=== PATIENT | male | born 1970 | race Caucasian/White ===

== ENCOUNTER 2019-04-03 21:39 | Inpatient (IN) | payer BC, SELFPAY ==
[2019-04-03] VITALS (12 sets, daily range): BP systolic 176–270; BP diastolic 102–163; PULSE 113–127; RESP 14–20; TEMP 36.7–36.8; O2SAT 93–98; BMI 39.4
--- NOTE | 2019-04-03 21:57 | CT_ITS ---
STUDY: CT BRAIN WITHOUT CONTRAST REASON FOR EXAM: Male, 48 years old. Visual changes. RADIATION DOSAGE (If Supplied By Facility): CTDIvol = ( 44.99 ) mGy, DLP = ( 796.11 ) mGycm TECHNIQUE: Transaxial CT imaging of the brain was performed without administration of intravenous contrast material. Individualized dose optimization techniques were used for this CT. COMPARISON: No relevant priors. FINDINGS: Normal soft tissue structures. Normal calvarium. Normal size ventricles and extra-axial spaces for the patient's age. Normal white matter tracts of the cerebral hemispheres. There is a small to moderate size lacunar infarct of the left caudate nucleus. Normal brainstem. Normal cerebellum. There is no intracranial hemorrhage. There are no findings of an acute ischemic infarction. Normal visualized paranasal sinuses. CT/Brain/Head without Contrast IMPRESSION: No acute abnormality, but there is lacunar infarct of the left caudate nucleus. Electronically Signed: Andrae Ambrocio MD at 22:47 EDT , Service support ,
--- NOTE | 2019-04-03 21:57 | EKG12_ITS ---
Test Reason : CP Blood Pressure : / mmHG Vent. Rate : 124 BPM Atrial Rate : 124 BPM P-R Int : 140 ms QRS Dur : 100 ms QT Int : 322 ms P-R-T Axes : 058 -46 137 degrees QTc Int : 462 ms Sinus tachycardia Left axis deviation Left ventricular hypertrophy ST/T Wave Abnormality: Consider: Medication Effect, Metabolic Effect, Myocardial Ischemia Abnormal ECG No previous ECGs available Confirmed by TARIQ CHAVEZ, PRESTON ([id number]), online content editor DENA DURÁN ([id number]) on 04/16/2019 1:07:19 PM Referred By: Delmy Molina Confirmed By:PRESTON POTTER MD
--- NOTE | 2019-04-03 21:58 | RAD_ITS ---
STUDY: X-RAY CHEST REASON FOR EXAM: Male, 48 years old. Vision problems. TECHNIQUE: Single AP portable view of the chest. COMPARISON: None. FINDINGS: The lungs are clear and expanded. There is no demonstrated pleural abnormality. Normal size heart. Normal mediastinum and ratna. Normal visualized pulmonary arteries. Normal visualized aortic arch and descending thoracic aorta. Normal visualized thoracic spine. Normal visualized ribs, clavicles, and shoulders. There is no demonstrated abnormality of the visualized soft tissue structures of the upper abdomen. RAD/Chest 1 View IMPRESSION: Normal x-ray examination of the chest. Electronically Signed: Andrae Ambrocio MD at 22:18 EDT , Service support ,
--- NOTE | 2019-04-03 22:01 | ED.RN ---
NO OLD EKGS IN MUSE
--- NOTE | 2019-04-03 22:11 | ED.RN ---
PER DR. FERREIRA VERBAL ORDER PT IS NOT A STROKE TEAM. PT WITH HTN. WILL CONTINUE TO MONITOR.
[2019-04-03 22:15] LABS: Absolute Lymphocyte Count 2.91 X10^3/uL (0.83-4.51); Absolute Neutrophil Count 5.2 X10^3/uL (2.0-7.7); Basophil# 0.05 X10^3/uL; Basophil% 0.5 % (0-1); Eosinophil# 0.25 X10^3/uL; Eosinophils% 2.6 % (0-5); Hematocrit 44.2 % (40-54); Hemoglobin 15.2 g/dL (13.0-16.5); Lymphocyte # 2.91 X10^3/ul (4.0); Lymphocyte % 30.8 % (19-41); Mean Corp Hgb Conc 34.4 g/dL (32-36); Mean Corpuscular Hgb 30.1 pg (27.0-32.0); Mean Corpuscular Volume 87.5 fL (80-94); Mean Platelet Vol. 10.8 fl (6.2-12.0); Monocyte# 0.96 X10^3/uL; Monocyte% 10.2 % (0-10); NRBC Flagged by Analyzer 0 % (0-5); Neutrophil # 5.24 X10^3/uL (2.7-7.7); Neutrophil % 55.6 % (47-70); Platelet Count 285 K/mm3 (150-450); RBC Distribution Width CV 12.9 % (11.6-14.6); RBC Distribution Width SD 41.1 fl (35.1-43.9); Red Blood Count 5.05 M/mm3 (4.6-6.2); White Blood Count 9.4 K/mm3 (4.4-11.0)
[2019-04-03 22:26] LABS: Bedside Glucose 143 mg/dL (70-110)
[2019-04-03 22:28] LABS: International Normalized Ratio 0.9; Prothrombin Time (Protime)PT. 12.3 SECONDS (11.7-14.9)
[2019-04-03 22:29] LABS: Partial Thromboplast Time 28.2 Seconds (24.1-36.2)
[2019-04-03 22:37] LABS: Anion Gap 7 (5-15); BUN 16 mg/dL (7-18); BUN/Creat Ratio 14.3 RATIO (10-20); Calcium,Total 9.8 mg/dL (8.5-10.1); Chloride 103 mmol/L (98-107); Creatinine, Serum 1.12 mg/dL (0.70-1.30); EST Glomerular Filtration Rate 75 mL/min (>60); Est Glom Filt Rate - Afr Amer 90 mL/min (>60); Estimated Creatinine Clearance 74.37 ml/min; Glucose 168 mg/dL (74-106); Potassium 3.2 mmol/L (3.5-5.1); Sodium Level 138 mmol/L (136-145)
--- NOTE | 2019-04-03 22:47 | ED.RN ---
PT BP IMPROVING 210/119. DR. FERREIRA AWARE. WILL CONTINUE TO MONITOR. PT RESTING COMFORTABLE. RESPIRES EVEN AND UNLABORED. WILL CONTINUE TO MONITOR.
--- NOTE | 2019-04-03 22:55 | ED.VIS.EYE ---
History of Present Illness Chief Complaint: Neuro S/Sx Narrative: Patient presenting for evaluation secondary to a visual loss. Patient was at a concert, and he stated that he had significant flashing type vision from his right eye only. This was spontaneous and then spontaneously resolved. Patient states that following that he had a loss of vision in his right eye, and then it came back but it is basically fuzzy throughout all of the visual rasmussen. He denies that there is any sort of visual field cuts.No association with the left eye. No speech changes numbness or weakness. Past Medical History - Allergies and Home Meds Allergies/Adverse Reactions: Allergies Penicillins Allergy (Verified 04/03/19 21:42) Unknown Primary Care Physician: Blake Calixto DO [Primary Care Provider] - Past Medical History: - - Patient denies medical history Smoking Status: Current every day smoker Review of Systems Eyes: Reports: Blurred vision - right Physical Exam Eyelid: Normal inspection Right Conjunctiva/Sclera: Normal inspection Right Cornea: Normal inspection Extraocular Motion: Normal exam Pupils: PERRL Posterior Segment: Normal fundoscopic exam Vital Signs/Narrative: Vital Signs Temp Pulse Resp BP BP Pulse Ox 04/03/19 22:44 113 H 18 210/119 H 93 04/03/19 22:40 125 H 20 H 242/134 H 94 04/03/19 22:35 125 H 20 H 242/134 H 94 04/03/19 22:16 113 H 18 234/140 H 97 04/03/19 22:10 113 H 18 243/140 H 97 04/03/19 21:48 125 H 14 253/161 H 98 04/03/19 21:39 98.0 F 124 H 16 270/163 H 96 Inital Vital Signs reviewed: Yes General: Well nourished, Well developed Head: Normocephalic, Atraumatic. Negative for: Tenderness ENT: Moist mucous membranes, No rhinorrhea Neck: Supple, Nontender Cardiovascular: Regular rate, Regular rhythm, No murmurs Respiratory: No distress, CTA bilaterally, Chest nontender Abdomen: Soft, Nontender, Nondistended, Normal bowel sounds Back: Nontender, Normal Inspection Extremities: Nontender, No edema Skin: Normal color, No rash Neurological: Alert, Oriented x3, Cranial nerves II-XII grossly intact, Normal Strength, Normal Sensation, - - NIH stroke scale is 1 secondary to right-sided visual changes Psychological: Normal affect Diagnostic/Tx/Re-eval - Medical Decision Making Patient presented secondary to visual changes. Patient's vision changes are not really a hemianopsia, or quadrantanopia, and his NIH stroke scale is 1 so stroke team was not activated. EKG demonstrates a sinus tachycardia with left axis deviation rate of 109 LVH and some nonspecific ST changes no evidence of acute ischemia or arrhythmia. CBC chemistry and troponin were unremarkable. Chest x-ray unremarkable. CT brain shows no evidence of bleeding and shows a distant caudate nucleus stroke. This would not correlate with the patient's current symptoms. Patient was immediately placed on a Cardene drip due to his profound hypertension and his blood pressure was titrated to within 15% reduction of his presenting blood pressure. Repeat blood pressure upon initiation of the patient's drip was found to be 210 systolic and he did continue to have some improvement of his visual symptoms. Patient's for endoscopy does not seem consistent with a retinal vein occlusion or retinal artery occlusion. I performed a bedside ultrasound which shows no evidence of retinal detachment. Patient likely has an element of hypertensive emergency at this point. Patient will be admitted to intensive care for further work-up and treatment. I discussed this with the hospitalist. Disposition: Admit to ICU Critical care time (excluding procedures): 30-74 minutes ED Disposition - Plan for ED Patient: Disposition: Acute Care Hospital [facility] Diagnosis: Hypertensive emergency, Blurred vision, right eye
--- NOTE | 2019-04-03 22:59 | HP.PCM_ITS ---
History of Present Illness Date of Admission: 04/03/19 Chief Complaint: blurred vision in right eye The patient is a 48 year old M with no significant past medical history. He was admitted through the ED on 04/03/2019 with a complaint of blurred vision in his right eye. Patient states she was at a concert and suddenly had blurring of the vision in his right eye. Lasted for few minutes and got better. However about an hour later the blurring of the vision recurred and so he decided to come into the ED. He had never had symptoms like these before and denied having any floaters or feeling like a curtain was coming down front of his eyes. He denied any headache, shortness of breath, palpitations, chest pain, diarrhea or vomiting. Patient states he was on antihypertensive medication but was taken off of them about a year ago by his primary care doctor as his blood pressure normalized. He last checked his blood pressure about a month ago and states was elevated but he does not remember how high it was. On reviewing the ED, blood pressure was 210/126 and his heart rate was 127. Respiratory rate was 15. Chemistry was significant for potassium of 3.2 and CBC was unremarkable. Initial troponin was negative. Brain CT showed no acute intracranial pathology and showed an old lacunar infarct. Chest x-ray showed no acute cardia pulmonary process. He was started on nicardipine drip in the ED and has been admitted to the ICU to be managed for hypertensive emergency. [] Past Medical History Allergies Penicillins Allergy (Verified 04/03/19 21:42) Unknown Surgical History: no surgical history Psychiatric History: No pertinent psych hx Lives: With Family Smoking Status: Current every day smoker Tobacco Use: Pipe Alcohol: Occasional Drugs: None - *Family History Maternal History Items: Heart Disease, Hypertension Review of Systems Constitutional: Denies: Chills, Fever, Malaise, Weight Change, Fatigue Eyes: Reports: Blurred vision, Vision Change. Denies: Double vision, Pain, Redness HEENT: Denies: Head Aches, Sinus Congestion, Sinus Drainage Cardiovascular: Denies: Chest Pain, Palpitations Respiratory: Denies: Cough, Shortness of Breath, Shortness of breath at rest, Sputum production Gastrointestinal: Denies: Abdominal Pain, Nausea, Vomiting Genitourinary: Denies: Dysuria Musculoskeletal: Denies: Joint Pain, Joint Tenderness Skin: Denies: Rash, Wounds Neurological: Reports: Blurred vision. Denies: Double vision, Change in Speech, Slurred speech, Confusion, Focal weakness, Headaches, Incoordination, Numbness, Tingling, Tremor Psychiatric: Denies: Anxiety, Depression, Homicidal Ideations, Suicidal Ideations Hematologic/ Lymphatic: Denies: Easy Bruising, Easy Bleeding VTE Information - Inpt Only VTE Present on Admission: No VTE Pharm Prophylaxis ordered?: Yes Patient Problems: Active and Suspected Problems Hypertensive emergency (Acute) Blurred vision, right eye (Acute) - Physical Exam General: Alert, Oriented x3, Cooperative, No apparent distress HEENT: Atraumatic, PERRLA, EOMI, Normocephalic Oral: Dry Mucosa Neck: Supple, No JVD, Negative Carotid Bruits Lungs: Clear to auscultation, Normal air movement, No rhonchi, No wheeze, No rales Cardiovascular: Normal S1, Normal S2, No murmurs, Tachycardic Abdomen: Bowel Sounds Present, Soft, Non Tender, Non-Distended, No Hepato- splenomegaly Extremities: No clubbing, No cyanosis, No edema, Capillary Refill Less than 3 Seconds Skin: No rashes, No breakdown Musculoskeletal: No Tenderness to Palpation of Joints or Extremities Lymphatic: No Cervical, Supraclavicular, or Inguinal Adenopathy Neurological: Cranial nerves II-XII grossly intact, Neuro grossly intact, Motor Exam 5/5 strength throughout Psych/Mental Status: Normal Affect, Appropriate, Alert and oriented to time, place, person, mood and affect Vital Signs Temp Pulse Resp BP Pulse Ox 98.0 F 127 H 15 210/126 H 96 04/03/19 21:39 04/03/19 22:58 04/03/19 22:58 04/03/19 22:58 04/03/19 22:58 Oxygen Delivery Method Room Air Weight: 244 lb 4.355 oz Body Mass Index (BMI) 39.4 Finger Stick Blood Glucose 143 Laboratory Tests Past 24 Hrs 04/03/19 04/03/19 04/03/19 22:05 22:05 22:05 WBC 9.4 RBC 5.05 Hgb 15.2 Hct 44.2 MCV 87.5 MCH 30.1 MCHC 34.4 RDW Std Deviation 41.1 RDW Coeff of Tony 12.9 Plt Count 285 MPV 10.8 Immature Gran % (Auto) 0.300 Neut % (Auto) 55.6 Lymph % (Auto) 30.8 [place] % (Auto) 10.2 H Eos % (Auto) 2.6 Baso % (Auto) 0.5 Absolute Neuts (auto) 5.2 Absolute Lymphs (auto) 2.91 Nucleated RBC % 0 PT 12.3 INR 0.9 APTT 28.2 Sodium 138 Potassium 3.2 L Chloride 103 Carbon Dioxide 28.0 Anion Gap 7 BUN 16 Creatinine 1.12 Estim Creat Clear Calc 74.37 Est GFR (MDRD) Af Amer 90 Est GFR (MDRD) Non-Af 75 BUN/Creatinine Ratio 14.3 Glucose 168 H Calcium 9.8 Troponin I < 0.015 POC Glucose 04/03/19 22:18 POC Glucose 143 H Diagnostic Data Brain CT 04/03/19 21:57 IMPRESSION: No acute abnormality, but there is lacunar infarct of the left caudate nucleus. Electronically Signed: Andrae Ambrocio MD at 22:47 EDT , Service support , Chest X-Ray 04/03/19 21:58 IMPRESSION: Normal x-ray examination of the chest. Electronically Signed: Andrae Ambrocio MD at 22:18 EDT , Service support , Assessment/Plan All Active Problems Hypertensive emergency (Acute) Blurred vision, right eye (Acute) 48 y/o male admitted with a complaint of blurred vision of his right eye 1. Hypertensive emergency * admit to ICU * BP on admission was 270/163 in ED, and had come down to 210/126 at time of review * used to be on BP meds ~ 1 year ago, but was taken off the meds by his PCP, according to patient * blurred vision had improved by time of review in ED * on nicardipine drip; titrate to reduce BP slowly; target is to reduce by ~ 25% of systolic BP in first hour, and to continue dropping BP slowly * in light of patient's persistent tachycardia, which nicardipine can worsen, will switch to labetalol drip for goal BP of >/=160/100mmHg * get 2D echo * BP in right arm is 194/113 and in left arm is 176/102; however, he has no chest pain whatsoever, leading to aortic dissection being very low on list of differentials * once BP stabilises, will transition to oral meds. * check Urine tox; patient is adamant he has never taken cocaine or any other recreational drug * consult corduroy cutter operator * 2. Hypokalemia: K is 3.2. will replace and monitor DVT prophylaxis: lovenox Code Visit Inpatient E&M: 88398 Init Hosp L3
--- NOTE | 2019-04-03 23:39 | ED.RN ---
PER DR VALENTIN RN TO CHECK BP ON BILATERAL ARMS. RT ARM WAS 194/113 LEFT ARM 176/102. DR VALENTIN INFORMED. RM TO MONITOR PT.
[2019-04-04] VITALS (35 sets, daily range): BP systolic 132–188; BP diastolic 81–112; PULSE 71–132; RESP 13–92; TEMP 36.4–36.8; O2SAT 18–98; BMI 39.0
[2019-04-04 00:35] LABS: Cholesterol 273 mg/dL (200); High Density Lipoprotein 40 mg/dL; Triglycerides 231 mg/dL; Very Low Density Lipoprotein 46 mg/dL (5-40)
--- NOTE | 2019-04-04 01:18 | EKG12_ITS ---
Test Reason : Blood Pressure : / mmHG Vent. Rate : 109 BPM Atrial Rate : 109 BPM P-R Int : 146 ms QRS Dur : 100 ms QT Int : 362 ms P-R-T Axes : 049 -36 079 degrees QTc Int : 487 ms Sinus tachycardia Left axis deviation Voltage criteria for left ventricular hypertrophy Nonspecific ST and T wave abnormality Abnormal ECG Confirmed by ALONZO CHAVEZ, JEAN ([id number]), managing editor SYLVIA KRAMER ([id number]) on 04/07/2019 1:18:32 PM Referred By: Delmy Molina Confirmed By:CHRISTOPH ROSADO MD
[2019-04-04] MEDS: 0.9% NaCl Peripheral Flush Adult/Peds IV ×3 (01:29→08:00)
[2019-04-04 02:04] LABS: Mucous, Urine 0 SEEN /hpf (<or=2+); Red Blood Cells-Urine 0 SEEN /hpf (0-5)
[2019-04-04 02:07] LABS: Color, Urine Yellow (Yellow); Glucose, Dipstick 100 mg/dl (Normal); Ketone-Dipstick 5 mg/dl (Negative); Leukocyte Esterase-Dipstick Negative /ul (Negative); Nitrite-Dipstick Negative (Negative); Occult Blood-Urine Negative /ul (Negative); Protein-Dipstick 15 mg/dl (Negative); Urine Bilirubin Dipstick Negative (Negative); Urine Clarity Clear (Clear); Urine Urobilinogen Normal (Normal)
[2019-04-04 02:14] LABS: Bacteria RARE /hpf (None Seen); Squamous Epithelial Cells - UA 0-5 SEEN /hpf (0-5); White Blood Cells 0-5 SEEN /hpf (0-5)
[2019-04-04 02:19] LABS: Amphetamine Urine VISTA NEGATIVE (<1000 ng/mL); Barbiturate Urine VISTA NEGATIVE (< 200 ng/mL); Benzodiazepine Urine VISTA NEGATIVE (< 200 ng/mL); Cocaine Urine VISTA NEGATIVE (< 300 ng/mL); Ecstacy Urine VISTA NEGATIVE (< 500 ng/mL); Methadone Urine VISTA NEGATIVE (< 300 ng/mL); PCP Urine VISTA NEGATIVE (< 25 ng/mL); THC Urine VISTA NEGATIVE (< 50 ng/mL); Vista UDS pH Range 6
[2019-04-04 04:41] LABS: Anion Gap 8 (5-15); BUN 13 mg/dL (7-18); BUN/Creat Ratio 10.6 RATIO (10-20); Calcium,Total 8.5 mg/dL (8.5-10.1); Chloride 105 mmol/L (98-107); Creatinine, Serum 1.23 mg/dL (0.70-1.30); EST Glomerular Filtration Rate 67 mL/min (>60); Est Glom Filt Rate - Afr Amer 81 mL/min (>60); Estimated Creatinine Clearance 67.72 ml/min; Glucose 193 mg/dL (74-106); Potassium 3.6 mmol/L (3.5-5.1); Sodium Level 141 mmol/L (136-145)
[2019-04-04 04:50] LABS: Absolute Lymphocyte Count 1.34 X10^3/uL (0.83-4.51); Absolute Neutrophil Count 7.1 X10^3/uL (2.0-7.7); Basophil# 0.03 X10^3/uL; Basophil% 0.3 % (0-1); Eosinophil# 0.07 X10^3/uL; Eosinophils% 0.8 % (0-5); Hematocrit 40.6 % (40-54); Hemoglobin 13.7 g/dL (13.0-16.5); Lymphocyte # 1.34 X10^3/ul (4.0); Lymphocyte % 14.4 % (19-41); Mean Corp Hgb Conc 33.7 g/dL (32-36); Mean Corpuscular Hgb 29.7 pg (27.0-32.0); Mean Corpuscular Volume 88.1 fL (80-94); Monocyte% 8.6 % (0-10); NRBC Flagged by Analyzer 0 % (0-5); Neutrophil # 7.05 X10^3/uL (2.7-7.7); Neutrophil % 75.5 % (47-70); Platelet Count 251 K/mm3 (150-450); RBC Distribution Width CV 12.8 % (11.6-14.6); RBC Distribution Width SD 41.1 fl (35.1-43.9); Red Blood Count 4.61 M/mm3 (4.6-6.2); White Blood Count 9.3 K/mm3 (4.4-11.0)
[2019-04-04] MEDS: Metoprolol Tartrate 25 MG Tablet PO ×3 (05:53→21:37)
--- NOTE | 2019-04-04 05:55 | ECHOD_ITS ---
Reason For Study: HTN Procedure This was a 2D Doppler, Color Flow transthoracic echocardiogram. Exam performed portable in ICU/CCU. Left Ventricle Normal LV size. Concentric left ventricular hypertrophy. The estimated ejection fraction is 55 %. No evidence for diastolic dysfunction. No regional wall motion abnormalities noted. Right Ventricle Normal RV size. Normal systolic function. Atria Normal left atrium. Normal right atrium. No doppler evidence for ASD. Mitral Valve There is no mitral valve stenosis. Trivial mitral valve insufficiency. Tricuspid Valve There is no tricuspid stenosis. Unable to estimate RV systolic pressure due to inadequate jet, pulmonary artery pressure probably normal. Aortic Valve Trisinus/trileaflet aortic valve. There is no aortic stenosis. No aortic valve insufficiency. Pulmonic Valve There is no pulmonic valvular stenosis. No pulmonic valve insufficiency. Great Vessels Normal aortic root. Pericardium/Pleural No pericardial effusion. MMode/2D Measurements & Calculations LVIDd: 4.7 cm IVSd: 1.6 cm LA dimension: 3.9 cm LVIDs: 3.7 cm LVPWd: 1.7 cm FS: 22.7 % LAV(MOD-bp): 54.5 ml LA A4 area: 17.9 cm2 RA A4 area: 12.1 cm2 LAV(MOD-bp) Indexed: 25.0 ml/m2 LAV(MOD-sp2): 61.0 ml LAV(MOD-sp4): 50.3 ml Time Measurements MV dec time: 0.19 sec Doppler Measurements & Calculations MV E max keyshawn: 87.7 cm/sec Lat Peak E' Keyshawn: 6.8 cm/sec Med Peak E' Keyshawn: 6.7 cm/sec MV A max keyshawn: 98.2 cm/sec E/E' lat: 12.8 E/E' med: 13.1 MV E/A: 0.89 MV V2 max: 89.3 cm/sec MV P1/2t max keyshawn: 67.3 cm/sec Ao V2 max: 141.2 cm/sec MV max P.2 mmHg MV P1/2t: 73.2 msec Ao max P.0 mmHg MV V2 mean: 50.0 cm/sec MV dec slope: 269.2 cm/sec2 Ao V2 mean: 97.0 cm/sec MV mean P.2 mmHg MVA(P1/2t): 3.0 cm2 Ao mean P.3 mmHg MV V2 VTI: 21.0 cm Ao V2 VTI: 25.2 cm LV V1 max: 98.2 cm/sec PA V2 max: 95.3 cm/sec LV V1 max P.9 mmHg LV V1 mean P.9 mmHg LV V1 mean: 62.9 cm/sec LV V1 VTI: 19.7 cm Interpretation Summary The estimated ejection fraction is 55 %. No evidence for diastolic dysfunction. Ordering Physician: Delmy Molina Referring Physician: Blake Gilbert Performed By: Jadiel Aguirre RCS
--- NOTE | 2019-04-04 06:30 | CON.PCM_ITS ---
Capacity - Capacity Assessment Tool Can the patient make a choice & communicate that choice?: Yes Can the patient understand benefits, risks and alternatives?: Yes Can the patient make a logical, rational choice?: Yes Reason for Consult Date of Consultation: 04/04/19 Reason for Consultation: Hypertensive emergency History of Present Illness: The patient is a 48-year-old male, with a history as outlined below, who presented to the emergency department on April 03 with acute onset visual disturbances in his right eye. The patient was a attending a concert when the symptoms initially began. Initially, the blurriness in the patient's right eye was transient and resolved on its own. However, it later recurred and this prompted the patient to seek medical care. The patient is currently followed by a primary care provider, Dr. Calixto, in [place]. The patient states that he was last seen by his primary care provider approximately 1 year ago. He does report that he was previously on treatment for hypertension, but that he discontinued the medications quite some time ago on his own. At his follow-up office visit 1 year ago with his primary care provider, in the setting of weight loss, he was apparently told by that provider that he did not need to be on antihypertensives at that time. The patient denies a history of any vision or eye related issues. He does currently utilize tobacco products in the form of a pipe, typically 1 time per day. He denies any illicit drug use. He consumes alcohol on a social basis. While he does report interval improvement in his right-sided vision, he does report some residual blurriness. On presentation to the emergency department, the patient was noted to be afebrile, tachycardic with heart rates in the 120s and profoundly hypertensive with a presenting documented blood pressure of 270/163 mmHg. He was, nevertheless, maintaining appropriate oxygen saturations on room air. Laboratory evaluation revealed no evidence of a leukocytosis. Coagulation profile was within normal limits. Chemistry profile was notable only for a potassium of 3.2. Initial troponin was negative. Toxicology screen was negative. Head CT was obtained and revealed a small to moderate sized lacunar infarct of the left caudate nucleus. Plain film chest x-ray revealed no acute cardiopulmonary process. The patient was subsequently placed on a continuous Cardene infusion and admitted to the medical intensive care unit for management of hypertensive emergency. Overnight, the patient was eventually transition from a Cardene infusion to a labetalol infusion due to persistently elevated heart rates. The patient's blood pressure control has improved as has his tachycardia. The patient was also started on p.o. metoprolol 25 mg, for which he received his first dose this morning at 0600 hrs. Past Medical History Allergies Penicillins Allergy (Verified 04/03/19 21:42) Unknown Surgical History: no surgical history Psychiatric History: No pertinent psych hx Lives: With Family Smoking Status: Current every day smoker Tobacco Use: Pipe Alcohol: Occasional Drugs: None - *Family History Maternal History Items: Heart Disease, Hypertension Review of Systems Constitutional: Denies: Chills, Fever Eyes: Reports: Blurred vision, Vision Change HEENT: Denies: Head Aches, Sinus Congestion, Sinus Drainage Cardiovascular: Denies: Chest Pain, Palpitations Respiratory: Denies: Cough, Shortness of breath at rest, Sputum production Gastrointestinal: Denies: Abdominal Pain, Nausea, Vomiting Genitourinary: Denies: Dysuria Musculoskeletal: Denies: Joint Pain, Joint Tenderness Skin: Denies: Rash, Wounds Neurological: Reports: Blurred vision Psychiatric: Denies: Anxiety, Depression, Homicidal Ideations, Suicidal Ideations Hematologic/ Lymphatic: Denies: Easy Bruising, Easy Bleeding Patient Problems: Active and Suspected Problems Hypertensive emergency (Acute) Blurred vision, right eye (Acute) Objective: The patient's most recent lab work, culture data and imaging studies have all been personally reviewed. - Physical Exam General: Alert, Oriented x3, Cooperative, No apparent distress HEENT: Atraumatic, PERRLA, Normocephalic Oral: No Gingival or Mucosal Lesions/ Ulcerations Neck: Supple, No Nodes, Trachea Midline Lungs: Normal air movement, No rhonchi, No wheeze, No rales Cardiovascular: Regular rate, Regular Rhythm, Normal S1, Normal S2, No murmurs Abdomen: Bowel Sounds Present, Soft, Non Tender, Obese Extremities: No clubbing, No cyanosis, No edema Skin: No breakdown Musculoskeletal: No Tenderness to Palpation of Joints or Extremities, No Muscle Wasting Lymphatic: No Cervical, Supraclavicular, or Inguinal Adenopathy Neurological: Cranial nerves II-XII grossly intact, Neuro grossly intact Psych/Mental Status: Alert and oriented to time, place, person, mood and affect Vital Signs Temp Pulse Resp BP Pulse Ox 97.6 F L 82 15 144/82 H 98 08/16/19 04:00 04/04/19 06:00 04/04/19 06:00 04/04/19 06:00 04/04/19 06:00 Oxygen Delivery Method Room Air Weight: 242 lb 11.663 oz Body Mass Index (BMI) 39.0 Finger Stick Blood Glucose 143 Intake and Output for Last 24 Hours 04/02/19 04/03/19 04/04/19 23:59 23:59 23:59 Intake Total 1141 / 1141 Output Total 550 / 550 Balance 591 / 591 Laboratory Tests Past 24 Hrs 04/03/19 04/03/19 04/03/19 22:05 22:05 22:05 WBC 9.4 RBC 5.05 Hgb 15.2 Hct 44.2 MCV 87.5 MCH 30.1 MCHC 34.4 RDW Std Deviation 41.1 RDW Coeff of Tony 12.9 Plt Count 285 MPV 10.8 Immature Gran % (Auto) 0.300 Neut % (Auto) 55.6 Lymph % (Auto) 30.8 [place] % (Auto) 10.2 H Eos % (Auto) 2.6 Baso % (Auto) 0.5 Absolute Neuts (auto) 5.2 Absolute Lymphs (auto) 2.91 Nucleated RBC % 0 PT 12.3 INR 0.9 APTT 28.2 Sodium 138 Potassium 3.2 L Chloride 103 Carbon Dioxide 28.0 Anion Gap 7 BUN 16 Creatinine 1.12 Estim Creat Clear Calc 74.37 Est GFR (MDRD) Af Amer 90 Est GFR (MDRD) Non-Af 75 BUN/Creatinine Ratio 14.3 Glucose 168 H Calcium 9.8 Troponin I < 0.015 Triglycerides Cholesterol LDL Cholesterol VLDL Cholesterol HDL Cholesterol Urine Color Urine Clarity Urine pH Ur Specific [place] Urine Protein Urine Glucose (UA) Urine Ketones Urine Occult Blood Urine Nitrite Urine Bilirubin Urine Urobilinogen Ur Leukocyte Esterase Urine RBC Urine WBC Ur Squamous Epith Cells Urine Bacteria Urine Mucus Urine Opiates Screen Urine Methadone Screen Ur Barbiturates Screen Ur Phencyclidine Scrn Ur Amphetamines Screen U Methamphetamin-MDMA U Benzodiazepines Scrn Urine Cocaine Screen U Cannabinoids Screen Ur Drug Screen Comment 04/03/19 04/04/19 04/04/19 22:05 01:25 01:55 WBC RBC Hgb Hct MCV MCH MCHC RDW Std Deviation RDW Coeff of Tony Plt Count MPV Immature Gran % (Auto) Neut % (Auto) Lymph % (Auto) [place] % (Auto) Eos % (Auto) Baso % (Auto) Absolute Neuts (auto) Absolute Lymphs (auto) Nucleated RBC % PT INR APTT Sodium Potassium Chloride Carbon Dioxide Anion Gap BUN Creatinine Estim Creat Clear Calc Est GFR (MDRD) Af Amer Est GFR (MDRD) Non-Af BUN/Creatinine Ratio Glucose Calcium Troponin I 0.030 Triglycerides 231 H Cholesterol 273 H LDL Cholesterol 187 H VLDL Cholesterol 46 H HDL Cholesterol 40 Urine Color Urine Clarity Urine pH Ur Specific [place] Urine Protein Urine Glucose (UA) Urine Ketones Urine Occult Blood Urine Nitrite Urine Bilirubin Urine Urobilinogen Ur Leukocyte Esterase Urine RBC Urine WBC Ur Squamous Epith Cells Urine Bacteria Urine Mucus Urine Opiates Screen NEGATIVE Urine Methadone Screen NEGATIVE Ur Barbiturates Screen NEGATIVE Ur Phencyclidine Scrn NEGATIVE Ur Amphetamines Screen NEGATIVE U Methamphetamin-MDMA NEGATIVE U Benzodiazepines Scrn NEGATIVE Urine Cocaine Screen NEGATIVE U Cannabinoids Screen NEGATIVE Ur Drug Screen Comment 04/04/19 04/04/19 04/04/19 01:55 04:10 04:10 WBC 9.3 RBC 4.61 Hgb 13.7 Hct 40.6 MCV 88.1 MCH 29.7 MCHC 33.7 RDW Std Deviation 41.1 RDW Coeff of Tony 12.8 Plt Count 251 MPV 11.0 Immature Gran % (Auto) 0.400 Neut % (Auto) 75.5 H Lymph % (Auto) 14.4 L [place] % (Auto) 8.6 Eos % (Auto) 0.8 Baso % (Auto) 0.3 Absolute Neuts (auto) 7.1 Absolute Lymphs (auto) 1.34 Nucleated RBC % 0 PT INR APTT Sodium 141 Potassium 3.6 Chloride 105 Carbon Dioxide 28.0 Anion Gap 8 BUN 13 Creatinine 1.23 Estim Creat Clear Calc 67.72 Est GFR (MDRD) Af Amer 81 Est GFR (MDRD) Non-Af 67 BUN/Creatinine Ratio 10.6 Glucose 193 H Calcium 8.5 Troponin I Triglycerides Cholesterol LDL Cholesterol VLDL Cholesterol HDL Cholesterol Urine Color Yellow Urine Clarity Clear Urine pH 6.0 Ur Specific [place] 1.020 Urine Protein 15 H Urine Glucose (UA) 100 H Urine Ketones 5 H Urine Occult Blood Negative Urine Nitrite Negative Urine Bilirubin Negative Urine Urobilinogen Normal Ur Leukocyte Esterase Negative Urine RBC 0 SEEN Urine WBC 0-5 SEEN Ur Squamous Epith Cells 0-5 SEEN Urine Bacteria RARE Urine Mucus 0 SEEN Urine Opiates Screen Urine Methadone Screen Ur Barbiturates Screen Ur Phencyclidine Scrn Ur Amphetamines Screen U Methamphetamin-MDMA U Benzodiazepines Scrn Urine Cocaine Screen U Cannabinoids Screen Ur Drug Screen Comment 04/04/19 04:10 WBC RBC Hgb Hct MCV MCH MCHC RDW Std Deviation RDW Coeff of Tony Plt Count MPV Immature Gran % (Auto) Neut % (Auto) Lymph % (Auto) [place] % (Auto) Eos % (Auto) Baso % (Auto) Absolute Neuts (auto) Absolute Lymphs (auto) Nucleated RBC % PT INR APTT Sodium Potassium Chloride Carbon Dioxide Anion Gap BUN Creatinine Estim Creat Clear Calc Est GFR (MDRD) Af Amer Est GFR (MDRD) Non-Af BUN/Creatinine Ratio Glucose Calcium Troponin I 0.120 H Triglycerides Cholesterol LDL Cholesterol VLDL Cholesterol HDL Cholesterol Urine Color Urine Clarity Urine pH Ur Specific [place] Urine Protein Urine Glucose (UA) Urine Ketones Urine Occult Blood Urine Nitrite Urine Bilirubin Urine Urobilinogen Ur Leukocyte Esterase Urine RBC Urine WBC Ur Squamous Epith Cells Urine Bacteria Urine Mucus Urine Opiates Screen Urine Methadone Screen Ur Barbiturates Screen Ur Phencyclidine Scrn Ur Amphetamines Screen U Methamphetamin-MDMA U Benzodiazepines Scrn Urine Cocaine Screen U Cannabinoids Screen Ur Drug Screen Comment POC Glucose 04/03/19 22:18 POC Glucose 143 H Clinical Impression(s) from Imaging Studies Brain CT 04/03/19 21:57 IMPRESSION: No acute abnormality, but there is lacunar infarct of the left caudate nucleus. Electronically Signed: Andrae Abmrocio MD at 22:47 EDT , Service support , Chest X-Ray 04/03/19 21:58 IMPRESSION: Normal x-ray examination of the chest. Electronically Signed: Andrae Ambrocio MD at 22:18 EDT , Service support , Assessment/Plan Active and Suspected Problems Hypertensive emergency (Acute) Blurred vision, right eye (Acute) RECOMMENDATIONS: 1. Continue labetalol drip and wean as tolerated. 2. The patient artery received p.o. metoprolol. Recommend starting lisinopril as well. 3. Complete tobacco cessation is advisable. 4. Continue appropriate DVT prophylaxis. IMPRESSIONS: 1. Hypertensive emergency Blood pressures have improved this morning on a continuous labetalol infusion. Given the significantly elevated pressures noted on presentation, it is highly likely that the patient will require a multidrug p.o. combination to control his hypertension. He has already been started on metoprolol this morning. Would recommend considering the initiation of an EDUARD inhibitor at this time. 2. Hypokalemia Electrolyte repletion as ordered. Recheck levels in the morning. 3. Obesity/tobacco dependency Complicates care, management, recovery and prognosis. Continued attempts at weight loss along with tobacco cessation is strongly recommended. This note was generated with [employer] software. It may contain incorrect words, spelling, and punctuation that were not noted in checking the note before signing.
[2019-04-04] MEDS: Lisinopril 10 MG Tablet PO (08:00)
--- NOTE | 2019-04-04 09:36 | PCM.PN.HOSP ---
Patient Problems: Active and Suspected Problems Hypertensive emergency (Acute) Blurred vision, right eye (Acute) Subjective: Feels much better than he did when he came in, still has a little blurry vision though this is improving as well. Vitals/I&O's: Vital Signs Temp Pulse Resp BP Pulse Ox 98.3 F 86 15 132/87 H 97 04/04/19 08:00 04/04/19 08:00 04/04/19 08:00 04/04/19 08:00 04/04/19 08:00 Oxygen Delivery Method Room Air Weight: 242 lb 11.663 oz Body Mass Index (BMI) 39.0 Finger Stick Blood Glucose 143 Intake and Output for Last 24 Hours 04/02/19 04/03/19 04/04/19 23:59 23:59 23:59 Intake Total 1141 / 1141 Output Total 550 / 550 Balance 591 / 591 General: Alert, Oriented x3, Cooperative, No apparent distress HEENT: Atraumatic, PERRLA, EOMI, Normocephalic Oral: Moist Mucosa Neck: Supple, No JVD Lungs: Clear to auscultation, Normal air movement, No rhonchi, No wheeze, No rales Cardiovascular: Regular rate, Regular Rhythm, Normal S1, Normal S2, No murmurs Abdomen: Soft, Non Tender, Non-Distended, No Hepato-splenomegaly Extremities: No edema, Capillary Refill Less than 3 Seconds Skin: No rashes, No breakdown Neurological: Neuro grossly intact, Sensory exam intact to light touch and pain Psych/Mental Status: Normal Affect, Appropriate Laboratory Results 04/03/19 22:05: WBC 9.4, RBC 5.05, Hgb 15.2, Hct 44.2, MCV 87.5, MCH 30.1, MCHC 34.4, RDW Std Deviation 41.1, RDW Coeff of Tony 12.9, Plt Count 285, MPV 10.8, Immature Gran % (Auto) 0.300, Neut % (Auto) 55.6, Lymph % (Auto) 30.8, [place] % (Auto) 10.2 H, Eos % (Auto) 2.6, Baso % (Auto) 0.5, Absolute Neuts (auto) 5.2, Absolute Lymphs (auto) 2.91, Nucleated RBC % 0 04/03/19 22:05: PT 12.3, INR 0.9, APTT 28.2 04/03/19 22:05: Sodium 138, Potassium 3.2 L, Chloride 103, Carbon Dioxide 28.0, Anion Gap 7, BUN 16, Creatinine 1.12, Estim Creat Clear Calc 74.37, Est GFR (MDRD) Af Amer 90, Est GFR (MDRD) Non-Af 75, BUN/Creatinine Ratio 14.3, Glucose 168 H, Calcium 9.8, Troponin I < 0.015 04/03/19 22:05: Triglycerides 231 H, Cholesterol 273 H, LDL Cholesterol 187 H, VLDL Cholesterol 46 H, HDL Cholesterol 40 04/03/19 22:18: POC Glucose 143 H 04/04/19 01:25: Troponin I 0.030 04/04/19 01:55: Urine Opiates Screen NEGATIVE, Urine Methadone Screen NEGATIVE, Ur Barbiturates Screen NEGATIVE, Ur Phencyclidine Scrn NEGATIVE, Ur Amphetamines Screen NEGATIVE, U Methamphetamin-MDMA NEGATIVE, U Benzodiazepines Scrn NEGATIVE, Urine Cocaine Screen NEGATIVE, U Cannabinoids Screen NEGATIVE, Ur Drug Screen Comment 04/04/19 01:55: Urine Color Yellow, Urine Clarity Clear, Urine pH 6.0, Ur Specific [place] 1.020, Urine Protein 15 H, Urine Glucose (UA) 100 H, Urine Ketones 5 H, Urine Occult Blood Negative, Urine Nitrite Negative, Urine Bilirubin Negative, Urine Urobilinogen Normal, Ur Leukocyte Esterase Negative, Urine RBC 0 SEEN, Urine WBC 0-5 SEEN, Ur Squamous Epith Cells 0-5 SEEN, Urine Bacteria RARE, Urine Mucus 0 SEEN 04/04/19 04:10: WBC 9.3, RBC 4.61, Hgb 13.7, Hct 40.6, MCV 88.1, MCH 29.7, MCHC 33.7, RDW Std Deviation 41.1, RDW Coeff of Tony 12.8, Plt Count 251, MPV 11.0, Immature Gran % (Auto) 0.400, Neut % (Auto) 75.5 H, Lymph % (Auto) 14.4 L, [place] % (Auto) 8.6, Eos % (Auto) 0.8, Baso % (Auto) 0.3, Absolute Neuts (auto) 7.1, Absolute Lymphs (auto) 1.34, Nucleated RBC % 0 04/04/19 04:10: Sodium 141, Potassium 3.6, Chloride 105, Carbon Dioxide 28.0, Anion Gap 8, BUN 13, Creatinine 1.23, Estim Creat Clear Calc 67.72, Est GFR (MDRD) Af Amer 81, Est GFR (MDRD) Non-Af 67, BUN/Creatinine Ratio 10.6, Glucose 193 H, Calcium 8.5 04/04/19 04:10: Troponin I 0.120 H Current Medications Dextrose (D50w Syringe) 0 gm IV X1 PRN; Protocol PRN Reason: Hypoglycemia Enoxaparin Sodium (Lovenox) 40 mg SC DAILY@1000 ZOLTAN Glucagon () 1 mg IM .X1 PRN PRN Reason: Hypoglycemia Labetalol HCl 200 mg/ Sodium (Chloride) 250 mls @ 37.5 mls/hr CONT INF .[id number] [facility] Last Admin: 04/04/19 07:43 Dose: 37.5 mls/hr Documented by: Lisinopril (Zestril) 10 mg PO DAILY [facility] Last Admin: 04/04/19 08:00 Dose: 10 mg Documented by: Metoprolol Tartrate (Lopressor (Beta Charmaine)) 25 mg PO BID [facility] Last Admin: 04/04/19 05:53 Dose: 25 mg Documented by: Sodium Chloride () 10 - 40 ml IV UD PRN PRN Reason: SALINE FLUSH Last Admin: 04/04/19 08:00 Dose: 10 ml Documented by: Medical Necessity - Tobacco Use Smoking Status: Current every day smoker Tobacco Use: Pipe Assessment/Plan All Active Problems Hypertensive emergency (Acute) Blurred vision, right eye (Acute) 1. Hypertensive emergency -On admission his blood pressure was 270/163 in the ER -He is now sitting in the 130s systolic after being started on labetalol drip as well as given lisinopril -He said he used to be on lisinopril however made him feel cold, I discussed this with him but he is okay with proceeding with the lisinopril if it is necessary. -Echo is pending -He does have hyperglycemia likely consistent with diabetes though no formal diagnosis -Troponin did increase to 0.120, and this was likely secondary to demand ischemia secondary to hypertension, consult to cardiology DVT: Lovenox Code Visit Inpatient E&M: 18800 Subs Hosp L2
--- NOTE | 2019-04-04 09:45 | CASEMGMT ---
RN CM Assessment Presentation: HTN crisis. Blurred vision. Intro role of CM and purpose of RN CM assessment. Demographics, PCP and Pharmacy verified. PCP: Dr. Enmanuel Lozano Specialists: none [facility]erred [facility] Insurance: Ceci Prescription Benefit: yes LNOK: [place], son Living Arrangements: Pt lives independently. No care needs identified. Transportation: drives DME: none HHC: none Patient DC goals: Home DC PLAN: Home
--- NOTE | 2019-04-04 11:50 | CON.PCM_ITS ---
<Ramesh Blair - Last Filed: 04/04/19 11:50> Problem List (1) Hypertensive emergency Status: Acute Reason for Consult Date of Consultation: 04/04/19 Reason for Consultation: Hypertension History of Present Illness: The patient is a 48 year old M with no significant past medical history. He has been treated for hypertension previously, but due to significant weight loss his medication was discontinued and followed by primary care physician. Patient noted yesterday vision change. He presented to the Emergency Department for further evaluation. His blood pressure was noted to be 270/163 mmHg. He underwent a head CT scan that showed no acute abnormality, but a small to moderate sized lacunar infarct of the left caudate nucleus. No intracranial hemorrhage or acute ischemic infarction was noted. His initial troponin was negative. His toxicology screen was negative. His chest x-ray was negative for acute cardiopulmonary process. He was placed on a Cardene/Nicardipine infusion and admitted for blood pressure control. He was later noted to be tachycardic and transition to labetalol infusion. Cardiology was consulted for further recommendation. Past Medical History Allergies/Adverse Reactions: Allergies Penicillins Allergy (Verified 04/03/19 21:42) Unknown Surgical History: no surgical history Psychiatric History: No pertinent psych hx - *Family History Maternal History Items: Heart Disease, Hypertension Lives: With Family Smoking Status: Current every day smoker Tobacco Use: Pipe Alcohol: Occasional Drugs: None Review of Systems - Review of Systems General: Denies: Fever, Fatigue, Malaise, Chills, Weakness HEENT: Reports: Vision Change - Improving Cardiovascular: Reports: Chest Discomfort with Exertion - 2 weeks ago. Denies: Chest Discomfort, Chest Discomfort at Rest, Chest Pressure, Chest Tightness, Chest Heaviness, Shortness of Breath, Shortness of Breath at Rest, Shortness of Breath with Exertion, Orthopnea, PND, Peripheral Edema, Palpitations, Lightheadedness, Dizziness, Near Syncope, Syncope Respiratory: Denies: Cough Neurological: Denies: Dizziness Subjectve: Patient was seen and evaluated. He states that his vision is improving. He denies any current episodes of chest pain or shortness of breath. Overall, he states feeling much improved since admission. Objective: Vital Signs Temp Pulse Resp BP Pulse Ox 98.3 F 84 18 161/94 H 96 04/04/19 08:00 04/04/19 10:18 04/04/19 10:00 04/04/19 10:18 04/04/19 10:00 Oxygen Delivery Method Room Air Weight: 242 lb 11.663 oz Body Mass Index (BMI) 39.0 Finger Stick Blood Glucose 143 Intake and Output for Last 24 Hours 04/02/19 04/03/19 04/04/19 23:59 23:59 23:59 Intake Total 1141 / 1141 Output Total 550 / 550 Balance 591 / 591 General: Healthy Appearing, Awake, Alert, Oriented x 3, Cooperative HEENT: Atraumatic Oral: Moist Mucosa Neck: No JVD Lungs: Clear to auscultation Cardiovascular: Regular Rhythm, Normal S1, Normal S2, No Murmurs, No Rubs, No Gallops Vascular: No Carotid Bruits Abdomen: Bowel Sounds Present, Soft Extremities: No Cyanosis, No Clubbing, No edema, Normal Capillary Refill Musculoskeletal: No Erythema Neurological: No Focal Motor or Sensory Deficit Psych/Mental Status: Appropriate 04/03/19 22:05: WBC 9.4, RBC 5.05, Hgb 15.2, Hct 44.2, MCV 87.5, MCH 30.1, MCHC 34.4, Plt Count 285, MPV 10.8, Immature Gran % (Auto) 0.300, Neut % (Auto) 55.6, Lymph % (Auto) 30.8, [place] % (Auto) 10.2 H, Eos % (Auto) 2.6, Baso % (Auto) 0.5, Absolute Neuts (auto) 5.2, Nucleated RBC % 0 04/03/19 22:05: PT 12.3, INR 0.9, APTT 28.2 04/03/19 22:05: Sodium 138, Potassium 3.2 L, Chloride 103, Carbon Dioxide 28.0, Anion Gap 7, BUN 16, Creatinine 1.12, Est GFR (MDRD) Af Amer 90, Est GFR (MDRD) Non-Af 75, BUN/Creatinine Ratio 14.3, Glucose 168 H, Calcium 9.8, Troponin I < 0.015 04/03/19 22:05: Triglycerides 231 H, Cholesterol 273 H, LDL Cholesterol 187 H, VLDL Cholesterol 46 H, HDL Cholesterol 40 04/04/19 01:25: Troponin I 0.030 04/04/19 01:55: Urine Color Yellow, Urine Clarity Clear, Urine pH 6.0, Ur Specific [place] 1.020, Urine Protein 15 H, Urine Glucose (UA) 100 H, Urine Ketones 5 H, Urine Occult Blood Negative, Urine Nitrite Negative, Urine Biliru bin Negative, Urine Urobilinogen Normal, Ur Leukocyte Esterase Negative, Urine RBC 0 SEEN, Urine WBC 0-5 SEEN 04/04/19 04:10: WBC 9.3, RBC 4.61, Hgb 13.7, Hct 40.6, MCV 88.1, MCH 29.7, MCHC 33.7, Plt Count 251, MPV 11.0, Immature Gran % (Auto) 0.400, Neut % (Auto) 75.5 H, Lymph % (Auto) 14.4 L, [place] % (Auto) 8.6, Eos % (Auto) 0.8, Baso % (Auto) 0.3, Absolute Neuts (auto) 7.1, Nucleated RBC % 0 04/04/19 04:10: Sodium 141, Potassium 3.6, Chloride 105, Carbon Dioxide 28.0, Anion Gap 8, BUN 13, Creatinine 1.23, Est GFR (MDRD) Af Amer 81, Est GFR (MDRD) Non-Af 67, BUN/Creatinine Ratio 10.6, Glucose 193 H, Calcium 8.5 04/04/19 04:10: Troponin I 0.120 H Rhythm: EKG: ECHO: Stress Test: Cardiac Cath: PCI: CT Surgery: Holter monitor: EPS: PPM: CXR: Chest CT Scan: Assessment/Plan 1. Hypertensive emergency Patient's blood pressure is much improved. His continuous infusion medications have been discontinued and he has been started on metoprolol tartrate 25 mg p.o. twice daily and lisinopril 10 mg p.o. daily. His blood pressure is improved, though still slightly elevated. Given his extreme elevation, it is recommended to not lower blood pressure too quickly. He may require continual medication titration over time. This may be most appropriate on an outpatient basis. He will proceed with echocardiogram to evaluate LV function and size. Based on such results further recommendation will be made. 2. Chest pain Patient does acknowledge episode of chest pain approximately 2 weeks during exertion. This resolved with rest and has not reoccurred. His cardiac enzyme trend has been <0.015, 0.030, and 0.120. His EKG has been negative for acute ST and T wave changes. His nonspecific ST changes are most likely due to LVH, which will be assessed during echocardiogram. His slightly increased cardiac enzymes is most likely due to elevated blood pressure. He was asked to consider outpatient stress test with either cardiology office or primary care physician to ensure no coronary artery disease etiology. He does have risk factors which include family history of hypertension, smoking history, and obesity. His case was discussed further with Dr. Hobbs. Thank you for allowing us to participate in the patients plan of care, if you have any questions please do not hesitate to call. This note was generated using a voice recognition system and there may be i ncorrect words, spelling or punctuation that were not noted when reviewing the office note prior to saving. <Momo Hobbs - Last Filed: 04/04/19 15:16> Reason for Consult History of Present Illness: The patient is a 48 year old M [] Objective: Vital Signs Temp Pulse Resp BP Pulse Ox 98.0 F 71 18 138/85 H 98 04/04/19 14:00 04/04/19 14:00 04/04/19 14:00 04/04/19 14:00 04/04/19 14:00 Oxygen Delivery Method Room Air Weight: 242 lb 11.663 oz Body Mass Index (BMI) 39.0 Finger Stick Blood Glucose 143 Intake and Output for Last 24 Hours 04/02/19 04/03/19 04/04/19 23:59 23:59 23:59 Intake Total 1671 / 1671 Output Total 550 / 550 Balance 1121 / 1121 04/03/19 22:05: WBC 9.4, RBC 5.05, Hgb 15.2, Hct 44.2, MCV 87.5, MCH 30.1, MCHC 34.4, Plt Count 285, MPV 10.8, Immature Gran % (Auto) 0.300, Neut % (Auto) 55.6, Lymph % (Auto) 30.8, [place] % (Auto) 10.2 H, Eos % (Auto) 2.6, Baso % (Auto) 0.5, Absolute Neuts (auto) 5.2, Nucleated RBC % 0 04/03/19 22:05: PT 12.3, INR 0.9, APTT 28.2 04/03/19 22:05: Sodium 138, Potassium 3.2 L, Chloride 103, Carbon Dioxide 28.0, Anion Gap 7, BUN 16, Creatinine 1.12, Est GFR (MDRD) Af Amer 90, Est GFR (MDRD) Non-Af 75, BUN/Creatinine Ratio 14.3, Glucose 168 H, Calcium 9.8, Troponin I < 0.015 04/03/19 22:05: Triglycerides 231 H, Cholesterol 273 H, LDL Cholesterol 187 H, VLDL Cholesterol 46 H, HDL Cholesterol 40 04/04/19 01:25: Troponin I 0.030 04/04/19 01:55: Urine Color Yellow, Urine Clarity Clear, Urine pH 6.0, Ur Specific [place] 1.020, Urine Protein 15 H, Urine Glucose (UA) 100 H, Urine Ketones 5 H, Urine Occult Blood Negative, Urine Nitrite Negative, Urine Bilirubin Negative, Urine Urobilinogen Normal, Ur Leukocyte Esterase Negative, Urine RBC 0 SEEN, Urine WBC 0-5 SEEN 04/04/19 04:10: WBC 9.3, RBC 4.61, Hgb 13.7, Hct 40.6, MCV 88.1, MCH 29.7, MCHC 33.7, Plt Count 251, MPV 11.0, Immature Gran % (Auto) 0.400, Neut % (Auto) 75.5 H, Lymph % (Auto) 14.4 L, [place] % (Auto) 8.6, Eos % (Auto) 0.8, Baso % (Auto) 0.3, Absolute Neuts (auto) 7.1, Nucleated RBC % 0 04/04/19 04:10: Sodium 141, Potassium 3.6, Chloride 105, Carbon Dioxide 28.0, Anion Gap 8, BUN 13, Creatinine 1.23, Est GFR (MDRD) Af Amer 81, Est GFR (MDRD) Non-Af 67, BUN/Creatinine Ratio 10.6, Glucose 193 H, Calcium 8.5 04/04/19 04:10: Troponin I 0.120 H Rhythm: EKG: ECHO: Stress Test: Cardiac Cath: PCI: CT Surgery: Holter monitor: EPS: PPM: CXR: Chest CT Scan: Assessment/Plan Patient seen, evaluated and discussed with Ramesh Blair APN. I agree with Ramesh Blair's note. Please see that note for full details. If his blood pressure is still elevated tomorrow we can increase the lisinopril to 20 mg daily starting from tomorrow. She could potentially be discharged home tomorrow and can follow-up with us as an outpatient. His chest pain has not recurred. If he has chest pain as an outpatient then he will need further testing in the form of either a stress test or coronary angiogram. His troponin leak is probably related to his hypertensive urgency.
--- NOTE | 2019-04-04 17:15 | NURSING ---
report called to LD TEACHERKALI Puente
--- NOTE | 2019-04-04 18:15 | NURSING ---
to PCU 120 per WC, HIMS MANAGER in attendance
[2019-04-05] VITALS (14 sets, daily range): BP systolic 178–211; BP diastolic 104–130; PULSE 55–89; RESP 16; TEMP 36.6–36.7; O2SAT 97–98
[2019-04-05 06:48] LABS: Anion Gap 6 (5-15); BUN 19 mg/dL (7-18); BUN/Creat Ratio 15.4 RATIO (10-20); Calcium,Total 8.6 mg/dL (8.5-10.1); Chloride 106 mmol/L (98-107); Creatinine, Serum 1.23 mg/dL (0.70-1.30); EST Glomerular Filtration Rate 67 mL/min (>60); Est Glom Filt Rate - Afr Amer 81 mL/min (>60); Estimated Creatinine Clearance 67.72 ml/min; Glucose 145 mg/dL (74-106); Potassium 3.6 mmol/L (3.5-5.1); Sodium Level 142 mmol/L (136-145)
--- NOTE | 2019-04-05 07:39 | PN_ITS ---
Patient Problems: Active and Suspected Problems Hypertensive emergency (Acute) Blurred vision, right eye (Acute) Subjective: The patient was seen and examined at the bedside this morning. Events from the last 24 hours have been reviewed. The patient is currently afebrile, hemodynamically stable and maintaining appropriate oxygen saturations on room air. The patient has done well clinically following transfer out of the medical intensive care unit yesterday. Blood pressures are still not adequately controlled. Objective: The patient's most recent lab work, culture data and imaging studies have all been personally reviewed. - Physical Exam General: Alert, Oriented x3, Cooperative, No apparent distress HEENT: Atraumatic, PERRLA, Normocephalic Oral: Moist Mucosa, No Gingival or Mucosal Lesions/ Ulcerations Neck: Supple, No Nodes, Trachea Midline Lungs: Normal air movement, No rhonchi, No wheeze, No rales Cardiovascular: Regular rate, Regular Rhythm, Normal S1, Normal S2 Abdomen: Bowel Sounds Present, Soft, Non Tender, Obese Extremities: No clubbing, No cyanosis, No edema Skin: No breakdown Musculoskeletal: No Tenderness to Palpation of Joints or Extremities, No Muscle Wasting Lymphatic: No Cervical, Supraclavicular, or Inguinal Adenopathy Neurological: Cranial nerves II-XII grossly intact, Neuro grossly intact Psych/Mental Status: Alert and oriented to time, place, person, mood and affect Vital Signs Temp Pulse Resp BP Pulse Ox 97.8 F 66 16 178/104 H 98 04/05/19 03:35 04/05/19 03:35 04/05/19 03:35 04/05/19 03:35 04/05/19 03:35 Oxygen Delivery Method Room Air Weight: 242 lb 15.19 oz Body Mass Index (BMI) 39.0 Finger Stick Blood Glucose 143 Intake and Output for Last 24 Hours 04/03/19 04/04/19 04/05/19 23:59 23:59 23:59 Intake Total 2511 / 2511 240 / 240 Output Total 650 / 650 Balance 1861 / 1861 240 / 240 Laboratory Tests Past 24 Hrs 04/05/19 05:23 Sodium 142 Potassium 3.6 Chloride 106 Carbon Dioxide 30.0 Anion Gap 6 BUN 19 H Creatinine 1.23 Estim Creat Clear Calc 67.72 Est GFR (MDRD) Af Amer 81 Est GFR (MDRD) Non-Af 67 BUN/Creatinine Ratio 15.4 Glucose 145 H Calcium 8.6 Labs (Last 48 Hours) 04/03/19 04/03/19 04/03/19 22:05 22:05 22:05 WBC 9.4 RBC 5.05 Hgb 15.2 Hct 44.2 MCV 87.5 MCH 30.1 MCHC 34.4 RDW Std Deviation 41.1 RDW Coeff of Tony 12.9 Plt Count 285 MPV 10.8 Immature Gran % (Auto) 0.300 Neut % (Auto) 55.6 Lymph % (Auto) 30.8 [place] % (Auto) 10.2 H Eos % (Auto) 2.6 Baso % (Auto) 0.5 Absolute Neuts (auto) 5.2 Absolute Lymphs (auto) 2.91 Nucleated RBC % 0 PT 12.3 INR 0.9 APTT 28.2 Sodium 138 Potassium 3.2 L Chloride 103 Carbon Dioxide 28.0 Anion Gap 7 BUN 16 Creatinine 1.12 Estim Creat Clear Calc 74.37 Est GFR (MDRD) Af Amer 90 Est GFR (MDRD) Non-Af 75 BUN/Creatinine Ratio 14.3 Glucose 168 H Calcium 9.8 Troponin I < 0.015 Triglycerides Cholesterol LDL Cholesterol VLDL Cholesterol HDL Cholesterol Urine Color Urine Clarity Urine pH Ur Specific [place] Urine Protein Urine Glucose (UA) Urine Ketones Urine Occult Blood Urine Nitrite Urine Bilirubin Urine Urobilinogen Ur Leukocyte Esterase Urine RBC Urine WBC Ur Squamous Epith Cells Urine Bacteria Urine Mucus Urine Opiates Screen Urine Methadone Screen Ur Barbiturates Screen Ur Phencyclidine Scrn Ur Amphetamines Screen U Methamphetamin-MDMA U Benzodiazepines Scrn Urine Cocaine Screen U Cannabinoids Screen Ur Drug Screen Comment POC Glucose 04/03/19 04/03/19 04/04/19 22:05 22:18 01:25 WBC RBC Hgb Hct MCV MCH MCHC RDW Std Deviation RDW Coeff of Tony Plt Count MPV Immature Gran % (Auto) Neut % (Auto) Lymph % (Auto) [place] % (Auto) Eos % (Auto) Baso % (Auto) Absolute Neuts (auto) Absolute Lymphs (auto) Nucleated RBC % PT INR APTT Sodium Potassium Chloride Carbon Dioxide Anion Gap BUN Creatinine Estim Creat Clear Calc Est GFR (MDRD) Af Amer Est GFR (MDRD) Non-Af BUN/Creatinine Ratio Glucose Calcium Troponin I 0.030 Triglycerides 231 H Cholesterol 273 H LDL Cholesterol 187 H VLDL Cholesterol 46 H HDL Cholesterol 40 Urine Color Urine Clarity Urine pH Ur Specific [place] Urine Protein Urine Glucose (UA) Urine Ketones Urine Occult Blood Urine Nitrite Urine Bilirubin Urine Urobilinogen Ur Leukocyte Esterase Urine RBC Urine WBC Ur Squamous Epith Cells Urine Bacteria Urine Mucus Urine Opiates Screen Urine Methadone Screen Ur Barbiturates Screen Ur Phencyclidine Scrn Ur Amphetamines Screen U Methamphetamin-MDMA U Benzodiazepines Scrn Urine Cocaine Screen U Cannabinoids Screen Ur Drug Screen Comment POC Glucose 143 H 04/04/19 04/04/19 04/04/19 01:55 01:55 04:10 WBC 9.3 RBC 4.61 Hgb 13.7 Hct 40.6 MCV 88.1 MCH 29.7 MCHC 33.7 RDW Std Deviation 41.1 RDW Coeff of Tony 12.8 Plt Count 251 MPV 11.0 Immature Gran % (Auto) 0.400 Neut % (Auto) 75.5 H Lymph % (Auto) 14.4 L [place] % (Auto) 8.6 Eos % (Auto) 0.8 Baso % (Auto) 0.3 Absolute Neuts (auto) 7.1 Absolute Lymphs (auto) 1.34 Nucleated RBC % 0 PT INR APTT Sodium Potassium Chloride Carbon Dioxide Anion Gap BUN Creatinine Estim Creat Clear Calc Est GFR (MDRD) Af Amer Est GFR (MDRD) Non-Af BUN/Creatinine Ratio Glucose Calcium Troponin I Triglycerides Cholesterol LDL Cholesterol VLDL Cholesterol HDL Cholesterol Urine Color Yellow Urine Clarity Clear Urine pH 6.0 Ur Specific [place] 1.020 Urine Protein 15 H Urine Glucose (UA) 100 H Urine Ketones 5 H Urine Occult Blood Negative Urine Nitrite Negative Urine Bilirubin Negative Urine Urobilinogen Normal Ur Leukocyte Esterase Negative Urine RBC 0 SEEN Urine WBC 0-5 SEEN Ur Squamous Epith Cells 0-5 SEEN Urine Bacteria RARE Urine Mucus 0 SEEN Urine Opiates Screen NEGATIVE Urine Methadone Screen NEGATIVE Ur Barbiturates Screen NEGATIVE Ur Phencyclidine Scrn NEGATIVE Ur Amphetamines Screen NEGATIVE U Methamphetamin-MDMA NEGATIVE U Benzodiazepines Scrn NEGATIVE Urine Cocaine Screen NEGATIVE U Cannabinoids Screen NEGATIVE Ur Drug Screen Comment POC Glucose 04/04/19 04/04/19 04/05/19 04:10 04:10 05:23 WBC RBC Hgb Hct MCV MCH MCHC RDW Std Deviation RDW Coeff of Tony Plt Count MPV Immature Gran % (Auto) Neut % (Auto) Lymph % (Auto) [place] % (Auto) Eos % (Auto) Baso % (Auto) Absolute Neuts (auto) Absolute Lymphs (auto) Nucleated RBC % PT INR APTT Sodium 141 142 Potassium 3.6 3.6 Chloride 105 106 Carbon Dioxide 28.0 30.0 Anion Gap 8 6 BUN 13 19 H Creatinine 1.23 1.23 Estim Creat Clear Calc 67.72 67.72 Est GFR (MDRD) Af Amer 81 81 Est GFR (MDRD) Non-Af 67 67 BUN/Creatinine Ratio 10.6 15.4 Glucose 193 H 145 H Calcium 8.5 8.6 Troponin I 0.120 H Triglycerides Cholesterol LDL Cholesterol VLDL Cholesterol HDL Cholesterol Urine Color Urine Clarity Urine pH Ur Specific [place] Urine Protein Urine Glucose (UA) Urine Ketones Urine Occult Blood Urine Nitrite Urine Bilirubin Urine Urobilinogen Ur Leukocyte Esterase Urine RBC Urine WBC Ur Squamous Epith Cells Urine Bacteria Urine Mucus Urine Opiates Screen Urine Methadone Screen Ur Barbiturates Screen Ur Phencyclidine Scrn Ur Amphetamines Screen U Methamphetamin-MDMA U Benzodiazepines Scrn Urine Cocaine Screen U Cannabinoids Screen Ur Drug Screen Comment POC Glucose Clinical Impression(s) from Imaging Studies Brain CT 04/03/19 21:57 IMPRESSION: No acute abnormality, but there is lacunar infarct of the left caudate nucleus. Electronically Signed: Andrae Ambrocio MD at 22:47 EDT , Service support , Chest X-Ray 04/03/19 21:58 IMPRESSION: Normal x-ray examination of the chest. Electronically Signed: Andrae Ambrocio MD at 22:18 EDT , Service support , Medical Necessity - Tobacco Use Smoking Status: Current every day smoker Tobacco Use: Pipe Assessment/Plan All Active Problems Hypertensive emergency (Acute) Blurred vision, right eye (Acute) RECOMMENDATIONS: 1. Continue multidrug antihypertensive regimen per cardiology recommendations. 2. Complete tobacco cessation is advisable. 3. Continue appropriate DVT prophylaxis. IMPRESSIONS: 1. Hypertensive emergency Resolved. The patient did initially require continuous infusion of antihypertensive medication to control his drastically elevated blood pressures. He is currently on a multidrug p.o. antihypertensive regimen, being managed by cardiology. 2. Obesity/tobacco dependency Complicates care, management, recovery and prognosis. Continued attempts at weight loss along with tobacco cessation is strongly recommended. This note was generated with [employer] dictation software. It may contain incorrect words, spelling, and punctuation that were not noted in checking the note before signing. DISPOSITION: Given the patient's lack of further ICU/pulmonary needs, will sign off. Please call with any additional questions. Code Visit Inpatient E&M: 45314 Subs Hosp L2
[2019-04-05] MEDS: Lisinopril 20 MG Tablet PO (08:20)
[2019-04-05] MEDS: amLODIPine 10 MG Tablet PO (08:20)
--- NOTE | 2019-04-05 09:43 | PN_ITS ---
Patient Problems: Active and Suspected Problems Hypertensive emergency (Acute) Blurred vision, right eye (Acute) Subjective: Feels great, no headaches or blurry vision. Vitals/I&O's: Vital Signs Temp Pulse Resp BP Pulse Ox 97.8 F 80 16 206/129 H 97 04/05/19 08:22 04/05/19 08:22 04/05/19 08:22 04/05/19 08:22 04/05/19 08:22 Oxygen Delivery Method Room Air Weight: 242 lb 15.19 oz Body Mass Index (BMI) 39.0 Finger Stick Blood Glucose 143 Intake and Output for Last 24 Hours 04/03/19 04/04/19 04/05/19 23:59 23:59 23:59 Intake Total 2511 / 2511 240 / 240 Output Total 650 / 650 Balance 1861 / 1861 240 / 240 General: Alert, Oriented x3, Cooperative, No apparent distress HEENT: Atraumatic, PERRLA, EOMI, Normocephalic Oral: Moist Mucosa Neck: Supple, No JVD Lungs: Clear to auscultation, Normal air movement, No rhonchi, No wheeze, No rales Cardiovascular: Regular rate, Regular Rhythm, Normal S1, Normal S2, No murmurs Abdomen: Soft, Non Tender, Non-Distended, No Hepato-splenomegaly Extremities: No edema, Capillary Refill Less than 3 Seconds Skin: No rashes, No breakdown Neurological: Neuro grossly intact, Sensory exam intact to light touch and pain Psych/Mental Status: Normal Affect, Appropriate Laboratory Results 04/05/19 05:23: Sodium 142, Potassium 3.6, Chloride 106, Carbon Dioxide 30.0, Anion Gap 6, BUN 19 H, Creatinine 1.23, Estim Creat Clear Calc 67.72, Est GFR (MDRD) Af Amer 81, Est GFR (MDRD) Non-Af 67, BUN/Creatinine Ratio 15.4, Glucose 145 H, Calcium 8.6 Current Medications Amlodipine Besylate (Norvasc) 10 mg PO DAILY [facility] Last Admin: 04/05/19 08:20 Dose: 10 mg Documented by: Dextrose (D50w Syringe) 0 gm IV X1 PRN; Protocol PRN Reason: Hypoglycemia Enoxaparin Sodium (Lovenox) 40 mg SC DAILY@1000 [facility] Last Admin: 04/05/19 08:22 Dose: Not Given Documented by: Glucagon () 1 mg IM .X1 PRN PRN Reason: Hypoglycemia Lisinopril (Zestril) 20 mg PO DAILY [facility] Last Admin: 04/05/19 08:20 Dose: 20 mg Documented by: Sodium Chloride () 10 - 40 ml IV UD PRN PRN Reason: SALINE FLUSH Last Admin: 04/04/19 08:00 Dose: 10 ml Documented by: Medical Necessity - Tobacco Use Smoking Status: Current every day smoker Tobacco Use: Pipe Assessment/Plan All Active Problems Hypertensive emergency (Acute) Blurred vision, right eye (Acute) 1. Hypertensive emergency -On admission his blood pressure was 270/163 in the ER -He was started on labetalol drip because initially he was on a nifedipine drip however was tachycardic and there is concerned that that could worsen his tachycardia, and he is now off all drips and his heart rate is normal. His blood pressure has been in the 130s to 170s however this morning he was 206 systolic. His lisinopril was increased from 10 mg daily to 20 mg daily and his metoprolol was discontinued and he was started on Norvasc 10 daily -He said he used to be on lisinopril however made him feel cold, I discussed this with him but he is okay with proceeding with the lisinopril if it is necessary. -Echo EF of 55% with no evidence of diastolic dysfunction -He does have hyperglycemia likely consistent with diabetes though no formal diagnosis -Troponin did increase to 0.120, and this was likely secondary to demand ischemia secondary to hypertension, consult to cardiology, who did not feel that this warranted any further testing at this time unless he has further chest pain or other symptoms to indicate ACS DVT: Lovenox Code Visit Inpatient E&M: 69925 Subs Hosp L2
--- NOTE | 2019-04-05 09:55 | PCM.PN.CARD ---
Subjectve: Events noted. Patient was seen and examined. Ongoing issues with elevated blood pressure, medical therapy has been adjusted by the hospitalist team. Lisinopril dose was escalated this morning. At the moment of my exam, the patient is asymptomatic. Blood pressure is still substantially elevated. Objective: Vital Signs Temp Pulse Resp BP Pulse Ox 97.8 F 80 16 206/129 H 97 04/05/19 08:22 04/05/19 08:22 04/05/19 08:22 04/05/19 08:22 04/05/19 08:22 Oxygen Delivery Method Room Air Weight: 110.2 kg Body Mass Index (BMI) 39.0 Finger Stick Blood Glucose 143 Intake and Output for Last 24 Hours 04/03/19 04/04/19 04/05/19 23:59 23:59 23:59 Intake Total 2511 / 2511 240 / 240 Output Total 650 / 650 Balance 1861 / 1861 240 / 240 04/05/19 05:23: Sodium 142, Potassium 3.6, Chloride 106, Carbon Dioxide 30.0, Anion Gap 6, BUN 19 H, Creatinine 1.23, Est GFR (MDRD) Af Amer 81, Est GFR (MDRD) Non-Af 67, BUN/Creatinine Ratio 15.4, Glucose 145 H, Calcium 8.6 Rhythm: EKG: ECHO: Stress Test: Cardiac Cath: PCI: CT Surgery: Holter monitor: EPS: PPM: CXR: Chest CT Scan: Medical Necessity - Tobacco Use Smoking Status: Current every day smoker Tobacco Use: Pipe Assessment/Plan Hypertension. The blood pressure still suboptimally controlled. The dose of EDUARD inhibitors was escalated this morning. I feel that the patient may stay on 3 antihypertensive agent, including a diuretic therefore we will start chlorthalidone 25 mg once a day first dose now. If the blood pressure is better controlled later, he may be discharged home with outpatient follow-up. Code Visit Inpatient E&M: 97353 Subs Hosp L2
[2019-04-05] MEDS: Chlorthalidone 50 MG Tablet 25 MG PO (11:06)
--- NOTE | 2019-04-05 13:14 | PCM.DC ---
- Discharge Diagnoses Current Active Problems: Current Active and Chronic Problems Hypertensive emergency (Acute) Blurred vision, right eye (Acute) You will use the following diet at home:: Calorie/Carbohydrate Controlled (specify 1200, 1400, etc) - 1800 Your food should be the consistency of: Regular Your liquids should be the consistency of: Regular/Thin Discharge Activity: Return to Normal Activity, No Restrictions Call your doctor if you observe: Fever of 101 or Higher, Shortness of breath, Dizziness, Fainting spells, Swelling in the ankles, Chest pain, Increased palpitations (irregular heartbeat) Allergies/Adverse Reactions: Allergies Penicillins Allergy (Verified 04/03/19 21:42) Unknown Medications to take at Discharge Amlodipine [Norvasc] 10 mg PO DAILY #30 tab 04/05/19 Chlorthalidone [Hygroton] 25 mg PO DAILY #30 tab 04/05/19 Lisinopril [Zestril] 20 mg PO DAILY #30 tab 04/05/19 The following prescriptions were given: Chlorthalidone [Hygroton] 25 mg PO DAILY #30 tab Transmission Status: Pending to [facility] #40 Amlodipine [Norvasc] 10 mg PO DAILY #30 tab Transmission Status: Pending to [facility] #40 Lisinopril [Zestril] 20 mg PO DAILY #30 tab Transmission Status: Pending to [facility] #40 Primary Care Physician: Blake Calixto DO [Primary Care Provider] - Please follow up with your Primary Care Physician in: 3-5 days Test Results: Test results from this visit will be discussed in further detail at your follow-up appointment, if applicable.
[2019-04-05] MEDS: Carvedilol 6.25 MG Tablet PO (22:33)
[2019-04-05] MEDS: 0.9% NaCl Peripheral Flush Adult/Peds IV (23:05)
[2019-04-05] MEDS: hydrALAZINE 20 MG/ML Vial 10 MG IV (23:05)
[2019-04-06] VITALS (10 sets, daily range): BP systolic 134–185; BP diastolic 91–114; PULSE 79–98; RESP 16; TEMP 36.6; O2SAT 94–98
[2019-04-06] MEDS: 0.9% NaCl Peripheral Flush Adult/Peds IV ×2 (05:22→06:48)
[2019-04-06] MEDS: hydrALAZINE 20 MG/ML Vial 10 MG IV (05:22)
[2019-04-06] MEDS: Ondansetron 4 MG/2 ML Vial IV (06:48)
[2019-04-06] MEDS: Carvedilol 6.25 MG Tablet PO (09:55)
[2019-04-06] MEDS: Chlorthalidone 50 MG Tablet 25 MG PO (09:55)
[2019-04-06] MEDS: Lisinopril 20 MG Tablet PO (09:56)
[2019-04-06] MEDS: amLODIPine 10 MG Tablet PO (09:56)
--- NOTE | 2019-04-06 12:28 | DS.PCM_ITS ---
Discharge Date and Diagnosis - Problem List Patient Problems: Active and Suspected Problems Hypertensive emergency (Acute) Blurred vision, right eye (Acute) Date of Admission: 04/03/19 Date of Discharge: 04/06/19 - Primary Discharge Diagnosis Active and Suspected Problems Hypertensive emergency (Acute) Blurred vision, right eye (Acute) Hospital Course and Treatment Imaging Results: CT Brain: IMPRESSION: No acute abnormality, but there is lacunar infarct of the left caudate nucleus. CXR: IMPRESSION: Normal x-ray examination of the chest. Echo: Interpretation Summary The estimated ejection fraction is 55 %. No evidence for diastolic dysfunction. Consults: Cardiology Operations: None Procedures: 2-D Echocardiogram Summary of Care Provided: Per HPI: The patient is a 48 year old M with no significant past medical history. He was admitted through the ED on 04/03/2019 with a complaint of blurred vision in his right eye. Patient states she was at a concert and suddenly had blurring of the vision in his right eye. Lasted for few minutes and got better. However about an hour later the blurring of the vision recurred and so he decided to come into the ED. He had never had symptoms like these before and denied having any floaters or feeling like a curtain was coming down front of his eyes. He denied any headache, shortness of breath, palpitations, chest pain, diarrhea or vomiting. Patient states he was on antihypertensive medication but was taken off of them about a year ago by his primary care doctor as his blood pressure normalized. He last checked his blood pressure about a month ago and states was elevated but he does not remember how high it was. On reviewing the ED, blood pressure was 210/126 and his heart rate was 127. Respiratory rate was 15. Chemistry was significant for potassium of 3.2 and CBC was unremarkable. Initial troponin was negative. Brain CT showed no acute intracranial pathology and showed an old lacunar infarct. Chest x-ray showed no acute cardia pulmonary process. He was started on nicardipine drip in the ED and has been admitted to the ICU to be managed for hypertensive emergency. Hospital Course: 1. Hypertensive emergency -On admission his blood pressure was 270/163 in the ER -He was started on labetalol drip because initially he was on a nifedipine drip however was tachycardic and there is concerned that that could worsen his tachycardia, and he is now off all drips and his heart rate is normal. His blood pressure has been in the 130s to 170s however yesterday morning he was 206 systolic. His lisinopril was increased from 10 mg daily to 20 mg daily and his metoprolol was discontinued and he was started on Norvasc 10 daily. Cardiology added chlorthalidone as well -His BP at 2 pm remained elevated close to 200 systolic so we also started him on Coreg 6.25 mg PO BID -On the day of discharge his BP was between 134 and 157, he felt ok, though a little nauseated from the hydralazine. He would prefer to go home. The risks of going home were discussed but he felt ready to go and he would f/u with his PCP this week -He said he used to be on lisinopril however made him feel cold, I discussed this with him but he is okay with proceeding with the lisinopril if it is necessary. -Echo EF of 55% with no evidence of diastolic dysfunction -He does have hyperglycemia likely consistent with diabetes though no formal diagnosis, this will need to be evaluated as an outpatient -Troponin did increase to 0.120, and this was likely secondary to demand ischemia secondary to hypertension, consult to cardiology, who did not feel that this warranted any further testing at this time unless he has further chest pain or other symptoms to indicate ACS Patient Problems: Active and Suspected Problems Hypertensive emergency (Acute) Blurred vision, right eye (Acute) Objective: General: Alert, Oriented x3, Cooperative, No apparent distress HEENT: Atraumatic, PERRLA, EOMI, Normocephalic Oral: Moist Mucosa Neck: Supple, No JVD Lungs: Clear to auscultation, Normal air movement, No rhonchi, No wheeze, No rales Cardiovascular: Regular rate, Regular Rhythm, Normal S1, Normal S2, No murmurs Abdomen: Soft, Non Tender, Non-Distended, No Hepato-splenomegaly Extremities: No edema, Capillary Refill Less than 3 Seconds Skin: No rashes, No breakdown Neurological: Neuro grossly intact, Sensory exam intact to light touch and pain Psych/Mental Status: Normal Affect, Appropriate - Physical Exam Vital Signs Temp Pulse Resp BP Pulse Ox 97.9 F 98 16 157/98 H 94 04/06/19 08:37 04/06/19 08:37 04/06/19 08:37 08/18/19 08:37 04/06/19 08:37 Oxygen Delivery Method Room Air Weight: 242 lb 15.19 oz Body Mass Index (BMI) 39.0 Finger Stick Blood Glucose 143 Intake and Output for Last 24 Hours 04/04/19 04/05/19 04/06/19 23:59 23:59 23:59 Intake Total 2511 / 2511 2560 / 2560 120 / 120 Output Total 650 / 650 Balance 1861 / 1861 2560 / 2560 120 / 120 Discharge Activity: Return to Normal Activity, No Restrictions Call your doctor if you observe: Fever of 101 or Higher, Shortness of breath, Dizziness, Fainting spells, Swelling in the ankles, Chest pain, Increased palpitations (irregular heartbeat) Home Medications: Medications to take at Discharge Amlodipine [Norvasc] 10 mg PO DAILY #30 tab 04/05/19 Chlorthalidone [Hygroton] 25 mg PO DAILY #30 tab 04/05/19 Lisinopril [Zestril] 20 mg PO DAILY #30 tab 04/05/19 Carvedilol [Coreg (Beta Charmaine)] 6.25 mg PO BID #60 tab 04/06/19 Following Prescrptions Were Given to Patient: Carvedilol [Coreg (Beta Charmaine)] 6.25 mg PO BID #60 tab Transmission Status: Pending to [facility] #40 Chlorthalidone [Hygroton] 25 mg PO DAILY #30 tab Transmission Status: Received by [facility] #40 Amlodipine [Norvasc] 10 mg PO DAILY #30 tab Transmission Status: Received by [facility] #40 Lisinopril [Zestril] 20 mg PO DAILY #30 tab Transmission Status: Received by [facility] #40 Primary Care Physician: Blake Calixto DO [Primary Care Provider] - Please follow up with your Primary Care Physician in: 3-5 days Disposition: Home Minutes spent on discharge:: 35 Patient Condition:: Stable Medical Necessity - Tobacco Use Smoking Status: Current every day smoker Tobacco Use: Pipe Meaningful Use Info Meaningful Use Diagnoses (Choose all that apply): None applicable Code Visit Inpatient E&M: 47243 Disch Hosp
== END 2019-04-06 14:07 | disposition home or self-care (01) | DRG 305 ==
LOC: ED 23:04 → ICU 23:21 → PCU 04-04 18:24
PROVIDERS: Admitting Provider Student in an Organized Health Care Education/Training Program; Emergency Provider Emergency Medicine; Family Provider Family Medicine; PCP Family Medicine; Referring Provider Student in an Organized Health Care Education/Training Program; Visit Provider Family Medicine
DX: I16.1 Hypertensive emergency (principal); H53.8 Other visual disturbances; E87.6 Hypokalemia; F17.290 Nicotine dependence, other tobacco product, uncomplicated; E66.9 Obesity, unspecified; Z68.39 Body mass index [BMI] 39.0-39.9, adult; R73.9 Hyperglycemia, unspecified; R79.9 Abnormal finding of blood chemistry, unspecified
CPT/HCPCS: 36415; 70450; 71045; 80048; 80061; 80307; 81001; 82962; 84484; 85025; 85610; 85730; 93005; 93306; 97802; 99284; 99406; J7050; Q9957; A4216; J2405

== ENCOUNTER 2019-04-26 19:00 | Inpatient (IN) | payer BC, SELFPAY ==
[2019-04-04 00:01] VITALS: BMI 39.0
[2019-04-26 18:43] VITALS: BMI 38.0
[2019-04-26 18:45] VITALS: BP 162/69; PULSE 80; RESP 16; TEMP 37.1; O2SAT 97
[2019-04-26 18:50] VITALS: BMI 38.0
[2019-04-26 19:02] VITALS: PULSE 94
--- NOTE | 2019-04-26 19:06 | PCM.HP.STD ---
Problem List (1) Syncope Status: Acute Qualifiers: Syncope type: vasovagal syncope Qualified Code(s): R55 - Syncope and collapse (2) Ventricular trigeminy Status: Acute History of Present Illness Date of Admission: 04/26/19 Chief Complaint: syncope The patient is a 49 year old M who was in his normal state of health but sustained a syncopal episode this evening. Patient was looking at some shelves at a store and then felt flushed and then passed out. Patient thinks that he try to grab onto something because his hands hurt and thinks he may have landed on his knee because his left knee hurts. EMS picked patient up on the scene and checked his blood sugar and seemed unconcerned according to the patient. I does not know what his blood sugar was. Sent to [facility] emergency room and had a work-up that was unremarkable but was noted to be in ventricular bigeminy and trigeminy. He persisted beyond that and patient requested transfer to [facility] for further evaluation. Patient denies any chest pain, no palpitations. Patient was recently admitted for blurred vision in his eye here and underwent a work-up that was unremarkable. Patient was noted to be profoundly hypertensive though. Patient also was admitted to [facility] where he went underwent additional work-up that was unremarkable and patient just recently underwent a right temporal artery biopsy to rule out giant cell arteritis and he has been initiated on prednisone empirically. [] Past Medical History Medical History: Medical History (Last Updated 04/26/19 @ 19:09 by Paddy Cotton DO) HTN (hypertension) I10 Allergies Penicillins Allergy (Verified 04/03/19 21:42) Unknown Home Medications: Ambulatory Orders Medication Instructions Recorded Amlodipine [Norvasc] 10 mg PO DAILY 04/26/19 Carvedilol [Coreg (Beta Charmaine)] 6.25 mg PO BID 04/26/19 Chlorthalidone [Hygroton] 25 mg PO DAILY 04/26/19 Lisinopril [Zestril] 20 mg PO DAILY 04/26/19 Prednisone 20 mg PO BID 04/26/19 Surgical History: Surgical History (Last Updated 04/26/19 @ 19:09 by Paddy Cotton DO) History of temporal artery biopsy Z98.890 Surgical History: no surgical history Psychiatric History: No pertinent psych hx Lives: Spouse/ Significant Other Smoking Status: Current every day smoker Tobacco Use: Pipe Alcohol: Rare Drugs: None - *Family History Maternal History Items: Heart Disease, Hypertension Review of Systems Constitutional: Denies: Anorexia, Chills, Fever, Night Sweats Eyes: Denies: Blurred vision, Double vision HEENT: Denies: Head Aches, Sinus Congestion, Sinus Drainage Cardiovascular: Denies: Chest Pain, Palpitations Respiratory: Denies: Cough, Shortness of breath at rest, Sputum production Gastrointestinal: Denies: Abdominal Pain, Nausea, Vomiting Genitourinary: Denies: Dysuria Musculoskeletal: Reports: - - left knee pain s/p syncopal episode. Denies: Joint Pain, Joint Tenderness Neurological: Denies: Focal weakness, Incoordination, Numbness, Tingling Psychiatric: Denies: Anxiety Endocrine: Denies: Change in Body Habitus, Heat/ Cold Intolerance Hematologic/ Lymphatic: Denies: Easy Bruising, Easy Bleeding, Hx of blood clot Comment: A 10 point review of systems were negative except as mentioned in the history of present illness and the other review of systems. VTE Information - Inpt Only VTE Present on Admission: No VTE Mechan Device Prophylaxis: None VTE Pharm Prophylaxis ordered?: No Reason prophylaxis not ordered:: Procedure Not Indicated Patient Problems: Active and Suspected Problems (Last Updated 04/26/19 @ 19:09 by Paddy Cotton DO) Syncope (Acute) Ventricular trigeminy (Acute) - Physical Exam General: Alert, Cooperative, No apparent distress, Well developed, Well nourished HEENT: Atraumatic, PERRLA, EOMI, Normocephalic Oral: Moist Mucosa, No Gingival or Mucosal Lesions/ Ulcerations Neck: Negative Carotid Bruits, No Nodes, Thyroid Normal Size and Texture Lungs: Clear to auscultation, Normal air movement, No rhonchi, No wheeze Cardiovascular: Regular rate, No murmurs Abdomen: Bowel Sounds Present, Soft, Non Tender, Non-Distended, No Hepato-splenomegaly Extremities: No edema, Capillary Refill Less than 3 Seconds, No Calf Tenderness Skin: No rashes, No breakdown Musculoskeletal: No Tenderness to Palpation of Joints or Extremities, No Muscle Wasting Neurological: Cranial nerves II-XII grossly intact, Neuro grossly intact, Motor Exam 5/5 strength throughout Psych/Mental Status: Normal Affect, Appropriate Vital Signs Temp Pulse Resp BP Pulse Ox 37.1 C 80 16 162/69 H 97 04/26/19 18:45 04/26/19 18:45 04/26/19 18:45 04/26/19 18:45 04/26/19 18:45 Oxygen Delivery Method Room Air Weight: 106.9 kg Body Mass Index (BMI) 38.0 Finger Stick Blood Glucose 143 Lab work at outside hospital: CBC: White count 9.5, hemoglobin 14, platelets 441. BMP: Sodium 142, creatinine 1.55, potassium 4.7. Troponin negative x1. EKG reviewed and showed normal sinus rhythm with ventricular trigeminy. Assessment/Plan All Active Problems (Last Updated 04/26/19 @ 19:09 by Paddy Cotton DO) Syncope (Acute) Ventricular trigeminy (Acute) 1. Syncope Unclear etiology could be vasovagal versus an arrhythmia Patient be monitored on telemetry for now as he is having ventricular trigeminy but he appears to be asymptomatic from it at this time Check orthostatic vital signs Will review records from [facility] journal where patient underwent additional work-up for the blurred vision that he had. Patient is not having any blurred vision at this time. Echocardiogram from April 04 of this year showed ejection fraction of 55% 2. Ventricular trigeminy Asymptomatic at this time Check magnesium level and replace if low 3. Chronic kidney disease stage III Creatinine up slightly from when he was here last time 1.55 where is 1.2 previously IV fluids and reevaluate in the morning 4. Hypertension Continue with nadolol, chlorthalidone, amlodipine and lisinopril Slightly elevated at this time but will monitor 5. Blurred vision Has undergone a work-up for this and recently undergone went to a temporal artery biopsy, results of which are pending at this time Continue with prednisone until giant cell arteritis can be ruled out definitively with the temporal artery biopsy 6. VTE prophylaxis: Not indicated as patient is low risk given that this is an observation status. If hospitalization needs to go on longer than would consider chemical prophylaxis. Code Visit OBSV E&M: 53236 Initial observation care L3
[2019-04-26 20:31] LABS: Anion Gap 7 (5-15); BUN 34 mg/dL (7-18); BUN/Creat Ratio 24.1 RATIO (10-20); Calcium,Total 9.3 mg/dL (8.5-10.1); Chloride 106 mmol/L (98-107); Creatinine, Serum 1.41 mg/dL (0.70-1.30); EST Glomerular Filtration Rate 57 mL/min (>60); Est Glom Filt Rate - Afr Amer 69 mL/min (>60); Estimated Creatinine Clearance 58.45 ml/min; Glucose 148 mg/dL (74-106); Sodium Level 139 mmol/L (136-145)
[2019-04-26 20:33] LABS: Magnesium 1.6 mg/dL (1.6-2.6)
[2019-04-26 20:46] LABS: Hemoglobin A1c 7.2 % (4.2-6.3)
[2019-04-26] MEDS: 0.9% Normal Saline 1,000 ML 150 ML IV (21:11)
[2019-04-26] MEDS: 0.9% NaCl Peripheral Flush Adult/Peds IV (21:12)
[2019-04-26] MEDS: Carvedilol 6.25 MG Tablet PO (21:12)
[2019-04-26 21:22] VITALS: BP 162/96; PULSE 85; RESP 16; TEMP 36.9; O2SAT 96
[2019-04-26 22:34] VITALS: BP 163/86; PULSE 89; O2SAT 98
[2019-04-26] MEDS: Lisinopril 20 MG Tablet PO (22:44)
[2019-04-26] MEDS: amLODIPine 10 MG Tablet PO (22:45)
[2019-04-26 23:02] VITALS: PULSE 85
[2019-04-26 23:10] LABS: Bedside Glucose 151 mg/dL (70-110)
[2019-04-27] VITALS (10 sets, daily range): BP systolic 142–184; BP diastolic 67–95; PULSE 68–106; RESP 16; TEMP 36.8; O2SAT 96–97
[2019-04-27 06:19] LABS: Thyroid Stim Hormone (TSH) 1.53 uIU/mL (0.358-3.74)
[2019-04-27 07:05] LABS: Bedside Glucose 111 mg/dL (70-110)
--- NOTE | 2019-04-27 10:30 | ECHOCS_ITS ---
Reason For Study: Arrhythmia Procedure This was a 2D Doppler, Color Flow transthoracic echocardiogram. Contrast injection was performed. Exam performed in department. Left Ventricle Mildly dilated left ventricle. Mild concentric left ventricular hypertrophy. The estimated ejection fraction is 40 %. Stage 1 diastolic dysfunction. There is moderate global hypokinesis of the left ventricle. Right Ventricle Normal size and thickness. Normal systolic function. Atria Normal left atrium. Normal right atrium. Normal atrial septum. Bubble contrast study negative for right to left interatrial shunt. Mitral Valve The mitral valve is structurally normal. No prolapse or stenosis seen. Trivial mitral valve insufficiency. Tricuspid Valve Normal tricuspid valve. Trivial tricuspid valve insufficiency. Right ventricular systolic pressure estimated to be 27 mmHg. Aortic Valve Normal aortic valve. Trisinus/trileaflet aortic valve. Pulmonic Valve Normal pulmonic valve. Great Vessels Normal aortic root. Normal arch. Normal inferior vena cava. Inferior vena cava collapse with sniff. Pericardium/Pleural No pericardial effusion. Medication Performed a rapid injection of agitated mix of 9 cc saline and 1cc air to assess for atrial septal defect. Diluted definity 2ml given slow IV push to enhance endocardial definition. MMode/2D Measurements & Calculations LVIDd: 5.2 cm IVSd: 1.3 cm Ao root diam: 3.0 cm LVIDs: 3.8 cm LVPWd: 1.4 cm RVDd: 3.2 cm FS: 26.7 % LAV(MOD-bp): 42.8 ml LVAd ap4: 44.4 cm2 SV(MOD-sp4): 88.6 ml LAV(MOD-bp) Indexed: 20.1 ml/m2 EDV(MOD-sp4): 177.3 ml LAV(MOD-sp2): 46.6 ml EDV(sp4-el): 177.7 ml LAV(MOD-sp4): 35.6 ml LVAs ap4: 28.9 cm2 ESV(MOD-sp4): 88.7 ml ESV(sp4-el): 87.6 ml EF(MOD-sp4): 50.0 % EF(sp4-el): 50.7 % SV(sp4-el): 90.1 ml LA A4 area: 13.8 cm2 LA dimension(2D): 3.8 cm RA A4 area: 7.9 cm2 Doppler Measurements & Calculations MV E max keyshawn: 54.4 cm/sec Lat Peak E' Keyshawn: 8.8 cm/sec Med Peak E' Keyshawn: 5.0 cm/sec MV A max keyshawn: 77.8 cm/sec E/E' lat: 6.2 E/E' med: 10.8 MV E/A: 0.70 Ao V2 max: 129.4 cm/sec LV V1 max: 94.7 cm/sec PA V2 max: 118.4 cm/sec Ao max P.7 mmHg LV V1 max P.6 mmHg Ao V2 mean: 89.0 cm/sec Ao mean P.5 mmHg Ao V2 VTI: 22.3 cm TR max keyshawn: 233.4 cm/sec TR max P.8 mmHg Interpretation Summary Mildly dilated left ventricle. The estimated ejection fraction is 40 %. Stage 1 diastolic dysfunction. There is moderate global hypokinesis of the left ventricle. Trivial mitral valve insufficiency. Trivial tricuspid valve insufficiency. Mild concentric left ventricular hypertrophy. Bubble contrast study negative for right to left interatrial shunt. Right ventricular systolic pressure estimated to be 27 mmHg. Compared to echo report dated 04/04/2019, LV function appears to have decreased from 55% to 40%. The study was technically difficult. Contrast injection was performed. Ordering Physician: Antonio Bruce Referring Physician: Enmanuel Lozano Performed By: Kendra Blair RDCS, RVT
--- NOTE | 2019-04-27 10:31 | STEWCON_ITS ---
Reason For Study: ARRHYTHMIA Stress Results Protocol: Stress Echocardiogram Maximum Predicted HR: 173 bpm Target HR: 147 bpm % Maximum Predicted HR: 87 % DurationHeart Rate Stage (mm:ss) (bpm) BP Comment BASELINE 75 148/88VENTRICULAR TRIGEMINY, 2 CC DEFINITY USED ADONIS PROTOCOL- STAGE 1 3:00 110 142/90NO SX ADONIS PROTOCOL- STAGE 2 3:00 118 150/92LESS VENTRICULAR ECTOPY NOTED, NO SX ADONIS PROTOCOL- STAGE 3 3:00 133 154/84NO SX ADONIS PROTOCOL- STAGE 4 1:35 150 / LEG FATIGUE, NO CP RECOVERY 107 134/80VENTRICULAR TRIGEMINY Stress Duration: 10:35 mm:ss Maximum Stress HR: 150 bpm Baseline Echocardiogram Findings The estimated ejection fraction is 45 %. Stress Echo Wall motion Data Resting WM Intermediate WM Stress WM Resting Wall Motion Wall Motion Stress Moderate global LV dysfunction at All segments Normal. baseline. EKG Data The baseline ECG displays normal sinus rhythm. The patient exercised according to the regular Adonis protocol for a total duration of 10:35. The maximum heart rate attained was 150 beats per minute. This was 86% of maximum predicted heart rate. The patient exercised into stage 4 of the Adonis protocol. During stress, there were no ST or T wave changes noted to suggest ischemia. No clinical angina was noted. Interpretation Summary The estimated ejection fraction is 45 %. Normal, adequate, treadmill echocardiogram. Negative for ischemia by EKG and echocardiographic criteria. No anginal symptoms noted. Rare PVCs and ventricular trigeminy during exercise and into recovery. Final LVEF of 65%. Patient did however have baseline moderate global LV dysfunction with an EF around 45% which improved to 65% at peak exercise. Appropriate blood pressure response to exercise. Average exercise capacity for age. Decreased sensitivity due to poor echo windows requiring Definity agent. Test terminated due to attainment target heart rate and leg discomfort. No complications. The study was technically difficult. Contrast injection was performed. Ordering Physician: Antonio Bruce MD Referring Physician: Antonio Bruce MD Performed By: Kendra Blair, JOSE RAUL, RVT
--- NOTE | 2019-04-27 10:32 | PCM.CONS.C ---
Problem List (1) Syncope Status: Acute Qualifiers: Syncope type: vasovagal syncope Qualified Code(s): R55 - Syncope and collapse (2) Ventricular trigeminy Status: Acute Reason for Consult Date of Consultation: 04/27/19 Reason for Consultation: Syncope, ventricular trigeminy. History of Present Illness: The patient is a 49 year old M, nondiabetic, occasional pipe smoker, occasional alcohol use, no illicit substances, recently thought to have temporal arteritis on the right side due to lacking out of his right eye only occurring about 2 weeks ago and started on prednisone therapy. Patient recently underwent a temporal artery biopsy at the [facility], and is recovering from that. In addition on 04/10/2019 the patient underwent a 2D echo with Doppler at the [facility], which showed essentially intact LV function. The old records are in the front of his chart. Patient was recently placed on Coreg, amlodipine, chlorthalidone and lisinopril for hypertension and he has been tolerating these medicines well. Patient has no known history of coronary artery disease, previous syncope, sudden cardiac in his immediate family, although his grandfather of a myocardial infarction acutely at age 51. Patient is never had a stress test, catheterization, or tilt table test. Patient exercises regularly [place] and had no difficulty carrying around a 40 pound pack. While the patient was standing looking at a display in the hardware store he suddenly developed dizziness, then quickly deteriorated to a syncopal episode falling to the ground, and then waking up several minutes later. He denied any loss of bowel or bladder function, and apparently was moving his extremities immediately prior to regaining consciousness. He denied any prodromal effects and denied any head injury. Squad was called, the patient was evaluated at the scene with a blood sugar with unknown results. The patient was initially brought to [facility] emergency room but then transferred to [facility] ER after was noted the patient had normal sinus rhythm with ventricular bigeminy and trigeminy. Patient was found to be hypomagnesemic, and his magnesium was replaced. His EKG showed normal sinus rhythm with ventricular trigeminy, no acute changes, normal intervals, no previous myocardial infarction. Currently the patient is resting comfortably no acute distress. He cannot detect his trigeminal symptoms. [] Past Medical History Allergies/Adverse Reactions: Allergies Penicillins Allergy (Verified 04/03/19 21:42) Unknown Home Medications: Ambulatory Orders Medication Instructions Recorded Amlodipine [Norvasc] 10 mg PO DAILY 04/26/19 Carvedilol [Coreg (Beta Charmaine)] 6.25 mg PO BID 04/26/19 Chlorthalidone [Hygroton] 25 mg PO DAILY 04/26/19 Lisinopril [Zestril] 20 mg PO DAILY 04/26/19 Prednisone 20 mg PO BID 04/26/19 Erythromycin Base/Ethanol 30 gm TP 4X/DAY 04/27/19 [Erythromycin 2% Gel] Surgical History: no surgical history Psychiatric History: No pertinent psych hx - *Family History Maternal History Items: Heart Disease, Hypertension Lives: Spouse/ Significant Other Smoking Status: Current every day smoker Tobacco Use: Pipe Alcohol: Rare Drugs: None Review of Systems - Review of Systems General: Denies: Fever, Night Sweats, Fatigue Cardiovascular: Reports: Syncope, Orthostatic Symptoms. Denies: Chest Discomfort, Shortness of Breath, Orthopnea, PND, Peripheral Edema, Palpitations, Lightheadedness, Dizziness, Near Syncope Respiratory: Denies: Cough, Sputum Production, Hemoptysis Gastrointestinal: Denies: Hematemesis, Hematochezia, Melena Genitourinary: Denies: Dysuria, Hematuria Skin: Denies: Rash Subjectve: Patient resting comfortably in bed, no acute distress. Objective: Vital Signs Temp Pulse Resp BP Pulse Ox 98.2 F 87 16 148/86 H 96 04/27/19 09:00 04/27/19 09:00 04/27/19 09:00 04/27/19 09:00 04/27/19 09:00 Oxygen Delivery Method Room Air Weight: 235 lb 10.786 oz Body Mass Index (BMI) 38.0 Finger Stick Blood Glucose 143 Orthostatic Vital Signs Start: 04/27/19 06:00 Freq: q24h Status: Active Protocol: Activity Type Activity Date Activity User E-Sign Co-Sign Detail Recorded Client Recorded Date Recorded By Document 04/27/19 07:02 WILLIAN [id number] 04/27/19 07:03 WILLIAN 04/27/19 07:02 Orthostatic Vitals Standing -Blood Pressure (90/60-120/80) 159/95 H -Extremity Use Left Arm -Pulse Rate (60-100) 93 Sitting -Blood Pressure (90/60-120/80) 184/93 H -Extremity Use Left Arm -Pulse Rate (60-100) 90 Lying -Blood Pressure (90/60-120/80) 160/87 H -Extremity Use Left Arm -Pulse Rate (60-100) 75 Intake and Output for Last 24 Hours 04/25/19 04/26/19 04/27/19 23:59 23:59 23:59 Intake Total 1217.5 / 1217.5 Balance 1217.5 / 1217.5 General: Awake, Alert, Oriented x 3 HEENT: PERRL, EOMI, Sclera Non Icteric Neck: Supple, Good ROM, No Lymph Node Enlargement Lungs: Clear to auscultation Cardiovascular: Regular Rhythm, Normal S1, Normal S2, No Murmurs, No Rubs, No Gallops Vascular: No Carotid Bruits, Normal Femoral Pulses, Normal Radial Pulses, Normal Dorsalis Pedal Pulse, Normal Posterior Tibial Pulses Abdomen: Bowel Sounds Present, Soft, Non Tender, No HSM, No Organomegaly Extremities: No Cyanosis, No Clubbing, No edema Neurological: No Focal Motor or Sensory Deficit 04/26/19 19:30: Magnesium 1.6 04/26/19 19:30: Sodium 139, Potassium 4.0, Chloride 106, Carbon Dioxide 26.0, Anion Gap 7, BUN 34 H, Creatinine 1.41 H, Est GFR (MDRD) Af Amer 69, Est GFR (MDRD) Non-Af 57 L, BUN/Creatinine Ratio 24.1 H, Glucose 148 H, Calcium 9.3, Troponin I < 0.015 04/26/19 19:30: Hemoglobin A1c 7.2 H 04/26/19 22:04: Troponin I < 0.015 04/27/19 00:59: Troponin I < 0.015 Rhythm: Telemetry showed normal sinus rhythm with ventricular trigeminy EKG: As above ECHO: Pending Stress Test: Pending Cardiac Cath: PCI: CT Surgery: Holter monitor: EPS: PPM: CXR: Chest CT Scan: Assessment/Plan 1. Syncope: Patient had a new onset syncopal episode while standing in the hardware store looking at some shelves, with a prodrome of dizziness, flushing feeling, followed by hitting the floor injuring his knee and his hand. Subsequent to this the patient was found to be in normal sinus rhythm with asymptomatic ventricular bigeminy and trigeminy and was transferred to [facility]. His rhythm has remained sinus rhythm with ventricular trigeminy which is detectable by physical exam. Patient has been recently given the diagnosis of temporal arteritis and was started on prednisone therapy about 2 weeks ago. Apparently he was also found to have significant hypertension and is currently on polypharmacy including amlodipine, chlorthalidone, lisinopril, and Coreg. Despite this, the patient's blood pressure is not well controlled. In addition he was found to be hypomagnesemic and his magnesium was replaced. Patient had an echocardiogram done recently on 04/10/2019 at an outside hospital which reportedly showed normal LV function. I recommend the patient repeat his echocardiogram on this admission to determine if he has had any deterioration of his LV function, more importantly to assess his pulmonary pressures. Of also recommend the patient undergo a treadmill echocardiogram to determine if he has any chronotropic incompetence, ventricular arrhythmias, hypertensive blood pressure response to exercise, and obviously ischemia. Patient has had no chest pain symptoms prior to her subsequent to these events, and has had no change in his exercise capacity. 2. Hypertension: Would recommend discontinuation of the patient's chlorthalidone as this may be contributing to hypomagnesemia and/or hypokalemia which may have precipitated the patient's syncope and ventricular arrhythmias. Would recommend increasing his lisinopril to 20 mg p.o. twice daily, and continuing Coreg, amlodipine. Would also recommend continuing orthostatic blood pressures to determine if he needs additional antihypertensive therapy. His blood pressure may be augmented by the use of prednisone and the limited salt retaining properties of prednisone. 3. Patient may require a 30-day event monitor if his initial cardiac work-up is negative. 4. Temporal arteritis: Patient recently underwent a right temporal artery biopsy, and was started on prednisone previous to this. It is uncertain whether the patient has true temporal arteritis although the biopsy results are pending. 5. Patient may require neurological evaluation for the EEG to determine if he has any seizure-like activities which may be contributing to his syncopal events. 6. Thank you very much for the opportunity to participate in the cardiac care of your patient. Consultation time took place between 945 and 10:15 AM. Code Visit Inpatient E&M: 22737 Init Hosp L2
--- NOTE | 2019-04-27 11:00 | PN_ITS ---
<Edison Gibbs - Last Filed: 04/27/19 11:00> Patient Problems: Active and Suspected Problems (Last Updated 04/26/19 @ 19:09 by Paddy Cotton DO) Syncope (Acute) Ventricular trigeminy (Acute) Subjective: Pt resting comfortably in bed. Currently denies any symptoms and feels he is back to his normal self. He denies headache, dizziness, LH, palp, chest pain, or SOB. At the time of his syncope yesterday he was standing looking at an item on a shelf at a store, suddenly became dizzy, and collapsed completely losing con sciousness. He recovered several minutes later. He was recently here with severe hypertension and visual disturbances including color vision changes and sudden loss of vision in the right eye. This went away with treatment of his blood pressure, however after discharge it came back spontaneously. He went to [facility] and was subsequently transferred to [facility] to see an eye doctor. He was placed on prednisone for suspected temporal arteritis and a biopsy was done (results pending). No visual changes at this time. - Physical Exam General: Alert, Oriented x3, Cooperative HEENT: Atraumatic, PERRLA, EOMI, Normocephalic Neck: Supple, No JVD, Negative Carotid Bruits Lungs: Clear to auscultation, Normal air movement Cardiovascular: Regular rate, No murmurs Abdomen: Bowel Sounds Present, Soft, Non Tender Extremities: No edema, Capillary Refill Less than 3 Seconds Skin: No rashes, No breakdown Musculoskeletal: No Tenderness to Palpation of Joints or Extremities Neurological: Cranial nerves II-XII grossly intact Psych/Mental Status: Normal Affect, Appropriate, Alert and oriented to time, place, person, mood and affect Vital Signs Temp Pulse Resp BP Pulse Ox 98.2 F 87 16 148/86 H 96 04/27/19 09:00 04/27/19 09:00 04/27/19 09:00 04/27/19 09:00 04/27/19 09:00 Oxygen Delivery Method Room Air Weight: 235 lb 10.786 oz Body Mass Index (BMI) 38.0 Finger Stick Blood Glucose 143 Orthostatic Vital Signs Start: 04/27/19 06:00 Freq: q24h Status: Active Protocol: Activity Type Activity Date Activity User E-Sign Co-Sign Detail Recorded Client Recorded Date Recorded By Document 04/27/19 07:02 WILLIAN [id number] 04/27/19 07:03 WILLIAN 04/27/19 07:02 Orthostatic Vitals Standing -Blood Pressure (90/60-120/80) 159/95 H -Extremity Use Left Arm -Pulse Rate (60-100) 93 Sitting -Blood Pressure (90/60-120/80) 184/93 H -Extremity Use Left Arm -Pulse Rate (60-100) 90 Lying -Blood Pressure (90/60-120/80) 160/87 H -Extremity Use Left Arm -Pulse Rate (60-100) 75 Intake and Output for Last 24 Hours 04/25/19 04/26/19 04/27/19 23:59 23:59 23:59 Intake Total 1217.5 / 1217.5 Balance 1217.5 / 1217.5 Laboratory Tests Past 24 Hrs 04/26/19 04/26/19 04/26/19 19:30 19:30 19:30 Sodium 139 Potassium 4.0 Chloride 106 Carbon Dioxide 26.0 Anion Gap 7 BUN 34 H Creatinine 1.41 H Estim Creat Clear Calc 58.45 Est GFR (MDRD) Af Amer 69 Est GFR (MDRD) Non-Af 57 L BUN/Creatinine Ratio 24.1 H Glucose 148 H Hemoglobin A1c 7.2 H Calcium 9.3 Magnesium 1.6 Troponin I < 0.015 TSH 04/26/19 04/27/19 04/27/19 22:04 00:59 05:15 Sodium Potassium Chloride Carbon Dioxide Anion Gap BUN Creatinine Estim Creat Clear Calc Est GFR (MDRD) Af Amer Est GFR (MDRD) Non-Af BUN/Creatinine Ratio Glucose Hemoglobin A1c Calcium Magnesium Troponin I < 0.015 < 0.015 TSH 1.53 POC Glucose 04/27/19 04/26/19 06:46 21:28 POC Glucose 111 H 151 H Medical Necessity - Tobacco Use Smoking Status: Current every day smoker Tobacco Use: Pipe Assessment/Plan All Active Problems (Last Updated 04/26/19 @ 19:09 by Paddy Cotton DO) Syncope (Acute) Ventricular trigeminy (Acute) 1. Syncope - denies prior hx of syncope. He was lightheaded without palpitations prior to passing out. Occurred while standing in a store and looking at an item on a shelf. Total LOC. Denies head strike. No further symptoms since it happened. -trigemini noted. -cardiology consulted: rec echo and stress test in AM. -mag low, replaced with 2g IV. Recheck in AM -no post ictal phase, no shaking noted, no loss of bowel/bladder control, no hx seizure -Troponin negative x3. Denies prior coronary dz or arrhythmias. -TSH normal. 2. HTN - on multiple medications, not well controlled since admission. Recheck orthos as they were initially done with the wrong size cuff (too small). This also may have given us falsely elevated BP readings since admission. 3. New diagnosis of T2 DM, with morbid obesity - nutrition consulted. I also advised him on exercise, diet, and weight loss, as well as carb and calorie control. He states he has put on weight and been careless with his diet since he has been going through a divorce. Continue sliding scale insulin. Will need started on oral agent at ri, however this will depend on his renal function and what other tests he will go through this admission. Ideally he should start on metformin. 4. CKDIII - possibly somewhat elevated Cr. Received IV fluids initially. Will recheck renal function in AM. 5. ? Temporal arteritis - f.u with [facility]. Continue prednisone. Obtain biopsy results. No visual changes at this point. Denies any arthritic issues or proximal muscle pains that would suggest underlying PMR. DVT ppx: early ambulation DC planning: stress test in AM This patient was seen by Edison Gibbs PA-C under the supervision of Dr. Romero. <Herman Romero - Last Filed: 04/27/19 11:37> - Physical Exam Vital Signs Temp Pulse Resp BP Pulse Ox 98.2 F 87 16 148/86 H 96 04/27/19 09:00 04/27/19 09:00 04/27/19 09:00 04/27/19 09:00 04/27/19 09:00 Oxygen Delivery Method Room Air Weight: 235 lb 10.786 oz Body Mass Index (BMI) 38.0 Finger Stick Blood Glucose 143 Orthostatic Vital Signs Start: 04/27/19 06:00 Freq: q24h Status: Active Protocol: Activity Type Activity Date Activity User E-Sign Co-Sign Detail Recorded Client Recorded Date Recorded By Document 04/27/19 07:02 WILLIAN [id number] 04/27/19 07:03 WILLIAN 04/27/19 07:02 Orthostatic Vitals Standing -Blood Pressure (90/60-120/80) 159/95 H -Extremity Use Left Arm -Pulse Rate (60-100) 93 Sitting -Blood Pressure (90/60-120/80) 184/93 H -Extremity Use Left Arm -Pulse Rate (60-100) 90 Lying -Blood Pressure (90/60-120/80) 160/87 H -Extremity Use Left Arm -Pulse Rate (60-100) 75 Intake and Output for Last 24 Hours 04/25/19 04/26/19 04/27/19 23:59 23:59 23:59 Intake Total 1217.5 / 1217.5 Balance 1217.5 / 1217.5 Laboratory Tests Past 24 Hrs 04/26/19 04/26/19 04/26/19 19:30 19:30 19:30 Sodium 139 Potassium 4.0 Chloride 106 Carbon Dioxide 26.0 Anion Gap 7 BUN 34 H Creatinine 1.41 H Estim Creat Clear Calc 58.45 Est GFR (MDRD) Af Amer 69 Est GFR (MDRD) Non-Af 57 L BUN/Creatinine Ratio 24.1 H Glucose 148 H Hemoglobin A1c 7.2 H Calcium 9.3 Magnesium 1.6 Troponin I < 0.015 TSH 04/26/19 04/27/19 04/27/19 22:04 00:59 05:15 Sodium Potassium Chloride Carbon Dioxide Anion Gap BUN Creatinine Estim Creat Clear Calc Est GFR (MDRD) Af Amer Est GFR (MDRD) Non-Af BUN/Creatinine Ratio Glucose Hemoglobin A1c Calcium Magnesium Troponin I < 0.015 < 0.015 TSH 1.53 POC Glucose 04/27/19 04/26/19 06:46 21:28 POC Glucose 111 H 151 H Assessment/Plan Hospitalist note: I am seeing this patient in conjunction with Edison Gibbs. I independently seen and examined the patient. Progress note above, laboratory data and imaging studies from the outside facility reviewed and I concur with the above work-up plan. Patient was directly admitted from [facility] for syncopal episode. He was found to have ventricular trigeminy on EKG. Today, he denies any complaints. He did mention that he was dizzy and lightheaded before passed out, does not know how long he was out but he recovered quickly. No reported seizure history. He has no cardiac history. He has been afebrile, heart rate stable, blood pressure has been on the higher side, pulse ox was maintained room air. He remained in sinus rhythm with ventricular trigeminy on telemetry. - Physical Exam General: Alert, Oriented x3, Cooperative, No apparent distress. HEENT: Atraumatic, PERRLA, EOMI. Neck: Supple, No JVD, Negative Carotid Bruits, Trachea Midline, Thyroid Normal. Lungs: Clear to auscultation, Normal air movement, No rhonchi, No wheeze, No rales. Cardiovascular: Regular rate, Regular Rhythm, Normal S1, Normal S2, PMI Normal, ectopics. Abdomen: Bowel Sounds Present, Soft, Non Tender, Non-Distended, No Hepato- splenomegaly. Extremities: No clubbing, No cyanosis, No edema Skin: No rashes, No breakdown Neurological: Cranial nerves are intact, neuro grossly intact. Assessment and plan: #1 syncopal episode: With ventricular trigeminy on EKG, concern for underlying cardiac arrhythmias. Vital signs are stable. EKG revealed no acute ischemic change. Troponin is negative x3. Patient had CT scan and MRI brain in March, which was done for transient visual disturbances and showed no evidence of acute stroke. Cardiology consulted, recommended 2D echocardiogram and stress echocardiogram which will be done tomorrow morning. #2 uncontrolled hypertension: Patient has been on 4 different antihypertensive medications, blood pressure still uncontrolled. Lisinopril increased to 29 p.o. daily, continue Norvasc, Coreg and chlorthalidone. #3 suspected temporal arthritis: Status post temporal artery biopsy that was done at outside facility, results are pending. Patient is on prednisone which was continued. #4 other chronic medical problems: Stable, continue current medication as above. This note was generated with [employer] software. It may contain incorrect words, spelling, and punctuation that were not noted in checking the note before signing. Code Visit OBSV E&M: 15774 Subsequent observation care L2
[2019-04-27] MEDS: amLODIPine 10 MG Tablet PO (11:20)
[2019-04-27] MEDS: predniSONE 20 MG Tablet PO ×2 (11:20→16:45)
[2019-04-27] MEDS: Lisinopril 20 MG Tablet PO ×2 (11:20→22:01)
[2019-04-27] MEDS: Carvedilol 6.25 MG Tablet PO ×2 (11:21→22:01)
[2019-04-27 12:16] LABS: Bedside Glucose 147 mg/dL (70-110)
[2019-04-27 16:45] LABS: Bedside Glucose 182 mg/dL (70-110)
[2019-04-27] MEDS: Insulin Lispro 100 UNIT/ML INSULN.PEN SC (16:45)
[2019-04-27 22:21] LABS: Bedside Glucose 168 mg/dL (70-110)
[2019-04-28] VITALS (10 sets, daily range): BP systolic 130–156; BP diastolic 85–103; PULSE 69–101; RESP 14–18; TEMP 36.6–37.2; O2SAT 92–98
[2019-04-28 05:35] LABS: Anion Gap 11 (5-15); BUN 34 mg/dL (7-18); BUN/Creat Ratio 25.4 RATIO (10-20); Calcium,Total 9.3 mg/dL (8.5-10.1); Chloride 102 mmol/L (98-107); Creatinine, Serum 1.34 mg/dL (0.70-1.30); EST Glomerular Filtration Rate 61 mL/min (>60); Est Glom Filt Rate - Afr Amer 74 mL/min (>60); Glucose 138 mg/dL (74-106); Potassium 4.3 mmol/L (3.5-5.1); Sodium Level 138 mmol/L (136-145)
--- NOTE | 2019-04-28 05:55 | EKG12_ITS ---
Test Reason : AM EKG Blood Pressure : / mmHG Vent. Rate : 074 BPM Atrial Rate : 074 BPM P-R Int : 148 ms QRS Dur : 116 ms QT Int : 424 ms P-R-T Axes : 049 -30 022 degrees QTc Int : 470 ms Normal sinus rhythm with sinus arrhythmia Left axis deviation Left ventricular hypertrophy with QRS widening Abnormal ECG When compared with ECG of 04-APR-2019 01:11, Vent. rate has decreased BY [address] no longer depressed in Anterolateral leads T wave inversion no longer evident in Anterolateral leads Confirmed by TREASURE SHEETS ([id number]), make up editor NORMA ELLISON ([id number] on 05/06/2019 1:10:27 PM Referred By: Paddy Cotton Confirmed By:TREASURE SHEETS
[2019-04-28] MEDS: Lisinopril 20 MG Tablet PO ×2 (06:22→21:10)
[2019-04-28 07:10] LABS: Bedside Glucose 130 mg/dL (70-110)
[2019-04-28] MEDS: predniSONE 20 MG Tablet PO ×2 (09:54→16:51)
[2019-04-28] MEDS: amLODIPine 10 MG Tablet PO (09:54)
[2019-04-28] MEDS: Carvedilol 6.25 MG Tablet PO ×2 (09:54→21:10)
[2019-04-28 11:55] LABS: Bedside Glucose 135 mg/dL (70-110)
--- NOTE | 2019-04-28 12:08 | CASEMGMT ---
According to the [facility] website, the following are in-network tertiary facilities: [facility], [facility], [facility], [facility], [facility], [facility], [facility], [place], [facility], and . Beto BASS CM
--- NOTE | 2019-04-28 12:13 | PN.CARD_ITS ---
Subjectve: Patient seen and examined this morning. No 24-hour events. Telemetry shows normal sinus rhythm with rare PVCs. Ventricular trigeminy markedly improved. Chest pain. Objective: Vital Signs Temp Pulse Resp BP Pulse Ox 98.7 F 88 14 130/85 H 92 04/28/19 09:35 04/28/19 09:35 04/28/19 09:35 04/28/19 09:35 04/28/19 09:00 Oxygen Delivery Method Room Air Weight: 235 lb 10.786 oz Body Mass Index (BMI) 38.0 Finger Stick Blood Glucose 143 Orthostatic Vital Signs Start: 04/27/19 06:00 Freq: q24h Status: Active Protocol: Activity Type Activity Date Activity User E-Sign Co-Sign Detail Recorded Client Recorded Date Recorded By Document 04/27/19 13:52 EEB [id number] 04/27/19 13:53 EEB 04/27/19 13:52 Orthostatic Vitals Standing -Blood Pressure (90/60-120/80 mm Hg) 149/71 H -Extremity Use Left Arm -Pulse Rate (60-100 beats/min) 92 Sitting -Blood Pressure (90/60-120/80 mm Hg) 144/75 H -Extremity Use Left Arm -Pulse Rate (60-100 beats/min) 87 Lying -Blood Pressure (90/60-120/80 mm Hg) 143/68 H -Extremity Use Left Arm -Pulse Rate (60-100 beats/min) 80 Intake and Output for Last 24 Hours 04/26/19 04/27/19 04/28/19 23:59 23:59 23:59 Intake Total 2281.5 / 2281.5 540 / 540 Balance 2281.5 / 2281.5 540 / 540 General: Awake, Alert, Oriented x 3 HEENT: PERRL, EOMI, Sclera Non Icteric Neck: Supple, Good ROM, No Lymph Node Enlargement Lungs: Clear to auscultation Cardiovascular: Regular Rhythm, Normal S1, Normal S2, No Murmurs, No Rubs, No Gallops Vascular: No Carotid Bruits, Normal Femoral Pulses, Normal Radial Pulses, Normal Dorsalis Pedal Pulse, Normal Posterior Tibial Pulses Abdomen: Bowel Sounds Present, Soft, Non Tender, No HSM, No Organomegaly Extremities: No Cyanosis, No Clubbing, No edema Neurological: No Focal Motor or Sensory Deficit 04/28/19 05:00: Sodium 138, Potassium 4.3, Chloride 102, Carbon Dioxide 25.0, Anion Gap 11, BUN 34 H, Creatinine 1.34 H, Est GFR (MDRD) Af Amer 74, Est GFR (MDRD) Non-Af 61, BUN/Creatinine Ratio 25.4 H, Glucose 138 H, Calcium 9.3, Magnesium 2.0 Rhythm: EKG: ECHO: Stress Test: Cardiac Cath: PCI: CT Surgery: Holter monitor: EPS: PPM: CXR: Chest CT Scan: Medical Necessity - Tobacco Use Smoking Status: Current every day smoker Tobacco Use: Pipe Assessment/Plan 1. Syncope: Patient had a new onset syncopal episode while standing in the hardware store looking at some shelves, with a prodrome of dizziness, flushing feeling, followed by hitting the floor injuring his knee and his hand. Subsequent to this the patient was found to be in normal sinus rhythm with asymptomatic ventricular bigeminy and trigeminy and was transferred to [facility]. His rhythm has remained sinus rhythm with ventricular trigeminy which is detectable by physical exam. Patient has been recently given the diagnosis of temporal arteritis and was started on prednisone therapy about 2 weeks ago. Apparently he was also found to have significant hypertension and is currently on polypharmacy including amlodipine, chlorthalidone, lisinopril, and Coreg. Despite this, the patient's blood pressure is not well controlled. In addition he was found to be hypomagnesemic and his magnesium was replaced. Patient had an echocardiogram done recently on 04/10/2019 at an outside hospital which reportedly showed normal LV function. Upon further review the patient actually underwent a 2D echo with Doppler on 04/04/2019 at [facility] which I reviewed. That showed that his EF was not normal, with an overall ejection fraction around 45 to 50%. Repeat echocardiogram done today showed his overall ejection fraction to be around 40 to 45% with moderate global LV dysfunction. Patient in addition underwent a treadmill echocardiogram at a very good workload, and show contractility of all major regions. He did however have ventricular trigeminy during exercise and into recovery. Interestingly, he did not have a hypertensive blood pressure response to exercise. Given the patient's moderate LV dysfunction, ventricular trigeminy, true syncope, and hypertension, I recommended he undergo a left heart catheterization to determine whether he has any concomitant coronary disease that may be affecting his overall LV function. If he has no significant coronary disease, I would recommend a 30-day event monitor and attempt to try and capture any possible arrhythmias. I have adjusted his blood pressure medicines, and his blood pressure has improved in the short-term. Would recommend only baby aspirin given the patient's recent surgical procedure of his left temporal artery. If it is found he requires intervention, we will pause, load him with Plavix, and then return to the [facility] for corrective measures. 2. Hypertension: Would recommend discontinuation of the patient's chlorthalidone as this may be contributing to hypomagnesemia and/or hypokalemia which may have precipitated the patient's syncope and ventricular arrhythmias. Would recommend increasing his lisinopril to 20 mg p.o. twice daily, and continuing Coreg, amlodipine. Would also recommend continuing orthostatic blood pressures to determine if he needs additional antihypertensive therapy. His blood pressure may be augmented by the use of prednisone and the limited salt retaining properties of prednisone. Patient does not appear to be orthostatic as of today's readings. 3. Patient will require a 30-day event monitor if his initial cardiac work-up is negative. 4. Temporal arteritis: Patient recently underwent a right temporal artery biopsy, and was started on prednisone previous to this. It is uncertain whether the patient has true temporal arteritis although the biopsy results are pending. 5. Patient may require neurological evaluation for the EEG to determine if he has any seizure-like activities which may be contributing to his syncopal events. Old records from previous MRI demonstrates he had a previous CVA. 6. Thank you very much for the opportunity to participate in the cardiac care of your patient. Cussed with Edison Gibbs. Code Visit Inpatient E&M: [id number] Subs Hosp L2
--- NOTE | 2019-04-28 13:09 | PCM.PROGNOTE ---
<Edison Gibbs - Last Filed: 04/28/19 13:09> Patient Problems: Active and Suspected Problems (Last Updated 04/26/19 @ 19:09 by Paddy Cotton DO) Syncope (Acute) Ventricular trigeminy (Acute) Subjective: Did well with stress test today, no CP or SOB. No dizzines/palp/LH. No LE edema. - Physical Exam General: Alert, Oriented x3, Cooperative HEENT: Atraumatic, PERRLA, EOMI, Normocephalic Neck: Supple, No JVD, Negative Carotid Bruits Lungs: Clear to auscultation, Normal air movement Cardiovascular: Regular rate, No murmurs Abdomen: Bowel Sounds Present, Soft, Non Tender Extremities: No edema, Capillary Refill Less than 3 Seconds Skin: No rashes, No breakdown Musculoskeletal: No Tenderness to Palpation of Joints or Extremities Neurological: Cranial nerves II-XII grossly intact Psych/Mental Status: Depressed, Alert and oriented to time, place, person, mood and affect Vital Signs Temp Pulse Resp BP Pulse Ox 98.7 F 88 14 130/85 H 92 04/28/19 09:35 04/28/19 09:35 04/28/19 09:35 04/28/19 09:35 04/28/19 09:00 Oxygen Delivery Method Room Air Weight: 235 lb 10.786 oz Body Mass Index (BMI) 38.0 Finger Stick Blood Glucose 143 Orthostatic Vital Signs Start: 04/27/19 06:00 Freq: q24h Status: Active Protocol: Activity Type Activity Date Activity User E-Sign Co-Sign Detail Recorded Client Recorded Date Recorded By Document 04/27/19 13:52 EEB [id number] 04/27/19 13:53 EEB 04/27/19 13:52 Orthostatic Vitals Standing -Blood Pressure (90/60-120/80) 149/71 H -Extremity Use Left Arm -Pulse Rate (60-100) 92 Sitting -Blood Pressure (90/60-120/80) 144/75 H -Extremity Use Left Arm -Pulse Rate (60-100) 87 Lying -Blood Pressure (90/60-120/80) 143/68 H -Extremity Use Left Arm -Pulse Rate (60-100) 80 Intake and Output for Last 24 Hours 09/07/19 09/08/19 09/09/19 23:59 23:59 23:59 Intake Total 2281.5 / 2281.5 540 / 540 Balance 2281.5 / 2281.5 540 / 540 Laboratory Tests Past 24 Hrs 04/28/19 05:00 Sodium 138 Potassium 4.3 Chloride 102 Carbon Dioxide 25.0 Anion Gap 11 BUN 34 H Creatinine 1.34 H Estim Creat Clear Calc 61.50 Est GFR (MDRD) Af Amer 74 Est GFR (MDRD) Non-Af 61 BUN/Creatinine Ratio 25.4 H Glucose 138 H Calcium 9.3 Magnesium 2.0 POC Glucose 04/28/19 04/28/19 04/27/19 11:47 06:20 22:04 POC Glucose 135 H 130 H 168 H 04/27/19 16:41 POC Glucose 182 H Medical Necessity - Tobacco Use Smoking Status: Current every day smoker Tobacco Use: Pipe Assessment/Plan All Active Problems (Last Updated 04/26/19 @ 19:09 by Paddy Cotton DO) Syncope (Acute) Ventricular trigeminy (Acute) 1. Syncope - denies prior hx of syncope. He was lightheaded without palpitations prior to passing out. Occurred while standing in a store and looking at an item on a shelf. Total LOC. Denies head strike. No further symptoms since it happened. -trigemini resolved. -cardiology consulted -Troponin negative x3. -TSH normal. -Stress test and echo showing decreased EF, Left vent hypokinesis and St1 diastolic Dysfunction -No ischemia on stress test. -Heart Cath in AM. -with recent temporal arteritis no plavix per cards. 2. HTN - improved, still trending high. Orthos negative. 3. New diagnosis of T2 DM, with morbid obesity - nutrition consulted. SSI. Plan for metformin after discharge (hold for 3 days after cath). F/u PCP and get repeat A1C in 3-4 months. A1C 7.2. 4. CKDIII - improved. 5. ? Temporal arteritis - f.u with [facility]. Continue prednisone. Biopsy results are not resolved yet. 6. Old CVA - MRI report obtained and did show an old stroke. He has not been taking a statin or aspirin at home. Start lipitor. DVT ppx: early ambulation DC planning: stress test in AM This patient was seen by Edison Gibbs PA-C under the supervision of Dr. Molina. <Delmy Molina - Last Filed: 04/28/19 13:56> - Physical Exam Vital Signs Temp Pulse Resp BP Pulse Ox 98.7 F 88 14 130/85 H 92 04/28/19 09:35 04/28/19 09:35 04/28/19 09:35 04/28/19 09:35 04/28/19 09:00 Oxygen Delivery Method Room Air Weight: 235 lb 10.786 oz Body Mass Index (BMI) 38.0 Finger Stick Blood Glucose 143 Orthostatic Vital Signs Start: 04/27/19 06:00 Freq: q24h Status: Active Protocol: Activity Type Activity Date Activity User E-Sign Co-Sign Detail Recorded Client Recorded Date Recorded By Document 04/27/19 13:52 EEB [id number] 04/27/19 13:53 EEB 04/27/19 13:52 Orthostatic Vitals Standing -Blood Pressure (90/60-120/80) 149/71 H -Extremity Use Left Arm -Pulse Rate (60-100) 92 Sitting -Blood Pressure (90/60-120/80) 144/75 H -Extremity Use Left Arm -Pulse Rate (60-100) 87 Lying -Blood Pressure (90/60-120/80) 143/68 H -Extremity Use Left Arm -Pulse Rate (60-100) 80 Intake and Output for Last 24 Hours 04/26/19 04/27/19 04/28/19 23:59 23:59 23:59 Intake Total 2281.5 / 2281.5 540 / 540 Balance 2281.5 / 2281.5 540 / 540 Laboratory Tests Past 24 Hrs 04/28/19 05:00 Sodium 138 Potassium 4.3 Chloride 102 Carbon Dioxide 25.0 Anion Gap 11 BUN 34 H Creatinine 1.34 H Estim Creat Clear Calc 61.50 Est GFR (MDRD) Af Amer 74 Est GFR (MDRD) Non-Af 61 BUN/Creatinine Ratio 25.4 H Glucose 138 H Calcium 9.3 Magnesium 2.0 POC Glucose 04/28/19 04/28/19 04/27/19 11:47 06:20 22:04 POC Glucose 135 H 130 H 168 H 04/27/19 16:41 POC Glucose 182 H Assessment/Plan Patient seen by Edison Gibbs PA-C under my supervision Patient was admitted with complaint of syncope and found to have ventricular trigeminy on telemetry. Cardiology is on board. Troponins x3 were negative. Patient seen and examined today. He had no complaints and felt well. Review of systems otherwise negative. He had stressed test this morning which showed decreased EF of 45% with left ventricular hypokinesis and stage I diastolic dysfunction. He had a 2D echo which showed mildly dilated left ventricle with mild concentric left ventricular hypertrophy with estimated EF of 40% and moderate global hypokinesis of the left ventricle. RVSP is 27 mmHg. o/e: Vital Signs Height 5 ft 6 in Weight: 235 lb 10.786 oz Weight in Pounds 235.7 lbs Pulse Ox 92 Temperature 98.7 F Pulse Rate [Standing] 92 Pulse Rate [Sitting] 87 Pulse Rate [Lying] 80 Pulse Rate 88 Respiratory Rate 14 Blood Pressure [Standing] 149/71 Blood Pressure [Sitting] 144/75 Blood Pressure [Lying] 143/68 Blood Pressure [BP] 130/85 Blood Pressure 130/85 Blood Pressure Position [BP] Semi-Fowlers Blood Pressure Position Sitting General: Alert, Oriented x3, Cooperative HEENT: Atraumatic, PERRLA, EOMI, Normocephalic Neck: Supple, No JVD, Negative Carotid Bruits Lungs: Clear to auscultation, Normal air movement Cardiovascular: Regular rate, No murmurs Abdomen: Bowel Sounds Present, Soft, Non Tender Extremities: No edema, Capillary Refill Less than 3 Seconds Skin: No rashes, No breakdown, healing surgical scar over right tempral area (site of temporal artery biopsy) Musculoskeletal: No Tenderness to Palpation of Joints or Extremities Neurological: Cranial nerves II-XII grossly intact Psych/Mental Status: Depressed, Alert and oriented to time, place, person, mood and affect Plan is for patient to have heart cath tomorrow. To hold Plavix now on account of patient having recently had a temporal artery biopsy as part of work-up for temporal arteritis. For precautions. Start on p.o. aspirin 81 mg daily as per cardiology. Of note, chlorthalidone has also been discontinued and lisinopril increased to 20 mg twice daily. He is to continue his Coreg and amlodipine. If cardiac cath is negative, he will benefit from a 30-day event monitor at time of discharge. Rest of management as per Edison Gibbs PA-C's notes which I reviewed and endorsed. Code Visit OBSV E&M: 16341 Subsequent observation care L2
[2019-04-28 16:56] LABS: Bedside Glucose 161 mg/dL (70-110)
[2019-04-28] MEDS: Atorvastatin Calcium 80 MG Tablet PO (21:10)
[2019-04-28 21:35] LABS: Bedside Glucose 172 mg/dL (70-110)
[2019-04-29] VITALS (16 sets, daily range): BP systolic 132–157; BP diastolic 67–101; PULSE 60–95; RESP 14–18; TEMP 36.6–37; O2SAT 95–986
[2019-04-29 05:36] LABS: Prothrombin Time (Protime)PT. 13.3 SECONDS (11.7-14.9)
[2019-04-29 05:37] LABS: Partial Thromboplast Time 28.5 Seconds (24.1-36.2)
[2019-04-29 05:44] LABS: Anion Gap 10 (5-15); BUN 44 mg/dL (7-18); BUN/Creat Ratio 30.3 RATIO (10-20); Calcium,Total 9.1 mg/dL (8.5-10.1); Chloride 102 mmol/L (98-107); Creatinine, Serum 1.45 mg/dL (0.70-1.30); EST Glomerular Filtration Rate 55 mL/min (>60); Est Glom Filt Rate - Afr Amer 67 mL/min (>60); Estimated Creatinine Clearance 56.83 ml/min; Glucose 127 mg/dL (74-106); Potassium 4.1 mmol/L (3.5-5.1); Sodium Level 137 mmol/L (136-145)
--- NOTE | 2019-04-29 05:55 | EKG12_ITS ---
Test Reason : AM EKG Blood Pressure : / mmHG Vent. Rate : 059 BPM Atrial Rate : 059 BPM P-R Int : 132 ms QRS Dur : 114 ms QT Int : 450 ms P-R-T Axes : 022 -28 006 degrees QTc Int : 445 ms Sinus bradycardia Minimal voltage criteria for LVH, may be normal variant Nonspecific T wave abnormality Abnormal ECG When compared with ECG of 28-APR-2019 05:54, MANUAL COMPARISON REQUIRED, DATA IS UNCONFIRMED Confirmed by TREASURE SHEETS ([id number]), features editor NORMA ELLISON ([id number]) on 05/06/2019 1:10:40 PM Referred By: Paddy Cotton Confirmed By:TREASURE SHEETS
[2019-04-29] MEDS: 0.9% NaCl Peripheral Flush Adult/Peds IV (05:59)
[2019-04-29] MEDS: Lisinopril 20 MG Tablet PO ×2 (05:59→21:53)
[2019-04-29] MEDS: Aspirin 81 MG TAB.CHEW PO (05:59)
[2019-04-29] MEDS: amLODIPine 10 MG Tablet PO (05:59)
[2019-04-29] MEDS: Carvedilol 6.25 MG Tablet PO ×2 (05:59→21:53)
[2019-04-29 06:45] LABS: Bedside Glucose 123 mg/dL (70-110)
[2019-04-29] MEDS: 0.9% Normal Saline 1,000 ML 100 ML IV (08:04)
[2019-04-29] MEDS: DiphenhydrAMINE 25 MG Capsule 50 MG PO (08:46)
--- NOTE | 2019-04-29 09:49 | CL.D_ITS ---
Patient Name: MEL MARSH Study Date: 04/29/2019 Performing: Antonio Bruce MD Ht: 66.14 inches 168 cm : 1970 Wt: 235.89 lbs 107 kg Age: 49 Gender: male BSA: 2.15 PROCEDURE(S) PERFORMED HD17-QNC/COR/LV CLINICAL PROFILE AND INDICATIONS Indications: Other, Other, New Onset Angina <= 2 months, Suspected CAD, Cardiac Arrythmia, LV Dys function Heart Failure: NYHA Class: 1, Newly Diagnosed: Yes, Heart Failure Type: Systolic Stress/Imaging Stress/Image Study Performed: No Angina Classification Anginal Classification w/in 2 Weeks: CCS II CAD Presentations: Unstable angina. 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 Pt may have had aborted ischemia induced arryhythmia as a cause of his syncope. Manual sheath removal. DESCRIPTION OF PROCEDURE The patient arrived to the procedure lab. The risks and benefits of the procedure as well as a full d escription of our services here and current unavailability of surgical backup were fully explained to the patient and/or their significant other prior to the catheterization. The Timeout was completed, verifying the correct patient and procedure. The patient's procedural site was prepped and draped in the usual fashion. Local anesthetic was given subcutaneously to right groin region with Lidocaine 2%. Using a modified Seldinger technique, arterial access was obtained via the right femoral artery, a 4 Fr sheath was inserted Left Coronary Artery selective angiography was performed in multiple views us ing a 4 Fr. JL5 catheter. Right Coronary Artery selective angiography was then performed in multiple views using a 4 Fr. 3DRC catheter. Left Ventriculography was performed in EDGAR projection using a 4 Fr . Pigtail catheter. LV to AO pullback pressures were then recorded.The arterial sheath was pulled and manual compression applied until hemostasis is achieved. CORONARY ANGIOGRAPHY DOMINANCE: Right Dominant LEFT HEART ASSESSMENT Left Ventricular Ejection Fraction: by LV Gram 45 % Global Hypokinesis - Mild to moderate Depressed Left Ventricular systolic function LVEDP: 9 mmHg Normal Left Ventricular End Diastolic Pressure LEFT MAIN: 20 distal % Stenosis LEFT ANTERIOR DESCENDING ARTERY: MID LAD: 75 diffuse % Stenosis CIRCUMFLEX ARTERY: Mild luminal irregularities less than 30% OM 1: Proximal - Mild luminal irregularities less than 30% RIGHT CORONARY ARTERY: MID RCA: 85 x 3 lesions % Stenosis DISTAL RCA: 85 % Stenosis COMPLICATIONS PROCEDURE MEDICATIONS Versed 1 mg IV Oxygen: 2 L/min via nasal cannula Nitro 200 mcg IC 04/29/2019 09:25:05 IV Bolus: .9 NaCl 200 ml total 04/29/2019 09:36:44 SUMMARY OF HEMODYNAMIC DATA Time AIR REST ECG 09:07:13 AO 100/75 (85) SA 09:23:39 LV 124/-17, 8 09:31:29 LV 128/-17, 9 09:31:37 LVp 134/-15, 4 09:31:54 AOp 141/72 (97) 09:31:59 Signed By Antonio Bruce MD On 04/29/2019 09:48:38 Antonio Bruce MD
[2019-04-29 11:41] LABS: Bedside Glucose 97 mg/dL (70-110)
[2019-04-29] MEDS: predniSONE 20 MG Tablet PO ×2 (13:09→18:13)
--- NOTE | 2019-04-29 13:10 | PN_ITS ---
<Edison Gibbs - Last Filed: 04/29/19 13:10> Patient Problems: Active and Suspected Problems (Last Updated 04/26/19 @ 19:09 by Paddy Cotton DO) Syncope (Acute) Ventricular trigeminy (Acute) Subjective: No complaints. No CP/pressure/tightness/SOB/palp/LH. Underwent heart cath today. Plan is for repeat cath with stent placement. - Physical Exam General: Alert, Oriented x3, Cooperative HEENT: Atraumatic, PERRLA, EOMI, Normocephalic Neck: Supple, No JVD, Negative Carotid Bruits Lungs: Clear to auscultation, Normal air movement Cardiovascular: Regular rate, No murmurs Abdomen: Bowel Sounds Present, Soft, Non Tender Extremities: No edema, Capillary Refill Less than 3 Seconds Skin: No rashes, No breakdown Musculoskeletal: No Tenderness to Palpation of Joints or Extremities Neurological: Cranial nerves II-XII grossly intact Psych/Mental Status: Normal Affect, Appropriate, Alert and oriented to time, place, person, mood and affect Vital Signs Temp Pulse Resp BP Pulse Ox 98 F 88 18 134/67 H 97 04/29/19 13:05 04/29/19 13:05 04/29/19 13:05 04/29/19 13:05 04/29/19 13:05 Oxygen Delivery Method Room Air Weight: 235 lb 10.786 oz Body Mass Index (BMI) 38.0 Finger Stick Blood Glucose 143 Orthostatic Vital Signs Start: 04/27/19 06:00 Freq: q24h Status: Active Protocol: Activity Type Activity Date Activity User E-Sign Co-Sign Detail Recorded Client Recorded Date Recorded By Document 04/27/19 13:52 EEB [id number] 04/27/19 13:53 EEB 04/27/19 13:52 Orthostatic Vitals Standing -Blood Pressure (90/60-120/80) 149/71 H -Extremity Use Left Arm -Pulse Rate (60-100) 92 Sitting -Blood Pressure (90/60-120/80) 144/75 H -Extremity Use Left Arm -Pulse Rate (60-100) 87 Lying -Blood Pressure (90/60-120/80) 143/68 H -Extremity Use Left Arm -Pulse Rate (60-100) 80 Intake and Output for Last 24 Hours 04/27/19 04/28/19 04/29/19 23:59 23:59 23:59 Intake Total 2281.5 / 2281.5 1020 / 1020 Balance 2281.5 / 2281.5 1020 / 1020 Laboratory Tests Past 24 Hrs 04/29/19 04/29/19 05:10 05:10 PT 13.3 INR 1.0 APTT 28.5 Sodium 137 Potassium 4.1 Chloride 102 Carbon Dioxide 25.0 Anion Gap 10 BUN 44 H Creatinine 1.45 H Estim Creat Clear Calc 56.83 Est GFR (MDRD) Af Amer 67 Est GFR (MDRD) Non-Af 55 L BUN/Creatinine Ratio 30.3 H Glucose 127 H Calcium 9.1 POC Glucose 04/29/19 04/29/19 04/28/19 11:32 06:40 21:12 POC Glucose 97 123 H 172 H 04/28/19 16:34 POC Glucose 161 H Medical Necessity - Tobacco Use Smoking Status: Current every day smoker Tobacco Use: Pipe Assessment/Plan All Active Problems (Last Updated 04/26/19 @ 19:09 by Paddy Cotton DO) Syncope (Acute) Ventricular trigeminy (Acute) 1. Syncope - CAD - per cath today, see report, 2 vessel that will later require stenting. Neuro consulted. MRI recommended. Continue to monitor for arrhythmias. -called [facility] - they have no contact number for the surgeon that did his biopsy: Dr. Pickett. 2. HTN - still somewhat elevated. 3. New diagnosis of T2 DM, with morbid obesity - nutrition consulted. SSI. Initially should start metformin, will need to hold after receiving contrast. F /u PCP and get repeat A1C in 3-4 months. A1C 7.2. 4. CKDIII - trend 5. Temporal arteritis ruled out - f.u with [facility]. stop prednisone. Pt states he was told his bx results are negative. We have put in a request for the official report. 6. Prior CVA - MRI report obtained and did show an old stroke. He has not been taking a statin or aspirin at home. started lipitor here. DVT ppx: early ambulation DC planning: needs stents. This patient was seen by Edison Gibbs PA-C under the supervision of Dr. Molina. <Delmy Molina - Last Filed: 04/29/19 15:03> - Physical Exam Vital Signs Temp Pulse Resp BP Pulse Ox 98.5 F 63 16 143/69 H 95 04/29/19 14:00 04/29/19 14:00 04/29/19 14:00 04/29/19 14:00 04/29/19 14:00 Oxygen Delivery Method Room Air Weight: 235 lb 10.786 oz Body Mass Index (BMI) 38.0 Finger Stick Blood Glucose 143 Orthostatic Vital Signs Start: 04/27/19 06:00 Freq: q24h Status: Active Protocol: Activity Type Activity Date Activity User E-Sign Co-Sign Detail Recorded Client Recorded Date Recorded By Document 04/27/19 13:52 EEB [id number] 04/27/19 13:53 EEB 04/27/19 13:52 Orthostatic Vitals Standing -Blood Pressure (90/60-120/80) 149/71 H -Extremity Use Left Arm -Pulse Rate (60-100) 92 Sitting -Blood Pressure (90/60-120/80) 144/75 H -Extremity Use Left Arm -Pulse Rate (60-100) 87 Lying -Blood Pressure (90/60-120/80) 143/68 H -Extremity Use Left Arm -Pulse Rate (60-100) 80 Intake and Output for Last 24 Hours 04/27/19 04/28/19 04/29/19 23:59 23:59 23:59 Intake Total 2281.5 / 2281.5 1020 / 1020 605 / 605 Balance 2281.5 / 2281.5 1020 / 1020 605 / 605 Laboratory Tests Past 24 Hrs 04/29/19 04/29/19 05:10 05:10 PT 13.3 INR 1.0 APTT 28.5 Sodium 137 Potassium 4.1 Chloride 102 Carbon Dioxide 25.0 Anion Gap 10 BUN 44 H Creatinine 1.45 H Estim Creat Clear Calc 56.83 Est GFR (MDRD) Af Amer 67 Est GFR (MDRD) Non-Af 55 L BUN/Creatinine Ratio 30.3 H Glucose 127 H Calcium 9.1 POC Glucose 04/29/19 04/29/19 04/28/19 11:32 06:40 21:12 POC Glucose 97 123 H 172 H 04/28/19 16:34 POC Glucose 161 H Assessment/Plan Patient seen and examined. He has no complaints this morning. Review of systems is otherwise negative. He had cardiac cath this morning which showed double vessel CAD of the LAD and RCA with nonobstructive coronary arteries and global left ventricular systolic dysfunction was mild to moderate as well as preserved left ventricular systolic function with normal end-diastolic pressure. o/e: Vital Signs Height 5 ft 6 in Weight: 235 lb 10.786 oz Weight in Pounds 235.7 lbs Pulse Ox 95 Temperature 98.5 F Pulse Rate [Standing] 92 Pulse Rate [Sitting] 87 Pulse Rate [Lying] 80 Pulse Rate 63 Respiratory Rate 16 Blood Pressure [Standing] 149/71 Blood Pressure [Sitting] 144/75 Blood Pressure [Lying] 143/68 Blood Pressure [BP] 130/85 Blood Pressure 143/69 Blood Pressure Position [BP] Semi-Fowlers Blood Pressure Position Semi-Fowlers General: Alert, Oriented x3, Cooperative HEENT: Atraumatic, PERRLA, EOMI, Normocephalic Neck: Supple, No JVD, Negative Carotid Bruits Lungs: Clear to auscultation, Normal air movement Cardiovascular: Regular rate, No murmurs Abdomen: Bowel Sounds Present, Soft, Non Tender Extremities: No edema, Capillary Refill Less than 3 Seconds Skin: No rashes, No breakdown Musculoskeletal: No Tenderness to Palpation of Joints or Extremities Neurological: Cranial nerves II-XII grossly intact Psych/Mental Status: Depressed, Alert and oriented to time, place, person, mood and affect Cardiac cath done today showed triple-vessel CAD of the LAD and RCA and nonobstructive coronary arteries with mild to moderate global left ventricular systolic dysfunction and preserved left ventricular systolic dysfunction with normal end-diastolic pressure. Per cardiology, patient will need to be cleared with neurology and surgery for application of 2 antiplatelet therapy and PCI of RCA prior to discharge home. This is on account of him having had temporal artery biopsy and suspicion of temporal arteritis. Case was discussed with patient surgical team at [facility] who stated that the temporal artery biopsy was negative for giant cell arteritis. They gave the okay for patient to go ahead and have dual antiplatelet therapy. Neurology was also consulted. It is thought that patient may have had an aborted ischemia induced arrhythmia as cause of his syncope per cardiology. Patient will therefore need PCI which will be done later this week. Of note, patient's A1c was also above 7 indicating that he is a newly diagnosed diabetic. Will start on insulin sliding scale now. MRI done showed evidence of possible old stroke. Plan is to start on metformin once he is done with cardiac cath. To follow-up with PCP upon discharge for further management of diabetes. Patient has been started on Lipitor. Blood pressure still remains quite elevated and has been running in the 150s and 160s systolic. Patient currently on carvedilol 6.25 mg twice daily, amlodipine 10 mg daily and lisinopril 20 mg twice daily. We will continue monitoring for now. If blood pressure remains persistently elevated, will consider adjusting medication dose. Rest of management as per Edison Gibbs PA-C's note, which I have reviewed and endorsed. Code Visit OBSV E&M: 51952 Subsequent observation care L2
--- NOTE | 2019-04-29 13:19 | MRI_ITS ---
HISTORY: Vision loss in one eye. Passed out on Sunday. Velocities in the right eye. Symptoms are on for weeks. Temporal artery biopsy was negative. TECHNIQUE: Routine brain MR protocol was performed without gadolinium. 10 series. 285 images COMPARISON: None FINDINGS: # of images incl. paperwork: 285 There is a tiny amount of periventricular deep and subcortical white matter disease within the left frontal lobe, lateral and to the caudate nucleus extending back towards the lateral aspect of the left lentiform nucleus Brain volume is normal. No acute stroke is present. Paranasal sinuses are clear. There are no masses, herniations, nor deviations. Orbits and globes are The pituitary and sella turcica are not enlarged. Flow is present within major central intracranial arteries. MRI/Brain without Contrast IMPRESSION: tiny focus of white matter disease lateral to the left caudate nucleus and just lateral to the anterior aspect of the left lentiform nucleus. This is perhaps sequelae of old ischemia or trauma. at 0231 Reported and signed by: Lexa Epperson MD Electronically Signed: Lexa Epperson MD at 2:30 EDT Tel , Service support ,
--- NOTE | 2019-04-29 13:19 | CON.PCM_ITS ---
Problem List (1) Syncope Status: Acute Qualifiers: Syncope type: vasovagal syncope Qualified Code(s): R55 - Syncope and collapse Reason for Consult Date of Consultation: 04/29/19 Reason for Consultation: Syncope History of Present Illness: The patient is a 49 year old M [facility] HTN admitted with syncope. Per patient he was at the store on 04/26/2019 when he felt dizzy and lightheaded and passed out for few seconds to a minute, but denies any tongue bite, denies any urinary incontinence or postictal state. Patient was later taken to [facility] where he was found to have ventricular bigeminy and later transferred to [facility]. Per patient he never had any syncopal episode in the past. Per patient he had 2 episodes of right eye vision loss in the past month for which he was admitted at [facility] and had an MRI which per patient showed old stroke (imaging not available for review at present), he also was seen by ophthalmology at [facility] who had started him on prednisone for possible temporal arteritis but patient denies any headache with these episodes of visual disturbances. Per patient he also underwent temporal artery biopsy and he was notified yesterday that there is no temporal arteritis on the biopsy report per patient but again the report is not available with me at present to verify. Per patient he lives alone, denies any history of seizures or witnessed seizures, denies any frequent falls, does not use any cane or walker to ambulate and does drive. Patient being followed by Dr. Bruce from cardiology. Post admission patient underwent diagnostic cardiac catheterization which was reported to show mid LAD 75% stenosis and distal RCA 85% stenosis. TTE showed EF 40%, normal left atrial size, no PFO [] Past Medical History Medical History: Medical History (Last Updated 04/26/19 @ 19:09 by Paddy Cotton DO) HTN (hypertension) I10 Allergies Penicillins Allergy (Verified 04/03/19 21:42) Unknown Home Medications: Ambulatory Orders Medication Instructions Recorded Amlodipine [Norvasc] 10 mg PO DAILY 04/26/19 Carvedilol [Coreg (Beta Charmaine)] 6.25 mg PO BID 04/26/19 Chlorthalidone [Hygroton] 25 mg PO DAILY 04/26/19 Lisinopril [Zestril] 20 mg PO DAILY 04/26/19 Prednisone 20 mg PO BID 04/26/19 Erythromycin Base/Ethanol 30 gm TP 4X/DAY 04/27/19 [Erythromycin 2% Gel] Surgical History: Surgical History (Last Updated 04/26/19 @ 19:09 by Paddy Cotton DO) History of temporal artery biopsy Z98.890 Surgical History: no surgical history Psychiatric History: No pertinent psych hx Lives: Spouse/ Significant Other Smoking Status: Current every day smoker Tobacco Use: Pipe Alcohol: Rare Drugs: None - *Family History Maternal History Items: Heart Disease, Hypertension Patient Problems: Active and Suspected Problems (Last Updated 04/26/19 @ 19:09 by Paddy Cotton DO) Syncope (Acute) Ventricular trigeminy (Acute) - Physical Exam General: Alert HEENT: Normocephalic Neck: Supple Lungs: Normal air movement Cardiovascular: Normal S1, Normal S2 Abdomen: Bowel Sounds Present Extremities: No cyanosis Neurological: - - Conscious, alert, AOA x3, CN II through grossly intact, power 5 x 5 both upper and lower extremities, no sensory loss, no cerebellar signs, gait normal, reflexes + B/L B/S/T/K/A Psych/Mental Status: Normal Affect Vital Signs Temp Pulse Resp BP Pulse Ox 98 F 88 18 134/67 H 97 04/29/19 13:05 04/29/19 13:05 04/29/19 13:05 04/29/19 13:05 04/29/19 13:05 Oxygen Delivery Method Room Air Weight: 106.9 kg Body Mass Index (BMI) 38.0 Finger Stick Blood Glucose 143 Orthostatic Vital Signs Start: 04/27/19 06:00 Freq: q24h Status: Active Protocol: Activity Type Activity Date Activity User E-Sign Co-Sign Detail Recorded Client Recorded Date Recorded By Document 04/27/19 13:52 EEB [id number] 04/27/19 13:53 EEB 04/27/19 13:52 Orthostatic Vitals Standing -Blood Pressure (90/60-120/80) 149/71 H -Extremity Use Left Arm -Pulse Rate (60-100) 92 Sitting -Blood Pressure (90/60-120/80) 144/75 H -Extremity Use Left Arm -Pulse Rate (60-100) 87 Lying -Blood Pressure (90/60-120/80) 143/68 H -Extremity Use Left Arm -Pulse Rate (60-100) 80 Intake and Output for Last 24 Hours 04/27/19 04/28/19 04/29/19 23:59 23:59 23:59 Intake Total 2281.5 / 2281.5 1020 / 1020 Balance 2281.5 / 2281.5 1020 / 1020 Laboratory Tests Past 24 Hrs 04/29/19 04/29/19 05:10 05:10 PT 13.3 INR 1.0 APTT 28.5 Sodium 137 Potassium 4.1 Chloride 102 Carbon Dioxide 25.0 Anion Gap 10 BUN 44 H Creatinine 1.45 H Estim Creat Clear Calc 56.83 Est GFR (MDRD) Af Amer 67 Est GFR (MDRD) Non-Af 55 L BUN/Creatinine Ratio 30.3 H Glucose 127 H Calcium 9.1 POC Glucose 04/29/19 04/29/19 04/28/19 11:32 06:40 21:12 POC Glucose 97 123 H 172 H 04/28/19 16:34 POC Glucose 161 H Assessment/Plan All Active Problems (Last Updated 04/26/19 @ 19:09 by Paddy Cotton DO) Syncope (Acute) Ventricular trigeminy (Acute) The patient is a 49 year old M [facility] HTN admitted with syncope. Per patient he was at the store on 04/26/2019 when he felt dizzy and lightheaded and passed out for few seconds to a minute, but denies any tongue bite, denies any urinary incontinence or postictal state. Patient was later taken to [facility] where he was found to have ventricular bigeminy and later transferred to [facility]. Per patient he never had any syncopal episode in the past. Per patient he had 2 episodes of right eye vision loss in the past month for which he was admitted at [facility] and had an MRI which per patient showed old stroke (imaging not available for review at present), he also was seen by ophthalmology at [facility] who had started him on prednisone for possible temporal arteritis but patient denies any headache with these episodes of visual disturbances. Per patient he also underwent temporal artery biopsy and he was notified yesterday that there is no temporal arteritis on the biopsy report per patient but again the report is not available with me at present to verify. Per patient he lives alone, denies any history of seizures or witnessed seizures, denies any frequent falls, does not use any cane or walker to ambulate and does drive. Patient being followed by Dr. Bruce from cardiology. Post admission patient underwent diagnostic cardiac catheterization which was reported to show mid LAD 75% stenosis and distal RCA 85% stenosis. TTE showed EF 40%, normal left atrial size, no PFO Impression Syncope?likely cardiac etiology History of stroke?as per patient has MRI brain done in the past revealed old stroke (images not available to review) Plan ?MRI brain without contrast, MRA head/neck ?EEG ?On aspirin and Lipitor ?Diagnostic cardiac cath reported to show mid LAD 75% stenosis and distal RCA 85% stenosis and per patient is planned to undergo cardiac stent placement. ?Patient is on multiple antihypertensive medications. Defer further management of blood pressure to hospitalist team and cardiology. ?Further cardiac cause of syncope management per cardiology ?Orthostatic vitals negative ?Stroke risk factors discussed and stroke education provided ?Further medical management per hospitalist team ?GI/DVT prophylaxis ?Fall precautions ?Please call with questions if any ?Follow-up with neurology as outpatient in 6 weeks ?Thank you for allowing us to participate in patient's care and management This note was generated using [employer] dictation software. It may contain incorrect words, spellings and punctuation's which were not noted in the review of the note prior to signing
--- NOTE | 2019-04-29 13:19 | MRI_ITS ---
HISTORY: Episodes of RIGHT eye vision changes last 4 weeks, recent episode Sunday of syncope EXAMINATION: MRA Neck W/O Contrast TECHNIQUE: Routine non-contrast [id number] Carotid MR angiogram protocol was performed without gadolinium. 3D reconstructions were reviewed. Nascet criteria using the distal ICAs for comparison were used for evaluation of stenoses. IV Contrast dosage and agent: CT scan of the brain from April 03, 2019 COMPARISON: None FINDINGS: AORTIC ARCH AND BRANCHES: No significant stenosis at the visualized portions. RIGHT CCA: No occlusion or significant stenosis. RIGHT ICA: No occlusion or significant stenosis. LEFT CCA: No occlusion or significant stenosis. LEFT ICA: No occlusion or significant stenosis. RIGHT VERTEBRAL ARTERY: No occlusion or significant stenosis. LEFT VERTEBRAL ARTERY: No occlusion or significant stenosis. No evidence of acute injury of the major arterial system of the neck. MRI/MRA Neck without Contrast IMPRESSION: Negative non-contrast MRA of the Neck. at 2141 Reported and signed by: Lexa Epperson MD Electronically Signed: Lexa Epperson MD at 21:40 EDT Tel , Service support ,
--- NOTE | 2019-04-29 13:19 | MRI_ITS ---
HISTORY: Episodes of RIGHT eye vision changes last 4 weeks, recent episode Sunday of syncope had vision loss in right eye. Passed out on Sunday. Previous temporal artery biopsy that was negative. Cholecystectomy. TECHNIQUE: Routine [place]/brain 3D time of flight MR angiogram protocol was performed without gadolinium. 3D reconstructions were reviewed. 3-D series. 195 images. COMPARISON: CT scan of the brain from April 03, 2019 FINDINGS: # of images incl. paperwork: 195 Flow is present within bilateral intracranial ICA, MISAEL, MCA, vertebral, superior cerebellars, the basilar artery, and the senior systems developer. The anterior communicating artery is patent. Bilateral posterior communicating artery is only patent on the right . No aneurysms, stenoses, occlusions, nor dissections. MRI/MRA Head ONLY without Contrast IMPRESSION: Normal. at 0639 Reported and signed by: Lexa Epperson MD Electronically Signed: Lexa Epperson MD at 21:27 EDT Tel , Service support ,
[2019-04-29 16:41] LABS: Bedside Glucose 165 mg/dL (70-110)
[2019-04-29] MEDS: Clopidogrel Bisulfate 300 MG Tablet PO (18:13)
[2019-04-29] MEDS: Atorvastatin Calcium 80 MG Tablet PO (21:53)
[2019-04-30] VITALS (10 sets, daily range): BP systolic 149–163; BP diastolic 91–101; PULSE 63–94; RESP 14–18; TEMP 36.5–36.9; O2SAT 94–98
[2019-04-30 00:01] LABS: Bedside Glucose 139 mg/dL (70-110)
[2019-04-30] MEDS: Aspirin 81 MG TAB.CHEW PO (06:08)
[2019-04-30] MEDS: amLODIPine 10 MG Tablet PO (06:08)
[2019-04-30] MEDS: Carvedilol 6.25 MG Tablet PO ×2 (06:08→22:08)
[2019-04-30] MEDS: Lisinopril 20 MG Tablet PO ×2 (06:09→22:09)
[2019-04-30] MEDS: Clopidogrel Bisulfate 75 MG Tablet PO (06:11)
[2019-04-30 06:28] LABS: Anion Gap 6 (5-15); BUN 42 mg/dL (7-18); BUN/Creat Ratio 27.8 RATIO (10-20); Calcium,Total 8.7 mg/dL (8.5-10.1); Chloride 106 mmol/L (98-107); Creatinine, Serum 1.51 mg/dL (0.70-1.30); EST Glomerular Filtration Rate 53 mL/min (>60); Est Glom Filt Rate - Afr Amer 64 mL/min (>60); Estimated Creatinine Clearance 54.58 ml/min; Glucose 131 mg/dL (74-106); Potassium 4.2 mmol/L (3.5-5.1); Sodium Level 137 mmol/L (136-145)
[2019-04-30 06:40] LABS: Bedside Glucose 121 mg/dL (70-110)
[2019-04-30] MEDS: 0.9% Normal Saline 1,000 ML 125 ML IV ×2 (08:49→17:05)
--- NOTE | 2019-04-30 12:13 | PCM.PN.CARD ---
Subjectve: Patient doing very well this morning. No 24-hour events. Telemetry negative. Right groin is clean/dry/intact. No thrills, hematoma or bruits. Started on Plavix last evening and no hematoma noted in his previously biopsied temporal artery on the right side. Objective: Vital Signs Temp Pulse Resp BP Pulse Ox 98.1 F 71 16 151/91 H 98 04/30/19 12:00 04/30/19 12:00 04/30/19 12:00 04/30/19 12:00 04/30/19 12:00 Oxygen Delivery Method Room Air Weight: 235 lb 10.786 oz Body Mass Index (BMI) 38.0 Finger Stick Blood Glucose 143 Orthostatic Vital Signs Start: 04/27/19 06:00 Freq: q24h Status: Active Protocol: Activity Type Activity Date Activity User E-Sign Co-Sign Detail Recorded Client Recorded Date Recorded By Document 04/29/19 21:55 MAB [id number] 04/29/19 22:00 MAB 04/29/19 21:55 Orthostatic Vitals Standing -Blood Pressure (90/60-120/80) 132/101 H -Extremity Use Left Arm -Pulse Rate (60-100) 95 Sitting -Blood Pressure (90/60-120/80) 139/95 H -Extremity Use Left Arm -Pulse Rate (60-100) 90 Lying -Blood Pressure (90/60-120/80) 142/97 H -Extremity Use Left Arm -Pulse Rate (60-100) 83 Intake and Output for Last 24 Hours 04/28/19 04/29/19 04/30/19 23:59 23:59 23:59 Intake Total 1020 / 1020 845 / 845 Balance 1020 / 1020 845 / 845 General: Awake, Alert, Oriented x 3 HEENT: PERRL, EOMI, Sclera Non Icteric Neck: Supple, Good ROM, No Lymph Node Enlargement Lungs: Clear to auscultation Cardiovascular: Regular Rhythm, Normal S1, Normal S2, No Murmurs, No Rubs, No Gallops Vascular: No Carotid Bruits, Normal Femoral Pulses, Normal Radial Pulses, Normal Dorsalis Pedal Pulse, Normal Posterior Tibial Pulses Abdomen: Bowel Sounds Present, Soft, Non Tender, No HSM, No Organomegaly Extremities: No Cyanosis, No Clubbing, No edema Neurological: No Focal Motor or Sensory Deficit 04/30/19 05:35: Sodium 137, Potassium 4.2, Chloride 106, Carbon Dioxide 25.0, Anion Gap 6, BUN 42 H, Creatinine 1.51 H, Est GFR (MDRD) Af Amer 64, Est GFR (MDRD) Non-Af 53 L, BUN/Creatinine Ratio 27.8 H, Glucose 131 H, Calcium 8.7 Rhythm: EKG: ECHO: Stress Test: Cardiac Cath: PCI: CT Surgery: Holter monitor: EPS: PPM: CXR: Chest CT Scan: Medical Necessity - Tobacco Use Smoking Status: Current every day smoker Tobacco Use: Pipe Assessment/Plan 1. Syncope: Patient had a new onset syncopal episode while standing in the hardware store looking at some shelves, with a prodrome of dizziness, flushing feeling, followed by hitting the floor injuring his knee and his hand. Subsequent to this the patient was found to be in normal sinus rhythm with asymptomatic ventricular bigeminy and trigeminy and was transferred to [facility]. His rhythm has remained sinus rhythm with ventricular trigeminy which is detectable by physical exam. Patient has been recently given the diagnosis of temporal arteritis and was started on prednisone therapy about 2 weeks ago. Apparently he was also found to have significant hypertension and is currently on polypharmacy including amlodipine, chlorthalidone, lisinopril, and Coreg. Despite this, the patient's blood pressure is not well controlled. In addition he was found to be hypomagnesemic and his magnesium was replaced. Patient had an echocardiogram done recently on 04/10/2019 at an outside hospital which reportedly showed normal LV function. Upon further review the patient actually underwent a 2D echo with Doppler on 04/04/2019 at [facility] which I reviewed. That showed that his EF was not normal, with an overall ejection fraction around 45 to 50%. Repeat echocardiogram done today showed his overall ejection fraction to be around 40 to 45% with moderate global LV dysfunction. Patient in addition underwent a treadmill echocardiogram at a very good workload, and show contractility of all major regions. He did however have ventricular trigeminy during exercise and into recovery. Interestingly, he did not have a hypertensive blood pressure response to exercise. Given the patient's moderate LV dysfunction, ventricular trigeminy, true syncope, and hypertension, I recommended he undergo a left heart catheterization to determine whether he has any concomitant coronary disease that may be affecting his overall LV function. This took place on 04/29/2019 which demonstrated a severe two-vessel coronary disease of his RCA and his mid LAD. His LV function was mildly depressed with an overall ejection fraction around 50%. Given the patient's recent surgery for temporal arteritis on his right restorationist, I wanted to make sure the patient could tolerate dual at the platelet therapy without evidence of hematoma in this area. Patient was loaded with Plavix yesterday after we were unable to get a hold of his surgeon, and has been tolerating this well. He has had no hematoma delivered to his right temporal artery area. At this point we will continue dual antibody therapy with baby aspirin, Plavix 75 mg a day, and will proceed with elective PCI of his RCA and possibly his LAD on Sunday morning at 7 AM. Once he has been revascularized, and gone through cardiac rehab and assuming his blood pressure is well controlled, we will reecho him in 3 months time. In addition we are holding off on proceeding with angioplasty until he is demonstrated no evidence of bleeding in his right temporal artery area, as well as to allow his kidneys to recover based upon his chronic renal insufficiency. 2. Hypertension: Would recommend increasing his lisinopril to 20 mg p.o. twice daily, and continuing Coreg, amlodipine. In addition recommend low-dose hydrochlorothiazide 12.5 mg p.o. daily, and starting him on potassium 10 mEq p.o. daily. Would also recommend continuing orthostatic blood pressures to determine if he needs additional antihypertensive therapy. His blood pressure may be augmented by the use of prednisone and the limited salt retaining properties of prednisone. Patient does not appear to be orthostatic as of today's readings. 3. Patient will require a 30-day event monitor if his initial cardiac work-up is negative. 4. Temporal arteritis: Patient recently underwent a right temporal artery biopsy, and was started on prednisone previous to this. It is uncertain whether the patient has true temporal arteritis although the biopsy results are pending. 5. Patient may require neurological evaluation for the EEG to determine if he has any seizure-like activities which may be contributing to his syncopal events. Old records from previous MRI demonstrates he had a previous CVA. 6. Hyperlipidemia: Recommend obtaining a fasting profile. Continue Lipitor. Repeat lipid profile in 6 weeks time. 7. Thank you very much for the opportunity to participate in the cardiac care of your patient. Code Visit Inpatient E&M: 22929 Subs Hosp L2
[2019-04-30] MEDS: Famotidine 20 MG Tablet PO (12:26)
[2019-04-30] MEDS: predniSONE 20 MG Tablet PO ×2 (12:26→17:05)
[2019-04-30 12:41] LABS: Bedside Glucose 97 mg/dL (70-110)
[2019-04-30 12:53] LABS: Cholesterol 216 mg/dL (200); High Density Lipoprotein 41 mg/dL; Triglycerides 114 mg/dL; Very Low Density Lipoprotein 23 mg/dL (5-40)
--- NOTE | 2019-04-30 13:28 | PCM.PN.NEU ---
Patient Problems: Active and Suspected Problems (Last Updated 04/26/19 @ 19:09 by Paddy Cotton DO) Syncope (Acute) Ventricular trigeminy (Acute) Subjective: No issues overnight. Patient scheduled for elective PCI of his RCA and possibly his LAD on 05/02/2019. He denies any further syncopal episodes. My brain reported to show a very tiny focus of possible old ischemia lateral to the left caudate and left lentiform nucleus. MRA head/neck did not show any hemodynamically significant stenosis or occlusion - Physical Exam General: Alert HEENT: Normocephalic Neck: Supple Lungs: Normal air movement Cardiovascular: Normal S1, Normal S2 Abdomen: Bowel Sounds Present Extremities: No cyanosis Neurological: - - Conscious, alert, AOA x3, CN II through grossly intact, power 5 x 5 both upper and lower extremities, no sensory loss, no cerebellar signs, gait normal, reflexes + B/L B/S/T/K/A Psych/Mental Status: Normal Affect Vital Signs Temp Pulse Resp BP Pulse Ox 98.1 F 71 16 151/91 H 98 04/30/19 12:00 04/30/19 12:00 04/30/19 12:00 04/30/19 12:00 04/30/19 12:00 Oxygen Delivery Method Room Air Weight: 106.9 kg Body Mass Index (BMI) 38.0 Finger Stick Blood Glucose 143 Orthostatic Vital Signs Start: 04/27/19 06:00 Freq: q24h Status: Active Protocol: Activity Type Activity Date Activity User E-Sign Co-Sign Detail Recorded Client Recorded Date Recorded By Document 04/29/19 21:55 [facility] [id number] 04/29/19 22:00 MAB 04/29/19 21:55 Orthostatic Vitals Standing -Blood Pressure (90/60-120/80) 132/101 H -Extremity Use Left Arm -Pulse Rate (60-100) 95 Sitting -Blood Pressure (90/60-120/80) 139/95 H -Extremity Use Left Arm -Pulse Rate (60-100) 90 Lying -Blood Pressure (90/60-120/80) 142/97 H -Extremity Use Left Arm -Pulse Rate (60-100) 83 Intake and Output for Last 24 Hours 04/28/19 04/29/19 04/30/19 23:59 23:59 23:59 Intake Total 1020 / 1020 845 / 845 Balance 1020 / 1020 845 / 845 Laboratory Tests Past 24 Hrs 04/30/19 04/30/19 05:35 05:35 Sodium 137 Potassium 4.2 Chloride 106 Carbon Dioxide 25.0 Anion Gap 6 BUN 42 H Creatinine 1.51 H Estim Creat Clear Calc 54.58 Est GFR (MDRD) Af Amer 64 Est GFR (MDRD) Non-Af 53 L BUN/Creatinine Ratio 27.8 H Glucose 131 H Calcium 8.7 Triglycerides 114 Cholesterol 216 H LDL Cholesterol 152 H VLDL Cholesterol 23 HDL Cholesterol 41 POC Glucose 04/30/19 04/30/19 04/29/19 11:52 06:36 21:48 POC Glucose 97 121 H 139 H 04/29/19 16:30 POC Glucose 165 H Medical Necessity - Tobacco Use Smoking Status: Current every day smoker Tobacco Use: Pipe Assessment/Plan All Active Problems (Last Updated 04/26/19 @ 19:09 by Paddy Cotton DO) Syncope (Acute) Ventricular trigeminy (Acute) The patient is a 49 year old [facility] HTN admitted with syncope. Per patient he was at the store on 04/26/2019 when he felt dizzy and lightheaded and passed out for few seconds to a minute, but denies any tongue bite, denies any urinary incontinence or postictal state. Patient was later taken to [facility] where he was found to have ventricular bigeminy and later transferred to [facility]. Per patient he never had any syncopal episode in the past. Per patient he had 2 episodes of right eye vision loss in the past month for which he was admitted at [facility] and had an MRI which per patient showed old stroke (imaging not available for review at present), he also was seen by ophthalmology at [facility] who had started him on prednisone for possible temporal arteritis but patient denies any headache with these episodes of visual disturbances. Per patient he also underwent temporal artery biopsy and he was notified yesterday 04/28/19 that there is no temporal arteritis on the biopsy report per patient but again the report is not available with me at present to verify. Per patient he lives alone, denies any history of seizures or witnessed seizures, denies any frequent falls, does not use any cane or walker to ambulate and does drive. Patient being followed by Dr. Bruce from cardiology. Post admission patient underwent diagnostic cardiac catheterization which was reported to show mid LAD 75% stenosis and distal RCA 85% stenosis. TTE showed EF 40%, normal left atrial size, no PFO Impression Syncope?likely cardiac etiology History of stroke?as per patient has MRI brain done in the past revealed old stroke (images not available to review) Plan ?MRI brain without contrast-tiny focus of possible old ischemia related to the left carotid nucleus and left lentiform nucleus. Images reviewed ?MRA head/neck-no hemodynamically significant stenosis or occlusion ?EEG-pending ?On aspirin/Plavix in preparation for elective PCI and Lipitor ?Diagnostic cardiac cath reported to show mid LAD 75% stenosis and distal RCA 85% stenosis and per patient is planned to undergo cardiac stent placement. ?Patient is on multiple antihypertensive medications. Defer further management of blood pressure to hospitalist team and cardiology. ?Further cardiac cause of syncope management per cardiology ?Orthostatic vitals negative ?Stroke risk factors discussed and stroke education provided ?Further medical management per hospitalist team ?GI/DVT prophylaxis ?Fall precautions ?Please call with questions if any ?Follow-up with neurology as outpatient in 6 weeks ?Thank you for allowing us to participate in patient's care and management This note was generated using [employer] dictation software. It may contain incorrect words, spellings and punctuation's which were not noted in the review of the note prior to signing
--- NOTE | 2019-04-30 13:51 | PN_ITS ---
<Edison Gibbs - Last Filed: 04/30/19 13:51> Patient Problems: Active and Suspected Problems (Last Updated 04/26/19 @ 19:09 by Paddy Cotton DO) Syncope (Acute) Ventricular trigeminy (Acute) Subjective: No complaints. He is eager to get the cath over with. No SOB, CP, pressure, tightness, LH, dizziness. No LE edema. No pain, irritation, bleeding, or seeping from right head wound. - Physical Exam General: Alert, Oriented x3, Cooperative HEENT: Atraumatic, PERRLA, EOMI, Normocephalic, - - wound healing well. no drainage or bleeding. Neck: Supple, No JVD, Negative Carotid Bruits Lungs: Clear to auscultation, Normal air movement Cardiovascular: Regular rate, No murmurs Abdomen: Bowel Sounds Present, Soft, Non Tender Extremities: No edema, Capillary Refill Less than 3 Seconds Skin: No rashes, No breakdown Musculoskeletal: No Tenderness to Palpation of Joints or Extremities Neurological: Cranial nerves II-XII grossly intact Psych/Mental Status: Normal Affect, Appropriate, Alert and oriented to time, place, person, mood and affect Vital Signs Temp Pulse Resp BP Pulse Ox 98.1 F 71 16 151/91 H 98 04/30/19 12:00 04/30/19 12:00 04/30/19 12:00 04/30/19 12:00 04/30/19 12:00 Oxygen Delivery Method Room Air Weight: 235 lb 10.786 oz Body Mass Index (BMI) 38.0 Finger Stick Blood Glucose 143 Orthostatic Vital Signs Start: 04/27/19 06:00 Freq: q24h Status: Active Protocol: Activity Type Activity Date Activity User E-Sign Co-Sign Detail Recorded Client Recorded Date Recorded By Document 04/29/19 21:55 MAB [id number] 04/29/19 22:00 MAB 04/29/19 21:55 Orthostatic Vitals Standing -Blood Pressure (90/60-120/80) 132/101 H -Extremity Use Left Arm -Pulse Rate (60-100) 95 Sitting -Blood Pressure (90/60-120/80) 139/95 H -Extremity Use Left Arm -Pulse Rate (60-100) 90 Lying -Blood Pressure (90/60-120/80) 142/97 H -Extremity Use Left Arm -Pulse Rate (60-100) 83 Intake and Output for Last 24 Hours 04/28/19 04/29/19 04/30/19 23:59 23:59 23:59 Intake Total 1020 / 1020 845 / 845 Balance 1020 / 1020 845 / 845 Laboratory Tests Past 24 Hrs 04/30/19 04/30/19 05:35 05:35 Sodium 137 Potassium 4.2 Chloride 106 Carbon Dioxide 25.0 Anion Gap 6 BUN 42 H Creatinine 1.51 H Estim Creat Clear Calc 54.58 Est GFR (MDRD) Af Amer 64 Est GFR (MDRD) Non-Af 53 L BUN/Creatinine Ratio 27.8 H Glucose 131 H Calcium 8.7 Triglycerides 114 Cholesterol 216 H LDL Cholesterol 152 H VLDL Cholesterol 23 HDL Cholesterol 41 POC Glucose 04/30/19 04/30/19 04/29/19 11:52 06:36 21:48 POC Glucose 97 121 H 139 H 04/29/19 16:30 POC Glucose 165 H Medical Necessity - Tobacco Use Smoking Status: Current every day smoker Tobacco Use: Pipe Assessment/Plan All Active Problems (Last Updated 04/26/19 @ 19:09 by Paddy Cotton DO) Syncope (Acute) Ventricular trigeminy (Acute) 1. Syncope - CAD - Cardiology following, suspect arrhythmia induced. Neuro also consulted. MRI done- showed old stroke. EEG is pending. Further trigemini on monitor. -plavix started last night in preparation for cath/PCI on Sunday. 2. HTN - still somewhat elevated... on norvasc, coreg, HCTZ, and Lisinopril 3. New diagnosis of T2 DM, with morbid obesity - nutrition consulted. SSI. Initially should start metformin, will need to hold after receiving contrast. F/u PCP and get repeat A1C in 3-4 months. A1C 7.2. 4. CKDIII - creatinine is trending up. Start IV fluids overnight and recheck prior to heart cath. 5. Temporal arteritis ruled out - f.u with [facility]. stop prednisone. Pt states he was told his bx results are negative. We have put in a request for the official report. 6. Prior CVA - MRI report obtained and did show an old stroke. He has not been taking a statin or aspirin at home. started lipitor here. DVT ppx: early ambulation DC planning: needs stents. This patient was seen by Edison Gibbs PA-C under the supervision of Dr. Molina. <Delmy Molina - Last Filed: 04/30/19 16:52> - Physical Exam Vital Signs Temp Pulse Resp BP Pulse Ox 98.1 F 71 16 151/91 H 98 04/30/19 12:00 04/30/19 12:00 04/30/19 12:00 04/30/19 12:00 04/30/19 12:00 Oxygen Delivery Method Room Air Weight: 235 lb 10.786 oz Body Mass Index (BMI) 38.0 Finger Stick Blood Glucose 143 Orthostatic Vital Signs Start: 04/27/19 06:00 Freq: q24h Status: Active Protocol: Activity Type Activity Date Activity User E-Sign Co-Sign Detail Recorded Client Recorded Date Recorded By Document 04/29/19 21:55 MAB [id number] 04/29/19 22:00 MAB 04/29/19 21:55 Orthostatic Vitals Standing -Blood Pressure (90/60-120/80) 132/101 H -Extremity Use Left Arm -Pulse Rate (60-100) 95 Sitting -Blood Pressure (90/60-120/80) 139/95 H -Extremity Use Left Arm -Pulse Rate (60-100) 90 Lying -Blood Pressure (90/60-120/80) 142/97 H -Extremity Use Left Arm -Pulse Rate (60-100) 83 Intake and Output for Last 24 Hours 04/28/19 04/29/19 04/30/19 23:59 23:59 23:59 Intake Total 1020 / 1020 845 / 845 Balance 1020 / 1020 845 / 845 Laboratory Tests Past 24 Hrs 04/30/19 04/30/19 05:35 05:35 Sodium 137 Potassium 4.2 Chloride 106 Carbon Dioxide 25.0 Anion Gap 6 BUN 42 H Creatinine 1.51 H Estim Creat Clear Calc 54.58 Est GFR (MDRD) Af Amer 64 Est GFR (MDRD) Non-Af 53 L BUN/Creatinine Ratio 27.8 H Glucose 131 H Calcium 8.7 Triglycerides 114 Cholesterol 216 H LDL Cholesterol 152 H VLDL Cholesterol 23 HDL Cholesterol 41 POC Glucose 04/30/19 04/30/19 04/29/19 11:52 06:36 21:48 POC Glucose 97 121 H 139 H Assessment/Plan Patient seen and examined. He has no complaints this morning. Review of systems is otherwise negative. He had cardiac cath which showed double vessel CAD of the LAD and RCA with nonobstructive coronary arteries and global left ventricular systolic dysfunction was mild to moderate as well as preserved left ventricular systolic function with normal end-diastolic pressure. He is scheduled for PCI on Sunday. Biopsy results were negative for giant cell arteritis. We will therefore DC prednisone. Currently on Plavix which she received a loading dose of yesterday. Also on aspirin. o/e: Vital Signs Height 5 ft 6 in Weight: 235 lb 10.786 oz Weight in Pounds 235.7 lbs Pulse Ox 98 Temperature 98.1 F Pulse Rate [Standing] 95 Pulse Rate [Sitting] 90 Pulse Rate [Lying] 83 Pulse Rate 71 Respiratory Rate 16 Blood Pressure [Standing] 132/101 Blood Pressure [Sitting] 139/95 Blood Pressure [Lying] 142/97 Blood Pressure [BP] 130/85 Blood Pressure 151/91 Blood Pressure Position [BP] Semi-Fowlers Blood Pressure Position Supine General: Alert, Oriented x3, Cooperative HEENT: Atraumatic, PERRLA, EOMI, Normocephalic Neck: Supple, No JVD, Negative Carotid Bruits Lungs: Clear to auscultation, Normal air movement Cardiovascular: Regular rate, No murmurs Abdomen: Bowel Sounds Present, Soft, Non Tender Extremities: No edema, Capillary Refill Less than 3 Seconds Skin: No rashes, No breakdown Musculoskeletal: No Tenderness to Palpation of Joints or Extremities Neurological: Cranial nerves II-XII grossly intact Psych/Mental Status: Depressed, Alert and oriented to time, place, person, mood and affect Plan is for cardiac cath on Sunday with PCI. Patient also diagnosed with diabetic and on insulin sliding scale. Plan to start metformin after cardiac cath. Patient also on Lipitor. Neurology on board. MRI of the brain without contrast showed tiny focus of possible old ischemia related to the left carotid nucleus and left lentiform nucleus. MRI of the head and neck showed no hemodyn amically significant stenosis or occlusion. Continue current medications. Rest of management as per Edison Gibbs PA-C's note, which I have reviewed and endorsed. Code Visit OBSV E&M: 67807 Subsequent observation care L2
[2019-04-30 17:16] LABS: Bedside Glucose 159 mg/dL (70-110)
[2019-04-30] MEDS: Atorvastatin Calcium 80 MG Tablet PO (22:08)
[2019-04-30 22:56] LABS: Bedside Glucose 143 mg/dL (70-110)
[2019-05-01] VITALS (9 sets, daily range): BP systolic 145–163; BP diastolic 89–109; PULSE 63–88; RESP 16–18; TEMP 36.6–36.9; O2SAT 97–99
[2019-05-01 06:36] LABS: Bedside Glucose 104 mg/dL (70-110)
[2019-05-01 08:15] LABS: Anion Gap 6 (5-15); BUN 32 mg/dL (7-18); BUN/Creat Ratio 26.2 RATIO (10-20); Calcium,Total 8.6 mg/dL (8.5-10.1); Chloride 109 mmol/L (98-107); Creatinine, Serum 1.22 mg/dL (0.70-1.30); EST Glomerular Filtration Rate 68 mL/min (>60); Est Glom Filt Rate - Afr Amer 82 mL/min (>60); Estimated Creatinine Clearance 67.55 ml/min; Glucose 106 mg/dL (74-106); Sodium Level 139 mmol/L (136-145)
[2019-05-01] MEDS: Aspirin 81 MG TAB.CHEW PO (09:57)
[2019-05-01] MEDS: predniSONE 20 MG Tablet PO (09:58)
[2019-05-01] MEDS: Carvedilol 6.25 MG Tablet PO ×2 (09:58→22:18)
[2019-05-01] MEDS: Famotidine 20 MG Tablet PO (09:59)
[2019-05-01] MEDS: Clopidogrel Bisulfate 75 MG Tablet PO (09:59)
[2019-05-01] MEDS: hydroCHLOROthiazide 12.5mg 12.5 MG PO (09:59)
[2019-05-01] MEDS: amLODIPine 10 MG Tablet PO (09:59)
[2019-05-01] MEDS: Lisinopril 20 MG Tablet PO ×2 (10:00→22:18)
--- NOTE | 2019-05-01 10:04 | PCM.PN.CARD ---
Subjectve: Patient doing well this morning, no 24-hour events. Right forehead appears to be clean/dry/intact without evidence of hematoma. No groin pain. No chest pain. Objective: Vital Signs Temp Pulse Resp BP Pulse Ox 98.3 F 69 16 145/89 H 99 05/01/19 04:00 05/01/19 07:28 05/01/19 04:00 05/01/19 04:00 05/01/19 04:00 Oxygen Delivery Method Room Air Weight: 235 lb 10.786 oz Body Mass Index (BMI) 38.0 Finger Stick Blood Glucose 143 Orthostatic Vital Signs Start: 04/27/19 06:00 Freq: q24h Status: Active Protocol: Activity Type Activity Date Activity User E-Sign Co-Sign Detail Recorded Client Recorded Date Recorded By Document 04/29/19 21:55 MAB [id number] 04/29/19 22:00 MAB 04/29/19 21:55 Orthostatic Vitals Standing -Blood Pressure (90/60-120/80) 132/101 H -Extremity Use Left Arm -Pulse Rate (60-100) 95 Sitting -Blood Pressure (90/60-120/80) 139/95 H -Extremity Use Left Arm -Pulse Rate (60-100) 90 Lying -Blood Pressure (90/60-120/80) 142/97 H -Extremity Use Left Arm -Pulse Rate (60-100) 83 Intake and Output for Last 24 Hours 04/29/19 04/30/19 05/01/19 23:59 23:59 23:59 Intake Total 845 / 845 1120 / 1120 1000 / 1000 Balance 845 / 845 1120 / 1120 1000 / 1000 General: Awake, Alert, Oriented x 3 HEENT: PERRL, EOMI, Sclera Non Icteric Neck: Supple, Good ROM, No Lymph Node Enlargement Lungs: Clear to auscultation Cardiovascular: Regular Rhythm, Normal S1, Normal S2, No Murmurs, No Rubs, No Gallops Vascular: No Carotid Bruits, Normal Femoral Pulses, Normal Radial Pulses, Normal Dorsalis Pedal Pulse, Normal Posterior Tibial Pulses Abdomen: Bowel Sounds Present, Soft, Non Tender, No HSM, No Organomegaly Extremities: No Cyanosis, No Clubbing, No edema Neurological: No Focal Motor or Sensory Deficit 04/30/19 05:35: Triglycerides 114, Cholesterol 216 H, LDL Cholesterol 152 H, VLDL Cholesterol 23, HDL Cholesterol 41 05/01/19 07:48: Sodium 139, Potassium 4.0, Chloride 109 H, Carbon Dioxide 24.0, Anion Gap 6, BUN 32 H, Creatinine 1.22, Est GFR (MDRD) Af Amer 82, Est GFR (MDRD) Non-Af 68, BUN/Creatinine Ratio 26.2 H, Glucose 106, Calcium 8.6 Rhythm: EKG: ECHO: Stress Test: Cardiac Cath: PCI: CT Surgery: Holter monitor: EPS: PPM: CXR: Chest CT Scan: Medical Necessity - Tobacco Use Smoking Status: Current every day smoker Tobacco Use: Pipe Assessment/Plan 1. Syncope: Patient had a new onset syncopal episode while standing in the hardware store looking at some shelves, with a prodrome of dizziness, flushing feeling, followed by hitting the floor injuring his knee and his hand. Subsequent to this the patient was found to be in normal sinus rhythm with asymptomatic ventricular bigeminy and trigeminy and was transferred to [facility]. His rhythm has remained sinus rhythm with ventricular trigeminy which is detectable by physical exam. Patient has been recently given the diagnosis of temporal arteritis and was started on prednisone therapy about 2 weeks ago. Apparently he was also found to have significant hypertension and is currently on polypharmacy including amlodipine, chlorthalidone, lisinopril, and Coreg. Despite this, the patient's blood pressure is not well controlled. In addition he was found to be hypomagnesemic and his magnesium was replaced. Patient had an echocardiogram done recently on 04/10/2019 at an outside hospital which reportedly showed normal LV function. Upon further review the patient actually underwent a 2D echo with Doppler on 04/04/2019 at [facility] which I reviewed. That showed that his EF was not normal, with an overall ejection fraction around 45 to 50%. Repeat echocardiogram done today showed his overall ejection fraction to be around 40 to 45% with moderate global LV dysfunction. Patient in addition underwent a treadmill echocardiogram at a very good workload, and show contractility of all major regions. He did however have ventricular trigeminy during exercise and into recovery. Interestingly, he did not have a hypertensive blood pressure response to exercise. Given the patient's moderate LV dysfunction, ventricular trigeminy, true syncope, and hypertension, I recommended he undergo a left heart catheterization to determine whether he has any concomitant coronary disease that may be affecting his overall LV function. This took place on 04/29/2019 which demonstrated a severe two-vessel coronary disease of his RCA and his mid LAD. His LV function was mildly depressed with an overall ejection fraction around 50%. Given the patient's recent surgery for temporal arteritis on his right pentecostalism, I wanted to make sure the patient could tolerate dual at the platelet therapy without evidence of hematoma in this area. Patient was loaded with Plavix yesterday after we were unable to get a hold of his surgeon, and has been tolerating this well. He has had no hematoma delivered to his right temporal artery area. At this point we will continue dual antibody therapy with baby aspirin, Plavix 75 mg a day, and will proceed with elective PCI of his RCA and possibly his LAD on Sunday morning at 7 AM. Once he has been revascularized, and gone through cardiac rehab and assuming his blood pressure is well controlled, we will reecho him in 3 months time. Patient has appeared to been doing well on dual and platelet therapy for the better part of 48 hours. His right pentecostalism area appears to be clean/dry/intact. Recommended plan for elective PCI and stenting of his right coronary artery, plus/minus PCI of his LAD if dye load allows. 2. Hypertension: Would recommend increasing his lisinopril to 20 mg p.o. twice daily, and continuing Coreg, amlodipine. In addition recommend low-dose hydrochlorothiazide 12.5 mg p.o. daily, and starting him on potassium 10 mEq p.o. daily. Would also recommend continuing orthostatic blood pressures to determine if he needs additional antihypertensive therapy. His blood pressure may be augmented by the use of prednisone and the limited salt retaining properties of prednisone. Patient does not appear to be orthostatic as of today's readings. 3. Patient will require a 30-day event monitor if his initial cardiac work-up is negative. 4. Temporal arteritis: Patient recently underwent a right temporal artery biopsy, and was started on prednisone previous to this. It is uncertain whether the patient has true temporal arteritis although the biopsy results are pending. 5. Patient may require neurological evaluation for the EEG to determine if he has any seizure-like activities which may be contributing to his syncopal events. Old records from previous MRI demonstrates he had a previous CVA. 6. Hyperlipidemia: Recommend obtaining a fasting profile. Continue Lipitor. Repeat lipid profile in 6 weeks time. 7. Thank you very much for the opportunity to participate in the cardiac care of your patient. PCI of RCA to follow tomorrow morning at 7 AM. Code Visit Inpatient E&M: 85797 Subs Hosp L2
[2019-05-01 11:51] LABS: Bedside Glucose 107 mg/dL (70-110)
--- NOTE | 2019-05-01 12:45 | PCM.PROGNOTE ---
<Rama Bloom - Last Filed: 05/01/19 13:04> Patient Problems: Active and Suspected Problems (Last Updated 04/26/19 @ 19:09 by Paddy Cotton DO) Syncope (Acute) Ventricular trigeminy (Acute) Subjective: Patient seen and examined. Denies chest pain overnight. Denies current symptoms or complaints. Plan for cath with PCI in a.m. - Physical Exam General: Alert, Oriented x3, Cooperative HEENT: Atraumatic, PERRLA, EOMI, Normocephalic, - - Right temporal incision without evidence of infection. Neck: Supple, No JVD, Negative Carotid Bruits Lungs: Clear to auscultation, Normal air movement Cardiovascular: Regular rate, Regular Rhythm, Normal S1, Normal S2, No murmurs Abdomen: Bowel Sounds Present, Soft, Non Tender, Non-Distended, Obese Extremities: No clubbing, No cyanosis, No edema, Capillary Refill Less than 3 Seconds Skin: No rashes, No breakdown Musculoskeletal: No Tenderness to Palpation of Joints or Extremities Neurological: Cranial nerves II-XII grossly intact, Neuro grossly intact Psych/Mental Status: Normal Affect, Appropriate Vital Signs Temp Pulse Resp BP Pulse Ox 97.9 F 78 18 160/98 H 97 05/01/19 10:00 05/01/19 10:00 05/01/19 10:00 05/01/19 10:00 05/01/19 10:00 Oxygen Delivery Method Room Air Weight: 235 lb 10.786 oz Body Mass Index (BMI) 38.0 Finger Stick Blood Glucose 143 Orthostatic Vital Signs Start: 04/27/19 06:00 Freq: q24h Status: Active Protocol: Activity Type Activity Date Activity User E-Sign Co-Sign Detail Recorded Client Recorded Date Recorded By Document 04/29/19 21:55 MAB [id number] 04/29/19 22:00 MAB 04/29/19 21:55 Orthostatic Vitals Standing -Blood Pressure (90/60-120/80) 132/101 H -Extremity Use Left Arm -Pulse Rate (60-100) 95 Sitting -Blood Pressure (90/60-120/80) 139/95 H -Extremity Use Left Arm -Pulse Rate (60-100) 90 Lying -Blood Pressure (90/60-120/80) 142/97 H -Extremity Use Left Arm -Pulse Rate (60-100) 83 Intake and Output for Last 24 Hours 04/29/19 04/30/19 05/01/19 23:59 23:59 23:59 Intake Total 845 / 845 1120 / 1120 1480 / 1480 Balance 845 / 845 1120 / 1120 1480 / 1480 Laboratory Tests Past 24 Hrs 04/30/19 05/01/19 05:35 07:48 Sodium 139 Potassium 4.0 Chloride 109 H Carbon Dioxide 24.0 Anion Gap 6 BUN 32 H Creatinine 1.22 Estim Creat Clear Calc 67.55 Est GFR (MDRD) Af Amer 82 Est GFR (MDRD) Non-Af 68 BUN/Creatinine Ratio 26.2 H Glucose 106 Calcium 8.6 Triglycerides 114 Cholesterol 216 H LDL Cholesterol 152 H VLDL Cholesterol 23 HDL Cholesterol 41 POC Glucose 05/01/19 05/01/19 04/30/19 11:42 06:26 22:04 POC Glucose 107 104 143 H 04/30/19 17:03 POC Glucose 159 H Medical Necessity - Tobacco Use Smoking Status: Current every day smoker Tobacco Use: Pipe Assessment/Plan All Active Problems (Last Updated 04/26/19 @ 19:09 by Paddy Cotton DO) Syncope (Acute) Ventricular trigeminy (Acute) 1. CAD-patient underwent cardiac catheterization 04/29/2019 which showed double vessel CAD of the LAD and RCA. Patient will further undergo PCI tomorrow of RCA and possibly LAD. Continue aspirin, statin, Plavix. 2. Syncope, suspected secondary to above-echocardiogram demonstrated an EF of 40% which is reduced from 55% during prior study March 2019. Stage I diastolic dysfunction. Moderate global hypokinesis of the left ventricle. Troponin negative. Possible 30-day event monitor at discharge pending further cardiac evaluation. 3. Hypertension-intermittently remains above goal. Continue amlodipine, carvedilol, hydrochlorothiazide, lisinopril with adjustments as necessary. 4. New diagnosis type 2 diabetes mellitus-plan to initiate metformin at discharge. Hemoglobin A1c 7.2%. Accu-Cheks before meals at bedtime with sliding scale insulin. 5. Recent suspicion for temporal arteritis-ruled out with biopsy at [facility]. 6. Chronic kidney disease stage III-at baseline, trend BMP. 7. History of CVA-Per MRI, tiny focus of possible old ischemia. MRA of head and neck shows no hemodynamically significant stenosis or occlusion. EEG pending. Continue aspirin, statin. Neurology following. 8. Obesity-encouraged diet lifestyle modifications. Nutrition consult. DVT prophylaxis-encourage ambulation This patient was seen by PRAFUL Dyer under the supervision of Dr. Molina. <DyllantrentDelmy - Last Filed: 05/01/19 14:19> - Physical Exam Vital Signs Temp Pulse Resp BP Pulse Ox 97.9 F 78 18 160/98 H 97 05/01/19 10:00 05/01/19 10:00 05/01/19 10:00 05/01/19 10:00 05/01/19 10:00 Oxygen Delivery Method Room Air Weight: 235 lb 10.786 oz Body Mass Index (BMI) 38.0 Finger Stick Blood Glucose 143 Orthostatic Vital Signs Start: 04/27/19 06:00 Freq: q24h Status: Active Protocol: Activity Type Activity Date Activity User E-Sign Co-Sign Detail Recorded Client Recorded Date Recorded By Document 04/29/19 21:55 MAB [id number] 04/29/19 22:00 MAB 04/29/19 21:55 Orthostatic Vitals Standing -Blood Pressure (90/60-120/80) 132/101 H -Extremity Use Left Arm -Pulse Rate (60-100) 95 Sitting -Blood Pressure (90/60-120/80) 139/95 H -Extremity Use Left Arm -Pulse Rate (60-100) 90 Lying -Blood Pressure (90/60-120/80) 142/97 H -Extremity Use Left Arm -Pulse Rate (60-100) 83 Intake and Output for Last 24 Hours 04/29/19 04/30/19 05/01/19 23:59 23:59 23:59 Intake Total 845 / 845 1120 / 1120 1480 / 1480 Balance 845 / 845 1120 / 1120 1480 / 1480 Laboratory Tests Past 24 Hrs 05/01/19 07:48 Sodium 139 Potassium 4.0 Chloride 109 H Carbon Dioxide 24.0 Anion Gap 6 BUN 32 H Creatinine 1.22 Estim Creat Clear Calc 67.55 Est GFR (MDRD) Af Amer 82 Est GFR (MDRD) Non-Af 68 BUN/Creatinine Ratio 26.2 H Glucose 106 Calcium 8.6 POC Glucose 05/01/19 05/01/19 04/30/19 11:42 06:26 22:04 POC Glucose 107 104 143 H 04/30/19 17:03 POC Glucose 159 H Assessment/Plan Patient seen by Rama BASILIO under my supervision Patient seen and examined. He has no complaints this morning. Review of systems is otherwise negative. Awaiting cardiac cath and PCI tomorrow. on aspirin and plavix. o/e: Vital Signs Height 5 ft 6 in Weight: 235 lb 10.786 oz Weight in Pounds 235.7 lbs Pulse Ox 97 Temperature 97.9 F Pulse Rate [Standing] 95 Pulse Rate [Sitting] 90 Pulse Rate [Lying] 83 Pulse Rate 78 Respiratory Rate 18 Blood Pressure [Standing] 132/101 Blood Pressure [Sitting] 139/95 Blood Pressure [Lying] 142/97 Blood Pressure [BP] 130/85 Blood Pressure 160/98 Blood Pressure Position [BP] Semi-Fowlers Blood Pressure Position Supine General: Alert, Oriented x3, Cooperative HEENT: Atraumatic, PERRLA, EOMI, Normocephalic Neck: Supple, No JVD, Negative Carotid Bruits Lungs: Clear to auscultation, Normal air movement Cardiovascular: Regular rate, No murmurs Abdomen: Bowel Sounds Present, Soft, Non Tender Extremities: No edema, Capillary Refill Less than 3 Seconds Skin: No rashes, No breakdown Musculoskeletal: No Tenderness to Palpation of Joints or Extremities Neurological: Cranial nerves II-XII grossly intact Psych/Mental Status: Depressed, Alert and oriented to time, place, person, mood and affect Plan is for cardiac cath on Sunday with PCI. Continue insulin sliding scale. Also continue Lipitor and aspirin and Plavix. To start metformin after cardiac cath. Rest of management as per Rama BASILIO's note, which I have reviewed and endorsed. Code Visit OBSV E&M: 33019 Subsequent observation care L2
--- NOTE | 2019-05-01 13:33 | PN.NEURO_ITS ---
Patient Problems: Active and Suspected Problems (Last Updated 04/26/19 @ 19:09 by Paddy Cotton DO) Syncope (Acute) Ventricular trigeminy (Acute) Subjective: No issues overnight. Cardiac cath in a.m. tomorrow - Physical Exam General: Alert HEENT: Normocephalic Neck: Supple Lungs: Normal air movement Cardiovascular: Normal S1, Normal S2 Abdomen: Bowel Sounds Present Extremities: No cyanosis Neurological: - - Conscious, alert, AOA x3, CN II through grossly intact, power 5 x 5 both upper and lower extremities, no sensory loss, no cerebellar signs, gait normal, reflexes + B/L B/S/T/K/A Psych/Mental Status: Normal Affect Vital Signs Temp Pulse Resp BP Pulse Ox 97.9 F 78 18 160/98 H 97 05/01/19 10:00 05/01/19 10:00 05/01/19 10:00 05/01/19 10:00 05/01/19 10:00 Oxygen Delivery Method Room Air Weight: 106.9 kg Body Mass Index (BMI) 38.0 Finger Stick Blood Glucose 143 Orthostatic Vital Signs Start: 04/27/19 06:00 Freq: q24h Status: Active Protocol: Activity Type Activity Date Activity User E-Sign Co-Sign Detail Recorded Client Recorded Date Recorded By Document 04/29/19 21:55 MAB [id number] 04/29/19 22:00 MAB 04/29/19 21:55 Orthostatic Vitals Standing -Blood Pressure (90/60-120/80) 132/101 H -Extremity Use Left Arm -Pulse Rate (60-100) 95 Sitting -Blood Pressure (90/60-120/80) 139/95 H -Extremity Use Left Arm -Pulse Rate (60-100) 90 Lying -Blood Pressure (90/60-120/80) 142/97 H -Extremity Use Left Arm -Pulse Rate (60-100) 83 Intake and Output for Last 24 Hours 04/29/19 04/30/19 05/01/19 23:59 23:59 23:59 Intake Total 845 / 845 1120 / 1120 1480 / 1480 Balance 845 / 845 1120 / 1120 1480 / 1480 Laboratory Tests Past 24 Hrs 05/01/19 07:48 Sodium 139 Potassium 4.0 Chloride 109 H Carbon Dioxide 24.0 Anion Gap 6 BUN 32 H Creatinine 1.22 Estim Creat Clear Calc 67.55 Est GFR (MDRD) Af Amer 82 Est GFR (MDRD) Non-Af 68 BUN/Creatinine Ratio 26.2 H Glucose 106 Calcium 8.6 POC Glucose 05/01/19 05/01/19 04/30/19 11:42 06:26 22:04 POC Glucose 107 104 143 H 04/30/19 17:03 POC Glucose 159 H Medical Necessity - Tobacco Use Smoking Status: Current every day smoker Tobacco Use: Pipe Assessment/Plan All Active Problems (Last Updated 04/26/19 @ 19:09 by Paddy Cotton DO) Syncope (Acute) Ventricular trigeminy (Acute) The patient is a 49 year old M H HTN admitted with syncope. Per patient he was at the store on 04/26/2019 when he felt dizzy and lightheaded and passed out for few seconds to a minute, but denies any tongue bite, denies any urinary incontinence or postictal state. Patient was later taken to [facility] where he was found to have ventricular bigeminy and later transferred to [facility]. Per patient he never had any syncopal episode in the past. Per patient he had 2 episodes of right eye vision loss in the past month for which he was admitted at [facility] and had an MRI which per patient showed old stroke (imaging not available for review at present), he also was seen by ophthalmology at [facility] who had started him on prednisone for possible temporal arteritis but patient denies any headache with these episodes of visual disturbances. Per patient he also underwent temporal artery biopsy and he was notified yesterday 04/28/19 that there is no temporal arteritis on the biopsy report per patient but again the report is not available with me at present to verify. Per patient he lives alone, denies any history of seizures or witnessed seizures, denies any frequent falls, does not use any cane or walker to ambulate and does drive. Patient being followed by Dr. Bruce from cardiology. Post admission patient underwent diagnostic cardiac catheterization which was reported to show mid LAD 75% stenosis and distal RCA 85% stenosis. TTE showed EF 40%, normal left atrial size, no PFO Impression Syncope?likely cardiac etiology History of stroke?as per patient has MRI brain done in the past revealed old stroke (images not available to review) Plan ?MRI brain without contrast-tiny focus of possible old ischemia related to the left carotid nucleus and left lentiform nucleus. Images reviewed ?MRA head/neck-no hemodynamically significant stenosis or occlusion ?EEG-pending ?On aspirin/Plavix in preparation for elective PCI and Lipitor ?Diagnostic cardiac cath reported to show mid LAD 75% stenosis and distal RCA 85% stenosis and per patient is planned to undergo cardiac stent placement. ?Patient is on multiple antihypertensive medications. Defer further management of blood pressure to hospitalist team and cardiology. ?Further cardiac cause of syncope management per cardiology ?Orthostatic vitals negative ?Stroke risk factors discussed and stroke education provided ?Further medical management per hospitalist team ?GI/DVT prophylaxis ?Fall precautions ?Please call with questions if any ?Follow-up with neurology as outpatient in 6 weeks ?Thank you for allowing us to participate in patient's care and management This note was generated using [employer] dictation software. It may contain incorrect words, spellings and punctuation's which were not noted in the review of the note prior to signing
--- NOTE | 2019-05-01 15:28 | EEG ---
- Electroencephalogram Date of service 04/29/2019 History EEG is being done in this 49 yr M to rule out seizures EEG Description: This is an 18 channel EEG with 10-20 lead placement system. Bipolar montages, and Referential montages were reviewed. Photic stimulation and Hyperventilation were performed. The posterior dominant rhythm is 9 HZ synchronous, symmetric, reacting to eye opening and closing. Photo stimulation elicited normal driving response but no abnormal photoparoxysmal response, Hyperventilation did not elicit any abnormal photoparoxysmal response. Sleep was identified. There is no abnormal background slowing noted. There was no epileptiform discharges or electrographic seizures noted during this recording. EKG artefact noted during the record. EEG Interpretation This is a normal awake and asleep EEG. There is no epileptiform discharges or electrographic seizures noted during the record.
[2019-05-01 17:06] LABS: Bedside Glucose 125 mg/dL (70-110)
[2019-05-01] MEDS: Atorvastatin Calcium 80 MG Tablet PO (22:18)
[2019-05-01 22:31] LABS: Bedside Glucose 166 mg/dL (70-110)
[2019-05-02] VITALS (24 sets, daily range): BP systolic 131–167; BP diastolic 60–100; PULSE 56–100; RESP 13–23; TEMP 36.6–37.1; O2SAT 93–100; BMI 37.9
[2019-05-02 04:14] LABS: Hematocrit 37.2 % (40-54); Hemoglobin 12.7 g/dL (13.0-16.5); Mean Corp Hgb Conc 34.1 g/dL (32-36); Mean Corpuscular Hgb 29.4 pg (27.0-32.0); Mean Corpuscular Volume 86.1 fL (80-94); Mean Platelet Vol. 10.2 fl (6.2-12.0); Platelet Count 394 K/mm3 (150-450); RBC Distribution Width CV 12.3 % (11.6-14.6); RBC Distribution Width SD 38.7 fl (35.1-43.9); Red Blood Count 4.32 M/mm3 (4.6-6.2)
[2019-05-02 04:37] LABS: Anion Gap 8 (5-15); BUN 29 mg/dL (7-18); BUN/Creat Ratio 22.8 RATIO (10-20); Calcium,Total 8.7 mg/dL (8.5-10.1); Chloride 106 mmol/L (98-107); Creatinine, Serum 1.27 mg/dL (0.70-1.30); EST Glomerular Filtration Rate 65 mL/min (>60); Est Glom Filt Rate - Afr Amer 78 mL/min (>60); Estimated Creatinine Clearance 64.89 ml/min; Glucose 108 mg/dL (74-106); Potassium 3.7 mmol/L (3.5-5.1); Sodium Level 139 mmol/L (136-145)
[2019-05-02] MEDS: Aspirin 81 MG TAB.CHEW PO (05:56)
[2019-05-02] MEDS: Lisinopril 20 MG Tablet PO ×2 (05:56→21:56)
[2019-05-02] MEDS: Carvedilol 6.25 MG Tablet PO ×2 (05:56→21:57)
[2019-05-02] MEDS: Clopidogrel Bisulfate 75 MG Tablet PO (05:56)
[2019-05-02] MEDS: amLODIPine 10 MG Tablet PO (05:56)
[2019-05-02] MEDS: 0.9% NaCl Peripheral Flush Adult/Peds IV (05:56)
[2019-05-02] MEDS: DiphenhydrAMINE 25 MG Capsule 50 MG PO (06:17)
--- NOTE | 2019-05-02 06:49 | NURSING ---
This RN called Hand Sign Writer and gave report for procedure.
[2019-05-02 06:56] LABS: Bedside Glucose 99 mg/dL (70-110)
--- NOTE | 2019-05-02 07:57 | EKG12_ITS ---
Test Reason : AM EKG Blood Pressure : / mmHG Vent. Rate : 067 BPM Atrial Rate : 067 BPM P-R Int : 140 ms QRS Dur : 110 ms QT Int : 434 ms P-R-T Axes : 041 -30 040 degrees QTc Int : 458 ms Normal sinus rhythm with sinus arrhythmia Left axis deviation Nonspecific ST and T wave abnormality Abnormal ECG Confirmed by TARIQ CHAVEZ, PRESTON ([id number]), makeup editor SYLVIA KRAMER ([id number]) on 05/07/2019 2:35:19 PM Referred By: Paddy Cotton Confirmed By:PRESTON POTTER MD
--- NOTE | 2019-05-02 08:34 | CL.I_ITS ---
Patient Name: MEL MARSH Study Date: 05/02/2019 Performing: Antonio Bruce MD Ht: 66.14 inches 168 cm : 1970 Wt: 235.89 lbs 107 kg Age: 49 Gender: male BSA: 2.15 PROCEDURE(S) PERFORMED [id number] W OR WO PTCA, SINGLE CORONARY ARTERY [id number] W OR WO PTCA, SINGLE CORONARY ARTERY CLINICAL PROFILE AND CO-MORBIDITIES Indications: New Onset Angina <= 2 months, Stable Known CAD, Cardiac Arrythmia, Syncope Heart Failure: NYHA Class: 1, Newly Diagnosed: Yes, Heart Failure Type: Systolic Stress/Imaging Stress/Image Study Performed: No Angina Classification Anginal Classification w/in 2 Weeks: CCS II CAD Presentations: Unstable angina. Comorbidities/Risk Factors: Hypertension Dyslipidemia Diabetes Mellitus: Diabetes Therapy: Oral CONCLUSIONS Successful PTCA/JOHN distal RCA with a 2.5 x 38 Promus Synergy, post dilated with a 3.0 x 8 balloon at 8 butch; 85%-->0%, no dissection. Successful PTCA/JOHN mid RCA with a 2.5 x 28 Promus Synergy, post dilated with a 3.0 x 8 NC Balloon; 8 5%-->0%, no dissection. Successful PTCA/JOHN proximal RCA with a 3.5 x 16 Promus Synergy, post dilated with a 3.5 x 8 NC Ballo on; 75%-->0%, no dissection. Proximal stent placed due to significant dampening of guide catheter wh en pulled into vessel. Successful PTCA/JOHN of mid LAD with a 2.25 x 38 Promus Synergy; 85%-->0%, no dissection. Pt had matthew lar ventricular trigeminy while working on LAD, which completely resolved with stent deployment. RECOMMENDATIONS Highly recommend quitting all tobacco products Follow up with primary crm specialist Risk factor modification ASA Indefinitley Plavix for at least 12 months Routine post interventional care Refer for Outpatient Cardiac Rehab Manual sheath removal per protocol Follow up with Dr. Bruce Mynx closure device malfunctioned and failed to deploy collagen; manual sheath removal with femostop in place. DESCRIPTION OF PROCEDURE The patient arrived to the procedure lab. The risks and benefits of the procedure as well as a full d escription of our services here and current unavailability of surgical backup were fully explained to the patient and/or their significant other prior to the catheterization. The Timeout was completed, verifying the correct patient and procedure. The patient's procedural site was prepped and draped in the usual fashion. Local anesthetic was given subcutaneously to right groin region with Lidocaine 2%. Using a modified Seldinger technique, arterial access was obtained via the right femoral artery, a 6 Fr sheath was inserted.. hs 2 Guide catheter was inserted and engaged into the RCA. bmw Guide wire was advanced to the RCA . emerge 2.00 x 12 Balloon catheter was advanced across lesion in the right coronary, distal. PTCA ba lloon inflated at 6 atms for 10 secs. PTCA balloon inflated at 6 atms for 9 secs. PTCA balloon inflat ed at 6 atms for 8 secs. Balloon catheter was advanced across lesion in the right coronary, mid. PTCA balloon inflated at 8 atms for 8 secs. PTCA balloon inflated at 8 atms for 6 secs. Balloon catheter was advanced across lesion in the right coronary, distal. PTCA balloon inflated at 8 atms for 9 secs. Angiogram performed post balloon dilatation. PTCA balloon inflated at 10 atms for 11 secs. Balloon c atheter was advanced across lesion in the right coronary, mid. PTCA balloon inflated at 10 atms for 9 secs. PTCA balloon inflated at 10 atms for 9 secs. synergy 2.5 x 8 Drug Eluting stent was advanced a cross the lesion in the right coronary, distal. Angiogram performed post stent deployment. synergy 2.5 x 28 Drug Eluting stent was advanced across the lesion in the right coronary, mid. Angiog shayne performed post stent deployment. nc emerge 3.00 x 8 Balloon catheter was advanced across lesion i n the right coronary, prox. Balloon catheter was advanced across lesion in the right coronary, proxim al. Angiogram performed post balloon dilatation. synergy 3.5 x 16 Drug Eluting stent was advanced acr oss the lesion in the right coronary, proximal. nc emerge 3.5 x 8 Balloon catheter was inserted post stent. Angiogram performed post balloon dilatation. ebu 3.75 Guide catheter was inserted and engaged into the LCA. bmw Guide wire was advanced to the LAD. emerge 2.00 x 12 Balloon catheter was advanced across lesion in the LAD, mid. PTCA balloon inflated at 8 atms for 13 secs. PTCA balloon inflated at 8 atms for 8 secs. PTCA balloon inflated at 8 atms for 9 secs. PTCA balloon inflated at 8 atms for 10 secs. Angiogram performed post balloon dilatation. synergy 2.25 x 38 Drug Eluting stent was advanced across the lesion in the LAD, mid. Angiogram performed pre stent deployment. Angiogram p erformed post stent deployment. 45 cm Arterial sheath was exchanged for a 6 Fr 13 cm Sheath. Contrast was injected through the sheath and the Right Iliac and Femoral artery were assessed for possible cl osure device. The arterial sheath was pulled and manual compression applied until hemostasis is achie olga. INTERVENTION INFORMATION LESION SITE: RCA (Distal) Lesion Complexity: High/C, lesion at bifurcation: No, thrombus present: No, lesion length: 38 mm, cul prit lesion: Yes Pre Stenosis: 85 % Pre intervention SIRISHA flow: 3 PROCEDURE: Drug Eluting Stent with pre and post dilatation Post Stenosis: 0 % Post intervention SIRISHA flow: 3 Lesion Devices: [place] .014 BMW [place] Straight 190cm Medtronic 6 Fr HSII 100cm Guide Catheter Manuel Sci EMERGE MR 2.00x12 BALLOON Manuel Sci Synergy MR JOHN 2.50x38 LESION SITE: RCA (Mid) Lesion Complexity: High/C, lesion at bifurcation: No, thrombus present: No, lesion length: 28 mm, cul prit lesion: No Pre Stenosis: 85 % Pre intervention SIRISHA flow: 3 PROCEDURE: Drug Eluting Stent with pre and post dilatation Post Stenosis: 0 % Post intervention SIRISHA flow: 3 Lesion Devices: [place] .014 BMW [place] Straight 190cm Medtronic 6 Fr HSII 100cm Guide Catheter Manuel Sci EMERGE MR 2.00x12 BALLOON Manuel Sci Synergy MR JOHN 2.50x28 Manuel Sci NC EMERGE MR 3.00x08 BALLOON LESION SITE: RCA (Proximal) Lesion Complexity: Non-High/Non-C, lesion at bifurcation: No, thrombus present: No, lesion length: 16 mm, culprit lesion: No Pre Stenosis: 75 % Pre intervention SIRISHA flow: 3 PROCEDURE: Drug Eluting Stent with pre and post dilatation 0 % Post intervention SIRISHA flow: 3 Lesion Devices: [place] .014 BMW [place] Straight 190cm Medtronic 6 Fr HSII 100cm Guide Catheter Manuel Sci EMERGE MR 2.00x12 BALLOON Manuel Sci NC EMERGE MR 3.00x08 BALLOON Manuel Sci Synergy MR JOHN 3.50x16 Manuel Sci NC EMERGE MR 3.50x08 BALLOON LESION SITE: LAD (Mid) Lesion Complexity: High/C, lesion at bifurcation: No, thrombus present: No, lesion length: 38 mm, cul prit lesion: No PROCEDURE: Drug Eluting Stent with pre dilatation. Lesion Devices: Manuel Sci EMERGE MR 2.00x12 BALLOON Manuel Sci Synergy MR JOHN 2.25x38 COMPLICATIONS No Complications PROCEDURE MEDICATIONS Versed 1 mg IV Versed 1 mg IV Fentanyl 25 mcg IV Oxygen: 2 L/min via nasal cannula Heparin 6000 unit(s) IV 05/02/2019 07:22:52 Heparin 6000 unit(s) IV 05/02/2019 07:22:52 Nitro 200 mcg IC 05/02/2019 07:30:36 Nitro 200 mcg IC 05/02/2019 07:30:36 Nitro 200 mcg IC 05/02/2019 07:43:02 Nitro 200 mcg IC 05/02/2019 07:56:29 Nitro 200 mcg IC 05/02/2019 08:01:18 SUMMARY OF HEMODYNAMIC DATA Time AIR REST ECG 06:58:20 AO 103/71 (88) SA 07:24:11 Signed By Antonio Bruce MD On 05/02/2019 08:33:58 Antonio Bruce MD
--- NOTE | 2019-05-02 08:50 | EKG12_ITS ---
Test Reason : PCI Blood Pressure : / mmHG Vent. Rate : 057 BPM Atrial Rate : 057 BPM P-R Int : 132 ms QRS Dur : 114 ms QT Int : 426 ms P-R-T Axes : 025 -27 022 degrees QTc Int : 414 ms Sinus bradycardia with occasional Premature ventricular complexes T wave abnormality, consider lateral ischemia Abnormal ECG Confirmed by TARIQ CHAVEZ, PRESTON ([id number]), business editor NORMA ELLISON ([id number]) on 05/09/2019 1:36:46 PM Referred By: Paddy Cotton Confirmed By:PRESTON POTTER MD
[2019-05-02] MEDS: 0.9% Normal Saline 1,000 ML 150 ML IV (09:48)
--- NOTE | 2019-05-02 10:03 | PN_ITS ---
Patient Problems: Active and Suspected Problems (Last Updated 05/02/19 @ 09:36 by Nori Stone) Syncope (Acute) Ventricular trigeminy (Acute) Ischemic cardiomyopathy (Acute) EF 40% per echo done 04/27/2019 Subjective: Patient seen and examined. He had cardiac cath with PCI today and had successful drug-eluting stent placement in the distal RCA and mid RCA as well as proximal RCA. He also had drug-eluting stent placement in the mid LAD. He was noted to have some ventricular trigeminy was working on the LAD which resolved with stent placement. He was transferred to the cardiac ICU afterwards for closer monitoring. Patient seen he had no complaints and felt well. Review of systems otherwise negative. Labs and vitals reviewed. Vitals/I&O's: Vital Signs Temp Pulse Resp BP Pulse Ox 98.3 F 60 14 145/88 H 98 05/02/19 09:15 05/02/19 09:15 05/02/19 09:15 05/02/19 09:15 05/02/19 09:15 Oxygen Delivery Method Room Air Weight: 235 lb 10.786 oz Body Mass Index (BMI) 38.0 Finger Stick Blood Glucose 143 Orthostatic Vital Signs Start: 04/27/19 06:00 Freq: q24h Status: Active Protocol: Activity Type Activity Date Activity User E-Sign Co-Sign Detail Recorded Client Recorded Date Recorded By Document 04/29/19 21:55 [facility] [id number] 04/29/19 22:00 MAB 04/29/19 21:55 Orthostatic Vitals Standing -Blood Pressure (90/60-120/80) 132/101 H -Extremity Use Left Arm -Pulse Rate (60-100) 95 Sitting -Blood Pressure (90/60-120/80) 139/95 H -Extremity Use Left Arm -Pulse Rate (60-100) 90 Lying -Blood Pressure (90/60-120/80) 142/97 H -Extremity Use Left Arm -Pulse Rate (60-100) 83 Intake and Output for Last 24 Hours 04/30/19 05/01/19 05/02/19 23:59 23:59 23:59 Intake Total 1120 / 1120 2200 / 2200 Balance 1120 / 1120 2200 / 2200 General: Alert, Oriented x3, Cooperative HEENT: Atraumatic, PERRLA, EOMI, Normocephalic Neck: Supple, No JVD, Negative Carotid Bruits Lungs: Clear to auscultation, Normal air movement Cardiovascular: Regular rate, No murmurs Abdomen: Bowel Sounds Present, Soft, Non Tender Extremities: No edema, Capillary Refill Less than 3 Seconds Skin: No rashes, No breakdown Musculoskeletal: No Tenderness to Palpation of Joints or Extremities; femstop in place in right groin Neurological: Cranial nerves II-XII grossly intact Psych/Mental Status: Depressed, Alert and oriented to time, place, person, mood and affect Laboratory Results 05/01/19 11:42: POC Glucose 107 05/01/19 17:00: POC Glucose 125 H 05/01/19 22:24: POC Glucose 166 H 05/02/19 04:06: WBC 14.0 H, RBC 4.32 L, Hgb 12.7 L, Hct 37.2 L, MCV 86.1, MCH 29.4, MCHC 34.1, RDW Std Deviation 38.7, RDW Coeff of Tony 12.3, Plt Count 394, MPV 10.2 05/02/19 04:06: Sodium 139, Potassium 3.7, Chloride 106, Carbon Dioxide 25.0, Anion Gap 8, BUN 29 H, Creatinine 1.27, Estim Creat Clear Calc 64.89, Est GFR (MDRD) Af Amer 78, Est GFR (MDRD) Non-Af 65, BUN/Creatinine Ratio 22.8 H, Glucose 108 H, Calcium 8.7 05/02/19 05:52: POC Glucose 99 Current Medications Acetaminophen (Tylenol) 650 mg PO Q6H PRN PRN PRN Reason: Mild Pain (0-2/10) Amlodipine Besylate (Norvasc) 10 mg PO DAILY [facility] Last Admin: 05/02/19 05:56 Dose: 10 mg Documented by: Aspirin (Aspirin, Baby) 81 mg PO DAILY@0800 [facility] Last Admin: 05/02/19 05:56 Dose: 81 mg Documented by: Atorvastatin Calcium (Lipitor) 80 mg PO QHS [facility] Last Admin: 05/01/19 22:18 Dose: 80 mg Documented by: Atropine Sulfate () 0.5 mg IV UD PRN PRN Reason: HR <50 bpm Carvedilol (Coreg) 6.25 mg PO BID [facility] Last Admin: 05/02/19 05:56 Dose: 6.25 mg Documented by: Clopidogrel Bisulfate (Plavix) 75 mg PO DAILY [facility] Last Admin: 05/02/19 05:56 Dose: 75 mg Documented by: Dextrose (D50w Syringe) 0 gm IV X1 PRN; Protocol PRN Reason: Hypoglycemia Diazepam (Valium) 5 mg PO Q6H PRN PRN PRN Reason: BACK SPASMS/ANXIETY Famotidine (Pepcid) 20 mg PO DAILY [facility] Last Admin: 05/01/19 09:59 Dose: 20 mg Documented by: Glucagon () 1 mg IM .X1 PRN PRN Reason: Hypoglycemia Heparin Sodium (Beef Lung) (Heparin 500 Unit/5 Ml (100/Ml)) 500 unit IV UD PRN PRN Reason: HEPARIN FLUSH Hydrochlorothiazide () 12.5 mg PO DAILY [facility] Last Admin: 05/01/19 09:59 Dose: 12.5 mg Documented by: Sodium Chloride () 1,000 mls @ 150 mls/hr IV .Q6H40M [facility] Stop: 05/02/19 15:29 Last Admin: 05/02/19 09:48 Dose: 150 mls/hr Documented by: Insulin Human Lispro (Humalog Kwikpen (Bkc)) 0 unit SC TIDAC [facility]; Protocol Last Admin: 05/02/19 05:55 Dose: Not Given Documented by: Labetalol HCl (Trandate) 5 mg IV X1 PRN PRN Reason: SBP > 160 when pulling sheath Lisinopril (Zestril) 20 mg PO BID [facility] Last Admin: 05/02/19 05:56 Dose: 20 mg Documented by: Melatonin (Melatonin) 3 mg PO QHS PRN PRN PRN Reason: INSOMNIA Metoclopramide HCl (Reglan) 5 mg IV Q6 PRN PRN Reason: NAUSEA/VOMITING Morphine Sulfate () 2 mg IV Q4H PRN PRN PRN Reason: Mild back pain (0-2/10) Nitroglycerin (Nitrostat) 0.4 mg SUBLINGUAL Q5M PRN PRN Reason: CARDIAC/CHEST PAIN Ondansetron HCl (Zofran) 4 mg IV Q8H PRN PRN PRN Reason: NAUSEA/VOMITING Potassium Ch[facility] ([facility]Dur) [facility] Last Admin: 05/01/19 09:58 Dose: 10 meq Documented by: Senna/Docusate Sodium (Senokot-S, Sandy-Colace) 2 tablet PO BID PRN PRN PRN Reason: Constipation Sodium Chloride () 10 - 40 ml IV UD PRN PRN Reason: SALINE FLUSH Last Admin: 05/02/19 05:56 Dose: 10 ml Documented by: Sodium Chloride () 500 ml IV BOLUS PRN PRN Reason: VASO-VAGAL PROTOCOL Medical Necessity - Tobacco Use Smoking Status: Current every day smoker Tobacco Use: Pipe Assessment/Plan All Active Problems (Last Updated 05/02/19 @ 09:36 by Nori Stone) Syncope (Acute) Ventricular trigeminy (Acute) Ischemic cardiomyopathy (Acute) Hypertensive urgency (Resolved) 1. CAd s/p stents * cardiac cath on 04/29/19 which shwoed CAD of hte LAD nad RCA * he had cardiac cath with PCI today and successful JOHN placement in proximal, mid and distal RCA, as well as miD LAD * cardiology on board; transferred to cardiac ICU for closer monitoring * to continue aspirin indefinitely, continue plavix for 12 months * continue statins and carvedilol * per cardiology, will benefit from 30 day event monitor after discharge o/a of ventricular trigeminy * 2. Hypertension: on amlodipine, carvedilol, HCTZ and lisinopril. fairly controlled. 3. Newly diagnosed type 2 diabetes mellitus: * A1c was 7.2. Currently on insulin sliding scale. * Plan is to start metformin 48 hours after he received dye from cardiac cath. * 4. CKD 3: Cr down to 1.22 today. Will monitor 5. Syncope: likely cardiac, as per findings of cath. Hasnt recurred since admission 6. History of CVA: * On aspirin and statin. Neurology on board. * MRI done showed tiny foci of possible old ischemia and MRA of the head and neck showed no hemodynamically significant tenderness or occlusion. * 7. OBesity: BMI is 37. Counselled on lifestyle changes. Nutrition consulted. DVT prophylaxis: SCDs for now. Code Visit Inpatient E&M: 03207 Subs Hosp L3
--- NOTE | 2019-05-02 10:03 | CRPHASE1_ITS ---
Patient Communication Former Patient:: Phase II PHII Cardiac Rehab Discussed with Patient:: Yes Guide to Cardiac Rehab Given to Patient:: Yes Cardiac Rehab Facility Choice List Given to Patient:: Yes - [facility] Choice Program [facility] CR PHII:: Communication Given to CR, Refer to [facility] Intake Counselor:: Antonio Bruce Phase II Cardiac Rehab:: Yes Sessions:: 36 sessions - 3 days/wk, 12 weeks Phase I Charge:: Level I - Education Risk Factors/Lifestyle Smoking Status: Current every day smoker - pipe Hx Hypertension: Yes Hx Dyslipidemia: Yes Hx Obesity: Yes Height: 5 ft 6 in Weight:: 235 lb BMI: 37.9 Stress: Recent Risk Factor for Sedentary Lifestyle: Lowest Risk Family History: Heart Disease Laboratory Values: Cardiac Rehab Phase I Labs Hemoglobin A1c 7.2 % (4.2-6.3) H 04/26/19 19:30 Triglycerides 114 mg/dL (-199) 04/30/19 05:35 Cholesterol 216 mg/dL (200) H 04/30/19 05:35 LDL Cholesterol 152 mg/dL (0-130) H 04/30/19 05:35 HDL Cholesterol 41 mg/dL (40-) 04/30/19 05:35 Phase I Education Given On:: [place], Nutrition, Antiplatelet medication, Smoking cessation Issues Affecting Care:: None Knowledge of Condition:: Yes Learning Preferences: Verbal, Written, Audio/Visual, Demonstration Medical/Surgical History Hypertension:: Yes Dyslipidemia:: Yes Other Medical/Surgical Issues:: Syncope, ventricular bigeminy and trigeminy, temporal arteritis. Cardiac Rehabilitation Info Cardiac Rehabilitation Program Information: Cardiac Rehabilitation is important for patients like you who are recovering from a heart problem. Cardiac rehabilitation programs are recognized as integral to the continued care of the patient with coronary heart disease. The cardiac rehabilitation program is designed to optimize a patient's physical, psychological, and social functioning. Health resident care director work in cardiac rehabilitation programs and assist you with getting the treatments you need to get stronger and healthier - like exercise, healthy eating habits, and medications. Cardiac rehabilitation has been show to help people with heart problems live longer and have better life enjoyment than people who do not go to cardiac rehabilitation. Please contact the Cardiac Rehabilitation Program at [facility] at in two weeks if you have not heard from them.
--- NOTE | 2019-05-02 10:08 | CRPH1.INST_ITS ---
General Education CAD and cardiac anatomy and function:: Patient communicates acknowledgment, Needs reinforcement Explanation of diagnoses and procedures:: Patient communicates acknowledgment, Needs reinforcement Sign/Symptoms of CT:: Patient communicates acknowledgment, Needs reinforcement Antiplatelet therapy: Patient communicates acknowledgment, Needs reinforcement Proper use of NTG-SL: Patient communicates acknowledgment, Needs reinforcement Emergency procedures and activation of EMS: Patient communicates acknowledgment, Needs reinforcement Compliance of all prescribed medications: Patient communicates acknowledgment, Needs reinforcement Smoking Patient Nicotine/Smoking Risk Factors Are:: Pipes Recommendations Include:: Smoking cessation strategies/Smoking packet, Second- hand smoke recommendation, Participation in a smoking cessation program Nicotine/Smoking Response Code:: Patient communicates acknowledgment, Needs reinforcement Dyslipidemia Patient Dyslipidemia Risk Factors Are:: Total Cholesterol, Triglycerides, HDL, LDL Recommendations Include:: Lipid profile provided, Reviewed NCEP/ATP guidelines, Therapeutic Lifestyle Change dietary guidelines Dyslipidemia Response Code:: Patient communicates acknowledgment, Needs reinforcement Overweight/Obesity Patient Overweight/Obesity Risk Factors Are:: Obesity - > or = 30 Recommendations Include:: Weight loss of 5-10%, Reduced calorie diet, Exercise 5-7 times/week Overweight/Obesity:: Patient communicates acknowledgment, Needs reinforcement Hypertension Recommendations Include:: Maintain BP <130/85, DASH dietary guidelines, Decrease/maintain normal body weight, Moderation of ETOH Hypertension:: Patient communicates acknowledgment, Needs reinforcement Heart Disease Patient Heart Disease Risk Factors Are:: Family history of heart disease < 65 y ears old, Previous cardiac event Recommendations Include:: Educated family members of their risk, Educated family members of importance of prevention of heart disease Heart Disease Response Code:: Patient communicates acknowledgment, Needs reinforcement Diabetes Patient Diabetes Risk Factors Are:: No documented hx of diabetes Diabetes:: Not instructed Metabolic Syndrome Patient Metabolic Syndrome Risk Factors Are [3 of 5]:: Waist circumference > 35 [female] or 40 [male], Hypertension Recommendations Include:: Does not meet criteria Metabolic Syndrome Response Code:: Not instructed Sedentary Recommendations Include:: Aerobic exercise 5-7 times/week for 20-30 minutes continuously, Benefits of regular exercise, Discussed home walking program, Mon itored Outpatient Cardiac Rehab Sedentary Response Code:: Patient communicates acknowledgment, Needs reinforcement Stress Recommendations Include:: Identification of stressors, and assessment of coping skills, Stress management techniques Stress Response Code:: Patient communicates acknowledgment, Needs reinforcement
[2019-05-02] MEDS: Famotidine 20 MG Tablet PO (10:23)
[2019-05-02] MEDS: hydroCHLOROthiazide 12.5mg 12.5 MG PO (10:23)
[2019-05-02] MEDS: diazePAM 5 MG Tablet PO (10:26)
[2019-05-02 10:40] LABS: Bedside Glucose 106 mg/dL (70-110)
--- NOTE | 2019-05-02 12:57 | CASEMGMT ---
RN CM Assessment Presentation: Suncope, heart cath PCI Intro role of CM and purpose of RN CM assessment to patient in room. Pt able to participate in assessment. Demographics, PCP and Pharmacy verified. PCP: Dr. Calixto Specialists: Dr. Bruce, Dr. Key Preferred Pharmacy: [facility] Insurance: [place] Prescription Benefit: yes. Plavix on dc. LNOK: [place], son Living Arrangements: Lives independently, denies any care needs. Transportation: drives, or family can assist DME: none HHC: none Patient DC goals: Home DC PLAN: Home Fabio DIANA RN ACM
--- NOTE | 2019-05-02 15:24 | NURSING ---
Patients bedrest sompleted at 1500. Patient ambulated around room and then to recliner. Patient tolerated without complications.
[2019-05-02] MEDS: Insulin Lispro 100 UNIT/ML INSULN.PEN SC (16:44)
[2019-05-02 16:51] LABS: Bedside Glucose 159 mg/dL (70-110)
[2019-05-02] MEDS: amLODIPine 5 MG Tablet PO (17:21)
[2019-05-02] MEDS: Atorvastatin Calcium 80 MG Tablet PO (21:56)
[2019-05-02 22:05] LABS: Bedside Glucose 143 mg/dL (70-110)
[2019-05-03] VITALS (11 sets, daily range): BP systolic 119–165; BP diastolic 72–95; PULSE 58–106; RESP 13–20; TEMP 36.5–36.8; O2SAT 94–98
[2019-05-03 04:30] LABS: Hematocrit 37.9 % (40-54); Hemoglobin 12.6 g/dL (13.0-16.5); Mean Corp Hgb Conc 33.2 g/dL (32-36); Mean Corpuscular Hgb 29.4 pg (27.0-32.0); Mean Corpuscular Volume 88.3 fL (80-94); Mean Platelet Vol. 10.1 fl (6.2-12.0); Platelet Count 322 K/mm3 (150-450); RBC Distribution Width CV 12.4 % (11.6-14.6); RBC Distribution Width SD 40.1 fl (35.1-43.9); Red Blood Count 4.29 M/mm3 (4.6-6.2); White Blood Count 14.3 K/mm3 (4.4-11.0)
[2019-05-03 04:53] LABS: ALB/GLOB Ratio 0.8 RATIO (0.9-2.4); AST(SGOT) 20 U/L (15-37); Alanine Aminotransfer ALT/SGPT 55 U/L (16-61); Albumin, Serum 3.1 g/dL (3.2-5.0); Alkaline Phosphatase 65 U/L (45-117); Anion Gap 7 (5-15); BUN 24 mg/dL (7-18); BUN/Creat Ratio 20.2 RATIO (10-20); Calcium,Total 8.4 mg/dL (8.5-10.1); Chloride 107 mmol/L (98-107); Creatinine, Serum 1.19 mg/dL (0.70-1.30); EST Glomerular Filtration Rate 70 mL/min (>60); Est Glom Filt Rate - Afr Amer 84 mL/min (>60); Estimated Creatinine Clearance 69.25 ml/min; Globulin 3.8 g/dL (2.2-4.2); Glucose 127 mg/dL (74-106); Potassium 3.8 mmol/L (3.5-5.1); Protein, Total 6.9 g/dL (6.4-8.2); Sodium Level 141 mmol/L (136-145)
[2019-05-03] MEDS: amLODIPine 10 MG Tablet PO (08:44)
[2019-05-03] MEDS: Clopidogrel Bisulfate 75 MG Tablet PO (08:44)
[2019-05-03] MEDS: hydroCHLOROthiazide 12.5mg 12.5 MG PO (08:44)
[2019-05-03] MEDS: Aspirin 81 MG TAB.CHEW PO (08:44)
[2019-05-03] MEDS: Lisinopril 20 MG Tablet PO (08:45)
[2019-05-03] MEDS: Famotidine 20 MG Tablet PO (08:45)
[2019-05-03] MEDS: Carvedilol 6.25 MG Tablet PO (08:45)
--- NOTE | 2019-05-03 08:50 | EKG12_ITS ---
Test Reason : AM EKG Blood Pressure : / mmHG Vent. Rate : 069 BPM Atrial Rate : 069 BPM P-R Int : 142 ms QRS Dur : 114 ms QT Int : 400 ms P-R-T Axes : 034 -28 027 degrees QTc Int : 428 ms Normal sinus rhythm with sinus arrhythmia Minimal voltage criteria for LVH, may be normal variant Nonspecific T wave abnormality Abnormal ECG When compared with ECG of 29-APR-2019 05:34, MANUAL COMPARISON REQUIRED, DATA IS UNCONFIRMED Confirmed by ALONZO CHAVEZ, JEAN ([id number]), story editor NORMA ELLISON ([id number]) on 05/05/2019 4:12:02 PM Referred By: Paddy Cotton Confirmed By:CHRISTOPH ROSADO MD
--- NOTE | 2019-05-03 11:35 | PCM.DC ---
- Discharge Diagnoses Current Active Problems: Current Active and Chronic Problems (Last Updated 05/02/19 @ 09:36 by Nori Stone) Syncope (Acute) Ventricular trigeminy (Acute) Stented coronary artery (Chronic ~05/02/19) Successful PTCA/JOHN distal RCA with a 2.5 x 38 Promus Synergy, post dilated with a 3.0 x 8 balloon at 8 butch; 85%-->0%, no dissection. Successful PTCA/JOHN mid RCA with a 2.5 x 28 Promus Synergy, post dilated with a 3.0 x 8 NC Balloon; 85%-->0%, no dissection. Successful PTCA/JOHN proximal RCA with a 3.5 x 16 Promus Synergy, post dilated with a 3.5 x 8 NC Balloon; 75%-->0%, no dissection. Proximal stent placed due to significant dampening of guide catheter when pulled into vessel. Successful PTCA/JOHN of mid LAD with a 2.25 x 38 Promus Synergy; 85%-->0%, no dissection. Pt had similar ventricular trigeminy while working on LAD, which completely resolved with stent deployment. Ischemic cardiomyopathy (Acute) EF 40% per echo done 04/27/2019 Atherosclerosis of coronary artery without angina pectoris (Chronic) Successful PTCA/JOHN distal RCA with a 2.5 x 38 Promus Synergy, post dilated with a 3.0 x 8 balloon at 8 butch; 85%-->0%, no dissection. Successful PTCA/JOHN mid RCA with a 2.5 x 28 Promus Synergy, post dilated with a 3.0 x 8 NC Balloon; 85%-->0%, no dissection. Successful PTCA/JOHN proximal RCA with a 3.5 x 16 Promus Synergy, post dilated with a 3.5 x 8 NC Balloon; 75%-->0%, no dissection. Proximal stent placed due to significant dampening of guide catheter when pulled into vessel. Successful PTCA/JOHN of mid LAD with a 2.25 x 38 Promus Synergy; 85%-->0%, no dissection. Pt had similar ventricular trigeminy while working on LAD, which completely resolved with stent deployment. Essential hypertension (Chronic) Hyperlipidemia (Chronic) You will use the following diet at home:: Cardiac Your food should be the consistency of: Regular Your liquids should be the consistency of: Regular/Thin Discharge Activity: Return to Normal Activity Weight Bearing Status: Weight bearing as tolerated Call your doctor if you observe: Shortness of breath, Dizziness, Chest pain Instructions: Understanding Coronary Artery Disease (CAD), What Is High Blood Pressure? (JNC-7), Your Heart is at Risk, Diabetes and Heart Disease, Oral Therapy for Type 2 Diabetes Allergies/Adverse Reactions: Allergies Penicillins Allergy (Verified 04/03/19 21:42) Unknown Medications to take at Discharge Amlodipine [Norvasc] 10 mg PO DAILY 04/26/19 Carvedilol [Coreg (Beta Charmaine)] 6.25 mg PO BID 04/26/19 Chlorthalidone [Hygroton] 25 mg PO DAILY 04/26/19 Erythromycin Base/Ethanol [Erythromycin 2% Gel] 30 gm TP 4X/DAY 04/27/19 Aspirin [Aspirin, Baby] 81 mg PO DAILY@0800 #30 tab.chew 05/03/19 Atorvastatin Calcium [Lipitor] 80 mg PO QHS #30 tab 05/03/19 Clopidogrel Bisulfate [Plavix] 75 mg PO DAILY #30 tab 05/03/19 Lisinopril [Zestril] 20 mg PO BID #60 tab 05/03/19 Metformin HCl 500 mg PO BID #60 tab 05/03/19 hydroCHLOROthiazide [Hydrochlorothiazide] 12.5 mg PO DAILY #30 cap 05/03/19 The following prescriptions were given: Aspirin [Aspirin, Baby] 81 mg PO DAILY@0800 #30 tab.chew Transmission Status: Pending to [facility] #40 hydroCHLOROthiazide [Hydrochlorothiazide] 12.5 mg PO DAILY #30 cap Transmission Status: Pending to [facility] #40 Atorvastatin Calcium [Lipitor] 80 mg PO QHS #30 tab Transmission Status: Pending to [facility] #40 Metformin HCl 500 mg PO BID #60 tab Transmission Status: Pending to [facility] #40 Clopidogrel Bisulfate [Plavix] 75 mg PO DAILY #30 tab Transmission Status: Pending to [facility] #40 Lisinopril [Zestril] 20 mg PO BID #60 tab Transmission Status: Pending to [facility] #40 Orders to be completed after discharge: Phase II, Outpatient Cardiac Rehab Location: None Selected Primary Care Physician: Blake Calixto DO [Primary Care Provider] - Please follow up with your Primary Care Physician in: one week Test Results: Test results from this visit will be discussed in further detail at your follow-up appointment, if applicable. Please Follow Up With: Emma Monitor Appointment When: Sunday Please Follow Up With: Antonio Bruce MD When: 1-2 weeks; call office for an appointment Proposed Discharge Date: 05/03/19
--- NOTE | 2019-05-03 11:40 | DS.PCM_ITS ---
Discharge Date and Diagnosis Date of Admission: 04/26/19 Date of Discharge: 05/03/19 - Primary Discharge Diagnosis Active and Suspected Problems (Last Updated 05/02/19 @ 09:36 by Nori Stone) Syncope (Acute) Ventricular trigeminy (Acute) Ischemic cardiomyopathy (Acute) EF 40% per echo done 04/27/2019 CAD - Secondary Discharge Diagnosis Chronic Problems (Last Updated 05/02/19 @ 09:36 by Nori Stone) Stented coronary artery (Chronic ~05/02/19) Successful PTCA/JOHN distal RCA with a 2.5 x 38 Promus Synergy, post dilated with a 3.0 x 8 balloon at 8 butch; 85%-->0%, no dissection. Successful PTCA/JOHN mid RCA with a 2.5 x 28 Promus Synergy, post dilated with a 3.0 x 8 NC Balloon; 85%-->0%, no dissection. Successful PTCA/JOHN proximal RCA with a 3.5 x 16 Promus Synergy, post dilated with a 3.5 x 8 NC Balloon; 75%-->0%, no dissection. Proximal stent placed due to significant dampening of guide catheter when pulled into vessel. Successful PTCA/JOHN of mid LAD with a 2.25 x 38 Promus Synergy; 85%-->0%, no dissection. Pt had similar ventricular trigeminy while working on LAD, which completely resolved with stent deployment. Atherosclerosis of coronary artery without angina pectoris (Chronic) Successful PTCA/JOHN distal RCA with a 2.5 x 38 Promus Synergy, post dilated with a 3.0 x 8 balloon at 8 butch; 85%-->0%, no dissection. Successful PTCA/JOHN mid RCA with a 2.5 x 28 Promus Synergy, post dilated with a 3.0 x 8 NC Balloon; 85%-->0%, no dissection. Successful PTCA/JOHN proximal RCA with a 3.5 x 16 Promus Synergy, post dilated with a 3.5 x 8 NC Balloon; 75%-->0%, no dissection. Proximal stent placed due to significant dampening of guide catheter when pulled into vessel. Successful PTCA/JOHN of mid LAD with a 2.25 x 38 Promus Synergy; 85%-->0%, no dissection. Pt had similar ventricular trigeminy while working on LAD, which completely resolved with stent deployment. Essential hypertension (Chronic) Hyperlipidemia (Chronic) Hospital Course and Treatment Imaging Results: Diagnostic Data Brain MRI 04/29/19 13:19 IMPRESSION: tiny focus of white matter disease lateral to the left caudate nucleus and just lateral to the anterior aspect of the left lentiform nucleus. This is perhaps sequelae of old ischemia or trauma. at 0231 Reported and signed by: Lexa Epperson MD Electronically Signed: Lexa Epperson MD at 2:30 EDT Tel , Service support , Head MRA 04/29/19 13:19 IMPRESSION: Normal. at 2129 Reported and signed by: Lexa Epperson MD Electronically Signed: Lexa Epperson MD at 21:27 EDT Tel , Service support , Neck MRA 04/29/19 13:19 IMPRESSION: Negative non-contrast MRA of the Neck. at 2141 Reported and signed by: Lexa Epperson MD Electronically Signed: Lexa Epperson MD at 21:40 EDT Tel , Service support , neurology- Dr Key cardiology- Dr Bruce Operations: None Procedures: 2-D Echocardiogram, Cardiac catheterization Summary of Care Provided: The patient is a 49 year old M with past medical history of hypertension. He was admitted through the ED on 04/26/2019 with a complaint of a syncopal episode. Patient was in a store looking at some shelves and then felt flushed and passed out. The EMS was called and was sent to [facility] emergency room. Work- up was unremarkable and his sugar seemed normal. He was however noted to be in ventricular bigeminy and trigeminy which persisted so patient was transferred to [facility] for further evaluation. He had no other symptoms. Of note, he had been admitted recently for blurred vision in his right eye and was sent to [facility] he had a temporal artery biopsy to rule out giant cell arteritis. He had been initiated on prednisone empirically. Urine at that admission he was also found to be hypertensive and started on medication. He was admitted and managed for syncope which was initially thought to be due to an arrhythmia versus vasovagal. 2D echo performed March showed EF of 55%. He had repeat 2D echo during this admission which showed mildly dilated left ventricle with mild concentric left ventricular hypertrophy and EF of 40% as well as moderate global hypokinesis of the left ventricle with an RVSP of 27 mmHg. Cardiac cath was therefore recommended and he had a cardiac cath which showed double vessel coronary artery disease of the LAD and RCA and nonobstructive coronary arteries as well as mild to moderate global left ventricular systolic dysfunction. Neurology was consulted for clearance as patient had recently had a temporal artery biopsy. Case was also discussed with the surgical team at [facility] who stated that patient's temporal artery biopsy was actually negative for giant cell arteritis. They gave the okay for patient to be on dual antiplatelet therapy as needed. Prednisone was stopped. Patient was started on Plavix. He had an MRA of the head and neck which was negative for any obstruction, an MRI of the brain which showed tiny foci of possible old ischemia. He also had EEG which was normal. He had repeat cardiac cath with PCI on 05/02/2019 with drug-eluting stent placement in the distal and mid RCA as well as proximal RCA and in the mid LAD. He was noted to have some ventricular trigeminy as well as working on the LAD which resolved with stent placement. Was transferred to the cardiac ICU afterwards for closer monitoring. Patient remained stable in the cardiac ICU and was discharged home on 05/03/2019. He was discharged with a prescription for p.o. aspirin, Plavix, atorvastatin and carvedilol as well as hydrochlorothiazide. Of note, patient was also diagnosed with diabetes during this admission with an A1c of 7.2. He was put on insulin sliding scale during admission on account of having received contrast. On discharge, he was prescribed p.o. metformin 500 mg twice daily. He is to follow-up with his primary care doctor for adjustment of medication as needed. He was also discharged with a Holter monitor for 30 days results of which are to be sent to Dr. Bruce. He is to follow-up with his primary care doctor and cardiology within 1 to 2 weeks. Patient seen and examined prior to discharge. Review of systems otherwise negative. Labs and vitals reviewed. Home medication reviewed and reconciled. o/e: Vital Signs Height 5 ft 6 in Weight: 225 lb 12.054 oz Weight in Pounds 225.8 lbs BMI 37.9 Pulse Ox 94 Temperature 98.2 F Pulse Rate [Standing] 95 Pulse Rate [Sitting] 90 Pulse Rate [Lying] 83 Pulse Rate 86 Respiratory Rate 17 Blood Pressure [Standing] 132/101 Blood Pressure [Sitting] 139/95 Blood Pressure [Lying] 142/97 Blood Pressure [BP] 165/74 Blood Pressure 119/84 Blood Pressure Position [BP] Semi-Fowlers Blood Pressure Position Sitting [] General: Alert, Oriented x3, Cooperative HEENT: Atraumatic, PERRLA, EOMI, Normocephalic Neck: Supple, No JVD, Negative Carotid Bruits Lungs: Clear to auscultation, Normal air movement Cardiovascular: Regular rate, No murmurs Abdomen: Bowel Sounds Present, Soft, Non Tender Extremities: No edema, Capillary Refill Less than 3 Seconds Skin: No rashes, No breakdown Musculoskeletal: No Tenderness to Palpation of Joints or Extremities Neurological: Cranial nerves II-XII grossly intact Psych/Mental Status: Depressed, Alert and oriented to time, place, person, mood and affect Plan as above. - Physical Exam Vital Signs Temp Pulse Resp BP Pulse Ox 98.2 F 100 20 H 147/95 H 96 05/03/19 08:47 05/03/19 08:47 05/03/19 08:47 05/03/19 08:47 05/03/19 08:47 Oxygen Delivery Method Room Air Weight: 225 lb 12.054 oz Body Mass Index (BMI) 38.0 Finger Stick Blood Glucose 143 Orthostatic Vital Signs Start: 04/27/19 06:00 Freq: q24h Status: Active Protocol: Activity Type Activity Date Activity User E-Sign Co-Sign Detail Recorded Client Recorded Date Recorded By Document 04/29/19 21:55 MAB [id number] 04/29/19 22:00 MAB 04/29/19 21:55 Orthostatic Vitals Standing -Blood Pressure (90/60-120/80 mm Hg) 132/101 H -Extremity Use Left Arm -Pulse Rate (60-100 beats/min) 95 Sitting -Blood Pressure (90/60-120/80 mm Hg) 139/95 H -Extremity Use Left Arm -Pulse Rate (60-100 beats/min) 90 Lying -Blood Pressure (90/60-120/80 mm Hg) 142/97 H -Extremity Use Left Arm -Pulse Rate (60-100 beats/min) 83 Intake and Output for Last 24 Hours 05/01/19 05/02/19 05/03/19 23:59 23:59 23:59 Intake Total 2200 / 2200 1480 / 1960 480 / 480 Output Total 450 / 450 Balance 2200 / 2200 1030 / 1510 480 / 480 Laboratory Tests Past 24 Hrs 05/03/19 05/03/19 04:20 04:20 WBC 14.3 H RBC 4.29 L Hgb 12.6 L Hct 37.9 L MCV 88.3 MCH 29.4 MCHC 33.2 RDW Std Deviation 40.1 RDW Coeff of Tony 12.4 Plt Count 322 MPV 10.1 Sodium 141 Potassium 3.8 Chloride 107 Carbon Dioxide 27.0 Anion Gap 7 BUN 24 H Creatinine 1.19 Estim Creat Clear Calc 69.25 Est GFR (MDRD) Af Amer 84 Est GFR (MDRD) Non-Af 70 BUN/Creatinine Ratio 20.2 H Glucose 127 H Calcium 8.4 L Total Bilirubin 0.30 AST 20 ALT 55 Alkaline Phosphatase 65 Total Protein 6.9 Albumin 3.1 L Globulin 3.8 Albumin/Globulin Ratio 0.8 L POC Glucose 05/02/19 05/02/19 21:55 16:43 POC Glucose 143 H 159 H Discharge Diet: Low fat/ Low Cholesterol Discharge Activity: Return to Normal Activity Weight Bearing Status: Weight bearing as tolerated Call your doctor if you observe: Shortness of breath, Dizziness, Chest pain Home Medications: Medications to take at Discharge Amlodipine [Norvasc] 10 mg PO DAILY 04/26/19 Carvedilol [Coreg (Beta Charmaine)] 6.25 mg PO BID 04/26/19 Chlorthalidone [Hygroton] 25 mg PO DAILY 04/26/19 Erythromycin Base/Ethanol [Erythromycin 2% Gel] 30 gm TP 4X/DAY 04/27/19 Aspirin [Aspirin, Baby] 81 mg PO DAILY@0800 #30 tab.chew 05/03/19 Atorvastatin Calcium [Lipitor] 80 mg PO QHS #30 tab 05/03/19 Clopidogrel Bisulfate [Plavix] 75 mg PO DAILY #30 tab 05/03/19 Lisinopril [Zestril] 20 mg PO BID #60 tab 05/03/19 Metformin HCl 500 mg PO BID #60 tab 05/03/19 hydroCHLOROthiazide [Hydrochlorothiazide] 12.5 mg PO DAILY #30 cap 05/03/19 Following Prescrptions Were Given to Patient: Aspirin [Aspirin, Baby] 81 mg PO DAILY@0800 #30 tab.chew Transmission Status: Received by [facility] #40 hydroCHLOROthiazide [Hydrochlorothiazide] 12.5 mg PO DAILY #30 cap Transmission Status: Received by [facility] #40 Atorvastatin Calcium [Lipitor] 80 mg PO QHS #30 tab Transmission Status: Received by [facility] #40 Metformin HCl 500 mg PO BID #60 tab Transmission Status: Received by [facility] #40 Clopidogrel Bisulfate [Plavix] 75 mg PO DAILY #30 tab Transmission Status: Received by [facility] #40 Lisinopril [Zestril] 20 mg PO BID #60 tab Transmission Status: Received by [facility] #40 Other Amb Orders: Phase II, Outpatient Cardiac Rehab Location: None Selected Primary Care Physician: Blake Calixto DO [Primary Care Provider] - Please follow up with your Primary Care Physician in: one week Please Follow Up With: Emma Monitor Appointment When: Sunday Please Follow Up With: Antonio Bruce MD When: 1-2 weeks; call office for an appointment Patient Instructions: Diabetes and Heart Disease, Oral Therapy for Type 2 Diabetes, Understanding Coronary Artery Disease (CAD), What Is High Blood Pressure? (JNC-7), Your Heart is at Risk Disposition: Home Minutes spent on discharge:: 45 Patient Condition:: Stable Medical Necessity - Tobacco Use Smoking Status: Current every day smoker - pipe Tobacco Use: Pipe Meaningful Use Info Meaningful Use Diagnoses (Choose all that apply): None applicable Code Visit Inpatient E&M: 56838 Disch Hosp
--- NOTE | 2019-05-03 11:40 | PCM.WORK.EX ---
Work/School Excuse Work/School Excuse for:: Patient Please excuse this person from:: Work From: 05/03/19 through: 05/07/19
[2019-05-06 08:45] LABS: ACT Activated Clotting Time 136 sec (74-137)
[2019-05-06 08:45] LABS: ACT Activated Clotting Time 208 sec (74-137)
== END 2019-05-03 13:00 | disposition home or self-care (01) | DRG 247 ==
LOC: PCU 04-28 07:11 → ICU 05-02 07:45
PROVIDERS: Hospitalist; Internal Medicine Cardiovascular Disease; Nurse Practitioner Family; Physician Assistant; Family Provider Family Medicine; PCP Family Medicine; Visit Provider Student in an Organized Health Care Education/Training Program
DX: I25.110 Atherosclerotic heart disease of native coronary artery with unstable angina pectoris (principal); I13.0 Hypertensive heart and chronic kidney disease with heart failure and stage 1 through stage 4 chronic kidney disease, or unspecified chronic kidney disease; I50.20 Unspecified systolic (congestive) heart failure; R55 Syncope and collapse; R00.8 Other abnormalities of heart beat; N18.3 Chronic kidney disease, stage 3 (moderate); E11.22 Type 2 diabetes mellitus with diabetic chronic kidney disease; H53.8 Other visual disturbances; Z79.899 Other long term (current) drug therapy; Z79.52 Long term (current) use of systemic steroids; F17.200 Nicotine dependence, unspecified, uncomplicated; M31.6 Other giant cell arteritis; E83.42 Hypomagnesemia; E66.01 Morbid (severe) obesity due to excess calories; Z68.38 Body mass index [BMI] 38.0-38.9, adult; Z86.73 Personal history of transient ischemic attack (TIA), and cerebral infarction without residual deficits; E78.5 Hyperlipidemia, unspecified; I25.5 Ischemic cardiomyopathy
CPT/HCPCS: 36415; 70544; 70547; 70551; 80048; 80053; 80061; 82962; 83036; 83735; 84443; 84484; 85027; 85347; 85610; 85730; 92928; 93005; 93017; 93225; 93226; 93306; 93350; 93458; 95819; 97802; 99152; 99153; 99406; C1760; J7030; J7040; Q9957; Q9967; A4216; C1725; C1769; C1874; C1887; C1894; C8928; C8929; C9600

== ENCOUNTER → 2019-05-03 | Outpatient (CLI) | payer BC, SELFPAY ==
[2019-04-26 18:43] VITALS: BMI 38.0
[2019-05-02 10:08] VITALS: BMI 37.9
== END | disposition home or self-care (01) ==
LOC: CVS 12:24
PROVIDERS: Family Provider Family Medicine; PCP Family Medicine; Visit Provider Internal Medicine Cardiovascular Disease
DX: R55 Syncope and collapse (principal); I49.3 Ventricular premature depolarization
CPT/HCPCS: 93225; 93226

== ENCOUNTER → 2019-05-07 12:53 | Outpatient (REF) | payer BC, SELFPAY ==
[2019-04-26 18:43] VITALS: BMI 38.0
[2019-05-02 10:08] VITALS: BMI 37.9
== END ==
LOC: CVS 12:53
PROVIDERS: Family Provider Family Medicine; PCP Family Medicine; Referring Provider Nurse Practitioner Family; Visit Provider Nurse Practitioner Family
DX: R55 Syncope and collapse (principal); I25.10 Atherosclerotic heart disease of native coronary artery without angina pectoris; I25.5 Ischemic cardiomyopathy; I10 Essential (primary) hypertension; E78.5 Hyperlipidemia, unspecified
CPT/HCPCS: 93270

== ENCOUNTER → 2019-05-13 | Outpatient (CLI) | payer BC, SELFPAY ==
[2019-05-02 10:08] VITALS: BMI 37.9
[2019-05-13 08:56] VITALS: BMI 36.6
[2019-05-13 11:37] LABS: Absolute Lymphocyte Count 1.86 X10^3/uL (0.83-4.51); Absolute Neutrophil Count 6.4 X10^3/uL (2.0-7.7); Basophil# 0.03 X10^3/uL; Basophil% 0.3 % (0-1); Eosinophil# 0.39 X10^3/uL; Hematocrit 34.1 % (40-54); Hemoglobin 11.2 g/dL (13.0-16.5); Lymphocyte # 1.86 X10^3/ul (4.0); Lymphocyte % 19.3 % (19-41); Mean Corp Hgb Conc 32.8 g/dL (32-36); Mean Corpuscular Hgb 29.4 pg (27.0-32.0); Mean Corpuscular Volume 89.5 fL (80-94); Mean Platelet Vol. 11.1 fl (6.2-12.0); Monocyte# 0.91 X10^3/uL; Monocyte% 9.4 % (0-10); NRBC Flagged by Analyzer 0 % (0-5); Neutrophil # 6.42 X10^3/uL (2.7-7.7); Neutrophil % 66.6 % (47-70); Platelet Count 321 K/mm3 (150-450); RBC Distribution Width CV 12.5 % (11.6-14.6); RBC Distribution Width SD 40.7 fl (35.1-43.9); Red Blood Count 3.81 M/mm3 (4.6-6.2); White Blood Count 9.7 K/mm3 (4.4-11.0)
[2019-05-13 12:13] LABS: Anion Gap 11 (5-15); BUN 26 mg/dL (7-18); BUN/Creat Ratio 19.1 RATIO (10-20); Calcium,Total 9.2 mg/dL (8.5-10.1); Chloride 107 mmol/L (98-107); Creatinine, Serum 1.36 mg/dL (0.70-1.30); EST Glomerular Filtration Rate 60 mL/min (>60); Est Glom Filt Rate - Afr Amer 72 mL/min (>60); Glucose 98 mg/dL (74-106); Magnesium 1.8 mg/dL (1.6-2.6); Potassium 4.2 mmol/L (3.5-5.1); Sodium Level 143 mmol/L (136-145); Thyroid Stim Hormone (TSH) 1.08 uIU/mL (0.358-3.74)
== END | disposition home or self-care (01) ==
LOC: LAB 10:08
PROVIDERS: Family Provider Family Medicine; PCP Family Medicine; Referring Provider Physician Assistant Medical; Visit Provider Physician Assistant Medical
DX: I47.2 Ventricular tachycardia (principal)
CPT/HCPCS: 36415; 80048; 83735; 84443; 85025

== ENCOUNTER → 2019-06-03 | Outpatient (CLI) | payer BC, SELFPAY ==
[2019-05-02 10:08] VITALS: BMI 37.9
[2019-05-22 10:40] VITALS: BMI 36.6
--- NOTE | 2019-06-03 09:22 | CR.HP_ITS ---
CR - History & Physical - General Arrival date:: 06/03/19 Arrival time:: 08:45 Date of Referral:: 05/02/19 Date of CR Evaluation:: 06/03/19 Referring Physician: DR SHEETS Primary Diagnosis: PCI WITH STENT - History of Present Cardiac Event Onset Date: Enter Onset Date of cardiac illnesses in Comment field below Current stable Angina Pectoris:: No Acute Myocardial Infarction within 12 months:: No Coronary Artery Bypass Graft:: No Heart valve replacement or repair:: No PTCA or coronary stenting:: Yes - STENT X4 Heart or Heart-Lung Transplant:: No Heart Failure EF <35%:: No Type of Symptoms:: PASSED OUT Interventions with present event:: STENT X4 Were there any complications?: NONE - Medications Home Medications: Ambulatory Orders Medication Instructions Recorded Metformin HCl 500 mg PO BID #60 tab 05/03/19 aspirin 81 mg chewable tablet 81 mg PO DAILY #90 tab 05/13/19 atorvastatin 80 mg tablet 80 mg PO QHS #90 tab 05/13/19 carvedilol 6.25 mg tablet 6.25 mg PO BID #180 tab 05/13/19 clopidogrel 75 mg tablet 75 mg PO DAILY #90 tab 05/13/19 hydrochlorothiazide 12.5 mg capsule 12.5 mg PO DAILY #90 cap 05/13/19 lansoprazole 15 mg capsule,delayed 15 mg PO DAILY 05/13/19 release amiodarone 200 mg tablet 200 mg PO DAILY tab 05/22/19 lisinopril 40 mg tablet 40 mg PO DAILY #30 tab 05/22/19 - Allergies Allergies/Adverse Reactions: Allergies Penicillins Allergy (Verified 05/22/19 10:55) Unknown - Sleep Disorder Evaluation Hx of Sleep Apnea: No Do you snore loudly (louder than talking or can be heard through closed doors)?: Yes Do you often feel tired/ fatigued/ sleepy during daytime?: Yes Has anyone observed you stop breathing during sleep?: Yes History of Hypertension (for STOP score): Yes - PT PLANS ON AN IN HOME SLEEP TEST IN NEXT MONTH OR SO STOP Results: Positive Advanced Directives - Advanced Directives Power of Moving Worker: No - PT INFORMED OF THESE AVAIL THROUGH MEDICAL RECORDS Living Will: No Advance Directives on File: No DNR Order?:: No Past Medical History - Past Medical Illness Medical History: Past Medical History (Last Reviewed 05/22/19 @ 10:40 by Nori Stone) Sustained ventricular tachycardia (Acute) I47.2 Syncope (Acute) R55 Ventricular trigeminy (Acute) I49.8 Ischemic cardiomyopathy (Acute) I25.5 EF 40% per echo done 04/27/2019 Atherosclerosis of coronary artery without angina pectoris (Chronic) I25.10 Successful PTCA/JOHN distal RCA with a 2.5 x 38 Promus Synergy, post dilated with a 3.0 x 8 balloon at 8 butch; 85%-->0%, no dissection. Successful PTCA/JOHN mid RCA with a 2.5 x 28 Promus Synergy, post dilated with a 3.0 x 8 NC Balloon; 85%-->0%, no dissection. Successful PTCA/JOHN proximal RCA with a 3.5 x 16 Promus Synergy, post dilated with a 3.5 x 8 NC Balloon; 75%-->0%, no dissection. Proximal stent placed due to significant dampening of guide catheter when pulled into vessel. Successful PTCA/JOHN of mid LAD with a 2.25 x 38 Promus Synergy; 85%-->0%, no dissection. Pt had similar ventricular trigeminy while working on LAD, which completely resolved with stent deployment. Hypertensive urgency (Resolved) I16.0 Essential hypertension (Chronic) I10 Hyperlipidemia (Chronic) E78.5 HTN (hypertension) (Inactive) I10 - Past Surgical History Surgical History: Past Surgical History (Last Reviewed 05/22/19 @ 10:40 by Nori Stone) Stented coronary artery (Chronic) Onset Date: ~05/02/19 Z95.5 Successful PTCA/JOHN distal RCA with a 2.5 x 38 Promus Synergy, post dilated with a 3.0 x 8 balloon at 8 butch; 85%-->0%, no dissection. Successful PTCA/JOHN mid RCA with a 2.5 x 28 Promus Synergy, post dilated with a 3.0 x 8 NC Balloon; 85%-->0%, no dissection. Successful PTCA/JOHN proximal RCA with a 3.5 x 16 Promus Synergy, post dilated with a 3.5 x 8 NC Balloon; 75%-->0%, no dissection. Proximal stent placed due to significant dampening of guide catheter when pulled into vessel. Successful PTCA/JOHN of mid LAD with a 2.25 x 38 Promus Synergy; 85%-->0%, no dissection. Pt had similar ventricular trigeminy while working on LAD, which completely resolved with stent deployment. 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 Left click = Reports ([place]) Review of Present Symptoms: Reports: Shortness of Breath with Exertion - A LITTLE, Fatigue - A LITLE BIT, Heart Arrhythmia/Irregularities - HX V TACHYCARDIA, WEARING A LIFE VEST MONITOR AT PRESENT AND A 30 EVENT RECORDER, Appetite - Normal, Sleep - Normal. Denies: Shortness of Breath at Rest, PVD, Operative Discomfort, Angina, Wound Healing, Dizziness/Lightheadedness - Pain Is Patient Pain Free?: Yes Risk Factor Assessment - Vital Signs Temperature: 98.6 F Respiratory Rate: 16 Pulse Ox: 98 Blood Pressure: 154/102 Nailbeds:: PINK - Hypertension How long have you been treated?: 20 YEARS APPROX On medication(s)?: YES, CARVEDILOL, LISINOPRIL Blood Pressure Sitting - Left Arm: 154/102 - Stress Stress: Work-related, Home/Family - WORK AND MY LIVING SITUATION - Blood Cholesterol/Lipids Total Cholesterol (mg/dL) Goal = less than 200 mg/dL: 216 HDL Cholesterol (mg/dL) Goal = less than 40 mg/dL: 41 LDL Cholesterol (mg/dL) Goal = less than 70 mg/dL: 152 Triglycerides (mg/dL) Goal = less than 150 mg/dL: 114 - Diabetes Diabetic History: Medication Dependent - METFORMIN Nutrition Referral for Diabetes: No - Obesity Height: 5 ft 6 in Weight:: 227 lb Weight in Pounds: 227.0 lbs Weight Source: Estimated by Staff Body Mass Index (BMI): 36.6 Nutritional Referral for Obesity: No - Physical Inactivity Physical Inactivity: Recreational activity - Risk Stratification Risk Guidelines: Lowest Risk: Risk Factor for Depression, Moderate Risk: Risk Factor for Dyslipidemia, Risk Factor for Diabetes, Risk Factor for Obesity, Risk Factor for Sedentary Lifestyle, Highest Risk: Risk Factor for Smoking, Risk Factor for Hypertension - For Smoking Smoking Risk Guidelines: Smoking Low Risk: None or quit greater than 6 months ago. Smoking Moderate Risk: Smoker or quit 6 months or less ago. Smoking High Risk: Smoker - For Dyslipidemia Dyslipidemia Risk Guidelines: Low Risk: Moderate Risk: High Risk: 15-25% fat 25.1-29% fat >/= 30% fat. <7% sat fat 7-9% sat fat >9% sat fat. <150 mg chol 150-299 mg chol >/= 300 mg chol. LDL <100 LDL 100-129 LDL >/= 130. Chol/HDL ratio <5.0 Chol/HDL ratio 5.0-6.0 Chol/HDL ratio >6.0. Triglycerides <100 Triglycerides 100-149 Triglycerides >/= 150 - For Diabetes Mellitus Diabetes Risk Guidelines: Diabetes Low Risk: HgA1c <6.5% and/or FBG <120. Diabetes Moderate Risk: HgA1c 6.6-7.9% and/or FBG 120-180. Diabetes High Risk: HgA1c >/= 8% and/or FBG >180 - For Obesity/Overweight Obesity/Overweight Risk Guidelines: Obesity Low Risk: BMI <25.0. Obesity Moderate Risk: BMI 25-29.9. Obesity High Risk: BMI >/= 30.0 - For Hypertension Hypertension Risk Guidelines: Hypertension Low Risk: Systolic <120 and Diastolic <80. Hypertension Moderate Risk: Systolic 120-139 and Diastolic 80-89. Hypertension High Risk: Systolic >/= 140 and Diastolic >/= 90 - For Sedentary Lifestyle Sedentary Lifestyle Risk Guidelines: Sedentary Lifestyle Low Risk: >/= 1,500 kcal/week. Sedentary Lifestyle Moderate Risk: 700-1,499 kcal/week. Sedentary Lifestyle High Risk: < 700 kcal/week - For Depression Depression Risk Guidelines: Depression Low Risk: Not clinically depressed. Depression Moderate Risk: Mildly depressed. Depression High Risk: Clinically depressed Motivation - Motivation to Participate On a scale of 1 to 10, how prepared are you to commit to attending program?: 10 What do you see as barriers to successfully being able to complete the program?: NONE What do you see as the benefits of succesfully completing the program? In other words, what do you hope to get out of participating in the program?: WANT TO GET STRENGTH BACK AND DO THINGS Are there issues you are dealing with that will interfere with completing the program?: POSSIBLE INSURANCE Do you have a spouse or signficant other, family or friends who will help support you to complete the program?: FAMILY
[2019-06-03 09:49] VITALS: BP 154/102; RESP 16; TEMP 37; O2SAT 98; BMI 36.6
--- NOTE | 2019-06-03 10:04 | PCM.CR.ITP ---
General Information - General Information Admitting Diagnosis: PCI WITH STENT - Education/Goals Barriers to Learning: None Individual Counseling: Initial Assessment: Nicotine/Smoking, High Blood Pressure, Overweight/Obesity, Diabetes, Hypertension, Sedentary Lifestyle, Stress Cardiac Rehabilitation Goals: 1. Maintain the individual as the primary focus of care. 2. To improve the patient's quality of life. 3. Identification of cardiac risk factors and provide cardiac risk factor management. 4. Enhance the psychosocial status of the patient. 5. Reconditioning enough to allow the patient to resume customary activities. 6. Control symptoms of cardiac disease Scale for measuring improvement of personal goals: Enter appropriate number in Comments. 2 = Unchanged. 3 = Slightly Better. 4 = Moderate Improvement. 5 = Met my Goal Personal Goals: Initial Assessment: Improve energy level, Participate in home exercise program, Get back to work, or to resume activities faster, Improve muscle strength and endurance, Control risk factors (learn risk factor modification) - WEIGHT AND IMPROVE INACTIVITY Exercise - Initial Assessment - Visit Date of Eval: 06/03/19 - Stages of Change Stages of Change:: Action - 04/28/2019 - Stress Test Date: 04/28/19 HR (bpm):: 88 MET LEVEL:: 13.7 Blood Pressure: 150/92 - PEAK EXERCISE - Hypertension Do any of the following apply?: Yes, Medication - COREG,LISINOPRIL Resting Blood Pressure:: 152/102 Peak Exercise Blood Pressure:: 150/92 - Intervention Home Exercise/Activity Goal:: Sitting Time <3 hrs/day - Education Goals:: Warm-up, RPE ESMER Scale, S/S, Safe Exercise, Self-Monitoring - Exercise Program Goals Exercise Program Goals: Aerobic Activity >30 min, B/P <130/80 Nutrition - Initial Assessment - Program Goals Nutrition Program Goals: LDL <70. Total Cholesterol <200. HDL >45. Triglycerides <150. HgbA1C <7%. BMI <25 - Visit Date of Assessment:: 06/03/19 - Stages of Change Stages of Change:: Action - Lipids Total Cholesterol (mg/dL) Goal = less than 200 mg/dL: 216 HDL Cholesterol (mg/dL) Goal = less than 45 mg/dL: 41 LDL Cholesterol (mg/dL) Goal = less than 70 mg/dL: 152 Triglycerides (mg/dL) Goal = less than 150 mg/dL: 114 Lipid Medication: ATORVASTATIN - Diabetes Diabetes:: No Fasting blood glucose:: 98 - Weight Management Height: 5 ft 6 in Weight:: 227 lb - Intervention Referral to dietitian:: No Referral to Diabetic Clinic:: No Will attend diet classes:: Yes - CR CLASSES - Education Gave educational materials for:: Signs & symptoms of hypoglycemia, Signs & symptoms of hyperglycemia, Relate diabetes to coronary artery disease, Healthy eating Tobacco - Initial Assessment - Program Goals Tobacco Program Goals: Complete smoking cessation. Attend education classes. Improve Knowledge Test score - Stage of Change Stages of Change:: Action - Learning Barriers Learning Barriers: Ready to Learn - Family Support Do you have family support?: Yes - SONS - Tobacco Use Tobacco Use: Pipe Do you use smokeless tobacco?: No - Intervention Smoking Cessation Referral:: Yes - PT NOT CURRENTLY INTERESTED IN CESSATION PROGRAM Individual Education/Counseling:: Yes - CR CLASSES Education Schedule Given:: Yes - Education Attended class for:: Treating Heart Disease, How The Heart Works, What it means to have Heart Disease, How Coronary Artery Disease is Diagnosed, Heart Procedures, What Heart Medications Do, Risk Factors & Modifications, Living an Active Life, Nutrition, Emotions & Heart Disease, Stress Management & Relaxation, Sleep Disorders & Heart Disease - PT INFORMED OF ON-LINE EDUCATION MATERIAL AND HOW TO ACCESS Psychosocial - Initial Assess - Target Goals Target Goals: Assess presence or absence of depression. Using a valid screening tool, maximizes coping skills. Positive support system - Stages of Change Stages of Change:: Action - Psychosocial Test Tool Used:: HANDS Depression Questionnaire - Intervention PS - Interventions: Yes Attend Stress Management Classes - CR CLASSES, Yes Uses Stress Management Skills - CR CLASSES, No Referral to Mental Health, No Referral to [facility] Case Management, No Referral to Physician - Education Gave educational materials for:: Coping techniques, Signs & symptoms of depression, Stress management, Relaxation techniques - ON-LINE INFORMATION AVAIL AT THIS TIME - Patient/Program Goal Preventative Medication(s):: Aspirin, EDUARD inhibitor, Clopidogrel, Beta gloria, Statin/lipid - Assistive Devices Assistive Devices:: None Fall Risk Assessed:: Yes - NO RISK FOR FALLS Patient Health Questionnaire Initial Assessment 1. Little interest or pleasure in doing things: Several days 2. Feeling down, depressed, or hopeless: More than half the days 3. Trouble falling or staying asleep, or sleeping too much: More than half the days 4. Feeling tired or having little energy: Several days 5. Poor appetite or overeating: Several days 6. Feeling bad about yourself -- or that you are a failure or have let yourself or your family down: More than half the days 7. Trouble concentrating on things, such as reading the newspaper or watching television: Not at all 8. Moving or speaking so slowly that other people could have noticed. Or the opposite - being so fidgety or restless that you have been moving around a lot more than usual: Not at all 9. Thoughts that you would be better off , or of hurting yourself in some way: Not at all How difficult have these problems made it for you to do your work, take care of things at home, or get along with other people?: Not difficult at all Total Score: 9 RANJANA-Q SV Test - Statements CAD is a disease of the arteries in the heart: False Examples of risk factors for heart disease: True Angina is chest pain or discomfort: True The benefits of resistance training include: True Eating more meat and dairy products: False Anti-platelet medications such as aspirin are important: True The only effective way to manage stress: False An exercise warm-up slowly increases heart rate: True Prepared, processed foods usually have high sodium: True Depression is common after a heart attack: True The statin medications lower cholesterol: True To control blood pressure, lower the amount of sodium: True If someone gets chest discomfort during walking: False Transfats are partially hydrogenated vegetable oils: True Sleep apnea that is not treated increases the risk: False To control cholesterol, one should become a vegetarian: False Someone knows if he/she is exercising at the right level: True Diabetes cannot be prevented with exercise & health eating: False Stress is a large risk for heart attack: True A diet that can help lower blood pressure is rich in: True - Total Score Total Correct Responses: 20 Self-Efficacy Initial Assessment We would like to know how confident you are in doing certain activities. Please select your confidence level for:: Select your confidence level for the following using the scale 1-10 where 1 is not at all confident and 10 is totally confident. Your score is the average of all 6 responses. Fatigue: How confident are you that you can keep the fatigue caused by your disease from interfering with the things you want to do? Select Number: 3 Physical Discomfort or Pain: How confident are you that you can keep the physical discomfort or pain of your disease from interfering with the things you want to do? Select Number: 8 Emotional Distress: How confident are you that you can keep the emotional distress caused by your disease from interfering with the things you want to do? Select Number: 6 Other Symptoms or Health Problems: How confident are you that you can keep other symptoms or health problems from interfering with the things you want to do? Select Number: 9 Different Tasks and Activities: How confident are you that you can do the different tasks and activities needed to manage your health condition so as to reduce your need to see a doctor? Select Number: 10 Medication: How confident are you that you can do things other than just taking medication to reduce how much your illness affects your everyday life? Select Number: 10 Total Score:: 7 Nutrition Survey - Nutrition Survey Instructions Scoring Instructions: Scoring is as follows: Yes = 1 points. No = 0 point. Patient score that is >/=12 is considered to be at potential nutritional risk and could benefit from a referral to a registered dietitian. - Nutrition Survey Initial Have you lost >10 lbs over the past 2 months without trying?: Yes Are you following a special diet at home for diabetes, low fat, or low salt?: Yes Are you interested in meeting with a dietitian for help understanding your diet?: No Do you eat less than 3 meals a day?: No Do you eat fatty meats (lester, sausage, ribs, etc), fried foods, desserts, large amounts of salad dressings, margarine, butter, or cheese most days?: No Do you have food allergies? [Enter types in comment field]: No Do you eat in restaurants more than 3 times a week?: No Do you season food with salt, seasoning salt, or garlic salt?: No Do you used canned, boxed, frozen meals, or soups, seasoning packets?: No Total Score:: 2
[2019-06-03 10:20] VITALS: BP 150/92; BP 152/102
== END | disposition home or self-care (01) ==
LOC: CR 08:44
PROVIDERS: Family Provider Family Medicine; PCP Family Medicine; Referring Provider Internal Medicine Cardiovascular Disease; Visit Provider Internal Medicine Cardiovascular Disease
DX: Z95.5 Presence of coronary angioplasty implant and graft (principal)

== ENCOUNTER 2019-06-18 08:00 | Outpatient (RCR) | payer BC, SELFPAY ==
[2019-05-02 10:08] VITALS: BMI 37.9
[2019-06-03 09:49] VITALS: BMI 36.6
== END 2019-06-19 23:59 ==
LOC: CR 08:00
PROVIDERS: Family Provider Family Medicine; PCP Family Medicine; Referring Provider Internal Medicine Cardiovascular Disease; Visit Provider Internal Medicine Cardiovascular Disease
DX: Z95.5 Presence of coronary angioplasty implant and graft (principal)
CPT/HCPCS: 93798

== ENCOUNTER → 2019-06-27 | Outpatient (CLI) | payer BC, SELFPAY ==
[2019-05-02 10:08] VITALS: BMI 37.9
[2019-06-03 09:49] VITALS: BMI 36.6
[2019-06-27 10:16] LABS: AST(SGOT) 26 U/L (15-37); Alanine Aminotransfer ALT/SGPT 42 U/L (16-61); Albumin, Serum 3.8 g/dL (3.2-5.0); Alkaline Phosphatase 77 U/L (45-117); Bilirubin, Direct 0.15 mg/dL (0.00-0.30); Cholesterol 128 mg/dL (200); Globulin 4.1 g/dL (2.2-4.2); High Density Lipoprotein 40 mg/dL; Protein, Total 7.9 g/dL (6.4-8.2); Triglycerides 148 mg/dL; Very Low Density Lipoprotein 30 mg/dL (5-40)
== END | disposition home or self-care (01) ==
LOC: LAB 08:31
PROVIDERS: Family Provider Family Medicine; PCP Family Medicine; Referring Provider Internal Medicine Cardiovascular Disease; Visit Provider Internal Medicine Cardiovascular Disease
DX: E78.5 Hyperlipidemia, unspecified (principal); I25.10 Atherosclerotic heart disease of native coronary artery without angina pectoris
CPT/HCPCS: 36415; 80061; 80076

== ENCOUNTER 2019-07-14 08:00 | Outpatient (RCR) | payer BC, SELFPAY ==
[2019-05-02 10:08] VITALS: BMI 37.9
[2019-06-03 09:49] VITALS: BMI 36.6
--- NOTE | 2019-07-04 08:03 | CR.ITP_ITS ---
Exercise - 30-day Assessment - Visit Date of Eval: 07/04/19 Session #:: 8 - missed two sessions - Stages of Change Stages of Change:: Action - Physician Prescribed Exercise Modalities: Treadmill, Airdyne, NuStep Frequency (days/week): 3 Duration (Minutes):: 30-45 Intensity: 60-80% age predicted maximum heart rate reserve METs - Progression: 0.5-1.0 MET, RPE 11-14 WEEK: 3.5 increase from 2.5 RPE 12-13 Target Heart Rate:: 112-147 - Hypertension Resting Blood Pressure:: 164/90 - increase HCTZ and added amlodapine 5mg Peak Exercise Blood Pressure:: 188/100 Medication Changes:: Yes - see BP meds above. - Intervention Home Exercise/Activity Goal:: Moderate Exercise 30 min/day x 5 days/wk - Education Goals:: Warm-up, RPE ESMER Scale, S/S, Safe Exercise, Self-Monitoring - Exercise Program Goals Exercise Program Goals: Aerobic Activity >30 min Nutrition - 30-Day Assessment - Program Goals Nutrition Program Goals: LDL <70. Total Cholesterol <200. HDL >45. Triglycerides <150. HgbA1C <7%. BMI <25 - Visit Date of Eval: 07/04/19 - Stages of Change Stages of Change:: Action - Lipids Has the patient seen the dietitian?: No - Diabetes Diabetes:: No Insulin: No Non-Insulin Dependent?: No - Weight Management Weight:: 226 lb 8 oz - Intervention Referral to dietitian:: Yes - Patient could benefit from structured weight loss program Referral to Diabetic Clinic:: No Will attend diet classes:: Yes - Education Attended class for:: Healthy eating Tobacco - Initial Assessment - Program Goals Tobacco Program Goals: Complete smoking cessation. Attend education classes. Improve Knowledge Test score - Learning Barriers Learning Barriers: Ready to Learn Tobacco - 30-Day Assessment - Program Goals Tobacco Program Goals: Complete smoking cessation. Attend education classes. Improve Knowledge Test score - Stage of Change Stages of Change:: Action - Learning Barriers Learning Barriers: Participates in education - Family Support Do you have family support?: Yes - Tobacco Use Tobacco Use: Non-smoker Do you use smokeless tobacco?: No - Intervention Smoking Cessation Referral:: No Individual Education/Counseling:: No Education Schedule Given:: Yes - Education Attended class for:: Treating Heart Disease, How The Heart Works, Stress Management & Relaxation, Sleep Disorders & Heart Disease Psychosocial - Initial Assess - Target Goals Target Goals: Assess presence or absence of depression. Using a valid screening tool, maximizes coping skills. Positive support system - Psychosocial Test Tool Used:: HANDS Depression Questionnaire - Assistive Devices Fall Risk Assessed:: Yes - NO RISK FOR FALLS Psychosocial - 30-Day Assess - Target Goals Target Goals: Assess presence or absence of depression. Using a valid screening tool, maximizes coping skills. Positive support system - Stages of Change Stages of Change:: Action - Psychosocial Test Tool Used:: HANDS Depression Questionnaire - Intervention PS - Interventions: Yes Attend Stress Management Classes, Yes Uses Stress Management Skills, No Referral to Mental Health, No Referral to [facility] Case Management, No Referral to Physician - Education Attended classes for:: Coping techniques, Signs & symptoms of depression, Stress management, Relaxation techniques - Patient/Program Goal Preventative Medication(s):: Aspirin - Patient reports being compliant with medications., EDUARD inhibitor, Clopidogrel, Beta gloria, Statin/lipid - Assistive Devices Assistive Devices:: None Patient Health Questionnaire 30-Day Re-eval Assessment 1. Little interest or pleasure in doing things: Not at all 2. Feeling down, depressed, or hopeless: Several days 3. Trouble falling or staying asleep, or sleeping too much: More than half the days 4. Feeling tired or having little energy: Several days 5. Poor appetite or overeating: Not at all 6. Feeling bad about yourself -- or that you are a failure or have let yourself or your family down: Several days 7. Trouble concentrating on things, such as reading the newspaper or watching television: Not at all 8. Moving or speaking so slowly that other people could have noticed. Or the opposite - being so fidgety or restless that you have been moving around a lot more than usual: Not at all 9. Thoughts that you would be better off , or of hurting yourself in some way: Not at all How difficult have these problems made it for you to do your work, take care of things at home, or get along with other people?: Not difficult at all Total Score: 5 Self-Efficacy 30-Day Re-eval Assessment We would like to know how confident you are in doing certain activities. Please select your confidence level for:: Select your confidence level for the following using the scale 1-10 where 1 is not at all confident and 10 is totally confident. Your score is the average of all 6 responses. Fatigue: How confident are you that you can keep the fatigue caused by your disease from interfering with the things you want to do? Select Number: 5 Physical Discomfort or Pain: How confident are you that you can keep the physical discomfort or pain of your disease from interfering with the things you want to do? Select Number: 8 Emotional Distress: How confident are you that you can keep the emotional distress caused by your disease from interfering with the things you want to do? Select Number: 7 Other Symptoms or Health Problems: How confident are you that you can keep other symptoms or health problems from interfering with the things you want to do? Select Number: 10 Different Tasks and Activities: How confident are you that you can do the different tasks and activities needed to manage your health condition so as to reduce your need to see a doctor? Select Number: 10 Medication: How confident are you that you can do things other than just taking medication to reduce how much your illness affects your everyday life? Select Number: 10 Total Score:: 8
[2019-07-04 08:09] VITALS: BP 164/90; BP 188/100
== END 2019-07-19 23:59 ==
LOC: CR 08:00
PROVIDERS: Family Provider Family Medicine; PCP Family Medicine; Referring Provider Internal Medicine Cardiovascular Disease; Visit Provider Internal Medicine Cardiovascular Disease
DX: Z95.5 Presence of coronary angioplasty implant and graft (principal); I47.2 Ventricular tachycardia; I49.8 Other specified cardiac arrhythmias; R55 Syncope and collapse; I25.5 Ischemic cardiomyopathy; I25.10 Atherosclerotic heart disease of native coronary artery without angina pectoris; I16.0 Hypertensive urgency
CPT/HCPCS: 93798

== ENCOUNTER 2019-08-18 08:00 | Outpatient (RCR) | payer BC, SELFPAY ==
[2019-05-02 10:08] VITALS: BMI 37.9
[2019-06-30 10:44] VITALS: BMI 36.6
[2019-07-20 01:04] VITALS: BP 164/90; BP 188/100
--- NOTE | 2019-08-01 08:54 | PCM.CR.ITP ---
General Information - General Information Admitting Diagnosis: PCI with coronary stent - Education/Goals Barriers to Learning: None Cardiac Rehabilitation Goals: 1. Maintain the individual as the primary focus of care. 2. To improve the patient's quality of life. 3. Identification of cardiac risk factors and provide cardiac risk factor management. 4. Enhance the psychosocial status of the patient. 5. Reconditioning enough to allow the patient to resume customary activities. 6. Control symptoms of cardiac disease Scale for measuring improvement of personal goals: Enter appropriate number in Comments. 2 = Unchanged. 3 = Slightly Better. 4 = Moderate Improvement. 5 = Met my Goal Exercise - 60-Day Assessment - Visit Date of Eval: 08/01/19 Session #:: 22 - Stages of Change Stages of Change:: Action - Physician Prescribed Exercise Modalities: Treadmill, Airdyne, NuStep Frequency (days/week): 3 Duration (Minutes):: 30-45 Intensity: 60-80% age predicted maximum heart rate reserve METs - Progression: 0.5-1.0 MET, RPE 11-14 WEEK: 4.5 Target Heart Rate:: 112-147 Max HR 110 - Hypertension Resting Blood Pressure:: 134/84 Peak Exercise Blood Pressure:: 142/98 Medication Changes:: Yes - 07/14/19 Coreg 12.5 mg BID - Intervention Home Exercise/Activity Goal:: Moderate Exercise 30 min/day x 5 days/wk - Education Goals:: Warm-up, RPE ESMER Scale, S/S, Safe Exercise, Self-Monitoring - Exercise Program Goals Exercise Program Goals: Aerobic Activity >30 min, B/P <130/80 Nutrition - 60-Day Assessment - Program Goals Nutrition Program Goals: LDL <70. Total Cholesterol <200. HDL >45. Triglycerides <150. HgbA1C <7%. BMI <25 - Visit Date of Eval: 08/01/19 - Stages of Change Stages of Change:: Action - Lipids Has the patient seen the dietitian?: No - Diabetes Diabetes:: No - Weight Management Weight:: 104.553 kg - Intervention Referral to dietitian:: Yes Referral to Diabetic Clinic:: No Will attend diet classes:: Yes - Education Attended class for:: Signs & symptoms of hypoglycemia, Signs & symptoms of hyperglycemia, Relate diabetes to coronary artery disease, Healthy eating Tobacco - Initial Assessment - Program Goals Tobacco Program Goals: Complete smoking cessation. Attend education classes. Improve Knowledge Test score - Learning Barriers Learning Barriers: Ready to Learn Tobacco - 60-Day Assessment - Program Goals Tobacco Program Goals: Complete smoking cessation. Attend education classes. Improve Knowledge Test score - Stage of Change Stages of Change:: Action - Learning Barriers Learning Barriers: Participates in education - Family Support Do you have family support?: Yes - Tobacco Use Tobacco Use: Non-smoker - Intervention Smoking Cessation Referral:: No Individual Education/Counseling:: No Education Schedule Given:: Yes - Education Attended class for:: Treating Heart Disease, How The Heart Works, What it means to have Heart Disease, How Coronary Artery Disease is Diagnosed, Heart Procedures, What Heart Medications Do, Risk Factors & Modifications, Living an Active Life, Nutrition, Emotions & Heart Disease, Stress Management & Relaxation, Sleep Disorders & Heart Disease Psychosocial - Initial Assess - Target Goals Target Goals: Assess presence or absence of depression. Using a valid screening tool, maximizes coping skills. Positive support system - Psychosocial Test Tool Used:: HANDS Depression Questionnaire - Assistive Devices Fall Risk Assessed:: Yes - NO RISK FOR FALLS Psychosocial - 60-Day Assess - Target Goals Target Goals: Assess presence or absence of depression. Using a valid screening tool, maximizes coping skills. Positive support system - Stages of Change Stages of Change:: Action - Psychosocial Test Tool Used:: HANDS Depression Questionnaire - Intervention PS - Interventions: Yes Attend Stress Management Classes, Yes Uses Stress Management Skills, No Referral to Mental Health, No Referral to [facility] Case Management, No Referral to Physician - Education Attended classes for:: Coping techniques, Signs & symptoms of depression, Stress management, Relaxation techniques - Assistive Devices Assistive Devices:: None Fall Risk Assessed:: Yes Patient Health Questionnaire 60-Day Re-eval Assessment 1. Little interest or pleasure in doing things: Not at all 2. Feeling down, depressed, or hopeless: Several days 3. Trouble falling or staying asleep, or sleeping too much: More than half the days 4. Feeling tired or having little energy: Several days 5. Poor appetite or overeating: Not at all 6. Feeling bad about yourself -- or that you are a failure or have let yourself or your family down: Several days 7. Trouble concentrating on things, such as reading the newspaper or watching television: Not at all 8. Moving or speaking so slowly that other people could have noticed. Or the opposite - being so fidgety or restless that you have been moving around a lot more than usual: Not at all 9. Thoughts that you would be better off , or of hurting yourself in some way: Not at all How difficult have these problems made it for you to do your work, take care of things at home, or get along with other people?: Not difficult at all Total Score: 5 Self-Efficacy 60-Day Re-eval Assessment We would like to know how confident you are in doing certain activities. Please select your confidence level for:: Select your confidence level for the following using the scale 1-10 where 1 is not at all confident and 10 is totally confident. Your score is the average of all 6 responses. Fatigue: How confident are you that you can keep the fatigue caused by your disease from interfering with the things you want to do? Select Number: 5 Physical Discomfort or Pain: How confident are you that you can keep the physical discomfort or pain of your disease from interfering with the things you want to do? Select Number: 8 Emotional Distress: How confident are you that you can keep the emotional distress caused by your disease from interfering with the things you want to do? Select Number: 7 Other Symptoms or Health Problems: How confident are you that you can keep other symptoms or health problems from interfering with the things you want to do? Select Number: 10 Different Tasks and Activities: How confident are you that you can do the different tasks and activities needed to manage your health condition so as to reduce your need to see a doctor? Select Number: 10 Medication: How confident are you that you can do things other than just taking medication to reduce how much your illness affects your everyday life? Select Number: 10 Total Score:: 8
[2019-08-01 09:02] VITALS: BP 134/84; BP 142/98
== END 2019-08-19 23:59 ==
LOC: CR 08:00
PROVIDERS: Family Provider Family Medicine; PCP Family Medicine; Referring Provider Internal Medicine Cardiovascular Disease; Visit Provider Internal Medicine Cardiovascular Disease
DX: Z95.5 Presence of coronary angioplasty implant and graft (principal); I47.2 Ventricular tachycardia; I49.8 Other specified cardiac arrhythmias; R55 Syncope and collapse; I25.5 Ischemic cardiomyopathy; I25.10 Atherosclerotic heart disease of native coronary artery without angina pectoris; I16.0 Hypertensive urgency
CPT/HCPCS: 93798

== ENCOUNTER → 2019-08-25 14:42 | Outpatient (CLI) | payer BC, SELFPAY ==
[2019-05-02 10:08] VITALS: BMI 37.9
[2019-06-30 10:44] VITALS: BMI 36.6
--- NOTE | 2019-08-25 14:45 | ECHOCS_ITS ---
Reason For Study: CHF Procedure This was a 2D Doppler, Color Flow transthoracic echocardiogram. Contrast injection was performed. Exam performed in department. Left Ventricle Mild concentric left ventricular hypertrophy. The estimated ejection fraction is 50-55 %. Normal diastology for age. Infero-Basal: Mildly hypokinetic. Right Ventricle Normal size and thickness. Normal systolic function. Atria Normal left atrium. Normal right atrium. Normal atrial septum. Mitral Valve The mitral valve is structurally normal. No prolapse or stenosis seen. Tricuspid Valve Normal tricuspid valve. Trivial tricuspid valve insufficiency. Right ventricular systolic pressure estimated to be 23 mmHg. Aortic Valve Normal aortic valve. Trisinus/trileaflet aortic valve. Pulmonic Valve Normal pulmonic valve. Great Vessels Normal aortic root. Normal arch. Normal inferior vena cava. Inferior vena cava collapse with sniff. Pericardium/Pleural No pericardial effusion. Medication Diluted definity 5ml given slow IV push to enhance endocardial definition. MMode/2D Measurements & Calculations LVIDd: 4.8 cm IVSd: 1.3 cm Ao root diam: 2.8 cm LVIDs: 3.0 cm LVPWd: 1.4 cm RVDd: 3.4 cm FS: 37.2 % LAV(MOD-bp): 46.7 ml LA A4 area: 17.1 cm2 LA dimension(2D): 3.8 cm LAV(MOD-bp) Indexed: 22.2 ml/m2 LAV(MOD-sp2): 48.2 ml LAV(MOD-sp4): 44.9 ml RA A4 area: 10.7 cm2 Doppler Measurements & Calculations MV E max keyshawn: 67.0 cm/sec Lat Peak E' Keyshawn: 10.5 cm/sec Med Peak E' Keyshawn: 6.4 cm/sec MV A max keyshawn: 67.0 cm/sec E/E' lat: 6.4 E/E' med: 10.5 MV E/A: 1.0 Ao V2 max: 131.6 cm/sec LV V1 max: 110.9 cm/sec PA V2 max: 134.4 cm/sec Ao max P.9 mmHg LV V1 max P.9 mmHg Ao V2 mean: 94.7 cm/sec Ao mean P.9 mmHg Ao V2 VTI: 27.3 cm TR max keyshawn: 213.9 cm/sec TR max P.3 mmHg Interpretation Summary Mild concentric left ventricular hypertrophy. The estimated ejection fraction is 50-55 %. Normal diastology for age. Infero-Basal: Mildly hypokinetic Trivial tricuspid valve insufficiency. Right ventricular systolic pressure estimated to be 23 mmHg. Compared to echo report dated 04/28/2019, ejection fraction has improved from 40% to 50-55%, and RVSP has remained about the same. Ordering Physician: Antonio Bruce Referring Physician: Enmanuel Lozano Performed By: Kendra Blair, JOSE RAUL, RVT
== END ==
PROVIDERS: Family Provider Family Medicine; PCP Family Medicine; Referring Provider Internal Medicine Cardiovascular Disease; Visit Provider Internal Medicine Cardiovascular Disease
DX: I11.0 Hypertensive heart disease with heart failure (principal); I50.9 Heart failure, unspecified; I25.2 Old myocardial infarction; I25.10 Atherosclerotic heart disease of native coronary artery without angina pectoris; I49.8 Other specified cardiac arrhythmias; I47.2 Ventricular tachycardia; R55 Syncope and collapse; Z95.5 Presence of coronary angioplasty implant and graft
CPT/HCPCS: 93306; Q9957; A4216; C8929

== ENCOUNTER → 2020-04-17 | Outpatient (CLI) | payer BC, SELFPAY ==
[2019-05-02 10:08] VITALS: BMI 37.9
[2020-04-12 15:01] VITALS: BMI 38.4
[2020-04-17 08:48] LABS: AST(SGOT) 40 U/L (15-37); Alanine Aminotransfer ALT/SGPT 67 U/L (16-61); Alkaline Phosphatase 59 U/L (45-117); Bilirubin, Direct 0.14 mg/dL (0.00-0.30); Cholesterol 139 mg/dL (200); Globulin 3.7 g/dL (2.2-4.2); High Density Lipoprotein 33 mg/dL; Protein, Total 7.7 g/dL (6.4-8.2); Triglycerides 222 mg/dL; Very Low Density Lipoprotein 44 mg/dL (5-40)
== END | disposition home or self-care (01) ==
LOC: LAB 07:27
PROVIDERS: PCP Family Medicine; Referring Provider Internal Medicine Cardiovascular Disease; Visit Provider Internal Medicine Cardiovascular Disease
DX: E78.5 Hyperlipidemia, unspecified (principal)
CPT/HCPCS: 36415; 80061; 80076

== ENCOUNTER 2021-07-21 17:10 | Inpatient (IN) | payer BC, SELFPAY ==
[2019-05-02 10:08] VITALS: BMI 37.9
[2021-07-21 17:11] VITALS: BP 116/78; PULSE 87; RESP 16; TEMP 36.6; O2SAT 98; BMI 36.9
[2021-07-21] MEDS: 0.9% Normal Saline 1,000 ML 999 ML IV ×3 (20:11→22:58)
[2021-07-21 20:15] LABS: Absolute Lymphocyte Count 1.99 X10^3/uL (0.83-4.51); Absolute Neutrophil Count 4.1 X10^3/uL (2.0-7.7); Basophil# 0.03 X10^3/uL; Basophil% 0.4 % (0-1); Eosinophils% 2.9 % (0-5); Hematocrit 36.1 % (40-54); Hemoglobin 12.9 g/dL (13.0-16.5); Lymphocyte # 1.99 X10^3/ul (0.83-4.51); Lymphocyte % 28.8 % (19-41); Mean Corp Hgb Conc 35.7 g/dL (32-36); Mean Corpuscular Hgb 29.7 pg (27.0-32.0); Mean Platelet Vol. 11.7 fl (6.2-12.0); Monocyte# 0.61 X10^3/uL; Monocyte% 8.8 % (0-10); NRBC Flagged by Analyzer 0 % (0-5); Neutrophil # 4.05 X10^3/uL (2.7-7.7); Neutrophil % 58.5 % (47-70); Platelet Count 252 K/mm3 (150-450); RBC Distribution Width CV 12.1 % (11.6-14.6); RBC Distribution Width SD 36.8 fl (35.1-43.9); Red Blood Count 4.35 M/mm3 (4.6-6.2); White Blood Count 6.9 K/mm3 (4.4-11.0)
[2021-07-21 20:31] LABS: Blood Gas Specimen Type VEN; VBG BASE EXCESS 0 mmol/L (-1.0-3.5); VBG Bicarbonate 24 mmol/L (22-26); VBG PO2 37 mmHg (25-40); VBG SO2 73 % (50-70); VBG TCO2 26 mmol/L (23-33); VBG pCO2 37.1 mmHg (41-51); VBG pH 7.42 (7.32-7.42)
[2021-07-21 21:07] LABS: Anion Gap 14 (5-15); BUN 53 mg/dL (7-18); BUN/Creat Ratio 24.3 RATIO (10-20); Calcium,Total 9.9 mg/dL (8.5-10.1); Chloride 83 mmol/L (98-107); Creatinine, Serum 2.18 mg/dL (0.70-1.30); EST Glomerular Filtration Rate 34 mL/min (>60); Est Glom Filt Rate - Afr Amer 42 mL/min (>60); Estimated Creatinine Clearance 36.99 ml/min; Glucose 702 mg/dL (74-106); Sodium Level 122 mmol/L (136-145)
--- NOTE | 2021-07-21 21:16 | EX.ED.DYSGE1 ---
HPI History of Present Illness Chief Complaint: Hyperglycemia Informant: patient Onset/Context/Timing Onset: Yesterday Context: Gradual Onset Timing: Continuous Quality: Weakness, fatigue Location: Generalized Worsened by: Nothing Relieved by: Nothing Narrative Narrative: Patient presents with elevated blood sugars that have gotten worse since yesterday. Patient states that he had blood work drawn at his primary care physician's office yesterday and his blood sugar was over 800. Patient states he has been having some weakness and fatigue over the past couple days. Patient states it is generalized. Patient states nothing makes it worse and nothing makes it better. Patient denies any fevers or chills. Patient admits to some mild nausea and vomiting. Patient also admits to some polyuria and polydipsia. [facility] Medical History Atherosclerosis of coronary artery without angina pectoris Essential hypertension HTN (hypertension) Hyperlipidemia Hypertensive urgency Ischemic cardiomyopathy Sustained ventricular tachycardia Syncope Ventricular trigeminy Home Medications aspirin 81 mg chewable tablet 81 mg PO DAILY #90 tab 05/13/19 [Rx Last Taken Unknown] atorvastatin 80 mg tablet 80 mg PO QHS #90 tab 05/13/19 [Rx Last Taken Unknown] clopidogrel 75 mg tablet 75 mg PO DAILY #90 tab 05/13/19 [Rx Last Taken Unknown] amlodipine 5 mg tablet 5 mg PO DAILY #30 tab 06/30/19 [Rx Last Taken Unknown] lisinopril 40 mg tablet 40 mg PO DAILY #90 tab 06/30/19 [Rx Last Taken Unknown] carvedilol 12.5 mg tablet 12.5 mg PO BID #180 tab 07/14/19 [Rx Last Taken Unknown] hydrochlorothiazide 25 mg tablet 25 mg PO DAILY 04/12/20 [History Last Taken Unknown] pantoprazole 40 mg PO DAILY 07/21/21 [History Last Taken Unknown] Allergy/AdvReac Type Severity Reaction Status Date / Time Penicillins Allergy Unknown Verified 07/21/21 17:13 Surgical History H/O cardiac radiofrequency ablation (01/02/20) History of cholecystectomy History of temporal artery biopsy History of tonsillectomy Status post placement of implantable loop recorder (03/12/20) Stented coronary artery (05/02/19) Social History Smoking Status: Current some day smoker tobacco type: cigarettes ROS ROS ED Constitutional Constitutional ED: Denies chills or fever(s) Eyes Eyes: Reports blurry vision; Denies change in vision ENT ENT ED: Denies rhinorrhea or sore throat Cardiovascular Cardiovascular: Denies chest pain or palpitations Respiratory/Chest Respiratory/Chest: Denies cough or dyspnea Gastrointestinal Gastrointestinal: Reports nausea and vomiting Genitourinary Genitourinary ED: Reports urinary frequency; Denies dysuria or hematuria Musculoskeletal Musculoskeletal: Reports back pain and neck pain Integumentary Denies abscess or rash Neurologic Neurologic: Reports headache(s); Denies weakness Endocrine Endocrinology: Reports polydipsia and polyuria Allergic/Immunologic Allergic/Immunologic ED: Denies mouth swelling or urticaria EXAM Physical Exam Const Vital Signs: 07/21/21 17:11 07/21/21 19:24 Temperature 97.8 F Temperature Source Temporal Pulse Rate 87 Respiratory Rate 16 Respiratory Effort Normal Non-Labored Respiratory Pattern Normal Blood Pressure 116/78 Blood Pressure Mean 90 Pulse Ox 98 Oxygen Delivery Method Room Air Positive well nourished, well developed and obese General Appearance ED: well developed Nutritional Appearance: obese HEENT Reports moist mucous membranes Neck supple and no JVD Resp normal respiratory effort and clear to auscultation bilaterally Cardio regular rate and regular rhythm GI normal to inspection, nondistended, normoactive bowel sounds and non-tender Palpation: soft Neuro oriented x3, CN's II-XII intact bilaterally and no sensory deficits noted Sensorium / Orientation: alert Motor Exam: strength 5/5 throughout Psych mental status grossly normal Skin no rashes or lesions noted MDM MDM MDM Narrative Medical decision making narrative: Patient was given IV fluids. CBC was within normal limits. Basic metabolic profile showed a glucose of 702, sodium of 122, chloride of 83, BUN of 53, and creatinine of 2.18. Serum acetone was negative. Calculated serum osmolality was 302. Patient was started on insulin IV drip. Case was discussed with the hospitalist. He recommended giving the patient 2 more liters of IV fluids before starting insulin drip. This was ordered and was done. He will admit the patient to ICU. Patient understood and was agreeable with the plan. All questions were answered. Lab Data Attestation: I reviewed the patient's lab results. Labs: Laboratory Results - last 24 hr 07/21/21 07/21/21 07/21/21 20:09 20:09 20:09 WBC 6.9 RBC 4.35 L Hgb 12.9 L Hct 36.1 L MCV 83.0 MCH 29.7 MCHC 35.7 RDW Std Deviation 36.8 RDW Coeff of Tony 12.1 Plt Count 252 MPV 11.7 Immature Gran % (Auto) 0.600 Neut % (Auto) 58.5 Lymph % (Auto) 28.8 [place] % (Auto) 8.8 Eos % (Auto) 2.9 Baso % (Auto) 0.4 Absolute Neuts (auto) 4.1 Absolute Lymphs (auto) 1.99 Nucleated RBC % 0 Sodium 122 L Potassium 4.0 Chloride 83 L Carbon Dioxide 25.0 Anion Gap 14 BUN 53 H Creatinine 2.18 H Estim Creat Clear Calc 36.99 Est GFR (MDRD) Af Amer 42 L Est GFR (MDRD) Non-Af 34 L BUN/Creatinine Ratio 24.3 H Glucose 702 H* Calcium 9.9 Acetone Level NEGATIVE ABG Data ABG results: ABG 07/21/21 20:25 Specimen Type PUMA VBG pH 7.42 VBG pO2 37 VBG HCO3 24 VBG Total CO2 26 VBG O2 Sat (Calc) 73 H VBG Base Excess 0 POC Mix VBG pCO2 Pt Tmp 37.1 L Treatment and Re-Evaluation Vital Sign Attestation:: Vital signs were reviewed prior to admission. They are stable. Discharge Plan Dx/Rx/DC Orders Clinical Impression: Hyperosmolar hyperglycemic state (HHS) Disposition Disposition: Acute Care [facility]
--- NOTE | 2021-07-21 21:34 | PCM.HP.STD ---
HPI - General HPI Narrative MEL MARSH, is a 51 M history of diabetes mellitus type 2 for 3 years was sent to ED by PCP for blood glucose 895 on day before yesterday. Patient has been feeling fatigue, nausea and vomiting once per week large-volume for last 1 month. Previously patient was on Metformin and then Farxiga which was discontinued 1 week ago because he developed allergic reaction. He denies abdominal pain, fever or chills, nausea or vomiting, shortness of breath, chest pain. Patient did not had Covid vaccine and does not intend to get it either in future. Patient said he was exposed to COVID-19 but he did not develop symptoms in the past. Patient has history of hypertension, asthma, coronary artery status with ischemic cardiomyopathy post 4 stents 2 years ago. He is on albuterol inhaler as needed for asthma. [facility] Medical History Atherosclerosis of coronary artery without angina pectoris Essential hypertension HTN (hypertension) Hyperlipidemia Hypertensive urgency Ischemic cardiomyopathy Sustained ventricular tachycardia Syncope Ventricular trigeminy Home Medications aspirin 81 mg chewable tablet 81 mg PO DAILY #90 tab 05/13/19 [Rx Last Taken Unknown] atorvastatin 80 mg tablet 80 mg PO QHS #90 tab 05/13/19 [Rx Last Taken Unknown] clopidogrel 75 mg tablet 75 mg PO DAILY #90 tab 05/13/19 [Rx Last Taken Unknown] amlodipine 5 mg tablet 5 mg PO DAILY #30 tab 06/30/19 [Rx Last Taken Unknown] lisinopril 40 mg tablet 40 mg PO DAILY #90 tab 06/30/19 [Rx Last Taken Unknown] carvedilol 12.5 mg tablet 12.5 mg PO BID #180 tab 07/14/19 [Rx Last Taken Unknown] hydrochlorothiazide 25 mg tablet 25 mg PO DAILY 04/12/20 [History Last Taken Unknown] pantoprazole 40 mg PO DAILY 07/21/21 [History Last Taken Unknown] Allergy/AdvReac Type Severity Reaction Status Date / Time Penicillins Allergy Unknown Verified 07/21/21 17:13 Surgical History H/O cardiac radiofrequency ablation (01/02/20) History of cholecystectomy History of temporal artery biopsy History of tonsillectomy Status post placement of implantable loop recorder (03/12/20) Stented coronary artery (05/02/19) Social History Smoking Status: Current some day smoker tobacco type: cigarettes ROS ROS Narrative Constitutional: Reports fatigue and weakness for more than 1 month HEENT: Reports systems reviewed and no addt'l complaints, except as documented Respiratory/Chest: Denies chest pain, shortness of breath at rest or with exertion Gastrointestinal: Denies coffee ground emesis, hematemesis or melena. Genitourinary: Denies burning urination or new urinary tract symptoms Musculoskeletal: Reports joint pain and muscle ache Neurologic: Denies seizure-like activity skin: No ulcer. No rash Endocrinology: Reports systems reviewed and no addt'l complaints, except as documented Hematologic/Lymphatic: Reports systems reviewed and no addt'l complaints, except as documented Rest 12 ROS are negative except as mentioned in HPI Vital Signs Vital Signs Vital Signs: 07/21/21 17:11 07/21/21 19:24 Temperature 97.8 F Temperature Source Temporal Pulse Rate 87 Respiratory Rate 16 Respiratory Effort Normal Non-Labored Respiratory Pattern Normal Blood Pressure 116/78 Blood Pressure Mean 90 Pulse Ox 98 Oxygen Delivery Method Room Air Weight Weight: 229 lb Body Mass Index (BMI) 36.9 Physical Exam Narrative General: Alert, Oriented x3, Cooperative HEENT: Atraumatic, PERRLA, EOMI, Normocephalic Oral: Oral mucosa dry. No Gingival or Mucosal Lesions/ Ulcerations Neck: Supple, No JVD, Negative Carotid Bruits Lungs: Air entry diminished in bilateral lung bases. No crepitation/rhonchi Cardiovascular: Regular rate, Regular Rhythm, Normal S1, Normal S2, No murmurs Abdomen: Bowel Sounds Present, Soft, Non Tender, Non-Distended : No renal angle tenderness. No suprapubic tenderness. Extremities: No edema, Capillary Refill Less than 3 Seconds Skin: No rashes, No breakdown Musculoskeletal: No Tenderness to Palpation of Joints or Extremities Neurological: Cranial nerves II-XII grossly intact, DTR 2+/4 and Symmetrical, Neuro grossly intact Psych/Mental Status: Normal Affect, Appropriate. Results Lab / Micro Data Result Diagrams: 07/21/21 20:09 07/21/21 20:09 Labs: Laboratory Results - last 24 hr 07/21/21 20:09: WBC 6.9, RBC 4.35 L, Hgb 12.9 L, Hct 36.1 L, MCV 83.0, MCH 29.7, MCHC 35.7, RDW Std Deviation 36.8, RDW Coeff of Tony 12.1, Plt Count 252, MPV 11.7, Immature Gran % (Auto) 0.600, Neut % (Auto) 58.5, Lymph % (Auto) 28.8, [place] % (Auto) 8.8, Eos % (Auto) 2.9, Baso % (Auto) 0.4, Absolute Neuts (auto) 4.1, Absolute Lymphs (auto) 1.99, Nucleated RBC % 0 07/21/21 20:09: Sodium 122 L, Potassium 4.0, Chloride 83 L, Carbon Dioxide 25.0, Anion Gap 14, BUN 53 H, Creatinine 2.18 H, Estim Creat Clear Calc 36.99, Est GFR (MDRD) Af Amer 42 L, Est GFR (MDRD) Non-Af 34 L, BUN/Creatinine Ratio 24.3 H, Glucose 702 H*, Calcium 9.9 07/21/21 20:09: Acetone Level NEGATIVE ABG Data ABG results: ABG 07/21/21 20:25 Specimen Type PUMA VBG pH 7.42 VBG pO2 37 VBG HCO3 24 VBG Total CO2 26 VBG O2 Sat (Calc) 73 H VBG Base Excess 0 POC Mix VBG pCO2 Pt Tmp 37.1 L Assessment & Plan Assessment/Plan (1) Hyperosmolar hyperglycemic state (HHS): PLAN: 1. Hyperosmolar hyperglycemic state with history of diabetes mellitus type 2 complicated with diabetic nephropathy: Patient is being admitted in ICU. Serum osmolarity ordered. VBG 7.42/total CO2 26/37. Serum acetone negative. Anion gap 14. IV fluid normal saline 3 L, IV bolus at 1000 mL/h and then titrate down. Started on low-dose insulin drip. Patient has hyponatremia and hypochloremia due to HSS. Corrected serum sodium is about 132. 2. Coronary artery stenosis multiple stent: Patient had syncope, ventricular trigeminy which led to further work-up and found triple-vessel disease during previous hospitalization in April 2019. Last echo in April 2019 showed EF 40%, mildly dilated LV, mild concentric LVH with moderate global hypokinesis. Continue aspirin and Plavix and Coreg. Hold lisinopril. 2. HTN normotensive, 160s/78. Hold HCTZ and lisinopril. Amlodipine low-dose with holding parameters. 3. Acute kidney injury on baseline CKDII, diabetic nephropathy: BUN/creatinine 53/2.18. Last creatinine was 1.36 in April 2019. 4. Chronic intermittent asthma: Currently no signs or symptoms of asthma exacerbation. Continue albuterol as needed 5. Old CVA as per MRI report:-During previous hospitalization, MRI showed old stroke. Patient said he never had clinically a stroke. Continue aspirin and high-dose statin DVT ppx: Lovenox 40 mg subcu daily. Discontinue if platelet count drops less than 50,000 or hemoglobin less than 8 g%. Living will/advanced directive/end of life care: Patient does not have living will or advanced directive. His next to kin is his son, Chon. After discussion of benefits/risks procedures involved with full code, DNR CC arrest and DNR CC, the patient opted for full code. Patient does want artificial life support including intubation, tube feed, ventilator and/chest compression, central venous catheter, vasopressor and DC shock if needed Total time spent in [id number] encounter in discussion of advanced directive 16 minutes. Charges/Coding Visit Charges Inpatient E&M: 53571 Init Hosp L3 Procedures Hospitalists Procedures: 39018 Advncd Care Plan 30 Min
[2021-07-21 22:30] VITALS: BP 122/77; PULSE 71; RESP 18; O2SAT 96
[2021-07-21 22:48] LABS: AST(SGOT) 43 U/L (15-37); Alanine Aminotransfer ALT/SGPT 80 U/L (16-61); Albumin, Serum 3.6 g/dL (3.2-5.0); Alkaline Phosphatase 85 U/L (45-117); Bilirubin, Direct 0.22 mg/dL (0.00-0.30); Globulin 4.4 g/dL (2.2-4.2); Magnesium 2.6 mg/dL (1.6-2.6)
[2021-07-21 22:53] LABS: Osmolality, Serum 315 mOsm/KG (275-295)
[2021-07-21 23:03] VITALS: BP 135/83; PULSE 72; RESP 16; TEMP 36.8; O2SAT 99
--- NOTE | 2021-07-21 23:08 | ED.RN ---
report called to KALI Whiteside in ICU. no further questions at this time.
[2021-07-21 23:26] VITALS: BP 141/88; PULSE 65; PULSE 70; RESP 12; TEMP 35.9; O2SAT 100; O2SAT 95; BMI 37.3
[2021-07-21 23:30] VITALS: BP 140/79; PULSE 68; RESP 12; O2SAT 99
[2021-07-22] VITALS (22 sets, daily range): BP systolic 106–148; BP diastolic 68–105; PULSE 57–86; RESP 9–20; TEMP 36.1–36.8; O2SAT 95–100
[2021-07-22] MEDS: 0.9% Normal Saline 1,000 ML 1000 ML IV (00:47)
[2021-07-22] MEDS: Enoxaparin 40 MG/0.4 ML Syringe SC ×2 (01:05→10:16)
[2021-07-22] MEDS: Pantoprazole Sodium 40 MG Tablet PO ×2 (01:05→10:16)
[2021-07-22 01:15] LABS: Bedside Glucose 396 mg/dL (70-110)
[2021-07-22] MEDS: 0.9% Normal Saline 1,000 ML 250 ML IV (01:54)
[2021-07-22 02:26] LABS: Bedside Glucose 306 mg/dL (70-110)
[2021-07-22 03:20] LABS: Absolute Lymphocyte Count 2.31 X10^3/uL (0.83-4.51); Absolute Neutrophil Count 2.5 X10^3/uL (2.0-7.7); Basophil# 0.03 X10^3/uL; Basophil% 0.5 % (0-1); Eosinophil# 0.27 X10^3/uL; Eosinophils% 4.8 % (0-5); Hemoglobin 10.7 g/dL (13.0-16.5); Lymphocyte # 2.31 X10^3/ul (0.83-4.51); Lymphocyte % 41.5 % (19-41); Mean Corp Hgb Conc 35.7 g/dL (32-36); Mean Corpuscular Hgb 30.1 pg (27.0-32.0); Mean Corpuscular Volume 84.3 fL (80-94); Mean Platelet Vol. 11.5 fl (6.2-12.0); Monocyte# 0.44 X10^3/uL; Monocyte% 7.9 % (0-10); NRBC Flagged by Analyzer 0 % (0-5); Neutrophil % 44.9 % (47-70); Platelet Count 208 K/mm3 (150-450); RBC Distribution Width CV 11.9 % (11.6-14.6); RBC Distribution Width SD 36.8 fl (35.1-43.9); Red Blood Count 3.56 M/mm3 (4.6-6.2); White Blood Count 5.6 K/mm3 (4.4-11.0)
--- NOTE | 2021-07-22 03:21 | NURSING ---
PANDEMIC DOCUMENTATION DATE: 07/21/21 TIME: 7310
[2021-07-22 03:29] LABS: Magnesium 2.2 mg/dL (1.6-2.6); Phosphorus 1.9 mg/dL (2.5-4.9)
[2021-07-22 03:45] LABS: Anion Gap 11 (5-15); BUN 39 mg/dL (7-18); BUN/Creat Ratio 23.9 RATIO (10-20); Calcium,Total 8.1 mg/dL (8.5-10.1); Chloride 101 mmol/L (98-107); Creatinine, Serum 1.63 mg/dL (0.70-1.30); EST Glomerular Filtration Rate 48 mL/min (>60); Est Glom Filt Rate - Afr Amer 58 mL/min (>60); Estimated Creatinine Clearance 49.47 ml/min; Glucose 290 mg/dL (74-106); Potassium 2.9 mmol/L (3.5-5.1); Sodium Level 135 mmol/L (136-145)
[2021-07-22 04:16] LABS: Bedside Glucose 228 mg/dL (70-110)
[2021-07-22] MEDS: Dext 5%-0.45% NS 1,000 ML 150 ML IV (04:26)
[2021-07-22 05:11] LABS: Bedside Glucose 223 mg/dL (70-110)
[2021-07-22] MEDS: Potassium Chloride 10mEq/100mL 10 MEQ/100 ML IV.SOLN. 100 MEQ IV BOLUS ×4 (05:27→09:02)
[2021-07-22 06:05] LABS: Bedside Glucose 232 mg/dL (70-110)
[2021-07-22 07:06] LABS: Bedside Glucose 206 mg/dL (70-110)
[2021-07-22 07:51] LABS: Bedside Glucose 281 mg/dL (70-110)
[2021-07-22 08:06] LABS: Hemoglobin A1c > 14.0 % (3.8-5.6)
[2021-07-22 08:15] LABS: Bedside Glucose 212 mg/dL (70-110)
[2021-07-22] MEDS: Clopidogrel Bisulfate 75 MG Tablet PO (10:16)
[2021-07-22] MEDS: Carvedilol 12.5 MG Tablet PO ×2 (10:16→20:41)
[2021-07-22] MEDS: amLODIPine 5 MG Tablet PO (10:16)
[2021-07-22] MEDS: Aspirin 81 MG TAB.CHEW PO (10:16)
[2021-07-22 10:21] LABS: Bedside Glucose 165 mg/dL (70-110)
[2021-07-22 11:11] LABS: Bedside Glucose 191 mg/dL (70-110)
[2021-07-22] MEDS: Insulin Lispro 100 UNIT/ML INSULN.PEN SC ×3 (11:17→20:42)
[2021-07-22 11:26] LABS: Bedside Glucose 174 mg/dL (70-110)
[2021-07-22] MEDS: 0.9% Normal Saline 1,000 ML 175 ML IV ×2 (12:12→18:32)
--- NOTE | 2021-07-22 13:48 | CASEMGMT ---
RN CM STEAM ROOM ATTENDANT CM to room to meet with patient for initial transition planning/care coordination assessment. RN ATUL introduced self and role at [facility]. Pt voices understanding and consents to assessment at this time. Pt resting in bed in no distress at this time. Pt is A/O at this time and answers all questions appropriately. Care providers, pharmacy, and demographics verified/updated at this time. PCP: Dr Blake Calixto Specialists: experience specialist in [place]--does not remember name. Urologist in [place]--does not remember name Preferred Pharmacy: [facility] Retail Insurance: [place] Prescription Benefit: Yes Living Will/HPOA: Pt does not currently have LW/HCPOA and declines info at this time. Pt made aware that he can contact as an out-pt and make appt in the future if he decides he would like to talk with someone about this or would like to utilize [facility] social work for advanced directive completion. LNOK: 2 adult sons: Chon lives in [place] and the other son lives in [place]. Has another son under 18 yrs old. Living Arrangements: Lives w/signif other, Maame in 2-story home. No difficulty w/stairs. Independent Transportation: Pt states drives self and states no transportation concerns at this time. Maame also drives. DME: States has the following DME: Has functioning glucometer w/supplies. Pt states no need for further DME at this time. HHC/SNF: No hx of either. Denies need for HHC. Pt wishes to return home and states has no concerns with going home at time of discharge. CM to follow for any discharge planning/needs. Pt voices no concerns/needs at this time. Advised pt to ask for CM if any questions/concerns/needs arise. Voices understanding. PLAN: Home w/discharge plans in place. Pt was not on insulin @ home. If pt d/c's home on insulin, will need education Bernard DIANA RN, CM
[2021-07-22 15:25] LABS: Bedside Glucose 423 mg/dL (70-110)
[2021-07-22] MEDS: metFORMIN HCl 500 MG Tablet PO (16:14)
[2021-07-22 16:26] LABS: Bedside Glucose 325 mg/dL (70-110)
[2021-07-22] MEDS: 0.9% Saline Lock 10 ML Syringe IV (18:33)
--- NOTE | 2021-07-22 20:16 | PN.HOSP_ITS ---
Subjective Subjective Patient was seen and examined in the ICU this morning, he is no longer on an insulin drip, I talked extensively with the patient and his girlfriend who was in the room at the time of my examination. I asked the patient how often he checked his blood sugars, he states he does not check them on a routine basis, I asked him what his family physician told him to do, he stated that he was told nothing about checking his sugars. I have a hard time believing this. Patient also has not had a COVID-19 vaccine, I spent some time talking with him about it but he thinks that the vaccine is political and a money making scheme by the drug [employer] I spent some time talking to the patient about different medications for type 2 diabetes, his hemoglobin A1c was highly elevated, he stated that his A1c recently was in the 7 range-I have a hard time believing this. For now, I have decided to place the patient on basal insulin and place him back on Metformin which she is no longer taking at home. Patient was on Farxiga as an outpatient but he had fatigue and generalized malaise with it and quit taking it. I asked the patient if he had ever had diabetic teaching and he stated no. Patient appears stable at this time for transfer out of the ICU, I feel that there is probably a compliance issue with this patient. Objective Data Objective Data Vital Signs: Vital Signs Temp Pulse Resp BP Pulse Ox 97.2 F L 76 16 116/80 98 07/22/21 16:00 07/22/21 16:00 07/22/21 16:00 07/22/21 16:00 07/22/21 16:00 Oxygen Delivery Method Room Air Weight: 106 kg Body Mass Index (BMI) 37.3 Intake & Output: Intake and Output for Last 24 Hours 07/20/21 07/21/21 07/22/21 23:59 23:59 23:59 Intake Total 1999 5451.60 / 5451.60 Output Total 2450 / 2450 Balance 1999 3001.60 / 3001.60 Lab / Micro Data Result Diagrams: 07/22/21 03:10 07/22/21 03:10 Labs: Laboratory Results - last 24 hr 07/21/21 20:09: WBC 6.9, RBC 4.35 L, Hgb 12.9 L, Hct 36.1 L, MCV 83.0, MCH 29.7, MCHC 35.7, RDW Std Deviation 36.8, RDW Coeff of Tony 12.1, Plt Count 252, MPV 11.7, Immature Gran % (Auto) 0.600, Neut % (Auto) 58.5, Lymph % (Auto) 28.8, Throckmorton % (Auto) 8.8, Eos % (Auto) 2.9, Baso % (Auto) 0.4, Absolute Neuts (auto) 4.1, Absolute Lymphs (auto) 1.99, Nucleated RBC % 0 07/21/21 20:09: Sodium 122 L, Potassium 4.0, Chloride 83 L, Carbon Dioxide 25.0, Anion Gap 14, BUN 53 H, Creatinine 2.18 H, Estim Creat Clear Calc 36.99, Est GFR (MDRD) Af Amer 42 L, Est GFR (MDRD) Non-Af 34 L, BUN/Creatinine Ratio 24.3 H, Glucose 702 H*, Calcium 9.9 07/21/21 20:09: Acetone Level NEGATIVE 07/21/21 20:09: Magnesium 2.6, Total Bilirubin 0.60, Direct Bilirubin 0.22, AST 43 H, ALT 80 H, Alkaline Phosphatase 85, Total Protein 8.0, Albumin 3.6, Globulin 4.4 H 07/21/21 20:09: Serum Osmolality 315 H 07/22/21 00:01: POC Glucose 423 H 07/22/21 01:04: POC Glucose 396 H 07/22/21 02:07: POC Glucose 306 H 07/22/21 03:10: Sodium 135 L, Potassium 2.9 L, Chloride 101, Carbon Dioxide 23.0, Anion Gap 11, BUN 39 H, Creatinine 1.63 H, Estim Creat Clear Calc 49.47, Est GFR (MDRD) Af Amer 58 L, Est GFR (MDRD) Non-Af 48 L, BUN/Creatinine Ratio 23.9 H, Glucose 290 H, Calcium 8.1 L 07/22/21 03:10: WBC 5.6, RBC 3.56 L, Hgb 10.7 L, Hct 30.0 L, MCV 84.3, MCH 30.1, MCHC 35.7, RDW Std Deviation 36.8, RDW Coeff of Tony 11.9, Plt Count 208, MPV 11.5, Immature Gran % (Auto) 0.400, Neut % (Auto) 44.9 L, Lymph % (Auto) 41.5 H, Throckmorton % (Auto) 7.9, Eos % (Auto) 4.8, Baso % (Auto) 0.5, Absolute Neuts (auto) 2.5, Absolute Lymphs (auto) 2.31, Nucleated RBC % 0 07/22/21 03:10: Phosphorus 1.9 L, Magnesium 2.2 07/22/21 03:10: Hemoglobin A1c > 14.0 H 07/22/21 03:11: POC Glucose 281 H 07/22/21 04:04: POC Glucose 228 H 07/22/21 05:06: POC Glucose 223 H 07/22/21 06:01: POC Glucose 232 H 07/22/21 06:59: POC Glucose 206 H 07/22/21 07:56: POC Glucose 212 H 07/22/21 09:00: POC Glucose 191 H 07/22/21 10:13: POC Glucose 165 H 07/22/21 11:15: POC Glucose 174 H 07/22/21 16:13: POC Glucose 325 H Micro: Microbiology 07/21/21 22:20 Nasal Secretion SARS-CoV-2 Antigen (Rapid) - Final ABG Data ABG results: ABG 07/21/21 20:25 Specimen Type PUMA VBG pH 7.42 VBG pO2 37 VBG HCO3 24 VBG Total CO2 26 VBG O2 Sat (Calc) 73 H VBG Base Excess 0 POC Mix VBG pCO2 Pt Tmp 37.1 L Physical Exam Const alert, oriented x3 and no apparent distress General Appearance: cooperative, well kempt and well developed Orientation / Consciousness: awake, oriented to person, oriented to place and or iented to time Nutritional Appearance: obese HEENT normocephalic, head/scalp atraumatic and moist oral mucous membranes Head and Scalp: normocephalic Eyes PERRL, EOMs intact bilaterally and conjunctivae normal Neck nuchal rigidity, supple, no JVD and thyroid normal General: trachea midline Resp normal respiratory effort, no retractions, no use of accessory muscles and clear to auscultation bilaterally Auscultation: Negative for rales, rhonchi or wheezes Cardio regular rate, regular rhythm, S1 normal heart sound, S2 normal heart sound, no murmurs, no rub and no gallops GI normal to inspection, nondistended, normoactive bowel sounds, soft to palpation, non-tender and non-distended Extremity normal to inspection and no clubbing, cyanosis or edema Skin no rashes or lesions noted General Skin Exam: no breakdown Neuro oriented x3, CN's II-XII intact bilaterally, no focal motor deficits and no sensory deficits noted Sensorium / Orientation: awake and alert Speech: speech normal Psych thought process normal and affect normal Assessment & Plan Assessment/Plan (1) Hyperosmolar hyperglycemic state (HHS): PLAN: 1. Hyperosmolar hyperglycemic state-resolved at this time, patient will be transferred to [facility], he is now on basal insulin and Metformin, he will ultimately need to be on a SGLT2 inhibitor, this will need to be prescribed by his outpatient physician. I told the patient another option would be to take a GLP-1 drug such as Victoza or Rybelsus. #2 uncontrolled type 2 diabetes-probably secondary to noncompliance with medical regimen, I do not believe the patient was never told to take his blood sugars at home on a consistent basis. I recommended that he get a monitor such as the Dexcom monitor which is easy to use and would monitor sugar without fi ngersticks. #3 hypokalemia-patient was given potassium replacement #4 anemia-etiology unclear, I will order a serum iron on the patient #5 coronary artery disease-patient is on a statin and Plavix and aspirin among other medicine. #6 history of cardiac arrhythmias-patient underwent an ablation in the past #7 essential hypertension Charges/Coding Visit Charges Inpatient E&M: 92427 Subs Hosp L2
[2021-07-22] MEDS: Atorvastatin Calcium 80 MG Tablet PO (20:41)
[2021-07-22 20:51] LABS: Bedside Glucose 373 mg/dL (70-110)
[2021-07-23] MEDS: 0.9% Normal Saline 1,000 ML 175 ML IV ×2 (00:05→05:39)
[2021-07-23 02:15] VITALS: BP 121/70; PULSE 74; RESP 18; TEMP 36.9; O2SAT 98
[2021-07-23] MEDS: Insulin Lispro 100 UNIT/ML INSULN.PEN SC (06:36)
[2021-07-23 06:41] LABS: Bedside Glucose 195 mg/dL (70-110)
[2021-07-23 06:59] LABS: Anion Gap 9 (5-15); BUN 20 mg/dL (7-18); BUN/Creat Ratio 15.7 RATIO (10-20); Calcium,Total 8.1 mg/dL (8.5-10.1); Chloride 107 mmol/L (98-107); Creatinine, Serum 1.27 mg/dL (0.70-1.30); EST Glomerular Filtration Rate 64 mL/min (>60); Est Glom Filt Rate - Afr Amer 77 mL/min (>60); Estimated Creatinine Clearance 63.49 ml/min; Glucose 205 mg/dL (74-106); Iron 67 ug/dL (65-175); Iron Binding Capacity,Total 268 ug/dL (250-450); Potassium 3.4 mmol/L (3.5-5.1); Sodium Level 139 mmol/L (136-145)
[2021-07-23 08:15] VITALS: BP 134/88; PULSE 78; RESP 14; TEMP 37; O2SAT 99
[2021-07-23] MEDS: Clopidogrel Bisulfate 75 MG Tablet PO (09:15)
[2021-07-23] MEDS: Carvedilol 12.5 MG Tablet PO (09:15)
[2021-07-23] MEDS: metFORMIN HCl 500 MG Tablet PO (09:15)
[2021-07-23] MEDS: Aspirin 81 MG TAB.CHEW PO (09:15)
[2021-07-23] MEDS: Enoxaparin 40 MG/0.4 ML Syringe SC (09:15)
[2021-07-23] MEDS: Pantoprazole Sodium 40 MG Tablet PO (09:15)
[2021-07-23] MEDS: amLODIPine 5 MG Tablet PO (09:15)
[2021-07-23] MEDS: hydroCHLOROthiazide 25 MG Tablet PO (09:20)
[2021-07-23] MEDS: Lisinopril 40 MG Tablet PO (09:20)
--- NOTE | 2021-07-23 09:39 | PCM.DC ---
Discharge Instructions Diet Discharge Diet: 2000 Calorie Control Diet Follow Up Care Test Results: Test results from this visit will be discussed in further detail at your follow-up appointment, if applicable. Discharge Plan Admission Admit Date/Time: 07/21/21 21:53 Primary Reason for Your Visit: Hyperosolamar non-ketotic state. Uncontrolled diabetes mellitus Attending Provider: Paddy Cotton Primary Care Provider: Blake Calixto Discharge Orders/Prescriptions Prescriptions: New insulin lispro [Humalog KwikPen Insulin] 100 unit/mL Insulin Pen 10 unit subcut TIDAC 30 Days Qty: 9 RF: 0 Lantus Solostar U-100 Insulin 100 unit/mL (3 mL) insulin pen 30 unit subcut BID 30 Days Qty: 18 RF: 0 (DME) pen needle, diabetic 29 gauge needle See Rx Instructions .ROUTE .MEDSUPPLY Qty: 100 RF: 0 Continued aspirin 81 mg tablet,chewable 81 mg PO DAILY Qty: 90 RF: 3 clopidogrel 75 mg tablet 75 mg PO DAILY Qty: 90 RF: 3 atorvastatin 80 mg tablet 80 mg PO QHS Qty: 90 RF: 3 amlodipine 5 mg tablet 5 mg PO DAILY Qty: 30 RF: 11 lisinopril 40 mg tablet 40 mg PO DAILY Qty: 90 RF: 3 pantoprazole 40 mg tablet,delayed release (DR/EC) 40 mg PO DAILY RF: 0 carvedilol [Coreg] 12.5 mg tablet 12.5 mg PO BID Qty: 180 RF: 3 Discontinued hydrochlorothiazide 25 mg tablet 25 mg PO DAILY RF: 0 Referrals / Follow Up: Blake Calixto DO [Primary Care Provider] - Within 2 Weeks Timi Marin MD [STAFF PHYSICIAN] - Within 1 Month (Endocrinology) Disposition Disposition (needs filled in before D/C Order can be placed): Home, Self Care
--- NOTE | 2021-07-23 09:56 | PCM.DC.SUM ---
Providers Date of Admission: 07/21/21 Primary Care Physician: Dr. Blake Calixto DO Reason For Visit: HHS. DM-2 Diagnosis Discharge Diagnosis (1) Hyperosmolar hyperglycemic state (HHS): Status: Acute Code(s): E11.00 - Type 2 diabetes mellitus with hyperosmolarity without nonketotic hyperglycemic-hyperosmolar coma ([facility]); E11.65 - Type 2 diabetes mellitus with hyperglycemia Medications at Discharge Home Medications aspirin 81 mg chewable tablet 81 mg PO DAILY #90 tab 05/13/19 atorvastatin 80 mg tablet 80 mg PO QHS #90 tab 05/13/19 clopidogrel 75 mg tablet 75 mg PO DAILY #90 tab 05/13/19 amlodipine 5 mg tablet 5 mg PO DAILY #30 tab 06/30/19 lisinopril 40 mg tablet 40 mg PO DAILY #90 tab 06/30/19 carvedilol 12.5 mg tablet 12.5 mg PO BID #180 tab 07/14/19 pantoprazole 40 mg PO DAILY 07/21/21 insulin glargine [Lantus Solostar U-100 Insulin] 30 unit SUBCUT BID 30 Days #18 ml 07/23/21 insulin lispro [Humalog KwikPen Insulin] 10 unit SUBCUT TIDAC 30 Days #9 ml 07/23/21 pen needle, diabetic #100 ea 07/23/21 Hospital Course Operations None Procedures None Summary of Care Provided Minutes Spent on Discharge: 32 Hospital Course: 51-year-old male with type 2 diabetes presents with blood sugar of 895. Patient was put on insulin drip and then changed over to basal insulin. Patient's A1c was greater than 14. Patient was having adverse effects with Metformin as well as Farxiga and stopped taking those. Has not been on any medication for about a month nor has he been checking his blood sugar during that time. Patient states that his previous A1c was between 7 and 10. His current A1c is greater than 14. Was explained the patient and he will be on basal insulin as well as prandial insulin and will need to check his blood sugar 3 times a day. I asked if he is can have an issue with that to which she is stating that he would not. He states that he has plan supplies including glucometer, testing strips and lancets at home and would not need any upon discharge. Patient also did have hyponatremia which was related with his hyperglycemia but with his sodium being low, his hydrochlorothiazide will be held for the time being. This is not the primary cause of his hyponatremia. This will need to be followed up as outpatient. Physical Exam Const alert Extremity normal to inspection Neuro oriented x3 Sensorium / Orientation: awake, alert and oriented to person Psych affect normal Weight / BMI Weight Weight: 106.7 kg Body Mass Index (BMI) 37.3 ABG / Lab / Microbiology Data Result Diagrams: 07/22/21 03:10 07/23/21 06:08 Laboratory: Laboratory Results - last 24 hr 07/22/21 00:01: POC Glucose 423 H 07/22/21 09:00: POC Glucose 191 H 07/22/21 10:13: POC Glucose 165 H 07/22/21 11:15: POC Glucose 174 H 07/22/21 16:13: POC Glucose 325 H 07/22/21 20:39: POC Glucose 373 H 07/23/21 06:08: Sodium 139, Potassium 3.4 L, Chloride 107, Carbon Dioxide 23.0, Anion Gap 9, BUN 20 H, Creatinine 1.27, Estim Creat Clear Calc 63.49, Est GFR (MDRD) Af Amer 77, Est GFR (MDRD) Non-Af 64, BUN/Creatinine Ratio 15.7, Glucose 205 H, Calcium 8.1 L, Iron 67, TIBC 268, Iron Saturation 25.0 07/23/21 06:35: POC Glucose 195 H Microbiology: Microbiology 07/21/21 22:20 Nasal Secretion SARS-CoV-2 Antigen (Rapid) - Final D/C Instructions Discharge Diet: 2000 Calorie Control Diet Meaningful Use Info Meaningful Use Diagnoses (Choose all that apply): None applicable Discharge Plan Admission Admit Date/Time: 07/21/21 21:53 Primary Reason for Your Visit: Hyperosolamar non-ketotic state. Uncontrolled diabetes mellitus Attending Provider: Paddy Cotton Primary Care Provider: Blake Calixto Discharge Orders/Prescriptions Prescriptions: New insulin lispro [Humalog KwikPen Insulin] 100 unit/mL Insulin Pen 10 unit subcut TIDAC 30 Days Qty: 9 RF: 0 Lantus Solostar U-100 Insulin 100 unit/mL (3 mL) insulin pen 30 unit subcut BID 30 Days Qty: 18 RF: 0 (DME) pen needle, diabetic 29 gauge needle See Rx Instructions .ROUTE .MEDSUPPLY Qty: 100 RF: 0 Continued aspirin 81 mg tablet,chewable 81 mg PO DAILY Qty: 90 RF: 3 clopidogrel 75 mg tablet 75 mg PO DAILY Qty: 90 RF: 3 atorvastatin 80 mg tablet 80 mg PO QHS Qty: 90 RF: 3 amlodipine 5 mg tablet 5 mg PO DAILY Qty: 30 RF: 11 lisinopril 40 mg tablet 40 mg PO DAILY Qty: 90 RF: 3 pantoprazole 40 mg tablet,delayed release (DR/EC) 40 mg PO DAILY RF: 0 carvedilol [Coreg] 12.5 mg tablet 12.5 mg PO BID Qty: 180 RF: 3 Discontinued hydrochlorothiazide 25 mg tablet 25 mg PO DAILY RF: 0 Referrals / Follow Up: Blake Calixto DO [Primary Care Provider] - Within 2 Weeks Timi Marin MD [STAFF PHYSICIAN] - Within 1 Month (Endocrinology) Disposition Disposition (needs filled in before D/C Order can be placed): Home, Self Care Charges/Coding Visit Charges Inpatient E&M: 81106 Disch Hosp
== END 2021-07-23 11:24 | disposition home or self-care (01) | DRG 638 ==
LOC: ED 21:28 → ICU 07-22 07:02 → MS3 07-23 06:58 → ICU 07-25 10:16
PROVIDERS: Emergency Medicine; Internal Medicine; Admitting Provider Internal Medicine; Emergency Provider Emergency Medicine; PCP Family Medicine; Referring Provider Internal Medicine
DX: E11.00 Type 2 diabetes mellitus with hyperosmolarity without nonketotic hyperglycemic-hyperosmolar coma (NKHHC) (principal); N17.9 Acute kidney failure, unspecified; E87.1 Hypo-osmolality and hyponatremia; F17.210 Nicotine dependence, cigarettes, uncomplicated; E66.9 Obesity, unspecified; Z68.37 Body mass index [BMI] 37.0-37.9, adult; E11.21 Type 2 diabetes mellitus with diabetic nephropathy; I25.10 Atherosclerotic heart disease of native coronary artery without angina pectoris; E87.6 Hypokalemia; D64.9 Anemia, unspecified; I12.9 Hypertensive chronic kidney disease with stage 1 through stage 4 chronic kidney disease, or unspecified chronic kidney disease; J45.20 Mild intermittent asthma, uncomplicated; Z95.5 Presence of coronary angioplasty implant and graft; Z86.73 Personal history of transient ischemic attack (TIA), and cerebral infarction without residual deficits; Z79.51 Long term (current) use of inhaled steroids; Z79.899 Other long term (current) drug therapy
CPT/HCPCS: 36415; 80048; 80076; 82009; 82803; 82962; 83036; 83540; 83550; 83735; 83930; 84100; 85025; 87426; 94762; 97802; 99251; 99285; 99406; J7030; A4216; G0463; J7799

== ENCOUNTER 2022-05-20 08:36 | Emergency (ER) | payer BC, SELFPAY ==
[2019-05-02 10:08] VITALS: BMI 37.9
[2022-05-20 08:37] VITALS: BP 165/92; PULSE 63; RESP 18; TEMP 36.6; O2SAT 100; BMI 37.1
--- NOTE | 2022-05-20 09:01 | RAD_ITS ---
STUDY: X-RAY - RIGHT FOOT CLINICAL: Male, 52 years old. Pain TECHNIQUE: 3 view(s) of the foot. COMPARISON: None. FINDINGS: Normal talus, calcaneus, and tarsal bones. Normal visualized subtalar, talonavicular, calcaneocuboid, tarsal and tarsometatarsal articulations. Normal metatarsi. Normal metatarsophalangeal joint of the great toe. Normal tibial and fibular sesamoid bones. Normal interphalangeal joint of the great toe. Normal phalanges of the great toe. Normal second through fifth metatarsophalangeal joints. Normal interphalangeal joints and phalanges of the lesser toes. The soft tissue structures are unremarkable. There is no demonstrated fracture. RAD/Foot min 3 Views IMPRESSION: Normal x-ray examination of the foot. Electronically Signed: Tito Lopez MD at 9:45 EDT ,
--- NOTE | 2022-05-20 09:01 | ED.VIS.LOWEX ---
HPI History of Present Illness Chief Complaint: Lower Extremity Injury Narrative Narrative: 52-year-old male presenting with right foot pain is on the dorsal lateral surface of the right foot. Patient states he believes over the summer when he was running he might of broken his foot. This was not diagnosed. He states that he had been recovering without any problem and then noticed couple days ago started to hurt again. He denies any new trauma. He denies history of neuropathy. No lacerations, scrapes, abrasions. He states he has to walk with an antalgic gait. No numbness or tingling. [facility] Medical History Atherosclerosis of coronary artery without angina pectoris Essential hypertension HTN (hypertension) Hyperlipidemia Hypertensive urgency Ischemic cardiomyopathy Sustained ventricular tachycardia Syncope Ventricular trigeminy Home Medications aspirin 81 mg chewable tablet 81 mg PO DAILY #90 tabs 05/13/19 [Rx Last Taken Unknown] atorvastatin 80 mg tablet 80 mg PO QHS #90 tabs 05/13/19 [Rx Last Taken Unknown] clopidogrel 75 mg tablet 75 mg PO DAILY #90 tabs 05/13/19 [Rx Last Taken Unknown] amlodipine 5 mg tablet 5 mg PO DAILY #30 tabs 06/30/19 [Rx Last Taken Unknown] lisinopril 40 mg tablet 40 mg PO DAILY #90 tabs 06/30/19 [Rx Last Taken Unknown] carvedilol 12.5 mg tablet (Coreg) 12.5 mg PO BID #180 tabs 07/14/19 [Rx Last Taken Unknown] pantoprazole 40 mg tablet,delayed release 40 mg PO DAILY 07/21/21 [History Last Taken Unknown] pen needle, diabetic 29 gauge #100 ea 07/23/21 [Rx Last Taken Unknown] tramadol 50 mg tablet 50 mg PO Q8H PRN pain #12 tabs 05/20/22 [Rx Last Taken Unknown] Allergy/AdvReac Type Severity Reaction Status Date / Time Penicillins Allergy Unknown Verified 05/20/22 08:39 Surgical History H/O cardiac radiofrequency ablation (01/02/20) History of cholecystectomy History of temporal artery biopsy History of tonsillectomy Status post placement of implantable loop recorder (03/12/20) Stented coronary artery (05/02/19) Social History Smoking Status: Current some day smoker tobacco type: cigarettes ROS ROS ED Constitutional Constitutional ED: Denies chills or fever(s) Eyes Eyes: Denies change in vision or diplopia ENT ENT ED: Denies rhinorrhea or sore throat Cardiovascular Cardiovascular: Denies chest pain or palpitations Respiratory/Chest Respiratory/Chest: Denies cough or dyspnea Gastrointestinal Gastrointestinal: Denies abdominal pain or constipation Genitourinary Genitourinary ED: Denies dysuria or hematuria Musculoskeletal Musculoskeletal: Reports other Details: Right foot pain Integumentary Reports other Details: Faint erythema over right foot Neurologic Neurologic: Denies headache(s) Psychiatric Psychiatric: Denies anxiety or depression EXAM Physical Exam Const Vital Signs: 05/20/22 08:37 Temperature 97.9 F Temperature Source Temporal Pulse Rate 63 Respiratory Rate 18 Blood Pressure 165/92 H Blood Pressure Mean 116 Pulse Ox 100 Oxygen Delivery Method Room Air Positive well nourished General Appearance ED: NAD HEENT Reports moist mucous membranes normocephalic and atraumatic Eyes PERRL Resp normal respiratory effort Cardio regular rate and regular rhythm Neuro oriented x3 and CN's II-XII intact bilaterally Sensorium / Orientation: alert Psych mental status grossly normal Skin Skin Narrative: There is a faint erythema and mild edema over the dorsal lateral area of the right foot without increased warmth, crepitance, lymphangitic streaking. It is minimally tender to palpation on examination. Right foot neurovascular intact brisk cap refill to all 5 toes. MDM MDM MDM Narrative Medical decision making narrative: 52-year-old male presenting with right foot pain. He feels like he might of broken and in the summertime running but this had recovered. Over the last few days he has noticed some pain in the dorsal lateral aspect of the right foot. There is a little bit of swelling and mild erythema here. It does not look infected. I did obtain an x-ray of the right foot and on my interpretation there are no acute fractures or obvious abnormalities. I suspect this is likely due to a tendinitis in the foot. Patient will be given a short supply of tramadol he should ice and elevate this as well. He will be given follow-up with podiatry. Impression: 1. Right foot tenderness Radiography Diagnostic Testing: Clinical Impression(s) from Imaging Studies Foot X-Ray 05/20/22 09:01 IMPRESSION: Normal x-ray examination of the foot. Electronically Signed: Tito Lopez MD at 9:45 EDT , Discharge Plan Triage Chief Complaint: Lower Extremity Injury ED Provider: Miguel Freeman Dx/Rx/DC Orders Instructions: ED Tendonitis Prescriptions: New tramadol 50 mg tablet 50 mg PO Q8H PRN (Reason: pain) Qty: 12 0RF No Action aspirin 81 mg tablet,chewable 81 mg PO DAILY Qty: 90 3RF clopidogrel 75 mg tablet 75 mg PO DAILY Qty: 90 3RF atorvastatin 80 mg tablet 80 mg PO QHS Qty: 90 3RF amlodipine 5 mg tablet 5 mg PO DAILY Qty: 30 11RF lisinopril 40 mg tablet 40 mg PO DAILY Qty: 90 3RF pantoprazole 40 mg tablet,delayed release (DR/EC) 40 mg PO DAILY (DME) pen needle, diabetic 29 gauge needle See Rx Instructions .ROUTE .MEDSUPPLY Qty: 100 0RF Rx Instructions: As directed carvedilol [Coreg] 12.5 mg tablet 12.5 mg PO BID Qty: 180 3RF Rx Instructions: must administer with a meal/food Primary Care Provider: Blake Calixto Referrals: Blake Calixto, [Primary Care Provider] - Caio Cabello DPM [Med Staff - Active Staff] - 3-5 Days Disposition Disposition: Home, Self Care
[2022-05-20 10:42] VITALS: RESP 18
== END 2022-05-20 10:42 | disposition home or self-care (01) ==
PROVIDERS: Emergency Provider Student in an Organized Health Care Education/Training Program; PCP Family Medicine; Visit Provider Student in an Organized Health Care Education/Training Program
DX: M77.9 Enthesopathy, unspecified (principal); M79.671 Pain in right foot; I25.10 Atherosclerotic heart disease of native coronary artery without angina pectoris; I10 Essential (primary) hypertension; E78.5 Hyperlipidemia, unspecified; F17.210 Nicotine dependence, cigarettes, uncomplicated; Z79.82 Long term (current) use of aspirin; Z79.899 Other long term (current) drug therapy
CPT/HCPCS: 73630; 99282

== ENCOUNTER 2022-09-08 19:44 | Observation (INO) | payer BC, SELFPAY ==
[2019-05-02 10:08] VITALS: BMI 37.9
[2022-09-08 19:45] VITALS: BP 200/110; PULSE 67; RESP 22; TEMP 36.5; BMI 36.8
--- NOTE | 2022-09-08 19:54 | CT_ITS ---
INDICATION: Kidney Stone EXAMINATION: CT ABDOMEN AND PELVIS WITHOUT CONTRAST - CT Abdomen And Pelvis W/O Contrast Injection TECHNIQUE: Helically acquired images were obtained of the abdomen and pelvis without oral or IV contrast. A radiation dose optimization technique was used for this scan. IV Contrast dosage and agent: None. Oral contrast: None. COMPARISON: None. FINDINGS: LOWER CHEST: Lung bases are clear. Coronary artery calcifications. LIVER: Hypoattenuating. No focal mass. GALLBLADDER AND BILIARY TREE: No calcified gallstones. No gallbladder distension or wall edema. No intra- or extrahepatic biliary ductal dilation. PANCREAS: No focal cystic or solid mass. SPLEEN: Normal size without focal cystic or solid mass. ADRENAL GLANDS: No nodules. KIDNEYS AND URETERS: 6 mm proximal left ureter calculus with moderate proximal hydronephrosis and perinephric inflammatory stranding. Multiple left renal collecting system calculi, the largest of which in the left lower pole measures up to 8 mm. No right renal calculus. PERITONEUM: No ascites or free air. No other fluid collection. BOWEL: No evidence of acute appendicitis. No stomach or bowel distension. No focal inflammatory change. LYMPH NODES: No enlarged mesenteric or retroperitoneal lymph nodes. VESSELS: Aorta is non-dilated. URINARY BLADDER: Unremarkable. REPRODUCTIVE ORGANS: No pelvic masses. ABDOMINAL WALL: No discrete abdominal or pelvic wall hernia. BONES: No lytic or blastic abnormality. CT/Abdomen/Pelvis without Cont IMPRESSION: Left proximal ureter obstructing calculus. Hepatic steatosis. Electronically Signed: Pratik Villalba MD at 21:14 EST ,
--- NOTE | 2022-09-08 19:59 | EDS_ITS ---
HPI History of Present Illness Chief Complaint: Flank Pain Informant: patient Onset/Context/Timing Onset: Today Current Severity: Moderate Maximum Severity: Severe Narrative Narrative: Patient reports left flank pain today with nausea and vomiting. He has a history of kidney stones that feels similar. He states he noted brown-colored urine for the past week that turned to bright red today. He did not have significant flank pain until today. Patient has required lithotripsy and stent placement in the past with his kidney stones. He has not had fever or chills. [facility] Medical History Atherosclerosis of coronary artery without angina pectoris Essential hypertension HTN (hypertension) Hyperlipidemia Hypertensive urgency Ischemic cardiomyopathy Sustained ventricular tachycardia Syncope Ventricular trigeminy Home Medications aspirin 81 mg chewable tablet 81 mg PO DAILY #90 tabs 05/13/19 [Rx Last Taken Unknown] atorvastatin 80 mg tablet 80 mg PO QHS #90 tabs 05/13/19 [Rx Last Taken Unknown] clopidogrel 75 mg tablet 75 mg PO DAILY #90 tabs 05/13/19 [Rx Last Taken Unknown] amlodipine 5 mg tablet 5 mg PO DAILY #30 tabs 06/30/19 [Rx Last Taken Unknown] lisinopril 40 mg tablet 40 mg PO DAILY #90 tabs 06/30/19 [Rx Last Taken Unknown] carvedilol 12.5 mg tablet (Coreg) 12.5 mg PO BID #180 tabs 07/14/19 [Rx Last Taken Unknown] pantoprazole 40 mg tablet,delayed release 40 mg PO DAILY 07/21/21 [History Last Taken Unknown] pen needle, diabetic 29 gauge #100 ea 07/23/21 [Rx Last Taken Unknown] tramadol 50 mg tablet 50 mg PO Q8H PRN pain #12 tabs 05/20/22 [Rx Last Taken Unknown] Allergy/AdvReac Type Severity Reaction Status Date / Time Penicillins Allergy Unknown Verified 05/20/22 08:39 Surgical History H/O cardiac radiofrequency ablation (01/02/20) History of cholecystectomy History of temporal artery biopsy History of tonsillectomy Status post placement of implantable loop recorder (03/12/20) Stented coronary artery (05/02/19) Social History Smoking Status: Current some day smoker tobacco type: pipe and cigars ROS ROS ED Constitutional Constitutional ED: Denies chills or fever(s) Eyes Eyes: Denies change in vision or discharge from eye(s) ENT ENT ED: Denies discharge from eye(s), rhinorrhea or sore throat Cardiovascular Cardiovascular: Denies chest pain or palpitations Respiratory/Chest Respiratory/Chest: Denies cough or dyspnea Gastrointestinal Gastrointestinal: Reports abdominal pain, nausea and vomiting; Denies diarrhea Genitourinary Genitourinary ED: Reports hematuria Musculoskeletal Musculoskeletal: Reports back pain; Denies extremity pain Integumentary Denies Abrasions or rash Neurologic Neurologic: Denies headache(s) or weakness Allergic/Immunologic Allergic/Immunologic ED: Denies lip swelling or urticaria EXAM Physical Exam Narrative Exam Narrative: Patient seen on the side of bed actively vomiting. Const Vital Signs: 09/08/22 19:45 09/08/22 19:45 09/08/22 21:03 Temperature 97.7 F L 97.7 F L Temperature Source Oral Oral Pulse Rate 67 67 64 Respiratory Rate 22 H 22 H 16 Blood Pressure 200/110 H 200/110 H 155/94 H Blood Pressure Mean 140 140 114 Pulse Ox 97 Oxygen Delivery Method Room Air Positive well nourished and well developed General Appearance ED: well developed Eyes EOMs intact bilaterally Chest Wall inspection of chest normal and palpation of chest normal Resp normal respiratory effort and clear to auscultation bilaterally Cardio regular rate and regular rhythm GI GI Narrative: Abdomen soft and distended. No focal tenderness to palpation. Back/Spine General Back: CVA tenderness left Extremity normal to inspection Neuro oriented x3 and no sensory deficits noted Motor Exam: strength 5/5 throughout Psych mental status grossly normal Skin no rashes or lesions noted MDM MDM MDM Narrative Medical decision making narrative: Patient was given morphine, Zofran, Toradol, IV fluids. Lab work obtained along with urinalysis. CT flank ordered. Lab Data Attestation: I reviewed the patient's lab results. Labs: Laboratory Results - last 24 hr 09/08/22 09/08/22 09/08/22 20:08 20:08 21:15 WBC 16.0 H RBC 4.75 Hgb 14.1 Hct 41.3 MCV 86.9 MCH 29.7 MCHC 34.1 RDW Std Deviation 39.0 RDW Coeff of Tony 12.3 Plt Count 299 MPV 11.0 Immature Gran % (Auto) 0.400 Neut % (Auto) 78.0 H Lymph % (Auto) 10.8 L [place] % (Auto) 9.1 Eos % (Auto) 1.4 Baso % (Auto) 0.3 Absolute Neuts (auto) 12.5 H Absolute Lymphs (auto) 1.72 Nucleated RBC % 0 Sodium 137 Potassium 3.7 Chloride 101 Carbon Dioxide 22.0 Anion Gap 14 BUN 22 H Creatinine 1.92 H Estim Creat Clear Calc 41.54 Est GFR (MDRD) Af Amer 48 L Est GFR (MDRD) Non-Af 40 L BUN/Creatinine Ratio 11.5 Glucose 265 H Calcium 10.4 H Urine Color Yellow Urine Clarity Clear Urine pH 5.0 Ur Specific [place] 1.020 Urine Protein 100 H Urine Glucose (UA) 50 H Urine Ketones 15 H Urine Occult Blood 250 H Urine Nitrite Negative Urine Bilirubin Negative Urine Urobilinogen Normal Ur Leukocyte Esterase 25 H Radiography Diagnostic Testing: Clinical Impression(s) from Imaging Studies Abdomen/Pelvis CT 09/08/22 19:54 IMPRESSION: Left proximal ureter obstructing calculus. Hepatic steatosis. Electronically Signed: Pratik Villalba MD at 21:14 EST , Treatment and Re-Evaluation Narrative: CBC was a white count of 16.0 with 78% neutrophils. Patient has not had a feve r. I believe this is likely secondary to vomiting. Chemistry studies reveal a BUN of 22 and a creatinine of 1.92. It appears his baseline creatinine is around 1.2, but he has been as high as 2.1 in the past. His glucose is 265. Urinalysis reveals 25 leukocyte Estrace with no nitrites. 250 of occult blood noted. CT scan of the abdomen and pelvis reveals a 6 mm proximal left ureter stone with moderate hydronephrosis and perinephric stranding. Multiple left- sided stones are noted in the kidney itself. No right sided stones are noted. On repeat evaluation patient is resting comfortably at this time, but has had to doses of pain medication to keep him comfortable here. He has required surgery in the past. I will speak with Dr. Castro regarding observation and further treatment. Discharge Plan Triage Chief Complaint: Flank Pain ED Provider: Maame Orourke Dx/Rx/DC Orders Clinical Impression: Ureterolithiasis Prescriptions: No Action aspirin 81 mg tablet,chewable 81 mg PO DAILY Qty: 90 3RF clopidogrel 75 mg tablet 75 mg PO DAILY Qty: 90 3RF atorvastatin 80 mg tablet 80 mg PO QHS Qty: 90 3RF amlodipine 5 mg tablet 5 mg PO DAILY Qty: 30 11RF lisinopril 40 mg tablet 40 mg PO DAILY Qty: 90 3RF pantoprazole 40 mg tablet,delayed release (DR/EC) 40 mg PO DAILY (DME) pen needle, diabetic 29 gauge needle See Rx Instructions .ROUTE .MEDSUPPLY Qty: 100 0RF Rx Instructions: As directed tramadol 50 mg tablet 50 mg PO Q8H PRN (Reason: pain) Qty: 12 0RF carvedilol [Coreg] 12.5 mg tablet 12.5 mg PO BID Qty: 180 3RF Rx Instructions: must administer with a meal/food Primary Care Provider: Blake Calixto Referrals: Blake Calixto, DO [Primary Care Provider] - Disposition Disposition: Acute Care Hospital [facility]
[2022-09-08] MEDS: 0.9% Normal Saline 1,000 ML 150 ML IV (20:06)
[2022-09-08] MEDS: Ketorolac 30 MG/ML Syringe IV (20:07)
[2022-09-08] MEDS: Ondansetron 4 MG/2 ML Vial IV (20:07)
[2022-09-08] MEDS: Morphine 4 MG/ML Syringe IV ×2 (20:08→20:54)
[2022-09-08 20:22] LABS: Absolute Lymphocyte Count 1.72 X10^3/uL (0.83-4.51); Absolute Neutrophil Count 12.5 X10^3/uL (2.0-7.7); Basophil# 0.05 X10^3/uL; Basophil% 0.3 % (0-1); Eosinophil# 0.23 X10^3/uL; Eosinophils% 1.4 % (0-5); Hematocrit 41.3 % (40-54); Hemoglobin 14.1 g/dL (13.0-16.5); Lymphocyte # 1.72 X10^3/ul (0.83-4.51); Lymphocyte % 10.8 % (19-41); Mean Corp Hgb Conc 34.1 g/dL (32-36); Mean Corpuscular Hgb 29.7 pg (27.0-32.0); Mean Corpuscular Volume 86.9 fL (80-94); Monocyte# 1.45 X10^3/uL; Monocyte% 9.1 % (0-10); NRBC Flagged by Analyzer 0 % (0-5); Neutrophil # 12.49 X10^3/uL (2.7-7.7); Platelet Count 299 K/mm3 (150-450); RBC Distribution Width CV 12.3 % (11.6-14.6); Red Blood Count 4.75 M/mm3 (4.6-6.2)
[2022-09-08 20:38] LABS: Anion Gap 14 (5-15); BUN 22 mg/dL (7-18); BUN/Creat Ratio 11.5 RATIO (10-20); Calcium,Total 10.4 mg/dL (8.5-10.1); Chloride 101 mmol/L (98-107); Creatinine, Serum 1.92 mg/dL (0.70-1.30); EST Glomerular Filtration Rate 40 mL/min (>60); Est Glom Filt Rate - Afr Amer 48 mL/min (>60); Estimated Creatinine Clearance 41.54 ml/min; Glucose 265 mg/dL (74-106); Potassium 3.7 mmol/L (3.5-5.1); Sodium Level 137 mmol/L (136-145)
[2022-09-08 21:03] VITALS: BP 155/94; PULSE 64; RESP 16; O2SAT 97
[2022-09-08 21:22] LABS: Bacteria 0 SEEN /hpf (None Seen); Mucous, Urine 0 SEEN /hpf (<or=2+); Red Blood Cells-Urine 0 SEEN /hpf (0-5); Squamous Epithelial Cells - UA 0 SEEN /hpf (0-5); White Blood Cells 0 SEEN /hpf (0-5)
[2022-09-08 21:23] LABS: Color, Urine Yellow (Yellow); Glucose, Dipstick 50 mg/dl (Normal); Ketone-Dipstick 15 mg/dl (Negative); Leukocyte Esterase-Dipstick 25 /ul (Negative); Nitrite-Dipstick Negative (Negative); Occult Blood-Urine 250 /ul (Negative); Protein-Dipstick 100 mg/dl (Negative); Urine Bilirubin Dipstick Negative (Negative); Urine Clarity Clear (Clear); Urine Urobilinogen Normal (Normal)
[2022-09-08 22:15] VITALS: BP 156/84; PULSE 67; RESP 16; TEMP 36.7; O2SAT 94
[2022-09-08 22:48] VITALS: BMI 37.6
[2022-09-08 22:50] VITALS: BP 169/94; PULSE 71; RESP 18; TEMP 36.5; O2SAT 95
[2022-09-09] VITALS (10 sets, daily range): BP systolic 121–164; BP diastolic 73–107; PULSE 62–80; RESP 16–18; TEMP 36.5–37.1; O2SAT 94–100; BMI 37.4
[2022-09-09] MEDS: Morphine 2 MG/ML Syringe IV (00:09)
[2022-09-09] MEDS: 0.9% Normal Saline 1,000 ML 75 ML IV ×3 (00:25→14:56)
[2022-09-09] MEDS: Ketorolac 15 MG/ML Vial IV (02:52)
--- NOTE | 2022-09-09 07:31 | HP.PCM_ITS ---
HPI - General General Date of Admission: 09/08/22 Date of Service: 09/08/22 Chief Complaint: left kidney stones HPI Narrative MEL MARSH, is a 52 M who presents with severe renal colic from left kidney stone. elevated WBC. NPO today plan to place stent later today when OR available. ER doc asked me to admit pt for patient control and they could not get pain under control and with WBC elevated concern for infection. [facility] Medical History Atherosclerosis of coronary artery without angina pectoris Essential hypertension HTN (hypertension) Hyperlipidemia Hypertensive urgency Ischemic cardiomyopathy Sustained ventricular tachycardia Syncope Ventricular trigeminy Home Medications aspirin 81 mg chewable tablet 81 mg PO DAILY #90 tabs 05/13/19 [Rx Last Taken 09/07/22] atorvastatin 80 mg tablet 80 mg PO QHS #90 tabs 05/13/19 [Rx Last Taken 09/07/22] clopidogrel 75 mg tablet 75 mg PO DAILY #90 tabs 05/13/19 [Rx Last Taken Unknown] lisinopril 40 mg tablet 40 mg PO DAILY #90 tabs 06/30/19 [Rx Last Taken Unknown] carvedilol 12.5 mg tablet (Coreg) 12.5 mg PO BID #180 tabs 07/14/19 [Rx Last Taken 09/08/22] pantoprazole 40 mg tablet,delayed release 40 mg PO DAILY 07/21/21 [History Last Taken Unknown] pen needle, diabetic 29 gauge #100 ea 07/23/21 [Rx Last Taken Unknown] tramadol 50 mg tablet 50 mg PO Q8H PRN pain #12 tabs 05/20/22 [Rx Last Taken Unknown] albuterol 90 mcg/actuation aerosol inhaler 90 mcg inhalation 09/08/22 [History Last Taken Unknown] amlodipine 5 mg tablet 2.5 mg PO DAILY 09/08/22 [History Last Taken 09/08/22] azelastine 137 mcg (0.1 %) nasal spray aerosol 1 spray intranasal BID 09/08/22 [History Last Taken 09/07/22] cholecalciferol (vitamin D3) 125 mcg (5,000 unit) capsule QWEEK 09/08/22 [History Last Taken 09/03/22] fluticasone propionate 50 mcg/actuation nasal spray,suspension 1 spray intranasal DAILY 09/08/22 [History Last Taken Unknown] hydrochlorothiazide 25 mg tablet 25 mg PO DAILY 09/08/22 [History Last Taken Unknown] linagliptin 5 mg tablet (Tradjenta) 5 mg PO DAILY 09/08/22 [History Last Taken Unknown] metformin 500 mg tablet,extended release 24hr 500 mg PO DAILY 09/08/22 [History Last Taken Unknown] tamsulosin 0.4 mg capsule (Flomax) 0.4 mg PO DAILY 09/08/22 [History Last Taken Unknown] Allergy/AdvReac Type Severity Reaction Status Date / Time Penicillins Allergy Unknown Verified 05/20/22 08:39 Surgical History H/O cardiac radiofrequency ablation (01/02/20) History of cholecystectomy History of temporal artery biopsy History of tonsillectomy Status post placement of implantable loop recorder (03/12/20) Stented coronary artery (05/02/19) Social History Smoking Status: Current some day smoker tobacco type: pipe and cigars ROS Constitutional Constitutional: Denies chills, fever(s) or malaise Eyes Eyes: Denies blurry vision or change in vision ENT HEENT: Reports none Cardiovascular Cardiovascular: Denies chest pain or palpitations Respiratory/Chest Respiratory/Chest: Denies cough or shortness of breath with exertion Gastrointestinal Gastrointestinal: Denies abdominal pain, constipation or diarrhea Musculoskeletal Musculoskeletal: Denies back pain, joint stiffness or joint swelling Integumentary Integumentary: Denies dry skin, jaundice, lesions or rash Neurologic Neurologic: Denies confusion, syncope or weakness Psychiatric Psychiatric: Reports none; Denies anxiety or depression Endocrine Endocrinology: Denies excessive sweating, fatigue or flushing Hematologic/Lymphatic Hematologic/Lymphatic: Denies anemia, easy bleeding or easy bruising Vital Signs Vital Signs Vital Signs: 09/08/22 19:45 09/08/22 19:45 09/08/22 21:03 Temperature 97.7 F L 97.7 F L Temperature Source Oral Oral Pulse Rate 67 67 64 Respiratory Rate 22 H 22 H 16 Respiratory Effort Respiratory Depth Respiratory Pattern Blood Pressure 200/110 H 200/110 H 155/94 H Blood Pressure Mean 140 140 114 Blood Pressure Source Blood Pressure Position Blood Pressure Location Pulse Ox 97 Oxygen Delivery Method Room Air 09/08/22 22:15 09/08/22 22:50 09/08/22 22:48 Temperature 98.1 F 97.7 F L Temperature Source Temporal Oral Pulse Rate 67 71 Respiratory Rate 16 18 Respiratory Effort Normal Non-Labored Respiratory Depth Normal Respiratory Pattern Normal Blood Pressure 156/84 H 169/94 H Blood Pressure Mean 108 119 Blood Pressure Source Monitor Blood Pressure Position Semi-Fowlers Blood Pressure Location Right Arm Pulse Ox 94 95 Oxygen Delivery Method Room Air Room Air Room Air 09/09/22 02:50 Temperature 97.7 F L Temperature Source Oral Pulse Rate 71 Respiratory Rate 18 Respiratory Effort Respiratory Depth Respiratory Pattern Blood Pressure 153/100 H Blood Pressure Mean 117 Blood Pressure Source Monitor Blood Pressure Position Semi-Fowlers Blood Pressure Location Right Arm Pulse Ox 97 Oxygen Delivery Method Room Air Weight Weight: 105.8 kg Body Mass Index (BMI) 37.6 Results Lab / Micro Data Result Diagrams: 09/08/22 20:08 09/08/22 20:08 Labs: Laboratory Results - last 24 hr 09/08/22 20:08: WBC 16.0 H, RBC 4.75, Hgb 14.1, Hct 41.3, MCV 86.9, MCH 29.7, MCHC 34.1, RDW Std Deviation 39.0, RDW Coeff of Tony 12.3, Plt Count 299, MPV 11.0, Immature Gran % (Auto) 0.400, Neut % (Auto) 78.0 H, Lymph % (Auto) 10.8 L, [place] % (Auto) 9.1, Eos % (Auto) 1.4, Baso % (Auto) 0.3, Absolute Neuts (auto) 12.5 H, Absolute Lymphs (auto) 1.72, Nucleated RBC % 0 09/08/22 20:08: Sodium 137, Potassium 3.7, Chloride 101, Carbon Dioxide 22.0, Anion Gap 14, BUN 22 H, Creatinine 1.92 H, Estim Creat Clear Calc 41.54, Est GFR (MDRD) Af Amer 48 L, Est GFR (MDRD) Non-Af 40 L, BUN/Creatinine Ratio 11.5, Glucose 265 H, Calcium 10.4 H 09/08/22 21:15: Urine Color Yellow, Urine Clarity Clear, Urine pH 5.0, Ur Specific [place] 1.020, Urine Protein 100 H, Urine Glucose (UA) 50 H, Urine Ketones 15 H, Urine Occult Blood 250 H, Urine Nitrite Negative, Urine Bilirubin Negative, Urine Urobilinogen Normal, Ur Leukocyte Esterase 25 H, Urine RBC 0 SEEN, Urine WBC 0 SEEN, Ur Squamous Epith Cells 0 SEEN, Urine Bacteria 0 SEEN, Urine Mucus 0 SEEN Radiology Impression Abdomen/Pelvis CT 09/08/22 19:54 IMPRESSION: Left proximal ureter obstructing calculus. Hepatic steatosis. Electronically Signed: Pratik Villalba MD at 21:14 EST , Assessment & Plan Assessment/Plan (1) Ureterolithiasis: PLAN: Plan left kidney stone, npo, plan for cysto left stent placement today.
[2022-09-09 10:51] LABS: Hemoglobin A1c 9.5 % (3.8-5.6)
[2022-09-09] MEDS: Carvedilol 12.5 MG Tablet PO (11:06)
[2022-09-09] MEDS: Lisinopril 40 MG Tablet PO (11:06)
[2022-09-09] MEDS: amLODIPine 2.5 MG Tablet PO (11:06)
[2022-09-09 12:10] LABS: Bedside Glucose 155 mg/dL (74-106)
--- NOTE | 2022-09-09 13:39 | DCINST_ITS ---
Discharge Instructions Diet Discharge Diet: No restrictions Follow Up Care Please Follow Up With: Yovanny Castro MD When: [phone] call to get set up for lasering your stones. Test Results: Test results from this visit will be discussed in further detail at your follow- up appointment, if applicable. Discharge Plan Admission Admit Date/Time: 09/08/22 22:15 Attending Provider: Yovanny Castro Primary Care Provider: Blake Calixto Discharge Orders/Prescriptions Prescriptions: No Action aspirin 81 mg tablet,chewable 81 mg PO DAILY Qty: 90 3RF clopidogrel 75 mg tablet 75 mg PO DAILY Qty: 90 3RF atorvastatin 80 mg tablet 80 mg PO QHS Qty: 90 3RF lisinopril 40 mg tablet 40 mg PO DAILY Qty: 90 3RF pantoprazole 40 mg tablet,delayed release (DR/EC) 40 mg PO DAILY (DME) pen needle, diabetic 29 gauge needle See Rx Instructions .ROUTE .MEDSUPPLY Qty: 100 0RF Rx Instructions: As directed tamsulosin [Flomax] 0.4 mg Capsule 0.4 mg PO DAILY hydrochlorothiazide 25 mg Tablet 25 mg PO DAILY azelastine 137 mcg (0.1 %) Aerosol,[place] 1 spray INTRANASAL BID Rx Instructions: administer into each nostril fluticasone propionate 50 mcg/actuation [place],Suspension 1 spray INTRANASAL DAILY Rx Instructions: administer into each nostril cholecalciferol (vitamin D3) 125 mcg (5,000 unit) capsule QWEEK Label Comments: TAKE 1 CAPSULE BY MOUTH ONCE DAILY Rx Instructions: takes on Sundays metformin 500 mg Tablet Extended Release 24hr 500 mg PO DAILY Tradjenta 5 mg Tablet 5 mg PO DAILY amlodipine 5 mg tablet 2.5 mg PO DAILY carvedilol [Coreg] 12.5 mg tablet 12.5 mg PO BID Qty: 180 3RF Rx Instructions: must administer with a meal/food Referrals / Follow Up: Blake Calixto, [Primary Care Provider] - Disposition Discharge Orders: Discharge Patient (Routine); Ordered 09/09/22 Ordered By: Dr. Yovanny Castro
[2022-09-09] MEDS: Cefazolin 2 GM in 0.9% Normal Saline 100 ML IV (13:41)
[2022-09-09] MEDS: Lidocaine Jelly 2% 20 ML Syringe (URO-JET) 1 APPLIC (13:45)
--- NOTE | 2022-09-09 13:56 | PCM.OPRPT ---
Report of Operation Date of Procedure: 09/09/22 Pre-Operative Diagnosis: left kidney Post-Operative Diagnosis: same Surgery/Procedure Performed:: cysto and left stent placement Description of Surgical Findings:: Patient was taken back to the operating room after induction of general anesthesia, the patient was placed in dorsolithotomy position. The urethra and genitals were prepped and draped in usual sterile fashion. Using a 21 [place] rigid cystourethroscope the entire length of the urethra was normal then went into the bladder. Identified the trigone the left and right ureteral orifice. I then cannulated the let ureteral orifice and advanced a wire up into the kidney. I then backloaded a 5 [place] open ended catheter over the wire and injected contrast to delineate the anatomy. After the retrograde was performed I then used fluoroscopic images and guidance to advanced a wire up into the kidney and over the 0.038 glidewire I advanced a 6 [place] by 26 cm double pigtail stent. I then pulled the 0.038 Glidewire off and the stent coiled in the kidney bladder good position. The bladder was then drained. We confirmed the position of the stent by fluoroscopy. Patient anesthetic was reversed and was taken back to the PACU in good condition. Surgeon: Yovanny Castro Type of Anesthesia: MAC Admit VTE Documentation VTE Present on Admission: No VTE Mechan Device Prophylaxis: SCD's
[2022-09-09] MEDS: hydroCHLOROthiazide 25 MG Tablet PO (14:56)
== END 2022-09-09 13:38 | disposition home or self-care (01) ==
LOC: ED 21:30 → PCU 22:41
PROVIDERS: Admitting Provider Urology; Emergency Provider Emergency Medicine; PCP Family Medicine; Visit Provider Urology
PROC: (CPT 52332; principal; 2022-09-09 11:00)
DX: N13.2 Hydronephrosis with renal and ureteral calculous obstruction (principal); Z79.02 Long term (current) use of antithrombotics/antiplatelets; I10 Essential (primary) hypertension; F17.290 Nicotine dependence, other tobacco product, uncomplicated; I25.5 Ischemic cardiomyopathy; I25.10 Atherosclerotic heart disease of native coronary artery without angina pectoris; Z79.82 Long term (current) use of aspirin; E78.5 Hyperlipidemia, unspecified; Z87.442 Personal history of urinary calculi; Z79.899 Other long term (current) drug therapy
CPT/HCPCS: 52332; 00910; 74176; 76000; 80048; 81001; 82962; 83036; 85025; 93005; 96361; 96374; 96375; 96376; 99221; 99284; J7030; A4216; C1769; C2617; G0378; J2405

== ENCOUNTER → 2023-02-02 | Outpatient (CLI) | payer BC, SELFPAY ==
[2019-05-02 10:08] VITALS: BMI 37.9
--- NOTE | 2023-02-02 10:45 | MRI_ITS ---
STUDY: MRI BRAIN WITH AND WITHOUT CONTRAST (ATTENTION PITUITARY GLAND) REASON FOR EXAM: Male, 52 years old. HYPOGONADISM, LOW FSH TECHNIQUE: Standardized multiplanar fat and water weighted pulse sequences were obtained. 18 mL of IV Clariscan was administered for the contrast portion of the examination. COMPARISON: MRI brain without contrast 04/29/2019. FINDINGS: Normal size of the pituitary gland for the patient?s age and gender. Normal enhancement of the pituitary gland, without a demonstrated intrapituitary lesion. Normal infundibular stalk and suprasellar cistern. Normal optic chiasm and hypothalamus. Normal size of the ventricles and extra-axial spaces for the patient''s age. Normal white matter tracts of the supratentorial brain. Normal bilateral basal ganglia. Normal thalami. Normal flow voids within the major intracranial circulation suggesting patency by spin echo criteria. Normal venous enhancement. There is no enhancing intra-axial or extra-axial abnormality. There is no extra-axial fluid accumulation. Normal tectal plate and pineal gland. Normal midbrain, rosa and medulla. Normal cerebellum. Normal basal cisterns. Normal bilateral temporal bones. Normal bilateral internal auditory canals. No demonstrated orbital abnormality, within the constraints of a routine brain study. Normal visualized paranasal sinuses. Normal calvarium and skull base. Normal visualized upper cervical spine. Normal visualized soft tissue structures. MRI/Brain W/WO Contrast IMPRESSION: Normal unenhanced and enhanced MRI of the pituitary gland. Electronically Signed: Georges Bello MD at 13:07 EDT ,
[2023-02-02 11:10] LABS: EGFR FINGERSTICK > 60.0000 mL/min (>60)
== END | disposition home or self-care (01) ==
LOC: MRI 09:46
PROVIDERS: PCP Family Medicine; Referring Provider Family Medicine; Visit Provider Family Medicine
DX: E29.1 Testicular hypofunction (principal); R79.89 Other specified abnormal findings of blood chemistry
CPT/HCPCS: 70553; A9575

== ENCOUNTER 2023-06-27 19:06 | Emergency (ER) | payer BC, SELFPAY ==
[2019-05-02 10:08] VITALS: BMI 37.9
[2023-06-27 19:07] VITALS: BP 170/109; PULSE 81; RESP 18; TEMP 36.7; O2SAT 97; BMI 38.5
[2023-06-27 19:24] LABS: Absolute Lymphocyte Count 0.83 X10^3/uL (0.83-4.51); Absolute Neutrophil Count 9.3 X10^3/uL (2.0-7.7); Basophil# 0.04 X10^3/uL; Basophil% 0.3 % (0-1); Eosinophil# 0.14 X10^3/uL; Eosinophils% 1.2 % (0-5); Hematocrit 41.9 % (40-54); Hemoglobin 14.2 g/dL (13.0-16.5); Lymphocyte # 0.83 X10^3/ul (0.83-4.51); Lymphocyte % 7.2 % (19-41); Mean Corp Hgb Conc 33.9 g/dL (32-36); Mean Corpuscular Hgb 29.2 pg (27.0-32.0); Mean Corpuscular Volume 86.2 fL (80-94); Mean Platelet Vol. 10.7 fl (6.2-12.0); Monocyte# 1.11 X10^3/uL; Monocyte% 9.6 % (0-10); NRBC Flagged by Analyzer 0 % (0-5); Neutrophil # 9.34 X10^3/uL (2.7-7.7); Neutrophil % 81.2 % (47-70); Platelet Count 264 K/mm3 (150-450); RBC Distribution Width SD 40.5 fl (35.1-43.9); Red Blood Count 4.86 M/mm3 (4.6-6.2); White Blood Count 11.5 K/mm3 (4.4-11.0)
[2023-06-27 19:28] LABS: Bacteria 0 SEEN /hpf (None Seen); Mucous, Urine 0 SEEN /hpf (<or=2+); Squamous Epithelial Cells - UA 0 SEEN /hpf (0-5)
[2023-06-27 19:32] LABS: Color, Urine Brown (Yellow); Glucose, Dipstick 100 mg/dl (Normal); Ketone-Dipstick 50 mg/dl (Negative); Leukocyte Esterase-Dipstick 100 /ul (Negative); Nitrite-Dipstick Negative (Negative); Occult Blood-Urine 250 /ul (Negative); Protein-Dipstick 500 mg/dl (Negative); Urine Bilirubin Dipstick Negative (Negative); Urine Clarity Cloudy (Clear); Urine Urobilinogen Normal (Normal); Urine pH 6.5 (5.0 - 8.0)
[2023-06-27 19:36] LABS: Anion Gap 7 (5-15); BUN 18 mg/dL (7-18); BUN/Creat Ratio 11.2 RATIO (10-20); Calcium,Total 9.3 mg/dL (8.5-10.1); Chloride 98 mmol/L (98-107); EST Glomerular Filtration Rate 49 mL/min (>60); Est Glom Filt Rate - Afr Amer 59 mL/min (>60); Estimated Creatinine Clearance 49.29 ml/min; Glucose 250 mg/dL (74-106); Sodium Level 133 mmol/L (136-145)
[2023-06-27 19:38] LABS: Red Blood Cells-Urine > 100 SEEN /hpf (0-5)
[2023-06-27 19:39] LABS: White Blood Cells 5-10 SEEN /hpf (0-5)
--- NOTE | 2023-06-27 21:02 | EX.ED.DYSGE1 ---
HPI History of Present Illness Chief Complaint: Flank Pain Informant: patient Onset/Context/Timing Onset: Yesterday Context: Gradual Onset Timing: Continuous Quality: Sharp Location: Left flank Worsened by: Nothing Relieved by: Nothing Narrative Narrative: Patient presents with left flank pain that began yesterday. Patient states it is gradually gotten worse. Patient describes his pain as sharp. Patient states that it is localized to the left flank. Patient states nothing makes it worse and nothing makes it better. Patient states he has a history of kidney stones. Patient states he recently passed 2 kidney stones. Patient denies any fevers or chills. Patient admits to some hematuria. Patient admits to some nausea and vomiting. [facility] Medical History Atherosclerosis of coronary artery without angina pectoris Essential hypertension HTN (hypertension) Hyperlipidemia Hypertensive urgency Ischemic cardiomyopathy Sustained ventricular tachycardia Syncope Ventricular trigeminy Home Medications atorvastatin 80 mg tablet 80 mg PO QHS #90 tabs 05/13/19 [Rx Last Taken 09/07/22] lisinopril 40 mg tablet 40 mg PO DAILY #90 tabs 06/30/19 [Rx Last Taken Unknown] carvedilol 12.5 mg tablet (Coreg) 12.5 mg PO BID #180 tabs 07/14/19 [Rx Last Taken 09/08/22] pantoprazole 40 mg tablet,delayed release 40 mg PO DAILY 07/21/21 [History Last Taken Unknown] pen needle, diabetic 29 gauge #100 ea 07/23/21 [Rx Last Taken Unknown] amlodipine 5 mg tablet 2.5 mg PO DAILY 09/08/22 [History Last Taken 09/08/22] azelastine 137 mcg (0.1 %) nasal spray aerosol 1 spray intranasal BID 09/08/22 [History Last Taken 09/07/22] cholecalciferol (vitamin D3) 125 mcg (5,000 unit) capsule QWEEK 09/08/22 [History Last Taken 09/03/22] fluticasone propionate 50 mcg/actuation nasal spray,suspension 1 spray intranasal DAILY 09/08/22 [History Last Taken Unknown] hydrochlorothiazide 25 mg tablet 25 mg PO DAILY 09/08/22 [History Last Taken Unknown] linagliptin 5 mg tablet (Tradjenta) 5 mg PO DAILY 09/08/22 [History Last Taken Unknown] metformin 500 mg tablet,extended release 24hr 500 mg PO DAILY 09/08/22 [History Last Taken Unknown] tamsulosin 0.4 mg capsule (Flomax) 0.4 mg PO DAILY 09/08/22 [History Last Taken Unknown] aspirin 81 mg chewable tablet 81 mg PO DAILY #90 tabs 09/09/22 [Rx Last Taken 09/07/22] ciprofloxacin HCl 500 mg tablet (Cipro) 500 mg PO BID #6 tabs 09/09/22 [Rx Last Taken Unknown] clopidogrel 75 mg tablet 75 mg PO DAILY #90 tabs 09/09/22 [Rx Last Taken Unknown] oxycodone-acetaminophen 5 mg-325 mg tablet (Percocet) 1 tab PO Q4H PRN pain 7 days #14 tabs 09/09/22 [Rx Last Taken Unknown] ondansetron 4 mg disintegrating tablet 4 mg PO Q8H PRN PRN Nausea #10 tabs 06/27/23 [Rx Last Taken Unknown] oxycodone-acetaminophen 5 mg-325 mg tablet 1 tab PO Q6H PRN PRN Pain 3 days #12 TABLETS 06/27/23 [Rx Last Taken Unknown] Allergy/AdvReac Type Severity Reaction Status Date / Time Penicillins Allergy Unknown Verified 06/27/23 19:09 Surgical History H/O cardiac radiofrequency ablation (01/02/20) History of cholecystectomy History of temporal artery biopsy History of tonsillectomy Status post placement of implantable loop recorder (03/12/20) Stented coronary artery (05/02/19) Social History Smoking Status: Current some day smoker tobacco type: pipe and cigars ROS ROS ED Constitutional Constitutional ED: Denies chills or fever(s) Eyes Eyes: Denies blurry vision or change in vision ENT ENT ED: Denies rhinorrhea or sore throat Cardiovascular Cardiovascular: Denies chest pain or palpitations Respiratory/Chest Respiratory/Chest: Denies cough or dyspnea Gastrointestinal Gastrointestinal: Reports nausea and vomiting Genitourinary Genitourinary ED: Reports hematuria; Denies dysuria Musculoskeletal Musculoskeletal: Reports back pain; Denies neck pain Integumentary Denies abscess or rash Neurologic Neurologic: Denies headache(s) or weakness Allergic/Immunologic Allergic/Immunologic ED: Denies mouth swelling or urticaria EXAM Physical Exam Const Vital Signs: 06/27/23 19:07 06/27/23 22:04 Temperature 98.0 F Temperature Source Temporal Pulse Rate 81 69 Respiratory Rate 18 18 Blood Pressure 170/109 H Blood Pressure Mean 129 Pulse Ox 97 97 Oxygen Delivery Method Room Air Room Air Positive well nourished and well developed General Appearance ED: well developed and NAD HEENT Reports moist mucous membranes Neck supple and no JVD Resp normal respiratory effort and clear to auscultation bilaterally Cardio regular rate and regular rhythm GI non-tender and non-distended Palpation: soft Back/Spine General Back: CVA tenderness left Extremity normal to inspection General Extremety ED: Negative for edema or tenderness General Extremity: Negative for edema Neuro oriented x3, CN's II-XII intact bilaterally and no sensory deficits noted Sensorium / Orientation: alert Motor Exam: strength 5/5 throughout Psych mental status grossly normal MDM MDM MDM Narrative Medical decision making narrative: Differential diagnosis includes ureteral calculus, pyelonephritis, diverticulitis, gastroenteritis, and viral illness. CBC will be obtained to assess for leukocytosis and anemia. Basic metabolic profile will be obtained to assess for electrolyte abnormality and renal function. Urinalysis will be obtained to assess for urinary tract infection and hematuria. CT scan of the abdomen pelvis will be obtained to assess for ureteral calculus and diverticulitis. Lab Data Attestation: I reviewed the patient's lab results. Lab results narrative: CBC was reviewed. There is a mild leukocytosis of 11.5. The remainder is within normal limits. Basic metabolic profile was reviewed. Creatinine was slightly elevated at 1.6. Glucose was slightly elevated at 250. Sodium was 133. The remainder is within normal limits. Urinalysis was reviewed. There is cloudy brown urine with occult blood of 250. There were greater than 100 red blood cells noted. Leukocyte esterase was 100 with 5-10 white blood cells. Labs: Laboratory Results - last 24 hr 06/27/23 06/27/23 19:20 19:22 WBC 11.5 H RBC 4.86 Hgb 14.2 Hct 41.9 MCV 86.2 MCH 29.2 MCHC 33.9 RDW Std Deviation 40.5 RDW Coeff of Tony 13.0 Plt Count 264 MPV 10.7 Immature Gran % (Auto) 0.500 Neut % (Auto) 81.2 H Lymph % (Auto) 7.2 L [place] % (Auto) 9.6 Eos % (Auto) 1.2 Baso % (Auto) 0.3 Absolute Neuts (auto) 9.3 H Absolute Lymphs (auto) 0.83 Nucleated RBC % 0 Sodium 133 L Potassium 4.0 Chloride 98 Carbon Dioxide 28.0 Anion Gap 7 BUN 18 Creatinine 1.60 H Estim Creat Clear Calc 49.29 Est GFR (MDRD) Af Amer 59 L Est GFR (MDRD) Non-Af 49 L BUN/Creatinine Ratio 11.2 Glucose 250 H Calcium 9.3 Urine Color Brown Urine Clarity Cloudy Urine pH 6.5 Ur Specific [place] 1.020 Urine Protein 500 H Urine Glucose (UA) 100 H Urine Ketones 50 H Urine Occult Blood 250 H Urine Nitrite Negative Urine Bilirubin Negative Urine Urobilinogen Normal Ur Leukocyte Esterase 100 H Urine RBC > 100 SEEN Urine WBC 5-10 SEEN Ur Squamous Epith Cells 0 SEEN Urine Bacteria 0 SEEN Urine Mucus 0 SEEN Radiography Diagnostic Testing: Clinical Impression(s) from Imaging Studies Abdomen/Pelvis CT 06/27/23 21:17 IMPRESSION: 1. Moderate left side hydroureteronephrosis related to a 4 mm stone at the left ureterovesicular junction, a 5 mm stone at the left ureteropelvic junction, and seen in association with multiple smaller calyceal stones. 2. Nonobstructing punctate right calyceal nephrolithiasis. No evidence of right ureteral stone or hydronephrosis. 3. Minimal colonic diverticulosis without evidence of acute diverticulitis. 4. Fatty liver. Electronically Signed: Cesar Pal DO at 21:55 EST , CT scan of the flank was obtained. There is a 4 mm calculus at the left ureterovesicular junction and a 5 mm calculus at the left ureteropelvic junction. There is moderate left-sided hydronephrosis. There are nonobstructing right renal calculi. There is diverticulosis but no evidence of diverticulitis. This was interpreted by the radiologist and was also independently reviewed by myself. Treatment and Re-Evaluation :: Patient was given IV fluids, morphine, and Zofran. Patient was feeling better on reevaluation. Patient was advised of his findings. Patient was instructed to drink plenty of fluids. Patient was given prescriptions for Percocet and Zofran. Patient was given referral for urology. Patient was instructed to follow-up in 3 to 5 days. Patient was instructed return if worse in any way. Patient understood and was agreeable with the plan. All questions were answered. Discharge Plan Triage Chief Complaint: Flank Pain ED Provider: Paddy Osman Dx/Rx/DC Orders Clinical Impression: Ureterolithiasis, Hydronephrosis of left kidney Instructions: ED Kidney Stone w/ Colic Prescriptions: New oxycodone-acetaminophen [oxycodone-acetaminophen] 5-325 mg tablet 1 tab PO Q6H PRN PRN (Reason: Pain) 3 Days Qty: 12 0RF ondansetron [ondansetron] 4 mg tablet,disintegrating 4 mg PO Q8H PRN PRN (Reason: Nausea) Qty: 10 0RF No Action atorvastatin 80 mg tablet 80 mg PO QHS Qty: 90 3RF lisinopril 40 mg tablet 40 mg PO DAILY Qty: 90 3RF pantoprazole 40 mg tablet,delayed release (DR/EC) 40 mg PO DAILY (DME) pen needle, diabetic 29 gauge needle See Rx Instructions .ROUTE .MEDSUPPLY Qty: 100 0RF Rx Instructions: As directed tamsulosin [Flomax] 0.4 mg Capsule 0.4 mg PO DAILY hydrochlorothiazide 25 mg Tablet 25 mg PO DAILY azelastine 137 mcg (0.1 %) Aerosol,[place] 1 spray INTRANASAL BID Rx Instructions: administer into each nostril fluticasone propionate 50 mcg/actuation [place],Suspension 1 spray INTRANASAL DAILY Rx Instructions: administer into each nostril cholecalciferol (vitamin D3) 125 mcg (5,000 unit) capsule QWEEK Patient Comments: TAKE 1 CAPSULE BY MOUTH ONCE DAILY Rx Instructions: takes on Sundays metformin 500 mg Tablet Extended Release 24hr 500 mg PO DAILY Tradjenta 5 mg Tablet 5 mg PO DAILY amlodipine 5 mg tablet 2.5 mg PO DAILY ciprofloxacin HCl [Cipro] 500 mg tablet 500 mg PO BID Qty: 6 0RF oxycodone-acetaminophen [Percocet] 5-325 mg tablet 1 tab PO Q4H PRN (Reason: pain) 7 Days Qty: 14 0RF clopidogrel 75 mg tablet 75 mg PO DAILY Qty: 90 3RF Rx Instructions: hold 5 days before surgery to laser stones aspirin 81 mg tablet,chewable 81 mg PO DAILY Qty: 90 3RF Rx Instructions: hold 5 days before surgey to laser stones carvedilol [Coreg] 12.5 mg tablet 12.5 mg PO BID Qty: 180 3RF Rx Instructions: must administer with a meal/food Primary Care Provider: Blake Calixto Referrals: Blake Calixto DO [Primary Care Provider] - 5-7 Days Yovanny Castro MD [Med Staff - Active Staff] - 3-5 Days Disposition Disposition: Home, Self Care
--- NOTE | 2023-06-27 21:17 | CT_ITS ---
EXAM: CT ABDOMEN AND PELVIS WITHOUT INTRAVENOUS CONTRAST CLINICAL INDICATION: Left flank pain TECHNIQUE: Helically acquired images were obtained of the abdomen and pelvis without intravenous contrast. This CT exam was performed using one or more of the following dose reduction techniques: automated exposure control, adjustment of the mA and/or kV according to patient size, and/or use of iterative reconstruction technique. COMPARISON: No relevant prior studies available. FINDINGS: LOWER THORAX: Bilateral pulmonary granulomas. Otherwise, no acute pathology in the lungs. Coronary artery calcifications and/or stents. No cardiomegaly. No significant pericardial effusion. ABDOMEN: LIVER: Diffuse low-attenuation throughout the liver consistent with fatty infiltration. GALLBLADDER AND BILE DUCTS: Status post cholecystectomy. No intra- or extrahepatic biliary ductal dilation. PANCREAS: No significant abnormality. No focal cystic mass. SPLEEN: No significant abnormality. Normal size without focal cystic or solid mass. ADRENALS: No significant abnormality. No nodules. KIDNEYS AND URETERS: Moderate left side hydroureteronephrosis related to a 4 mm stone at the left ureterovesicular junction, a 5 mm stone at the left ureteropelvic junction, and seen in association with multiple smaller calyceal stones. Asymmetric left perinephric edema. Nonobstructing punctate right calyceal nephrolithiasis. No evidence of right ureteral stone or hydronephrosis. STOMACH AND BOWEL: Minimal colonic diverticulosis without evidence of acute diverticulitis. No stomach or bowel distention. PELVIS: APPENDIX: No evidence of acute appendicitis. BLADDER: No significant abnormality. REPRODUCTIVE: Normal as visualized. No mass. ABDOMEN and PELVIS: INTRAPERITONEAL SPACE: No significant abnormality. No ascites or other fluid collection. No free air. BONES/JOINTS: No significant abnormality. No suspicious lytic or blastic abnormality. SOFT TISSUES: No significant abnormality. No discrete abdominal or pelvic wall hernia. VASCULATURE: Atherosclerosis. LYMPH NODES: No significant abnormality. No enlarged lymph nodes. CT/Abdomen/Pelvis without Cont IMPRESSION: 1. Moderate left side hydroureteronephrosis related to a 4 mm stone at the left ureterovesicular junction, a 5 mm stone at the left ureteropelvic junction, and seen in association with multiple smaller calyceal stones. 2. Nonobstructing punctate right calyceal nephrolithiasis. No evidence of right ureteral stone or hydronephrosis. 3. Minimal colonic diverticulosis without evidence of acute diverticulitis. 4. Fatty liver. Electronically Signed: Cesar Pal DO at 21:55 EST ,
[2023-06-27] MEDS: Ondansetron 4 MG/2 ML Vial IV (21:21)
[2023-06-27] MEDS: Morphine 4 MG/ML Syringe IV ×2 (21:21→22:03)
[2023-06-27] MEDS: 0.9% Normal Saline (1000mL) 1,000 ML 1000 ML IV (21:21)
[2023-06-27 22:04] VITALS: PULSE 69; RESP 18; O2SAT 97
== END 2023-06-27 23:08 | disposition home or self-care (01) ==
PROVIDERS: Emergency Provider Emergency Medicine; PCP Family Medicine; Visit Provider Emergency Medicine
DX: N13.2 Hydronephrosis with renal and ureteral calculous obstruction (principal); R31.9 Hematuria, unspecified; I25.10 Atherosclerotic heart disease of native coronary artery without angina pectoris; E78.5 Hyperlipidemia, unspecified; F17.200 Nicotine dependence, unspecified, uncomplicated; I10 Essential (primary) hypertension; R11.2 Nausea with vomiting, unspecified
CPT/HCPCS: 74176; 80048; 81001; 85025; 96361; 96374; 96375; 96376; 99282; J7030; A4216; J2405

== ENCOUNTER 2023-10-31 13:23 | Emergency (ER) | payer BC, SELFPAY ==
[2019-05-02 10:08] VITALS: BMI 37.9
[2023-10-31 13:24] VITALS: BP 136/93; PULSE 88; RESP 16; TEMP 36.4; O2SAT 96; BMI 37.5
--- NOTE | 2023-10-31 14:04 | EDS_ITS ---
HPI History of Present Illness Chief Complaint: Male Pain/Injury Narrative Narrative: 53-year-old male past medical history of diabetes, hypertension, presents with swelling and redness to his right groin that has had for the last 3 to 4 days. Feels like the area is getting bigger in size. Started out as a small area and has gotten worse. He denies any fevers or chills, no nausea or vomiting, no drainage from the area. He states he has had abscesses in the past, but they never got bigger than the size of his thumb pad. They then resolved. [facility] Medical History Atherosclerosis of coronary artery without angina pectoris Essential hypertension HTN (hypertension) Hyperlipidemia Hypertensive urgency Ischemic cardiomyopathy Sustained ventricular tachycardia Syncope Ventricular trigeminy Home Medications atorvastatin 80 mg tablet 80 mg PO QHS #90 tabs 05/13/19 [Rx Last Taken 09/07/22] lisinopril 40 mg tablet 40 mg PO DAILY #90 tabs 06/30/19 [Rx Last Taken Unknown] carvedilol 12.5 mg tablet (Coreg) 12.5 mg PO BID #180 tabs 07/14/19 [Rx Last Taken 09/08/22] pantoprazole 40 mg tablet,delayed release 40 mg PO DAILY 07/21/21 [History Last Taken Unknown] pen needle, diabetic 29 gauge #100 ea 07/23/21 [Rx Last Taken Unknown] amlodipine 5 mg tablet 2.5 mg PO DAILY 09/08/22 [History Last Taken 09/08/22] azelastine 137 mcg (0.1 %) nasal spray aerosol 1 spray intranasal BID 09/08/22 [History Last Taken 09/07/22] fluticasone propionate 50 mcg/actuation nasal spray,suspension 1 spray intranasal DAILY 09/08/22 [History Last Taken Unknown] hydrochlorothiazide 25 mg tablet 25 mg PO DAILY 09/08/22 [History Last Taken Unknown] linagliptin 5 mg tablet (Tradjenta) 5 mg PO DAILY 09/08/22 [History Last Taken Unknown] metformin 500 mg tablet,extended release 24hr (osmotic) 500 mg PO DAILY 09/08/22 [History Last Taken Unknown] tamsulosin 0.4 mg capsule (Flomax) 0.4 mg PO DAILY 09/08/22 [History Last Taken Unknown] aspirin 81 mg chewable tablet 81 mg PO DAILY #90 tabs 09/09/22 [Rx Last Taken 09/07/22] oxycodone-acetaminophen 5 mg-325 mg tablet (Percocet) 1 tab PO Q4H PRN pain 7 days #14 tabs 09/09/22 [Rx Last Taken Unknown] ondansetron 4 mg disintegrating tablet 4 mg PO Q8H PRN PRN Nausea #10 tabs 06/27/23 [Rx Last Taken Unknown] oxycodone-acetaminophen 5 mg-325 mg tablet 1 tab PO Q6H PRN PRN Pain 3 days #12 TABLETS 06/27/23 [Rx Last Taken Unknown] sulfamethoxazole 800 mg-trimethoprim 160 mg tablet (Bactrim DS) 1 tab PO BID #14 tabs 10/31/23 [Rx Last Taken Unknown] Allergy/AdvReac Type Severity Reaction Status Date / Time Penicillins Allergy Unknown Verified 10/31/23 13:23 Surgical History H/O cardiac radiofrequency ablation (01/02/20) History of cholecystectomy History of temporal artery biopsy History of tonsillectomy Status post placement of implantable loop recorder (03/12/20) Stented coronary artery (05/02/19) Social History Smoking Status: Light Smoker (<10/day) ROS ROS ED ROS Narrative Constitutional: No fever, no chills. HEENT: No sore throat. No neck pain. No loss of vision. No rhinorrhea. Cardiovascular: No chest pain. No palpitations. No pedal edema. Respiratory: No cough, no shortness of breath. Abdominal: No abdominal pain. No nausea. No vomiting. Genitourinary: No dysuria. No hematuria. Musculoskeletal: No myalgias. No arthralgias. Pain and swelling right inner thigh. Neurologic: No headaches. No dizziness. No lightheadedness. Skin: No rash. No change in color except mild redness to right thigh.. Psychiatric: No depression. No anxiety. EXAM Physical Exam Narrative Exam Narrative: Afebrile. Vital signs noted. Nontoxic-appearing. HEENT: Normocephalic. Atraumatic. PERRL, EOMI. Neck soft and supple. No point tenderness or step off. Cardiovascular: Regular rate and rhythm. No murmurs, rubs, or gallops appreciated. Respiratory: No tachypnea. Lungs clear to auscultation bilaterally. Gastrointestinal: Abdomen soft, nontender, with normoactive bowel sounds. No rebound or guarding. Neurological: Awake. Alert. Nonfocal, nonlateralizing. Skin: No rash. Normal color. No pallor. Positive indurated area right groin. No fluctuance. Mild erythema. Musculoskeletal: No pedal edema. Full range of motion extremities. Const Vital Signs: 10/31/23 13:24 Temperature 97.6 F L Temperature Source Temporal Pulse Rate 88 Respiratory Rate 16 Blood Pressure 136/93 H Blood Pressure Mean 107 Pulse Ox 96 Oxygen Delivery Method Room Air MDM MDM MDM Narrative Medical decision making narrative: In the differential diagnosis is cutaneous abscess versus DVT. I have low suspicion for DVT as the swelling is localized and indurated and he has no DVT or PE risk factors. He is not hypoxic and he has not tachycardic. Given the localized swelling, there is a chance that this is more of an indurated area and healing abscess. I discussed with him ultrasound and needle aspiration, but he elects for incision and drainage of the area. He was told of the risk of infection and scarring of the skin wound, and no purulent drainage return just bloody, and acknowledges an understanding. Regardless of what comes out on the incision and drainage I do feel that he merits antibiotic treatment. He was given his first dose of Bactrim DS here. See procedure note for details. Patient was written a prescription for 7 days worth of Bactrim DS. He will have the packing removed to remove it himself in the next 48 hours. Return instructions to the emergency department were reviewed. It was also suggested that he have a wound check in 48 hours as well. I feel that [id number] medications are adequate for analgesia and he was told that the induration will take some time for it to resolve. Disposition is discharged home in improved and stable condition. Procedures Other Procedures Procedure(s): Incision and drainage of right groin abscess: Written consent obtained. All questions answered. Area was prepped with Povidine iodine swab. Lidocaine 1% without epinephrine was used as a local anesthetic, total of 4 mL injected subcutaneously. Stellate incision was made with a #11 blade with a mild to moderate amount of serosanguineous/purulent drainage. Area was irrigated and deloculated. Double tail 1 inch wick was lightly inserted to keep wound edges open. Patient tolerated procedure well. He will have the packing removed in 48 hours. Discharge Plan Triage Chief Complaint: Male Pain/Injury ED Provider: Georges Abrams Dx/Rx/DC Orders Clinical Impression: Encounter for incision and drainage procedure, Abscess of groin, right Instructions: ED Abscess Incision And Drainage Prescriptions: New sulfamethoxazole-trimethoprim [Bactrim DS] 800-160 mg tablet 1 tab PO BID Qty: 14 0RF No Action atorvastatin 80 mg tablet 80 mg PO QHS Qty: 90 3RF lisinopril 40 mg tablet 40 mg PO DAILY Qty: 90 3RF pantoprazole 40 mg tablet,delayed release (DR/EC) 40 mg PO DAILY (DME) pen needle, diabetic 29 gauge needle See Rx Instructions .ROUTE .MEDSUPPLY Qty: 100 0RF Rx Instructions: As directed tamsulosin [Flomax] 0.4 mg Capsule 0.4 mg PO DAILY hydrochlorothiazide 25 mg Tablet 25 mg PO DAILY azelastine 137 mcg (0.1 %) Aerosol,[place] 1 spray INTRANASAL BID Rx Instructions: administer into each nostril fluticasone propionate 50 mcg/actuation [place],Suspension 1 spray INTRANASAL DAILY Rx Instructions: administer into each nostril metformin 500 mg Tablet Extended Release 24hr 500 mg PO DAILY Tradjenta 5 mg Tablet 5 mg PO DAILY amlodipine 5 mg tablet 2.5 mg PO DAILY oxycodone-acetaminophen [Percocet] 5-325 mg tablet 1 tab PO Q4H PRN (Reason: pain) 7 Days Qty: 14 0RF aspirin 81 mg tablet,chewable 81 mg PO DAILY Qty: 90 3RF Rx Instructions: hold 5 days before surgey to laser stones oxycodone-acetaminophen [oxycodone-acetaminophen] 5-325 mg tablet 1 tab PO Q6H PRN PRN (Reason: Pain) 3 Days Qty: 12 0RF ondansetron [ondansetron] 4 mg tablet,disintegrating 4 mg PO Q8H PRN PRN (Reason: Nausea) Qty: 10 0RF carvedilol [Coreg] 12.5 mg tablet 12.5 mg PO BID Qty: 180 3RF Rx Instructions: must administer with a meal/food Primary Care Provider: Blake Calixto Referrals: Blake Calixto, DO [Primary Care Provider] - 2 Days for wound check Activity Restrictions/Additional Instructions: Have packing removed or remove it in 48 hours. You can return to the emergency department or follow-up with your primary care provider for a wound check in 2 days. You will be charged for an emergency department visit however. Return with increased redness, fever, new or worsening symptoms. Disposition Disposition: Home, Self Care
[2023-10-31] MEDS: Smz/Tmp Ds Tablet 1 TABLET PO (14:26)
[2023-10-31] MEDS: Lidocaine 1% (20 ml mdv) 20 ML Vial INFILT (14:26)
[2023-10-31 14:58] VITALS: BP 148/102; PULSE 84; RESP 18; TEMP 36.8; O2SAT 100
--- OUTSIDE RECORDS SUMMARY | 2023-10-31 21:50 | XMS RPT_ITS | CCD ---
Author Name Unknown Address [address] [place] [address] Organization [facility] Care Team Providers Care Generator Technician Name Role Phone Unavailable Primary Care Provider Unavailabl e Blake Garcia DO Primary Care Provider Antonio Bruce MD Unavailable Jayce Rai MD Unavailable [phone] BLAKE GARCIA Attending Unavailable BLAKE GARCIA Primary Care Unavailable BLAKE GARCIA Attending Unavailable BLAKE GARCIA Primary Care Unavailable BLAKE GARCIA Attending Unavailable BLAKE GARCIA Primary Care Unavailable Blake Garcia DO Primary Care Provider Jayce Rai MD Unavailable BLAKE GARCIA A Primary Care Unavailable AMBROSIO HAHN Referring Unavailab BLAKE Arias Primary Care Unavailable AMBROSIO HAHN Referring Unavailab AMBROSIO Jimenez Attending Unavailab AMBROSIO Jimenez Referring Unavailab AMBROSIO Jimenez Attending Unavailab BLAKE Arias Primary Care Unavailable Allergies Allergy Classification Reported Allergen(s) Allergy Type Date of Onset Reaction(s) Facility (6 sources) Acetaminophen / HYDROcodone; Translations: [HYDROCODONE-ACETA MINOPHEN] Drug Allergy 8 GI Upset [facility] (6 sources) Penicillins; Translations: [PENICILLINS] Propensity to adverse reactions 8 [facility] Medications Completed/Discontinued Medications Medication Drug Class(es) Dates Sig (Normalized) Sig (Original) amLODIPine 5 mg oral tablet (4 sources) Dihydropyridine Calcium Channel Charmaine take 2.5 mg by mouth once daily amLODIPine (NORVASC) 5 mg tablet Take 2.5 mg by mouth once daily. 0 Active Problems Active Problems Problem Classification Problem Date Documented Date Episodic/Chronic Acute cerebrovascular disease (4 sources) Cerebrovascular accident; Translations: [Cerebral infarction, unspecified] Onset: 04-12-2019 04-12-2019 Chronic Cardiac dysrhythmias (5 sources) Sustained ventricular tachycardia; Translations: [Sustained ventricular tachycardia (HCC)] Onset: 03-03-2020 Chronic Coronary atherosclerosis and other heart disease (7 sources) Coronary arteriosclerosis; Translations: [Atherosclerotic heart disease of [place] coronary artery without angina pectoris] Onset: 09-06-2020 Chronic Disorders of lipid metabolism (7 sources) Mixed hyperlipidemia; Translations: [Mixed hyperlipidemia] Onset: 03-03-2020 Chronic Esophageal disorders (4 sources) Gastroesophageal reflux disease; Translations: [Gastro-esophageal reflux disease without esophagitis] Onset: 04-12-2019 04-12-2019 Chronic Essential hypertension (7 sources) Essential hypertension; Translations: [Essential (primary) hypertension] Onset: 04-12-2019 Chronic Headache; including migraine (4 sources) Migraine with aura; Translations: [Migraine with aura, not intractable, without status migrainosus] Onset: 04-12-2019 04-12-2019 Chronic Other endocrine disorders (1 source) Testicular hypofunction; Translations: [Testicular hypofunction] 01-03-2023 Chronic Other male genital disorders (3 sources) Male erectile dysfunction, unspecified; Translations: [Impotence of organic origin] Onset: 12-08-2022 Chronic Other nutritional; endocrine; and metabolic disorders (4 sources) Obese class II; Translations: [Obesity, unspecified] Onset: 04-10-2019 04-12-2019 Chronic Other screening for suspected conditions (not mental disorders or infectious disease) (1 source) Blood chemistry abnormal; Translations: [Other specified abnormal findings of blood chemistry] 01-05-2023 Episodic Other upper respiratory disease (1 source) Allergic rhinitis; Translations: [Allergic rhinitis, unspecified] 01-03-2023 Chronic Substance-related disorders (4 sources) Nicotine dependence; Translations: [Nicotine dependence, unspecified, uncomplicated] Onset: 04-10-2019 04-12-2019 Chronic Past or Other Problems Problem Classification Problem Date Documented Da te Episodic/Chronic Abdominal pain (4 sources) Flank pain; Translations: [Unspecified abdominal pain] Onset: 08-31-2020 08-31-2020 Episodic Blindness and vision defects (8 sources) Visual disturbance; Translations: [Unspecified visual disturbance] Onset: 05-12-2019 05-12-2019 Episodic Calculus of urinary tract (8 sources) Kidney stone; Translations: [Calculus of kidney] Onset: 08-31-2020 08-31-2020 Episodic Conditions associated with dizziness or vertigo (4 sources) Dizziness; Translations: [Dizziness and giddiness] Onset: 05-12-2019 05-12-2019 Episodic Coronary atherosclerosis and other heart disease (2 sources) Presence of coronary angioplasty implant and graft; Translations: [History of placement of stent in LAD coronary artery] Onset: 09-06-2020 Episodic Other circulatory disease (4 sources) Orthostatic hypotension; Translations: [Orthostatic hypotension] Onset: 05-12-2019 05-12-2019 Episodic Syncope (4 sources) Syncope; Translations: [Syncope and collapse] Onset: 05-12-2019 05-12-2019 Episodic Results Test Name Value Interpretation Reference Range Facil ity Vital Signs Date Time Vital Sign Value Performing Clinician Dahlia hatch 06-13-2023 [id number] Body height 167.6 cm Ambrosio Hahn DO Work Phone: [facility] 06-13-2023 15:11-0400 Body weight 104.33 kg Ambrosio Hahn DO Work Phone: [facility] 06-13-2023 15:11-0400 Diastolic blood pressure 86 mm[Hg] Ambrosio Hahn DO Work Phone: [facility] 06-13-2023 15:11-0400 Heart rate 73 /min Ambrosio Hahn DO Work Phone: [facility] 06-13-2023 15:11-0400 SaO2% (BldA) [Mass fraction] 97 % Ambrosio Hahn DO Work Phone: [facility] 06-13-2023 15:11-0400 Systolic blood pressure 124 mm[Hg] Ambrosio Hahn DO Work Phone: [facility] 12-08-2022 13:02-0400 Body height 167.6 cm Ambrosio Hahn DO Work Phone: [facility] 12-08-2022 13:02-0400 Body weight 106.59 kg Ambrosio Hahn DO Work Phone: [facility] 12-08-2022 13:02-0400 Diastolic blood pressure 86 mm[Hg] Ambrosio Hahn DO Work Phone: [facility] 12-08-2022 13:02-0400 Heart rate 59 /min Ambrosio Hahn DO Work Phone: [facility] 12-08-2022 13:02-0400 SaO2% (BldA) [Mass fraction] 97 % Ambrosio Hahn DO Work Phone: [facility] 12-08-2022 13:02-0400 Systolic blood pressure 130 mm[Hg] Ambrosio Hahn DO Work Phone: [facility] Encounters Encounter Date Encounter Type Care Provider Facility Start: 10-30-2023 ambulatory [facility]ll[facility] Start: 10-30-2023 Patient encounter procedure [facility] Start: 08-03-2023 Telephone encounter Ambrosio Hahn DO Work Phone: Cardiology Start: 07-26-2023 Telephone encounter Ambrosio Hahn DO Work Phone: Cardiology Procedures Date Procedure Procedure Detail Performing Clinician Start: 01-05-2023 Gonadotropin follicl e stimulating hormone Blake Garcia DO Work Phone: Start: 01-03-2023 Gonadotropin luteini zing hormone Blake Garcia DO Work Phone: Start: 12-08-2022 Ecg routine ecg w/le ast 12 lds i&r only [facility] Provider Start: 09-06-2020 History of placement of stent in anterior descending branch of left coronary artery History of placement of stent in LAD coronary artery Ambrosio Hahn DO Work Phone: Start: 01-30-2020 Blood count complete auto&auto difrntl wbc Blake Garcia Work Phone: Start: 01-30-2020 Comprehensive metabo lic panel Blake Garcia Work Phone: Start: 01-30-2020 Hemoglobin glycosyla iva a1c Blake Garcia Work Phone: Start: 01-30-2020 Lipid panel Blake agarwal Work Phone: Start: 01-30-2020 Lipid 1996 panel - S jie or Plasma Blake Garcia DO Work Phone: Start: 2019 History of placement of stent for coronary artery disease S/P right coronary artery (RCA) stent placement Ambrosio Hahn DO Work Phone: Start: 04-11-2019 Lipid 1996 panel - S jie or Plasma Ambrosio Hahn DO Work Phone: History of placement of stent for coronary artery disease S/P right coronary artery (RCA) stent placement Ambrosioreg Hahn DO Work Phone: History of placement of stent for coronary artery disease S/P right coronary artery (RCA) stent placement Ambrosio Hahn DO Work Phone: History of placement of stent in anterior descending branch of left coronary artery History of placement of stent in LAD coronary artery Ambrosioreg Hahn DO Work Phone: History of placement of stent in anterior descending branch of left coronary artery History of placement of stent in LAD coronary artery Ambrosio Hahn DO Work Phone: Plan of Treatment Date Care Activity Detail Author Start: 2032 RSV Immunization aged 60 or older (1 - 1-dose 60+ series) RSV Immunization aged 60 or older (1 - 1-dose 60+ series) [facility] [employer] Start: 01-29-2025 Lipid 1996 panel - Serum or Plasma Lipid Screening [facility] Start: 01-29-2025 Lipid panel Lipid Screening [facility] Start: 04-11-2024 Lipid 1996 panel - Serum or Plasma Lipid Screening [facility] Start: 04-11-2024 LIPID SCREEN LIPID SCREEN [facility] Start: 03-06-2024 DIABETES SCREEN DIABETES SCREEN [facility] Start: 03-06-2024 Diabetes Screening Diabetes Screening [facility] Start: 08-20-2023 Depression Assessment Depression Assessment [facility] Start: 2023 Influenza vaccination [facility] Start: 12-08-2022 End: 02-07-2023 TESTOSTERONE, FREE AND TOTAL Work Phone: Payers Date Payer Category Payer Unknown [id number] 2021 Unknown [id number] Social History Date Type Detail Facility Tobacco smoking stat [facility] Unknown if ever smoked [address] Start: 1970 Sex Assigned At [email or web address] Start: 12-08-2022 Tobacco smoking stat [facility] Occasional tobacco smoker [facility] History of tobacco use Pipe Smoker [facility] Start: 12-08-2022 Tobacco use and exposure Smokeless tobacco non-user [facility] Start: 12-08-2022 End: 06-13-2023 Alcohol intake Current drinker of alcohol (finding) [facility] Start: 06-15-2020 History SDOH Alcohol Frequency 3 [facility] Start: 06-15-2020 History SDOH Alcohol Std Drinks 1 [facility] Start: 12-08-2022 Tobacco Comment one pipe coupl e times a month [facility] Start: 1970 Sex Assigned At Male [facility] Tobacco smoking stat [facility] Tobacco smoking consumption unknown [facility] Start: 06-15-2020 End: 06-13-2023 Gender identity Not on file [facility] Work Phone: Start: 01-01-2023 End: 01-11-2023 Exposure to SARS-CoV-2 (event) Not sure [facility] Start: 06-15-2020 End: 06-13-2023 History of Social function [facility] Work Phone: How often to you hav e a drink containing alcohol? 2-4 times a month [facility] Work Phone: How many standard drinks containing alcohol do you have on a typical day? 1 or 2 [facility] Work Phone: How often do you hav e 6 or more drinks on 1 occasion? Never [facility] Work Phone: PHQ2 Score [facility] Start: 04-25-2019 Gender identity Identifies as male gender (finding) [facility] Start: 04-25-2019 Sexual orientation Heterosexual (ana simón) [facility] Medical Equipment Procedure Code Equipment Code Equipment Origin al Text Equipment Identifier Dates as directed. 2 T IMES DAILY Start: 02-05-2020 Clinical Notes 04-10-2019 to 10-30-2023 Telephone Encounter - Siria Arellano RN - 10/30/2023 8:36 PM EDTTelephone Encounter - Siria Arellano RN - 10/30/2023 8:36 PM EDAmbrosio Cordoba, - 06/13/2023 3:21 PM EDT Note Date & Type Note Facility 10-30-2023 Telephone encounter Note S: Patient spoke with [facility] nurse regarding a lump on his upper inside of leg right below the groin. B: Onset of symptoms/concern states that since beginning testosterone he occasionally noted lumps. This lump began 4 days ago. A: Lump is now the size of his hand. The lump is hard. He states that it is near the crease where thigh meets that upper leg. Reports that it is painful, rates this pain 3/10. States it is causing him to limp when walking. Denies fever. R: Patient advised that a message would be sent to the office and to contact the office tomorrow morning to follow up for assistance with scheduling appointment. Care advice reviewed with patient. Patient understands care advice. No further needs at this time. Patient instructed to call back with new or worsening symptoms. Reason for Disposition [1] Swelling is painful to touch AND [2] no fever Protocols used: Skin Lump or Localized [id number] [facility] 10-30-2023 Miscellaneous Notes S: Patient spoke with [facility] nurse regarding a lump on his upper inside of leg right below the groin. B: Onset of symptoms/concern states that since beginning testosterone he occasionally noted lumps. This lump began 4 days ago. A: Lump is now the size of his hand. The lump is hard. He states that it is near the crease where thigh meets that upper leg. Reports that it is painful, rates this pain 3/10. States it is causing him to limp when walking. Denies fever. R: Patient advised that a message would be sent to the office and to contact the office tomorrow morning to follow up for assistance with scheduling appointment. Care advice reviewed with patient. Patient understands care advice. No further needs at this time. Patient instructed to call back with new or worsening symptoms. Reason for Disposition [1] Swelling is painful to touch AND [2] no fever Protocols used: Skin Lump or Localized [id number] documented in this encounter [facility] 07-26-2023 Miscellaneous Notes Received Cardiac Risk Request from [facility] for upcoming Coloscopy/EGD on 09/05/23. Form placed on Dr. Hahn desk. documented in this encounter [facility] 06-13-2023 Note HNO ID: [id number] Author: Ambrosio Hahn, DO Service: ? Author Type: Physician Type: Progress Notes Filed: 06/13/2023 4:15 PM Note Text: [facility] OUTPATIENT VISIT DATE June 13, 2023 PRIMARY CARE PHYSICIAN: Blake LIEBERMAN [place] [id number] HISTORY OF PRESENT ILLNESS: Mr. Grande is a 53 year old male. The patient returns for follow-up second history of coronary C status remote stenting of his LAD and right coronary artery. Additional history includes hypertension, hyperlipidemia, diabetes, erectile dysfunction and testosterone deficiency. He is now on Cialis and testosterone replacement and feels dramatically improved. He denies chest discomfort, dyspnea, orthopnea, paroxysmal nocturnal dyspnea, palpitations, near-syncope or syncope. He is looking forward to be in the near future. His 's grandson and 2 of his boys will be wearing kilts that match his at the ceremony. PLAN AND RECOMMENDATIONS: The patient remained stable without apparent symptoms of suggest angina or cardiac decompensation. Heart rate, blood pressure are favorable. We are unable to evaluate his recent cholesterol as his levels are unavailable to us at this time. Given his relative youth and diabetes, we would target his LDL around 55 or less. We have made no additions or changes. Dietary and lifestyle modification was otherwise reemphasized to facilitate risk factor reduction. Vitals: BP 124/86 Pulse 73 Ht 167.6 cm (5' 6 ) Wt 104.3 kg (230 lb) SpO2 97% BMI 37.12 kg/m? Physical Exam Vitals reviewed. Constitutional: General: He is not in acute distress. Appearance: Normal appearance. He is well-developed. He is not diaphoretic. HENT: Head: Normocephalic and atraumatic. Right Ear: External ear normal. Left Ear: External ear normal. Nose: Nose normal. Eyes: General: No scleral icterus. Right eye: No discharge. Left eye: No discharge. Pupils: Pupils are equal, round, and reactive to light. Neck: Thyroid: No thyromegaly. Vascular: No carotid bruit or JVD. Cardiovascular: Rate and Rhythm: Normal rate and regular rhythm. Heart sounds: No murmur heard. No friction rub. No gallop. Pulmonary: Effort: Pulmonary effort is normal. No respiratory distress. Breath sounds: Normal breath sounds. No wheezing or rales. Abdominal: General: Bowel sounds are normal. Palpations: Abdomen is soft. Musculoskeletal: General: Normal range of motion. Cervical back: Neck supple. Skin: General: Skin is warm and dry. Capillary Refill: Capillary refill takes less than 2 seconds. Coloration: Skin is not pale. Neurological: Mental Status: He is alert and oriented to person, place, and time. Cranial Nerves: No cranial nerve deficit. Psychiatric: Mood and Affect: Mood normal. Mood is not anxious or depressed. Behavior: Behavior normal. Thought Content: Thought content normal. Judgment: Judgment normal. Review of Systems Constitutional: Negative for activity change, appetite change, fatigue and unexpected weight change. HENT: Negative for ear pain and trouble swallowing. Eyes: Negative for pain and visual disturbance. Respiratory: Negative for chest tightness and shortness of breath. Cardiovascular: Negative for chest pain, palpitations and leg swelling. Gastrointestinal: Negative for abdominal pain and blood in stool. Endocrine: Negative for cold intolerance and heat intolerance. Genitourinary: Negative for dysuria, hematuria and scrotal swelling. Musculoskeletal: Negative for arthralgias and myalgias. Skin: Negative for pallor and rash. Allergic/Immunologic: Negative for immunocompromised state. Neurological: Negative for dizziness, syncope and light-headedness. Hematological: Negative for adenopathy. Does not bruise/bleed easily. Psychiatric/Behavioral: Negative for sleep disturbance. The patient is not nervous/anxious. 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 [facility] 06-13-2023 History of Presen t illness Narrative Images from the original note were not included. [facility] OUTPATIENT VISIT DATE June 13, 2023 PRIMARY CARE PHYSICIAN: Blake LIEBERMAN RD [place] [id number] HISTORY OF PRESENT ILLNESS: Mr. Grande is a 53 year old male. The patient returns for follow-up second history of coronary C status remote stenting of his LAD and right coronary artery. Additional history includes hypertension, hyperlipidemia, diabetes, erectile dysfunction and testosterone deficiency. He is now on Cialis and testosterone replacement and feels dramatically improved. He denies chest discomfort, dyspnea, orthopnea, paroxysmal nocturnal dyspnea, palpitations, near-syncope or syncope. He is looking forward to be in the near future. His 's grandson and 2 of his boys will be wearing kilts that match his at the ceremony. PLAN AND RECOMMENDATIONS: The patient remained stable without apparent symptoms of suggest angina or cardiac decompensation. Heart rate, blood pressure are favorable. We are unable to evaluate his recent cholesterol as his levels are unavailable to us at this time. Given his relative youth and diabetes, we would target his LDL around 55 or less. We have made no additions or changes. Dietary and lifestyle modification was otherwise reemphasized to facilitate risk factor reduction. Vitals: BP 124/86 Pulse 73 Ht 167.6 cm (5' 6 ) Wt 104.3 kg (230 lb) SpO2 97% BMI 37.12 kg/m Physical Exam Vitals reviewed. Constitutional: General: He is not in acute distress. Appearance: Normal appearance. He is well-developed. He is not diaphoretic. HENT: Head: Normocephalic and atraumatic. Right Ear: External ear normal. Left Ear: External ear normal. Nose: Nose normal. Eyes: General: No scleral icterus. Right eye: No discharge. Left eye: No discharge. Pupils: Pupils are equal, round, and reactive to light. Neck: Thyroid: No thyromegaly. Vascular: No carotid bruit or JVD. Cardiovascular: Rate and Rhythm: Normal rate and regular rhythm. Heart sounds: No murmur heard. No friction rub. No gallop. Pulmonary: Effort: Pulmonary effort is normal. No respiratory distress. Breath sounds: Normal breath sounds. No wheezing or rales. Abdominal: General: Bowel sounds are normal. Palpations: Abdomen is soft. Musculoskeletal: General: Normal range of motion. Cervical back: Neck supple. Skin: General: Skin is warm and dry. Capillary Refill: Capillary refill takes less than 2 seconds. Coloration: Skin is not pale. Neurological: Mental Status: He is alert and oriented to person, place, and time. Cranial Nerves: No cranial nerve deficit. Psychiatric: Mood and Affect: Mood normal. Mood is not anxious or depressed. Behavior: Behavior normal. Thought Content: Thought content normal. Judgment: Judgment normal. Review of Systems Constitutional: Negative for activity change, appetite change, fatigue and unexpected weight change. HENT: Negative for ear pain and trouble swallowing. Eyes: Negative for pain and visual disturbance. Respiratory: Negative for chest tightness and shortness of breath. Cardiovascular: Negative for chest pain, palpitations and leg swelling. Gastrointestinal: Negative for abdominal pain and blood in stool. Endocrine: Negative for cold intolerance and heat intolerance. Genitourinary: Negative for dysuria, hematuria and scrotal swelling. Musculoskeletal: Negative for arthralgias and myalgias. Skin: Negative for pallor and rash. Allergic/Immunologic: Negative for immunocompromised state. Neurological: Negative for dizziness, syncope and light-headedness. Hematological: Negative for adenopathy. Does not bruise/bleed easily. Psychiatric/Behavioral: Negative for sleep disturbance. The patient is not nervous/anxious. 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, without long-term current use of insulin (HCC) Unspecified asthma(493.90) Unspecified essential hypertension V tach (HCC) PAST SURGICAL HISTORY Procedure Laterality Date CARDIAC CATH 05/02/2019 ECHO 04/28/2019 HEART SURGERY HX N/A 05/02/2019 4 stents placed HOLTER 48 HOUR J2 05/05/2019 LAPS SURG CHOLECYSTECTOMY W/CHOLANGIOGRAPHY PAST SURGICAL HISTORY OF 02/2020 cardiac ablation- for Vtach had amiodorone had albation in February 2020 PAST SURGICAL HISTORY OF LOOP RECORDER STENT, CAROTID ARTERY W/EMBOLIC PROTECT 05/02/2019 4 stents- Cardiac stents STRESS ECHO 04/28/2019 Social History Tobacco Use Smoking status: Some Days Types: Pipe Smokeless tobacco: Never Tobacco comments: one pipe couple times a month Vaping Use Vaping Use: Never used Substance Use Topics Alcohol use: Yes Drug use: No FAMILY HISTORY Problem Relation Age of Onset Allergies Father No Known Problems Mother No Ocular Disease No Family History ALLERGIES Allergen Reactions Penicillins Vicodin [Hydrocodon* GI Upset CURRENT MEDICATIONS: testosterone (ANDROGEL PUMP) 20.25 mg/1.25 gram (1.62 %) transdermal gel APPLY 1 PUMP TO SKIN IN THE MORNING TO SHOULDER UPPER ARMS OR ABDOMEN ONCE A DAY azelastine 0.1% nasal spray Use in the nose. fluticasone (FLONASE) 50 mcg/actuation nasal spray Use in the nose. glipiZIDE (GLUCOTROL XL) 5 mg 24 hr tablet TAKE 1 TABLET BY MOUTH EVERY DAY WITH FOOD FOR [address] (PROTONIX) 40 mg tablet Take by mouth. aspirin, enteric coated (ASPIRIN, ENTERIC COATED) 81 mg EC tablet Take 1 tablet by mouth once daily. Tadalafil (CIALIS) 5 mg tablet Take 1 tablet by mouth once daily. tamsulosin ER (FLOMAX) 0.4 mg Take 1 capsule by mouth daily at bedtime for 10 days. TRUE METRIX GLUCOSE TEST STRIP test strip as directed. 2 TIMES DAILY TRUE METRIX GLUCOSE METER as directed. amLODIPine (NORVASC) 5 mg tablet Take 2.5 mg by mouth once daily. carvedilol (COREG) 12.5 mg tablet Take 12.5 mg by mouth twice daily with meals. lisinopril (ZESTRIL, PRINIVIL) 40 mg tablet Take 40 mg by mouth once daily. atorvastatin (LIPITOR) 80 mg tablet Take 80 mg by mouth daily at bedtime. oxybutynin ER (DITROPAN XL) 10 mg 24 hr tablet Take 1 tablet by mouth once daily for 10 days. metFORMIN (GLUCOPHAGE) 500 mg tablet Take 500 mg by mouth twice daily with meals. EKG performed today demonstrates sinus rhythm at 73 beats minute with a nonspecific ST-T wave abnormality, similar to previous. Ambrosio Hahn DO, FACC, FAC Ssrs Report Developer, [facility] Ambulatory Cardiology Ssrs Report Developer, [facility] Cardiac Rehabilitation Ssrs Report Developer, [facility] Cardiac Rehabilitation Ssrs Report Developer, [facility] Congestive Heart Failure Clinic Ssrs Report Developer, [facility] Ambulatory Cardiology Clinical Insurance Clerk Profressor of Medicine, [facility] - [facility] Staff Coal Crusher Operator, Mark Geronimo Department of Cardiovascular Medicine/Heart and Vascular [place], [facility] Please note: This note has been produced using speech recognition software and may contain errors related to that system including keon, punctuation, spelling, words, gender and phrases that may be inappropriate. documented in this encounter [facility] 12-08-2022 Note HNO ID: [id number] Author: Ambrosio Hahn DO Service: ? Author Type: Physician Type: Progress Notes Filed: 12/08/2022 4:24 PM Note Text: [facility] CARDIOLOGY [facility] OUTPATIENT VISIT DATE December 08, 2022 PRIMARY CARE PHYSICIAN: [place] [address] HISTORY OF PRESENT ILLNESS: Mr. Grande is a 52 year old male. The patient returns for follow-up second history coronary disease status post stenting x3 to RCA and once to the mid LAD. Additional history occludes hypertension, hyperlipidemia, diabetes, remote CVA and previous RVOT VT ablation. He is followed by electrophysiology with a loop recorder. He denies chest discomfort, dyspnea, orthopnea, paroxysmal nocturnal dyspnea, palpitations, near-syncope or syncope. He complains today of having developed mild erectile dysfunction with difficulty maintaining erection. He states this may be somewhat situational or even potentially psychological. He states that his family physician asked that we address this due to his coronary history. PLAN AND RECOMMENDATIONS: The patient remained stable without symptoms of angina or cardiac decompensation. Heart rate and blood pressure are favorable. Recent cholesterol profile was favorable as well. We have therefore made no additions or changes. We discussed his erectile dysfunction in detail. We discussed the need for adequate diet and lifestyle changes to help facilitate improvement of overall health which will help to some degree with his erectile dysfunction. We discussed various treatment strategies and even eventual referral to urology. At this time he believes it is very mild so that we have started Cialis 5 mg daily. We discussed should there be challenges we can switch to a higher as needed dose or even consider periodic booster dose as well. For thoroughness we will check a free and total testosterone. We will follow-up with him in a few months time regardless. We have asked him to discuss with you some of the newer medications which may help facilitate improvement in weight while treating his diabetes. Vitals: BP 130/86 Pulse (!) 59 Ht 167.6 cm (5' 6 ) Wt 106.6 kg (235 lb) SpO2 97% BMI 37.93 kg/m? Physical Exam Vitals reviewed. Constitutional: General: He is not in acute distress. Appearance: Normal appearance. He is well-developed. He is not diaphoretic. HENT: Head: Normocephalic and atraumatic. Right Ear: External ear normal. Left Ear: External ear normal. Nose: Nose normal. Eyes: General: No scleral icterus. Right eye: No discharge. Left eye: No discharge. Pupils: Pupils are equal, round, and reactive to light. Neck: Thyroid: No thyromegaly. Vascular: No carotid bruit or JVD. Cardiovascular: Rate and Rhythm: Normal rate and regular rhythm. Heart sounds: No murmur heard. No friction rub. No gallop. Pulmonary: Effort: Pulmonary effort is normal. No respiratory distress. Breath sounds: Normal breath sounds. No wheezing or rales. Abdominal: General: Bowel sounds are normal. Palpations: Abdomen is soft. Musculoskeletal: General: Normal range of motion. Cervical back: Neck supple. Skin: General: Skin is warm and dry. Capillary Refill: Capillary refill takes less than 2 seconds. Coloration: Skin is not pale. Neurological: Mental Status: He is alert and oriented to person, place, and time. Cranial Nerves: No cranial nerve deficit. Psychiatric: Mood and Affect: Mood normal. Mood is not anxious or depressed. Behavior: Behavior normal. Thought Content: Thought content normal. Judgment: Judgment normal. Review of Systems Constitutional: Negative for activity change, appetite change, fatigue and unexpected weight change. HENT: Negative for ear pain and trouble swallowing. Eyes: Negative for pain and visual disturbance. Respiratory: Negative for chest tightness and shortness of breath. Cardiovascular: Negative for chest pain, palpitations and leg swelling. Gastrointestinal: Negative for abdominal pain and blood in stool. Endocrine: Negative for cold intolerance and heat intolerance. Genitourinary: Negative for dysuria, hematuria and scrotal swelling. Musculoskeletal: Negative for arthralgias and myalgias. Skin: Negative for pallor and rash. Allergic/Immunologic: Negative for immunocompromised state. Neurological: Negative for dizziness, syncope and light-headedness. Hematological: Negative for adenopathy. Does not bruise/bleed easily. Psychiatric/Behavioral: Negative for sleep disturbance. The patient is not nervous/anxious. PAST MEDICAL HISTORY Diagnosis Date CAD (coronary artery disease) Chest pain Chronic cholecystitis Coronary artery disease involving [place] coronary artery of [place] heart without angina pectoris 09/06/2020 Dizziness Esophageal reflux Essenti (more content not included)... [facility] 12-08-2022 History of Presen t illness Narrative Images from the original note were not included. [facility] CARDIOLOGY [facility] OUTPATIENT VISIT DATE December 08, 2022 PRIMARY CARE PHYSICIAN: Blake LIEBERMAN [place] [id number] HISTORY OF PRESENT ILLNESS: Mr. Grande is a 52 year old male. The patient returns for follow-up second history coronary disease status post stenting x3 to RCA and once to the mid LAD. Additional history occludes hypertension, hyperlipidemia, diabetes, remote CVA and previous RVOT VT ablation. He is followed by electrophysiology with a loop recorder. He denies chest discomfort, dyspnea, orthopnea, paroxysmal nocturnal dyspnea, palpitations, near-syncope or syncope. He complains today of having developed mild erectile dysfunction with difficulty maintaining erection. He states this may be somewhat situational or even potentially psychological. He states that his family physician asked that we address this due to his coronary history. PLAN AND RECOMMENDATIONS: The patient remained stable without symptoms of angina or cardiac decompensation. Heart rate and blood pressure are favorable. Recent cholesterol profile was favorable as well. We have therefore made no additions or changes. We discussed his erectile dysfunction in detail. We discussed the need for adequate diet and lifestyle changes to help facilitate improvement of overall health which will help to some degree with his erectile dysfunction. We discussed various treatment strategies and even eventual referral to urology. At this time he believes it is very mild so that we have started Cialis 5 mg daily. We discussed should there be challenges we can switch to a higher as needed dose or even consider periodic booster dose as well. For thoroughness we will check a free and total testosterone. We will follow-up with him in a few months time regardless. We have asked him to discuss with you some of the newer medications which may help facilitate improvement in weight while treating his diabetes. Vitals: BP 130/86 Pulse (!) 59 Ht 167.6 cm (5' 6 ) Wt 106.6 kg (235 lb) SpO2 97% BMI 37.93 kg/m Physical Exam Vitals reviewed. Constitutional: General: He is not in acute distress. Appearance: Normal appearance. He is well-developed. He is not diaphoretic. HENT: Head: Normocephalic and atraumatic. Right Ear: External ear normal. Left Ear: External ear normal. Nose: Nose normal. Eyes: General: No scleral icterus. Right eye: No discharge. Left eye: No discharge. Pupils: Pupils are equal, round, and reactive to light. Neck: Thyroid: No thyromegaly. Vascular: No carotid bruit or JVD. Cardiovascular: Rate and Rhythm: Normal rate and regular rhythm. Heart sounds: No murmur heard. No friction rub. No gallop. Pulmonary: Effort: Pulmonary effort is normal. No respiratory distress. Breath sounds: Normal breath sounds. No wheezing or rales. Abdominal: General: Bowel sounds are normal. Palpations: Abdomen is soft. Musculoskeletal: General: Normal range of motion. Cervical back: Neck supple. Skin: General: Skin is warm and dry. Capillary Refill: Capillary refill takes less than 2 seconds. Coloration: Skin is not pale. Neurological: Mental Status: He is alert and oriented to person, place, and time. Cranial Nerves: No cranial nerve deficit. Psychiatric: Mood and Affect: Mood normal. Mood is not anxious or depressed. Behavior: Behavior normal. Thought Content: Thought content normal. Judgment: Judgment normal. Review of Systems Constitutional: Negative for activity change, appetite change, fatigue and unexpected weight change. HENT: Negative for ear pain and trouble swallowing. Eyes: Negative for pain and visual disturbance. Respiratory: Negative for chest tightness and shortness of breath. Cardiovascular: Negative for chest pain, palpitations and leg swelling. Gastrointestinal: Negative for abdominal pain and blood in stool. Endocrine: Negative for cold intolerance and heat intolerance. Genitourinary: Negative for dysuria, hematuria and scrotal swelling. Musculoskeletal: Negative for arthralgias and myalgias. Skin: Negative for pallor and rash. Allergic/Immunologic: Negative for immunocompromised state. Neurological: Negative for dizziness, syncope and light-headedness. Hematological: Negative for adenopathy. Does not bruise/bleed easily. Psychiatric/Behavioral: Negative for sleep disturbance. The patient is not nervous/anxious. 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, without long-term current use of insulin (HCC) Unspecified asthma(493.90) Unspecified essential hypertension V tach (HCC) PAST SURGICAL HISTORY Procedure Laterality Date CARDIAC CATH 05/02/2019 ECHO 04/28/2019 HEART SURGERY HX N/A 05/02/2019 4 stents placed HOLTER 48 HOUR J2 05/05/2019 LAPS SURG CHOLECYSTECTOMY W/CHOLANGIOGRAPHY PAST SURGICAL HISTORY OF 02/2020 cardiac ablation- for Vtach had amiodorone had albation in February 2020 PAST SURGICAL HISTORY OF LOOP RECORDER STENT, CAROTID ARTERY W/EMBOLIC PROTECT 05/02/2019 4 stents- Cardiac stents STRESS ECHO 04/28/2019 Social History Tobacco Use Smoking status: Some Days Types: Pipe Smokeless tobacco: Never Tobacco comments: one pipe couple times a month Vaping Use Vaping Use: Never used Substance Use Topics Alcohol use: Yes Drug use: No FAMILY HISTORY Problem Relation Age of Onset Allergies Father No Known Problems Mother No Ocular Disease No Family History ALLERGIES Allergen Reactions Penicillins Vicodin [Hydrocodon* GI Upset CURRENT MEDICATIONS: azelastine 0.1% nasal spray Use in the nose. clopidogrel (PLAVIX) 75 mg tablet Take 75 mg by mouth once daily. fluticasone (FLONASE) 50 mcg/actuation nasal spray Use in the nose. glipiZIDE (GLUCOTROL XL) 5 mg 24 hr tablet TAKE 1 TABLET BY MOUTH EVERY DAY WITH FOOD FOR [address] (PROTONIX) 40 mg tablet Take by mouth. tamsulosin ER (FLOMAX) 0.4 mg Take 1 capsule by mouth daily at bedtime for 10 days. TRUE METRIX GLUCOSE TEST STRIP test strip as directed. 2 TIMES DAILY TRUE METRIX GLUCOSE METER as directed. amLODIPine (NORVASC) 5 mg tablet Take 2.5 mg by mouth once daily. carvedilol (COREG) 12.5 mg tablet Take 12.5 mg by mouth twice daily with meals. lisinopril (ZESTRIL, PRINIVIL) 40 mg tablet Take 40 mg by mouth once daily. atorvastatin (LIPITOR) 80 mg tablet Take 80 mg by mouth daily at bedtime. metFORMIN (GLUCOPHAGE) 500 mg tablet Take 500 mg by mouth twice daily with meals. tamsulosin (FLOMAX) 0.4 mg Take 1 capsule by mouth daily at bedtime for 7 days. oxybutynin ER (DITROPAN XL) 10 mg 24 hr tablet Take 1 tablet by mouth once daily for 10 days. keTORolac (TORADOL) 10 mg tablet Take 1 tablet by mouth every 6 hours as needed. (Patient not taking: No sig reported) montelukast (SINGULAIR) 10 mg tablet Take 10 mg by mouth once daily. (Patient not taking: Reported on 12/08/2022) Hydrochlorothiazide 12.5 mg capsule Take 25 mg by mouth once daily. (Patient not taking: Reported on 12/08/2022) lansoprazole orally disintegrating (PREVACID) 15 mg disintegrating tablet Take 1 tablet by mouth twice daily. (Patient not taking: Reported on 12/08/2022) EKG performed today demonstrates sinus rhythm with age-indeterminate septal infarct, similar to previous. Ambrosio Hahn DO, FACC, FACOI Clinical and Preventive Cardiology Department of Medicine and Division of Cardiology, [facility] Ssrs Report Developertilting head band sawyer [facility] Ssrs Report Developer of Congestive Heart Failure Clinic [facility] Cardiology Office Ssrs Report Developer [facility] Staff Coal Crusher Operator, Rush and Christy Geronimo Department of Cardiovascular Medicine/Heart and Vascular [place], [facility] Clinical Insurance Clerk Profressor of Medicine, [facility] Please note: This note has been produced using speech recognition software and may contain errors related to that system including keon, punctuation, spelling, words, gender and phrases that may be inappropriate. documented in this encounter [facility] 03-23-2021 Note HNO ID: [id number] Author: Ankur Regan Jr., MD Service: ? Author Type: Physician Type: Progress Notes Filed: 03/23/2021 1:25 PM Note Text: ESTABLISHED PATIENT OFFICE VISIT HPI Juan A Grande is a 50 year old male who presents with h/o kidney stones. Had a R ureteral calculus s/p ESWL and string stent on 09/14. Doing well since surgery. Removed his string stent a few days after without any issues. Has not noticed any passed fragments. Denies any recurrent flank pain. No h/o stones prior to this. 03/23/21 - recently in ER with 2mm distal L stone. Believes he passed it no symtpoms now. Has bilateral small lower pole calcs LAB: Creatinine Date Value Ref Range Status 03/06/2021 1.65 (H) 0.73 - 1.22 mg/dL Final 09/12/2020 3.06 (H) 0.73 - 1.22 mg/dL Final No results found for: PSA Glucose, Urine Date Value 03/06/2021 Negative 09/12/2020 1+ mg/dL Bilirubin, Urine (no units) Date Value 03/06/2021 Negative 09/12/2020 Negative Ketones, Urine (no units) Date Value 03/06/2021 Trace 09/12/2020 Negative Specific [place], Ur (no units) Date Value 03/06/2021 1.020 09/12/2020 1.025 Hemoglobin/Blood,Ur Date Value 03/06/2021 Large 09/12/2020 Trace pH, Urine (no units) Date Value 03/06/2021 5.5 09/12/2020 5.5 Protein, Urine (no units) Date Value 03/06/2021 100 mg/dL 09/12/2020 Negative Nitrites (no units) Date Value 03/06/2021 Negative 09/12/2020 Negative WBC, Urine Date Value 03/06/2021 0-5 /HPF 09/12/2020 0-5 /HPF MEDICATIONS: tamsulosin (FLOMAX) 0.4 mg Take 1 capsule by mouth daily at bedtime for 7 days. oxybutynin ER (DITROPAN XL) 10 mg 24 hr tablet Take 1 tablet by mouth once daily for 10 days. tamsulosin ER (FLOMAX) 0.4 mg Take 1 capsule by mouth daily at bedtime for 10 days. keTORolac (TORADOL) 10 mg tablet Take 1 tablet by mouth every 6 hours as needed. montelukast (SINGULAIR) 10 mg tablet Take 10 mg by mouth once daily. TRUE METRIX GLUCOSE TEST STRIP test strip as directed. 2 TIMES DAILY TRUE METRIX GLUCOSE METER as directed. amLODIPine (NORVASC) 5 mg tablet Take 5 mg by mouth once daily. carvedilol (COREG) 12.5 mg tablet Take 12.5 mg by mouth twice daily with meals. lisinopril (ZESTRIL, PRINIVIL) 40 mg tablet Take 40 mg by mouth once daily. atorvastatin (LIPITOR) 80 mg tablet Take 80 mg by mouth daily at bedtime. metFORMIN (GLUCOPHAGE) 500 mg tablet Take 500 mg by mouth twice daily with meals. Hydrochlorothiazide 12.5 mg capsule Take 25 mg by mouth once daily. lansoprazole orally disintegrating (PREVACID) 15 mg disintegrating tablet Take 1 tablet by mouth twice daily. REVIEW OF SYSTEMS Review of Systems Constitutional: Negative. Respiratory: Negative. Cardiovascular: Negative. Gastrointestinal: Negative. Genitourinary: Negative. Skin: Negative. Neurological: Negative. Psychiatric/Behavioral: Negative. 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, without long-term current use of insulin (HCC) - Unspecified asthma(493.90) - Unspecified essential hypertension - V tach (HCC) FAMILY HISTORY Problem Relation Age of Onset - Allergies Father - No Known Problems Mother - No Ocular Disease No Family History SOCIAL HISTORY Social History Tobacco Use - Smoking status: Current Some Day Smoker Types: Pipe - Smokeless tobacco: Never Used - Tobacco comment: one pipe couple times a month Vaping Use - Vaping Use: Never used Substance Use Topics - Alcohol use: Yes - Drug use: No PHYSICAL EXAMINATION General appearance: Well appearing, alert, in no acute distress and well-hydrated, well nourished Skin: Skin color, texture, turgor normal, no suspicious rashes or lesions Respiratory:+ effort Cardiovascular: Not examined GI: Normal abdominal exam, Abdomen soft, non-tender. No masses, organomegaly Musculoskeletal: Negative Neuro: Negative Genitourinary: not examned Impression: (N20.0) Kidney stone (primary encounter diagnosis) Plan: 6 months kub prior Stone prevention Ankur Regan Jr, MD 03/23/2021 [facility] 10-06-2020 Note HNO ID: [id number] Author: Ankur Regan Jr. Service: ? Author Type: Physician Type: Progress Notes Filed: 10/07/2020 11:13 AM Note Text: ESTABLISHED PATIENT OFFICE VISIT HPI Juan A Grande is a 50 year old male who presents with h/o kidney stones. Had a R ureteral calculus s/p ESWL and string stent on 09/14. Doing well since surgery. Removed his string stent a few days after without any issues. Has not noticed any passed fragments. Denies any recurrent flank pain. No h/o stones prior to this. LAB: Creatinine Date Value Ref Range Status 09/13/2020 2.99 (H) 0.73 - 1.22 mg/dL Final 09/12/2020 3.06 (H) 0.73 - 1.22 mg/dL Final No results found for: PSA Glucose, Urine (mg/dL) Date Value 09/12/2020 1+ Bilirubin, Urine (no units) Date Value 09/12/2020 Negative Ketones, Urine (no units) Date Value 09/12/2020 Negative Specific [place], Ur (no units) Date Value 09/12/2020 1.025 Hemoglobin/Blood,Ur ( ) Date Value 09/12/2020 Trace pH, Urine (no units) Date Value 09/12/2020 5.5 Protein, Urine (no units) Date Value 09/12/2020 Negative Nitrites (no units) Date Value 09/12/2020 Negative WBC, Urine (/HPF) Date Value 09/12/2020 0-5 MEDICATIONS: keTORolac (TORADOL) 10 mg tablet Take 1 tablet by mouth every 6 hours as needed. TRUE METRIX GLUCOSE TEST STRIP test strip as directed. 2 TIMES DAILY TRUE METRIX GLUCOSE METER as directed. amLODIPine (NORVASC) 5 mg tablet Take 5 mg by mouth once daily. carvedilol (COREG) 12.5 mg tablet Take 12.5 mg by mouth twice daily with meals. lisinopril (ZESTRIL, PRINIVIL) 40 mg tablet Take 40 mg by mouth once daily. atorvastatin (LIPITOR) 80 mg tablet Take 80 mg by mouth daily at bedtime. metFORMIN (GLUCOPHAGE) 500 mg tablet Take 500 mg by mouth twice daily with meals. Hydrochlorothiazide 12.5 mg capsule Take 25 mg by mouth once daily. lansoprazole orally disintegrating (PREVACID) 15 mg disintegrating tablet Take 1 tablet by mouth twice daily. oxybutynin ER (DITROPAN XL) 10 mg 24 hr tablet Take 1 tablet by mouth once daily for 10 days. tamsulosin ER (FLOMAX) 0.4 mg Take 1 capsule by mouth daily at bedtime for 10 days. montelukast (SINGULAIR) 10 mg tablet Take 10 mg by mouth once daily. 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, without long-term current use of insulin ([facility]) - Unspecified asthma(493.90) - Unspecified essential hypertension - V tach (HCC) FAMILY HISTORY Problem Relation Age of Onset - Allergies Father - No Known Problems Mother - No Ocular Disease No Family History SOCIAL HISTORY Social History Tobacco Use - Smoking status: Current Some Day Smoker Types: Pipe - Smokeless tobacco: Never Used - Tobacco comment: one pipe couple times a month Substance Use Topics - Alcohol use: Yes - Drug use: No PHYSICAL EXAMINATION General appearance: Well appearing, alert, in no acute distress and well-hydrated, well nourished Skin: Skin color, texture, turgor normal, no suspicious rashes or lesions Respiratory:+ effort Cardiovascular: Not examined GI: Normal abdominal exam, Abdomen soft, non-tender. No masses, organomegaly Musculoskeletal: Negative Neuro: Negative Genitourinary: Deferred Impression: (N20.0) Kidney stone (primary encounter diagnosis) Plan: Check KUB F/u PRN D/w Dr. Shereen Leal MD Urology, PGY-5 I saw and evaluated the patient. Discussed with resident and agree with resident's findings and plan as documented in the resident's note. MD Ankur James Jr, Jr, MD 10/06/2020 [facility] 09-13-2020 Note HNO ID: [id number] Author: Aldair Perez (Aprn Crna) Service: ? Author Type: Nurse Potato Sorter Type: Anesthesia Procedure Notes Filed: 09/13/2020 3:27 PM Note Text: ANESTHESIOLOGY PROCEDURE NOTE Airway General Information Patient location during procedure: OR Timeout Performed Pre-procedure: timeout performed Consent Obtained: Yes Patient identity confirmed: arm band Staffing CROWN BUFFER: Aldair Perez (Aprn Crna) Indications and Patient Condition Preoxygenated: yes Patient position: sniffing Manual In-Line Stabilization: No Difficult Mask: Yes Indications for airway management: anesthesia anesthesia circuit Method: asleep Cricoid Pressure: No Airway Accessory: LMA Final Airway Details Final airway type: supraglottic airway Final Supraglottic Airway: IGEL Size 5 Seal Adequate: yes Failed airway: no Unrecognized esophageal intubation: no Airway not difficult SIGNATURE: Aldair Perez APRN.CRNA PATIENT NAME: Juan A Grande DATE: September 13, 2020 TIME: 3:26 PM CSN: [id number] [facility] 09-13-2020 Note HNO ID: [id number] Author: Mario Ramirez MD Service: Urology Author Type: Resident Type: Progress Notes Filed: 09/13/2020 8:08 AM Note Text: Attestation signed by Ankur Regan Jr. at 09/13/2020 2:44 PM I saw and evaluated the patient. Discussed with the resident and agree with resident's findings and plan as documented in the resident's note. Ankur Regan Jr, MD UROLOGY PROGRESS NOTE PATIENT NAME: Juan A Grande DATE OF : 1970 ADMISSION DATE: 09/12/2020 9:48 PM Subjective No acute events overnight. Patient with persistent right flank pain. No hematuria or dysuria. Afebrile. Objective VS: BP 115/76 Pulse (!) 59 Temp 36.8 ?C (98.2 ?F) (Oral) Resp 18 Ht 167.6 cm (5' 6 ) Wt 111.1 kg (245 lb) SpO2 97% BMI 39.54 kg/m? I AND O - 24hr: No intake or output data in the 24 hours ending 09/13/20 0701 Physical Exam: General: Neck: Resp: Abdomen: No acute distress Supple Normal effort Soft, non-tender, nondistended : Mild right cva tenderness Labs and Imaging Studies LABS: BMP: Glucose (mg/dL) Date Value 09/13/2020 111 09/12/2020 133 Potassium (mmol/L) Date Value 09/13/2020 3.4 09/12/2020 3.4 Sodium (mmol/L) Date Value 09/13/2020 137 09/12/2020 132 Chloride (mmol/L) Date Value 09/13/2020 102 09/12/2020 91 CO2 (mmol/L) Date Value 09/13/2020 24 09/12/2020 24 Creatinine (mg/dL) Date Value 09/13/2020 2.99 09/12/2020 3.06 BUN (mg/dL) Date Value 09/13/2020 38 09/12/2020 37 Anion Gap (mmol/L) Date Value 09/13/2020 11 09/12/2020 17 Calcium (mg/dL) Date Value 09/12/2020 10.1 Calcium, Total (mg/dL) Date Value 09/13/2020 8.4 CBC: Hemoglobin (g/dL) Date Value 09/13/2020 10.5 09/12/2020 12.4 Hematocrit (%) Date Value 09/13/2020 31.7 09/12/2020 36.8 WBC (k/uL) Date Value 09/13/2020 8.82 09/12/2020 13.85 Platelet Count (k/uL) Date Value 09/13/2020 283 09/12/2020 363 Urinalysis: Specific [place], Ur Date Value Ref Range Status 09/12/2020 1.025 1.005 - 1.030 Final Glucose, Urine Date Value Ref Range Status 09/12/2020 1+ (A) Negative mg/dL Final Bilirubin, Urine Date Value Ref Range Status 09/12/2020 Negative Negative Final Ketones, Urine Date Value Ref Range Status 09/12/2020 Negative Negative Final Hemoglobin/Blood,Ur Date Value Ref Range Status 09/12/2020 Trace (A) Negative Final Protein, Urine Date Value Ref Range Status 09/12/2020 Negative Negative Final Nitrites Date Value Ref Range Status 09/12/2020 Negative Negative Final WBC, Urine Date Value Ref Range Status 09/12/2020 0-5 0 - 5 /HPF Final Urine Culture: pending RADIOLOGY: CT A/P IMPRESSION: Obstructing 4 mm proximal right ureter calculus with mild right hydroureteronephrosis. ?Additional nonobstructing bilateral nephrolithiasis.. Under 5 mm lung base nodules Acuity: Incidental Finding: Solid: <6 mm (solitary or multiple) Routing Code: ?N/A Recommendation: No imaging follow-up is recommended Time Frame: ?N/A Comments: ?If there are risk factors for lung malignancy, a follow-up chest CT exam could be obtained in 12 months KUB: IMPRESSION: Right ureteral calculus. Assessment and Plan ASSESSMENT: 50 year old male with 4mm R proximal ureteral calculus PLAN: -OR today for laser lithotripsy vs ESWL. All r/b/a discussed with the patient who agrees to proceed Risks associated with various stone treatments: ESWL 1/100 Emergent secondary procedure (ureteroscopy/stent) 08/999 Serious blood loss with transfusion Ureteroscopy 08/999 Serious injury requiring major surgery 4/5 have stent pain 1/5 have severe stent pain -IVF/NPO -UCx pending. UA with no bacteria. Continue ciprofloxacin -Pain control prn -COVID negative -Cr remains elevated. Consider re-checking BMP as outpatient -Likely discharge later today after procedure Mario Ramirez MD Urology, PGY-3 September 13, 2020 7:58 AM Pager: [phone] [facility] 09-01-2020 Note HNO ID: [id number] Author: Theresa Jackson (Aprn Cnp) Service: ? Author Type: Nurse Practitioner Type: Progress Notes Filed: 08/31/2020 10:50 PM Note Text: NEW PATIENT HISTORY AND PHYSICAL EXAM HISTORY OF PRESENT ILLNESS Patient presents with: Kidney Stones Juan A Grande is a 50 year old male who presents today as a new patient. Virtual visit: Patient with a kidney stone. Was seen in the ER at [facility] on 08/26/20 for c/o flank pain. CT flank showed: Left proximal ureteric 2-3 mm stone with secondary mild left urinary tract obstruction. Bilateral nonobstructing nephrolithiasis. Started on tamsulosin and percocet. Patient has not passed the stone. He continues to have intermittent leftt flank pain. Intermittent gross hematuria. Chills at times. Denies fever. No nausea or vomiting. Rates his pain a 6/10 today. Discussed stone removal. Note to providers. Patient is requesting pain medication. LAB RESULTS Creatinine Date Value Ref Range Status 08/26/2020 1.68 (H) 0.73 - 1.22 mg/dL Final No results found for: PSA Color (no units) Date Value 08/26/2020 Yellow Glucose, Urine (mg/dL) Date Value 08/26/2020 3+ Bilirubin, Urine (no units) Date Value 08/26/2020 Negative Ketones, Urine (no units) Date Value 08/26/2020 Negative Specific [place], Ur (no units) Date Value 08/26/2020 1.020 Hemoglobin/Blood,Ur ( ) Date Value 08/26/2020 3+ pH, Urine (no units) Date Value 08/26/2020 6.0 Protein, Urine (no units) Date Value 08/26/2020 Negative Urobilinogen (E.U./dL) Date Value 08/26/2020 0.2 Nitrites (no units) Date Value 08/26/2020 Negative Leukest (no units) Date Value 08/26/2020 Negative REVIEW OF SYSTEMS GENERAL:No weight loss, malaise or fevers. HEENT:Negative for frequent or significant headaches, No changes in hearing or vision, no nose bleeds or other nasal problems. RESPIRATORY: Negative for cough, wheezing or shortness of breath. CARDIOVASCULAR: Negative for chest pain, leg swelling or palpitations. GASTROINTESTINAL: Negative for abdominal discomfort, blood in stools or black stools or change in bowel habits. GENITOURINARY: See HPI. MEDICATIONS: tamsulosin ER (FLOMAX) 0.4 mg Take 1 capsule by mouth daily at bedtime for 7 days. keTORolac (TORADOL) 10 mg tablet Take 1 tablet by mouth every 6 hours as needed. ondansetron orally disintegrating (ZOFRAN ODT) 4 mg disintegrating tablet Take 1 tablet by mouth every 6 hours as needed for Nausea/Vomiting for up to 7 days. ibuprofen (MOTRIN) 100 mg/5 mL suspension Take 30ml every 5-6hrs ATC for the first 7-10 days, then can take every 5-6hrs as needed montelukast (SINGULAIR) 10 mg tablet Take 10 mg by mouth once daily. TRUE METRIX GLUCOSE TEST STRIP test strip as directed. 2 TIMES DAILY TRUE METRIX GLUCOSE METER as directed. amLODIPine (NORVASC) 5 mg tablet Take 5 mg by mouth once daily. carvedilol (COREG) 12.5 mg tablet Take 12.5 mg by mouth twice daily with meals. lisinopril (ZESTRIL, PRINIVIL) 40 mg tablet Take 40 mg by mouth once daily. atorvastatin (LIPITOR) 80 mg tablet Take 80 mg by mouth daily at bedtime. metFORMIN (GLUCOPHAGE) 500 mg tablet Take 500 mg by mouth twice daily with meals. Hydrochlorothiazide 12.5 mg capsule Take 25 mg by mouth once daily. lansoprazole orally disintegrating (PREVACID) 15 mg disintegrating tablet Take 1 tablet by mouth twice daily. 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, without long-term current use of insulin (HCC) - Unspecified asthma(493.90) - Unspecified essential hypertension - V tach (HCC) PAST SURGICAL HISTORY Procedure Laterality Date - CARDIAC CATH 05/02/2019 - ECHO 04/28/2019 - HEART SURGERY HX N/A 05/02/2019 4 stents placed - HOLTER 48 HOUR J2 05/05/2019 - LAP CHOLECYSTECT/CHOLANGIOGRAPHY - PAST SURGICAL HISTORY OF 02/2020 cardiac ablation- for Vtach had amiodorone had albation in February 2020 - PAST SURGICAL HISTORY OF LOOP RECORDER - STENT, CAROTID ARTERY W/EMBOLIC PROTECT 05/02/2019 4 stents- Cardiac stents - STRESS ECHO 04/28/2019 FAMILY HISTORY Problem Relation Age of Onset - Allergies Father - No Known Problems Mother - No Ocular Disease No Family History SOCIAL HISTORY Social History Tobacco Use - Smoking status: Current Some Day Smoker Types: Pipe - Smokeless tobacco: Never Used - Tobacco comment: one pipe couple times a month Substance Use Topics - Alcohol use: Yes - Drug use: No There were no vitals taken f (more content not included)... [facility] 06-15-2020 Note HNO ID: [id number] Author: Nori Treadwell (Aprn Crna) Service: ? Author Type: Nurse Potato Sorter Type: Anesthesia Procedure Notes Filed: 06/15/2020 11:45 AM Note Text: ANESTHESIOLOGY PROCEDURE NOTE Airway General Information Procedure Start Time/Medication Administration: 06/15/2020 11:36 AM Patient location during procedure: OR Timeout Performed Pre-procedure: timeout performed Consent Obtained: Yes Patient identity confirmed: arm band Staffing Anesthesiologist: Antonio March CROWN BUFFER: Nori Treadwell (Aprn Crna) Performed by: anesthesiologist Indications and Patient Condition Preoxygenated: yes Patient position: sniffing Difficult Mask: No Indications for airway management: anesthesia anesthesia circuit Method: asleep Cricoid Pressure: Yes Airway Accessory: oral airway Final Airway Details Final airway type: endotracheal airway Final Endotracheal Airway: ETT Cuffed: yes Successful intubation technique: direct laryngoscopy Endotracheal tube insertion site: oral Blade: Sujatha Blade size: #4 ETT size (mm): 8.0 Measured from: lips Measurement (cm): 24 Placement verified by: chest auscultation and capnometry Cormack-Lehane Classification: grade IIb - view of arytenoids or posterior of glottis only Number of attempts at approach: 1 Airway not difficult SIGNATURE: Nori Treadwell APRN.CRNA PATIENT NAME: Juan A Grande DATE: June 15, 2020 TIME: 11:44 AM CSN: [id number] [facility] 06-11-2020 Note HNO ID: [id number] Author: Ave Trammell Service: Anesthesiology Author Type: Nurse Practitioner Type: Progress Notes Filed: 06/11/2020 10:41 AM Note Text: Spoke to Minda, financial advocate, at Dr. Carver's office. No cardiac clearance needed for this patient per Dr. Carver. Minda states that Dr. Carver approved the ASA and Plavix instructions which were provided per cardiology. Dr. Carver called the patient directly and discussed these instructions with the patient. Okay to proceed with surgery on 06/15/[address] Carver. [facility] 06-10-2020 Note HNO ID: [id number] Author: Rosi Rao (Pa) Service: Anesthesiology Author Type: Physician Insurance Clerk Type: Progress Notes Filed: 06/10/2020 2:57 PM Note Text: Medication instructions have been received from criminal attorney office and forwarded on to Dr. Carver's office for review. Coal Crusher Operator office questioning if cardiac clearance is being requested. Spoke with Dr. Carver's office and they will check with Dr Carver to see if clearance is needed. Dr. Carver's office will be back in touch with us regarding clearance and also if patient instructions for anticoagulation are acceptable to Dr. Carver for planned procedure. [facility] 06-10-2020 Note HNO ID: [id number] Author: Rosi Rao (Pa) Service: Anesthesiology Author Type: Physician Insurance Clerk Type: Progress Notes Filed: 06/10/2020 9:27 AM Note Text: Written instructions not yet received. Phone message left for LEYDI Gardner at Dr. Bruce's office to re-fax written instructions. Will discuss with Dr. Carver's office when received. Phone number for Dr. Bruce is [phone]. [facility] 06-09-2020 Note HNO ID: [id number] Author: Ave Zhu Service: Anesthesiology Author Type: Nurse Practitioner Type: Progress Notes Filed: 06/09/2020 1:36 PM Note Text: Called the patient's criminal attorney, Dr. Bruce. Spoke with LEYDI Gardner, in Dr. Bruce's office. Kendra gave me instructions regarding the patient's Plavix and ASA over the phone. Kendra stated patient should stop taking both Plavix and ASA starting now in preparation for his surgery scheduled for 06/15/20. Kendra will fax written instructions to Dr. Carver's office and to us as well. Patient was notified of these instructions. Patient verbalized understanding. He did not take his ASA today, but did take his Plavix today. He will stop both starting tomorrow. Once we receive the instructions in writing we will need to call Dr. Carver's office and make sure patient has been off both medications for an adequate amount of time and that he can proceed with surgery 06/15/20. [facility] 06-09-2020 Note HNO ID: [id number] Author: Ave Cavanaugh [facility] Service: Anesthesiology Author Type: Nurse Practitioner Type: Progress Notes Filed: 06/09/2020 11:49 AM Note Text: Spoke with Minda at Dr. Carver's office. They did not request cardiac clearance on this patient. Spoke with patient directly. He has not received instructions on his ASA and Plavix. I will call his criminal attorney, Dr. Bruce, and request written instructions. [facility] documented as of this encounter (statuses as of 12/09/2022) [facility] History of Past illness Narrative* Problem Noted Date Diagnosed Date Resolved Date TIA (transient ischemic attack) 04/10/2019 04/12/2019 documented as of this encounter (statuses as of 06/14/2023) [facility] History of Past illness Narrative* Problem Noted Date Diagnosed Date Resolved Date TIA (transient ischemic attack) 04/10/2019 04/12/2019 documented as of this encounter (statuses as of 07/27/2023) [facility] History of Past illness Narrative* Problem Noted Date Diagnosed Date Resolved Date TIA (transient ischemic attack) 04/10/2019 04/12/2019 documented as of this encounter (statuses as of 10/08/2023) [facility] Diagnosis Coronary artery disease involving [place] coronary artery of [place] heart without angina pectoris- Primary Essential hypertension Unspecified essential hypertension Mixed hyperlipidemia History of placement of stent in LAD coronary artery Postsurgical percutaneous transluminal coronary angioplasty status S/P right coronary artery (RCA) stent placement Sustained ventricular tachycardia (HCC) Paroxysmal ventricular tachycardia Erectile dysfunction, unspecified erectile dysfunction type documented in this encounter [facility] Diagnosis Testicular hypofunction- Primary Other testicular hypofunction Allergic rhinitis, unspecified documented in this encounter [facility]* Diagnosis Other specified abnormal findings of blood chemistry- Primary documented in this encounter [facility]* Diagnosis Coronary artery disease involving [place] coronary artery of [place] heart without angina pectoris- Primary Essential hypertension Unspecified essential hypertension Mixed hyperlipidemia History of placement of stent in LAD coronary artery Postsurgical percutaneous transluminal coronary angioplasty status S/P right coronary artery (RCA) stent placement Erectile dysfunction, unspecified erectile dysfunction type documented in this encounter [facility] Summary Purpose Family History No Family History Records FoundNo Family History Records FoundNo Family History Records FoundNo Family History Records FoundNo Family History Records FoundNo Family History Records FoundNo Family History Records Found Advance Directives No Advanced Directives Records FoundNo Advanced Directives Records FoundNo Advanced Directives Records FoundNo Advanced Directives Records FoundNo Advanced Directives Records FoundNo Advanced Directives Records FoundNo Advanced Directives Records Found Reason for Referral Specialty Diagnoses / Procedures Referred By Janes reed Referred To Contact Ambrosio Hahn DO [address] [phone] Referral ID Status Reason Start Date Expiration Date V isits Requested Visits Authorized [id number] Pending Review 1 1 Additional Source Comments (unrecognized sect ion and content) No Status Records FoundNo Status Records FoundNo Status Records FoundNo Status Records FoundNo Status Records FoundNo Status Records FoundNo Status Records Found INFORMATION SOURCE (unrecogn ized section and content) DATE CREATED AUTHOR AUTHOR'S ORGANIZ ATION 02/02/[address] [facility] DATE CREATED AUTHOR AUTHOR'S ORGANIZ ATION 03/24/2021 [facility] DATE CREATED AUTHOR AUTHOR'S ORGANIZ ATION 03/25/2021 [facility] DATE CREATED AUTHOR AUTHOR'S ORGANIZ ATION 01/26/2023 [facility] DATE CREATED AUTHOR AUTHOR'S ORGANIZ ATION 08/05/2023 [facility] DATE CREATED AUTHOR AUTHOR'S ORGANIZ ATION 10/08/2023 [facility] Source Comments (unrecognize d section and content) In the event this informatio n is protected by the Federal Confidentiality of Alcohol and Drug Abuse Patient Records regulations: The Federal rules restrict any use of the information to criminally investigate or prosecute any alcohol or drug abuse patient.[facility] the event this information is protected by the Federal Confidentiality of Alcohol and Drug Abuse Patient Records regulations: The Federal rules restrict any use of the information to criminally investigate or prosecute any alcohol or drug abuse patient.[facility] the event this information is protected by the Federal Confidentiality of Alcohol and Drug Abuse Patient Records regulations: The Federal rules restrict any use of the information to criminally investigate or prosecute any alcohol or drug abuse patient.[facility] the event this information is protected by the Federal Confidentiality of Alcohol and Drug Abuse Patient Records regulations: The Federal rules restrict any use of the information to criminally investigate or prosecute any alcohol or drug abuse patient.[facility] Reason for Visit (unrecogniz ed section and content) Reason Comments Established Patient Follow-Up 6 month fo candicew upEKG completed today Room 1 No current cardiac concerns Reason Comments Forms [facility] Reason Onset Date Comments [place] 10/30/2023 Care Teams (unrecognized sec tion and content) Generator Technician Relationship Specialty Start Date End Date Blake Garcia DO [address] [place] [id number] PCP - General 01/30/20 Generator Technician Relationship Specialty Start Date End Date Blake Garcia DO [address] [place] [id number] PCP - General 01/30/20 Generator Technician Relationship Specialty Start Date End Date Blaek Garcia DO [address] [place] [address] PCP - General Family Medicine 04/10/19 Antonio Bruce MD [address] [place] [address] Referring Cardiology 07/16/19 Jayce Rai MD [address] [place], [place] [id number] Primary Staff Physician Cardiology 02/03/20 Generator Technician Relationship Specialty Start Date End Date Blake Garcia DO [address] [place] [address] PCP - General Family Medicine 04/10/19 Antonio Bruce MD [address] [place] [address] Referring Cardiology 07/16/19 Jayce Rai MD [address] [place], [place] [id number] Primary Staff Physician Cardiology 02/03/20 Generator Technician Relationship Specialty Start Date End Date Blake Garcia DO [address] [place] [address] PCP - General Family Medicine 04/10/19 Antonio Bruce MD [address] [place] [address] Referring Cardiology 07/16/19 Jayce Rai MD [address] [place] [address] Primary Staff Physician Cardiology 02/03/20 FOR RECORDS PERTAINING TO PATIENTS WHO ARE OR HAVE BEEN ENROLLED IN A CHEMICAL DEPENDENCY/SUBSTANCEABUSE PROGRAM, SOME INFORMATION MAY BE OMITTED. This clinical summary was aggregated from multiple sources. Caution should be exercised in using it in the provision of clinical care. This summary normalizes information from multiple sources, and as a consequence, information in this document may materially change the coding, format and clinical context of patient data. In addition, data may be omitted in some cases. CLINICAL DECISIONS SHOULD BE BASED ON THE PRIMARY CLINICAL RECORDS. [facility]. provides no warranty or guarantee of the accuracy or completeness of information in this document.
== END 2023-10-31 14:59 | disposition home or self-care (01) ==
PROVIDERS: Emergency Provider Emergency Medicine; PCP Family Medicine; Visit Provider Emergency Medicine
DX: L02.214 Cutaneous abscess of groin (principal); E11.9 Type 2 diabetes mellitus without complications; F17.200 Nicotine dependence, unspecified, uncomplicated; Z95.5 Presence of coronary angioplasty implant and graft
CPT/HCPCS: 10060; 99282

== ENCOUNTER 2023-10-31 16:25 | Emergency (ER) | payer BC, SELFPAY ==
[2019-05-02 10:08] VITALS: BMI 37.9
[2023-10-31 16:26] VITALS: BP 135/70; PULSE 87; RESP 16; TEMP 36.4; O2SAT 98; BMI 37.5
--- NOTE | 2023-10-31 16:43 | EDS_ITS ---
HPI History of Present Illness Chief Complaint: Wound Narrative Narrative: 53-year-old male past medical history of diabetes and hypertension presents via EMS status post incision and drainage of right groin abscess in the emergency department that I performed earlier today. He states that when he got home, he felt gushes of blood down his leg. He had continued bleeding from the wick that was placed. Given his continued bleeding, he called EMS to bring him back to the emergency department. He denies any other symptoms. No coolness of his leg or inability to ambulate. [facility] Medical History Atherosclerosis of coronary artery without angina pectoris Essential hypertension HTN (hypertension) Hyperlipidemia Hypertensive urgency Ischemic cardiomyopathy Sustained ventricular tachycardia Syncope Ventricular trigeminy Home Medications atorvastatin 80 mg tablet 80 mg PO QHS #90 tabs 05/13/19 [Rx Last Taken 09/07/22] lisinopril 40 mg tablet 40 mg PO DAILY #90 tabs 06/30/19 [Rx Last Taken Unknown] carvedilol 12.5 mg tablet (Coreg) 12.5 mg PO BID #180 tabs 07/14/19 [Rx Last Taken 09/08/22] pantoprazole 40 mg tablet,delayed release 40 mg PO DAILY 07/21/21 [History Last Taken Unknown] pen needle, diabetic 29 gauge #100 ea 07/23/21 [Rx Last Taken Unknown] amlodipine 5 mg tablet 2.5 mg PO DAILY 09/08/22 [History Last Taken 09/08/22] azelastine 137 mcg (0.1 %) nasal spray aerosol 1 spray intranasal BID 09/08/22 [History Last Taken 09/07/22] fluticasone propionate 50 mcg/actuation nasal spray,suspension 1 spray intranasal DAILY 09/08/22 [History Last Taken Unknown] hydrochlorothiazide 25 mg tablet 25 mg PO DAILY 09/08/22 [History Last Taken Unknown] linagliptin 5 mg tablet (Tradjenta) 5 mg PO DAILY 09/08/22 [History Last Taken Unknown] metformin 500 mg tablet,extended release 24hr (osmotic) 500 mg PO DAILY 09/08/22 [History Last Taken Unknown] tamsulosin 0.4 mg capsule (Flomax) 0.4 mg PO DAILY 09/08/22 [History Last Taken Unknown] aspirin 81 mg chewable tablet 81 mg PO DAILY #90 tabs 09/09/22 [Rx Last Taken 09/07/22] oxycodone-acetaminophen 5 mg-325 mg tablet (Percocet) 1 tab PO Q4H PRN pain 7 days #14 tabs 09/09/22 [Rx Last Taken Unknown] ondansetron 4 mg disintegrating tablet 4 mg PO Q8H PRN PRN Nausea #10 tabs 06/27/23 [Rx Last Taken Unknown] oxycodone-acetaminophen 5 mg-325 mg tablet 1 tab PO Q6H PRN PRN Pain 3 days #12 TABLETS 06/27/23 [Rx Last Taken Unknown] sulfamethoxazole 800 mg-trimethoprim 160 mg tablet (Bactrim DS) 1 tab PO BID #14 tabs 10/31/23 [Rx Last Taken Unknown] Allergy/AdvReac Type Severity Reaction Status Date / Time Penicillins Allergy Unknown Verified 10/31/23 13:23 Surgical History H/O cardiac radiofrequency ablation (01/02/20) History of cholecystectomy History of temporal artery biopsy History of tonsillectomy Status post placement of implantable loop recorder (03/12/20) Stented coronary artery (05/02/19) Social History Smoking Status: Light Smoker (<10/day) ROS ROS ED ROS Narrative Constitutional: No fever, no chills. Positive bleeding from incision and drainage site in right groin. No lightheadedness, no coolness of leg. EXAM Physical Exam Narrative Exam Narrative: Focused physical exam afebrile. Vital signs noted. Cardiovascular: Regular rate and rhythm. No murmurs, rubs, or gallops appreciated. Respiratory: No tachypnea. Lungs clear to auscultation bilaterally. Neurological: Awake. Alert. Nonfocal, nonlateralizing. Skin: No rash. Normal color. No pallor. Musculoskeletal: No pedal edema. Full range of motion extremities. Palpable dorsalis pedis pulse, right. Good capillary refill of great toe, right. Inspection of right groin shows dried blood on wick and down the patient's leg with clot attached to wick. Const Vital Signs: 10/31/23 16:26 Temperature 97.5 F L Temperature Source Temporal Pulse Rate 87 Respiratory Rate 16 Blood Pressure 135/70 H Blood Pressure Mean 91 Pulse Ox 98 Oxygen Delivery Method Room Air MDM MDM MDM Narrative Medical decision making narrative: While RN was present, wick was removed using saline. There is no active bleeding, no pulsatile bleeding. I do not feel that he has an arterial bleed from the site and I do not feel that it hit any major vessels that require imaging as he is neurovascular intact distally. The wick was removed and Gelfoam dressing was applied with RN. He will be observed in the ED. Upon repeat examination at approximately 1735, his wound and dressing appear clean, dry, and intact. He was able to ambulate without active rebleeding. At this point in time, I do feel he can be discharged to follow-up with his primary care provider for a wound recheck in 2 days. He was told that he may change the outer bandage but not to remove the Gelfoam. Return instructions to the emergency department were reviewed. Disposition is discharged home in stable condition. History & Record Review Discussion w/independent historian: EMS personnel and Patient Additional record(s) reviewed:: Prior ED visit Discharge Plan Triage Chief Complaint: Wound ED Provider: Georges Abrams Dx/Rx/DC Orders Clinical Impression: Encounter for wound re-check, Bleeding Instructions: ED Abscess Incision And Drainage Prescriptions: No Action atorvastatin 80 mg tablet 80 mg PO QHS Qty: 90 3RF lisinopril 40 mg tablet 40 mg PO DAILY Qty: 90 3RF pantoprazole 40 mg tablet,delayed release (DR/EC) 40 mg PO DAILY (DME) pen needle, diabetic 29 gauge needle See Rx Instructions .ROUTE .MEDSUPPLY Qty: 100 0RF Rx Instructions: As directed tamsulosin [Flomax] 0.4 mg Capsule 0.4 mg PO DAILY hydrochlorothiazide 25 mg Tablet 25 mg PO DAILY azelastine 137 mcg (0.1 %) Aerosol,[place] 1 spray INTRANASAL BID Rx Instructions: administer into each nostril fluticasone propionate 50 mcg/actuation [place],Suspension 1 spray INTRANASAL DAILY Rx Instructions: administer into each nostril metformin 500 mg Tablet Extended Release 24hr 500 mg PO DAILY Tradjenta 5 mg Tablet 5 mg PO DAILY amlodipine 5 mg tablet 2.5 mg PO DAILY oxycodone-acetaminophen [Percocet] 5-325 mg tablet 1 tab PO Q4H PRN (Reason: pain) 7 Days Qty: 14 0RF aspirin 81 mg tablet,chewable 81 mg PO DAILY Qty: 90 3RF Rx Instructions: hold 5 days before surgey to laser stones oxycodone-acetaminophen [oxycodone-acetaminophen] 5-325 mg tablet 1 tab PO Q6H PRN PRN (Reason: Pain) 3 Days Qty: 12 0RF ondansetron [ondansetron] 4 mg tablet,disintegrating 4 mg PO Q8H PRN PRN (Reason: Nausea) Qty: 10 0RF sulfamethoxazole-trimethoprim [Bactrim DS] 800-160 mg tablet 1 tab PO BID Qty: 14 0RF carvedilol [Coreg] 12.5 mg tablet 12.5 mg PO BID Qty: 180 3RF Rx Instructions: must administer with a meal/food Primary Care Provider: Blake Calixto Referrals: Blake Calixto, DO [Primary Care Provider] - 2 Days Activity Restrictions/Additional Instructions: You may remove the outer bandage and gauze and change that in 1 day, but do not remove the Gelf[place]am. Have your wound rechecked by your primary care provider in 2 days. Disposition Disposition: Home, Self Care
--- NOTE | 2023-10-31 17:44 | ED.RN ---
this RN ambulated patient down hallway and back to ensure wound did not start bleeding again, no bleeding noted.
[2023-10-31 17:45] VITALS: BP 128/86; PULSE 75; RESP 17; TEMP 36.2; O2SAT 100
--- OUTSIDE RECORDS SUMMARY | 2023-10-31 22:48 | XMS RPT_ITS | CCD ---
Author Name Unknown Address [address] [place] [address] Organization [facility] Care Team Providers Care Cable Inspector Name Role Phone Unavailable Primary Care Provider Unavailabl e Blake Garcia DO Primary Care Provider Antonio Bruce MD Unavailable [phone] Jayce Rai MD Unavailable BLAKE GARCIA Attending Unavailable BLAKE GARCIA [...] [HYDROCODONE-ACETA MINOPHEN] Drug Allergy 8 GI Upset [facility] (6 sources) Penicillins; Translations: [PENICILLINS] Propensity to adverse reactions 8 [facility] Medications Completed/Discontinued Medications Medication Drug Class(es) Dates [...] Coronary arteriosclerosis; Translations: [Atherosclerotic heart disease of pechanga coronary artery without angina pectoris] Onset: 09-06-2020 [...] 167.6 cm Ambrosio Hahn DO Work Phone: [facility] 06-13-2023 15:11-0400 Body weight 104.33 kg Ambrosio Hahn DO Work Phone: [facility] 06-13-2023 15:11-0400 Diastolic blood pressure 86 mm[Hg] Ambrosio Hahn DO Work Phone: [facility] 06-13-2023 15:11-0400 Heart rate 73 /min Ambrosio Hahn DO Work Phone: [facility] 06-13-2023 15:11-0400 SaO2% (BldA) [Mass fraction] 97 % Ambrosio Hahn DO Work Phone: [facility] 06-13-2023 15:11-0400 Systolic blood pressure 124 mm[Hg] Ambrosio Hahn DO Work Phone: [facility] 12-08-2022 13:02-0400 Body height 167.6 cm Ambrosio Hahn DO Work Phone: [facility] 12-08-2022 13:02-0400 Body weight 106.59 kg Ambrosio Hahn DO Work Phone: [facility] 12-08-2022 13:02-0400 Diastolic blood pressure 86 mm[Hg] Ambrosio Hahn DO Work Phone: [facility] 12-08-2022 13:02-0400 Heart rate 59 /min Ambrosio Hahn DO Work Phone: [facility] 12-08-2022 13:02-0400 SaO2% (BldA) [Mass fraction] 97 % Ambrosio Hahn DO Work Phone: [facility] 12-08-2022 13:02-0400 Systolic blood pressure 130 mm[Hg] Ambrosio Hahn DO Work Phone: [facility] Encounters Encounter Date Encounter Type Care Provider Facility Start: 10-30-2023 ambulatory [facility]ll[facility] Clinical [facility] Start: 10-30-2023 Patient encounter procedure [facility] Are[facility] Clinical [facility] Start: 08-03-2023 Telephone [...] or older (1 - 1-dose 60+ series) [facility] Start: 01-29-2025 Lipid 1996 panel - Serum or Plasma Lipid Screening [facility] Start: 01-29-2025 Lipid panel Lipid Screening [facility] Start: 04-11-2024 Lipid 1996 panel - Serum or Plasma Lipid Screening [facility] Start: 04-11-2024 LIPID SCREEN LIPID SCREEN [facility] Start: 03-06-2024 DIABETES SCREEN DIABETES SCREEN [facility] Start: 03-06-2024 Diabetes Screening Diabetes Screening [facility] Start: 08-20-2023 Depression Assessment Depression Assessment [facility] Start: 2023 Influenza vaccination [facility] Start: 12-08-2022 End: 02-07-2023 TESTOSTERONE, FREE AND TOTAL [facility] Work Phone: Payers Date Payer Category Payer Unknown [id number] 2021 Unknown [id number] Social History Date Type Detail Facility Tobacco smoking stat [facility] Unknown if ever smoked [facility] Start: 1970 [facility]igned [facility] Start: 12-08-2022 Tobacco smoking stat [facility] Occasional tobacco smoker [facility] History of tobacco use Pipe Smoker [facility] Start: 12-08-2022 Tobacco use and exposure Smokeless tobacco non-user [facility] Start: 12-08-2022 End: 06-13-2023 Alcohol intake Current drinker of alcohol (finding) [facility] Start: 06-15-2020 History SDOH Alcohol Frequency 3 [facility] Start: 06-15-2020 History SDOH Alcohol Std Drinks 1 [facility] Start: 12-08-2022 Tobacco Comment one pipe coupl e times a month [facility] Start: 1970 Sex Assigned At Male [facility] Tobacco smoking stat [facility] Tobacco smoking consumption unknown [facility] Start: 06-15-2020 End: 06-13-2023 Gender identity Not on file [facility] Work Phone: Start: 01-01-2023 End: 01-11-2023 Exposure to SARS-CoV-2 (event) Not sure [facility] Start: 06-15-2020 End: 06-13-2023 History of Social function [facility] Work Phone: How often to you hav e a drink containing alcohol? 2-4 times a month [facility] Work Phone: How many standard drinks containing alcohol do you have on a typical day? 1 or 2 [facility] Work Phone: How often do you hav e 6 or more drinks on 1 occasion? Never [facility] Work Phone: PHQ2 Score 0 [facility] Start: 04-25-2019 Gender identity Identifies as male gender (finding) [facility] Start: 04-25-2019 Sexual orientation Heterosexual (ana simón) [facility] Medical Equipment Procedure Code Equipment Code Equipment [...] Telephone encounter Note S: Patient spoke with [facility] nurse regarding a lump on his [...] fever Protocols used: Skin Lump or Localized [id number] [facility] 10-30-2023 Miscellaneous Notes S: Patient spoke with [facility] nurse regarding a lump on his [...] fever Protocols used: Skin Lump or Localized [id number] documented in this encounter [facility] 07-26-2023 Miscellaneous Notes Received Cardiac Risk Request from [facility] for upcoming Coloscopy/EGD on 09/05/23. Form placed on Dr. Hahn desk. documented in this encounter [facility] 06-13-2023 Note HNO ID: [id number] Author: Ambrosio Hahn, DO Service: ? Author Type: Physician Type: Progress Notes Filed: 06/13/2023 4:15 PM Note Text: [facility] SECTION OF [facility]IOLOGY [facility] OUTPATIENT VISIT DATE June 13, 2023 PRIMARY CARE PHYSICIAN: Blake LIEBERMAN [place] [id number] HISTORY OF PRESENT ILLNESS: Mr. 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 [facility] 06-13-2023 History of Presen t illness Narrative Images from the original note were not included. [facility] SECTION OF [facility]AL CARDIOLOGY [facility] OUTPATIENT VISIT DATE June 13, 2023 PRIMARY CARE PHYSICIAN: Blake LIEBERMAN RD [place] [id number] HISTORY OF PRESENT ILLNESS: Mr. 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 Ambrosio Hahn DO, FACC, FAC Fishing Floats Assembler, [facility] Ambulatory Cardiology Fishing Floats Assembler, [facility] Cardiac Rehabilitation Fishing Floats Assembler, [facility] Cardiac Rehabilitation Fishing Floats Assembler, [facility] Congestive Heart Failure Clinic Fishing Floats Assembler, [facility] Ambulatory Cardiology Clinical Respiratory Coordinator Profressor of Medicine, [facility] of Medicine - [facility] Staff Jet Handler, Mark Geronimo Department of Cardiovascular Medicine/Heart and Vascular [place], [facility] Please note: This note has been produced using speech recognition software and may contain errors related to that system including keon, punctuation, spelling, words, gender and phrases that may be inappropriate. documented in this encounter [facility] 12-08-2022 Note HNO ID: [id number] Author: Ambrosio Hahn DO Service: ? Author Type: Physician Type: Progress Notes Filed: 12/08/2022 4:24 PM Note Text: [facility] SECTION OF [facility] CARDIOLOG[facility] OUTPATIENT VISIT DATE December 08, 2022 PRIMARY CARE PHYSICIAN: [place] [address] HISTORY OF PRESENT ILLNESS: Mr. 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 [facility] 12-08-2022 History of Presen t illness Narrative Images from the original note were not included. [facility] SECTION OF [facility] OUTPATIENT VISIT DATE December 08, 2022 PRIMARY CARE PHYSICIAN: Blake LIEBERMAN [place] [id number] HISTORY OF PRESENT ILLNESS: Mr. 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 09/06/2020 Dizziness Esophageal [...] Department of Medicine and Division of Cardiology, [facility] Fishing Floats Assemblerconstruction electrician [facility] Fishing Floats Assembler of Congestive Heart Failure Clinic [facility] Cardiology Office Fishing Floats Assembler [facility] Staff Jet Handler, Rush and Christy Geronimo Department of Cardiovascular Medicine/Heart and Vascular [place], [facility] Clinical Respiratory Coordinator Profressor of Medicine, [facility] Please note: This note has been produced using speech recognition software and may contain errors related to that system including keon, punctuation, spelling, words, gender and phrases that may be inappropriate. documented in this encounter [facility] 03-23-2021 Note HNO ID: [id number] Author: Ankur Regan Jr., MD Service: ? 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 10-06-2020 Note HNO ID: [id number] Author: Ankur Regan Jr. Service: ? 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) - Unspecified asthma(493.90) - Unspecified [...] MD Ankur James Jr, Jr, MD 10/06/2020 [facility] 09-13-2020 Note HNO ID: [id number] Author: Aldair Perez (Aprn Crna) Service: ? Author Type: Nurse Research Geneticist Type: Anesthesia Procedure Notes Filed: 09/13/2020 3:27 PM Note Text: ANESTHESIOLOGY PROCEDURE NOTE Airway General Information Patient location during procedure: OR Timeout Performed Pre-procedure: timeout performed Consent Obtained: Yes Patient identity confirmed: arm band Staffing BRACELET FORMER: Aldair Perez (Aprn Crna) Indications and Patient [...] September 13, 2020 TIME: 3:26 PM CSN: [id number] [facility] 09-13-2020 Note HNO ID: [id number] Author: Mario Ramirez MD Service: Urology Author [...] Value 09/13/2020 283 09/12/2020 363 Urinalysis: Specific [place], Ur Date Value Ref Range Status 09/12/2020 [...] PGY-3 September 13, 2020 7:58 AM Pager: [phone] [facility] 09-01-2020 Note HNO ID: [id number] Author: Theresa Jackson (Aprn Cnp) Service: ? [...] stone. Was seen in the ER at [place] on 08/26/20 for c/o flank pain. CT [...] (no units) Date Value 08/26/2020 Negative Specific [place], Ur (no units) Date Value 08/26/2020 1.020 [...] vitals taken f (more content not included)... [facility] 06-15-2020 Note HNO ID: [id number] Author: Nori Treadwell (Aprn Crna) Service: ? Author Type: Nurse Research Geneticist Type: Anesthesia Procedure Notes Filed: 06/15/2020 11:45 AM Note Text: ANESTHESIOLOGY PROCEDURE NOTE Airway General Information Procedure Start Time/Medication Administration: 06/15/2020 11:36 AM Patient location during procedure: OR Timeout Performed Pre-procedure: timeout performed Consent Obtained: Yes Patient identity confirmed: arm band Staffing Anesthesiologist: Antonio March BRACELET FORMER: Noir Treadwell (Aprn Crna) Performed by: anesthesiologist Indications [...] June 15, 2020 TIME: 11:44 AM CSN: [id number] [facility] 06-11-2020 Note HNO ID: [id number] Author: Ave Trammell Service: Anesthesiology Author Type: Nurse Practitioner Type: Progress Notes Filed: 06/11/2020 10:41 AM Note Text: Spoke to Minda, relays draftsperson, at Dr. Carver's office. No cardiac clearance needed for this patient per Dr. Carver. Minda states that Dr. Carver approved the ASA and Plavix instructions which were provided per cardiology. Dr. Carver called the patient directly and discussed these instructions with the patient. Okay to proceed with surgery on 06/15/[address] [facility] 06-10-2020 Note HNO ID: [id number] Author: Rosi Rao (Pa) Service: Anesthesiology Author Type: Physician Respiratory Coordinator Type: Progress Notes Filed: 06/10/2020 2:57 PM Note Text: Medication instructions have been received from analytical chemistry teacher office and forwarded on to Dr. Carver's office for review. Jet Handler office questioning if cardiac clearance is being requested. Spoke with Dr. Carver's office and they will check with Dr Carver to see if clearance is needed. Dr. Carver's office will be back in touch with us regarding clearance and also if patient instructions for anticoagulation are acceptable to Dr. Carver for planned procedure. [facility] 06-10-2020 Note HNO ID: [id number] Author: Rosi Rao (Pa) Service: Anesthesiology Author Type: Physician Respiratory Coordinator Type: Progress Notes Filed: 06/10/2020 9:27 AM Note Text: Written instructions not yet received. Phone message left for LEYDI Gardner at Dr. Bruce's office to re-fax written instructions. Will discuss with Dr. Carver's office when received. Phone number for Dr. Bruce is [phone]. [facility] 06-09-2020 Note HNO ID: [id number] Author: Ave Zhu Service: Anesthesiology Author Type: Nurse Practitioner Type: Progress Notes Filed: 06/09/2020 1:36 PM Note Text: Called the patient's analytical chemistry teacher, Dr. Bruce. Spoke with LEYDI Gardner, in [...] that he can proceed with surgery 06/15/20. [facility] 06-09-2020 Note HNO ID: [id number] Author: Ave Cavanaugh [facility] Service: Anesthesiology Author Type: Nurse Practitioner Type: Progress Notes Filed: 06/09/2020 11:49 AM Note Text: Spoke with Minda at Dr. Carver's office. They did not request cardiac clearance on this patient. Spoke with patient directly. He has not received instructions on his ASA and Plavix. I will call his analytical chemistry teacher, Dr. Bruce, and request written instructions. [facility] documented as of this encounter (statuses as of 12/09/2022) [facility] History of Past illness Narrative* Problem Noted Date Diagnosed Date Resolved Date TIA (transient ischemic attack) 04/10/2019 04/12/2019 documented as of this encounter (statuses as of 06/14/2023) [facility] History of Past illness Narrative* Problem Noted Date Diagnosed Date Resolved Date TIA (transient ischemic attack) 04/10/2019 04/12/2019 documented as of this encounter (statuses as of 07/27/2023) [facility] History of Past illness Narrative* Problem Noted Date Diagnosed Date Resolved Date TIA (transient ischemic attack) 04/10/2019 04/12/2019 documented as of this encounter (statuses as of 10/08/2023) [facility] Diagnosis 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- Primary Essential hypertension Unspecified essential hypertension Mixed hyperlipidemia History of placement of stent in LAD coronary artery Postsurgical percutaneous transluminal coronary angioplasty status S/P right coronary artery (RCA) stent placement Sustained ventricular tachycardia (HCC) Paroxysmal ventricular tachycardia Erectile dysfunction, unspecified erectile dysfunction type [facility] Diagnosis Testicular hypofunction- Primary Other testicular hypofunction Allergic rhinitis, unspecified documented in this encounter [facility]* Diagnosis Other specified abnormal findings of blood chemistry- Primary documented in this encounter [facility]* Diagnosis 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- Primary Essential hypertension Unspecified essential hypertension Mixed hyperlipidemia History of placement of stent in LAD coronary artery Postsurgical percutaneous transluminal coronary angioplasty status S/P right coronary artery (RCA) stent placement Erectile dysfunction, unspecified erectile dysfunction type documented in this encounter [facility] Summary Purpose Family History No Family History [...] To Contact Ambrosio Hahn DO [address] [place] [id number] Referral ID Status Reason Start Date Expiration Date V isits Requested Visits Authorized [id number] Pending Review 1 1 Additional Source Comments (unrecognized sect ion and content) No Status Records FoundNo Status Records FoundNo Status Records FoundNo Status Records FoundNo Status Records FoundNo Status Records FoundNo Status Records Found INFORMATION SOURCE (unrecogn ized section and content) DATE CREATED AUTHOR AUTHOR'S ORGANIZ ATION 02/02/2020 [facility] DATE CREATED AUTHOR AUTHOR'S ORGANIZ ATION 03/24/2021 [facility] DATE CREATED AUTHOR AUTHOR'S ORGANIZ ATION 03/25/2021 [facility] DATE CREATED AUTHOR AUTHOR'S ORGANIZ ATION 01/26/2023 [facility] DATE CREATED AUTHOR AUTHOR'S ORGANIZ ATION 08/05/2023 [facility] DATE CREATED AUTHOR AUTHOR'S ORGANIZ ATION 10/08/2023 [facility] Source Comments (unrecognize d section and content) In the event this informatio n is protected by the Federal Confidentiality of Alcohol and Drug Abuse Patient Records regulations: The Federal rules restrict any use of the information to criminally investigate or prosecute any alcohol or drug abuse patient.[facility] the event this information is protected by the Federal Confidentiality of Alcohol and Drug Abuse Patient Records regulations: The Federal rules restrict any use of the information to criminally investigate or prosecute any alcohol or drug abuse patient.[facility] the event this information is protected by the Federal Confidentiality of Alcohol and Drug Abuse Patient Records regulations: The Federal rules restrict any use of the information to criminally investigate or prosecute any alcohol or drug abuse patient.[facility] the event this information is protected by the Federal Confidentiality of Alcohol and Drug Abuse Patient Records regulations: The Federal rules restrict any use of the information to criminally investigate or prosecute any alcohol or drug abuse patient.[facility] Reason for Visit (unrecogniz ed section and content) Reason Comments Established Patient Follow-Up 6 month fo candicew upEKG completed today Room 1 No current cardiac concerns Reason Comments Forms [facility] Reason Onset Date Comments [place] 10/30/2023 Care Teams (unrecognized sec tion and content) Cable Inspector Relationship Specialty Start Date End Date Blake Garcia DO [address] [place] [phone] PCP - General 01/30/20 Cable Inspector Relationship Specialty Start Date End Date Blake Garcia DO [address] [place] [id number] PCP - General 01/30/20 Cable Inspector Relationship Specialty Start Date End Date Blake Garcia DO [address] [place] [address] PCP - General Family Medicine 04/10/19 Antonio Bruce MD [address] [place] [address] Referring Cardiology 07/16/19 Jayce Rai MD [address] [place], [place] [id number] Primary Staff Physician Cardiology 02/03/20 Cable Inspector Relationship Specialty Start Date End Date Blake Garcia DO [address] [place] [address] PCP - General Family Medicine 04/10/19 Antonio Bruce MD [address] [place] [address] Referring Cardiology 07/16/19 Jayce Rai MD [address] [place], [place] [id number] Primary Staff Physician Cardiology 02/03/20 Cable Inspector Relationship Specialty Start Date End Date Blake Garcia DO [address] [place] [address] PCP - General Family Medicine 04/10/19 Antonio Bruce MD [address] [place] [address] Referring Cardiology 07/16/19 Jayce Rai MD [address] [place] [address] Primary Staff Physician Cardiology 02/03/20 FOR RECORDS [...] BE BASED ON THE PRIMARY CLINICAL RECORDS. [facility] [employer] [facility]. provides no warranty or guarantee of the accuracy or completeness of information in this document.
== END 2023-10-31 17:45 | disposition home or self-care (01) ==
PROVIDERS: Emergency Provider Emergency Medicine; PCP Family Medicine; Visit Provider Emergency Medicine
DX: Z51.89 Encounter for other specified aftercare (principal); E11.9 Type 2 diabetes mellitus without complications; F17.200 Nicotine dependence, unspecified, uncomplicated; Z95.5 Presence of coronary angioplasty implant and graft; Z90.49 Acquired absence of other specified parts of digestive tract; I10 Essential (primary) hypertension; I25.10 Atherosclerotic heart disease of native coronary artery without angina pectoris; E78.5 Hyperlipidemia, unspecified; R58 Hemorrhage, not elsewhere classified
CPT/HCPCS: 99282